=== PATIENT | female | born 1955 | race Caucasian/White ===

== ENCOUNTER → 2016-05-01 | Outpatient (CLI) | payer MEDICARE ==
[~2016-05-01] MED LIST: ASPI81TA85 PO; CALCTAB41 PO; CLIN1CAP5 PO; CLIN1GEL5 EX; DARV100T; MULT1TAB9 PO; VICO5TAB; VITA200010 PO
--- NOTE | 2016-05-04 10:13 | DEXA ---
AP SPINE L1 - L4 0.907 -2.3 -0.4 LT FEMUR TOTAL 0.714 -2.3 -0.9 RT FEMUR TOTAL 0.687 -2.5 -1.1 TOTAL BODY TOTAL L1 0.630 -4.2 -2.2 L1-L2 0.734 -3.6 -1.7 DUAL FEMUR FRAX* ASSESSMENT Risk factors: History of adult fracture, premature menopause 10 year probability of fracture Major osteoporotic fracture 15.8 % Hip fracture 3.4 % COMMENTS: There is low bone density of the spine and hips. Increased density of the spine does not represent a significant change. The decreased density of the left hip does represent a significant change. The decreased density of the right hip does represent a significant change. The density of the spine has decreased 7.8% since the initial exam on 2003. The spine density has increased 1.8% since the most recent exam on 02/12/2014. The density of the left hip has decreased 12.4% since the initial exam on 2003. The density of the left hip has decreased 6.4% since the most recent exam on . The density of the right hip has decreased 15.0% since the initial exam on 06/07. The density of the right hip has decreased 6.5% since the most recent exam on . FOLLOW-UP: Recommendation for the next bone density exam: 2 years. VINH
== END ==
LOC: M WHC 10:11
PROVIDERS: ATTEND Nurse Practitioner Family
DX: M85.80 Other specified disorders of bone density and structure, unspecified site (principal); Z78.0 Asymptomatic menopausal state; Z87.891 Personal history of nicotine dependence

== ENCOUNTER → 2016-05-01 | Outpatient (REF) | payer MEDICARE | LOC: M SFHCWAGY 10:31 | PROVIDERS: ATTEND Nurse Practitioner Family | DX: Z12.4 Encounter for screening for malignant neoplasm of cervix (principal); R87.610 Atypical squamous cells of undetermined significance on cytologic smear of cervix (ASC-US); M85.80 Other specified disorders of bone density and structure, unspecified site; Z78.0 Asymptomatic menopausal state; Z12.12 Encounter for screening for malignant neoplasm of rectum; Z87.891 Personal history of nicotine dependence | CPT/HCPCS: 77080; 82270; 87624; G0101; G0123 ==

== ENCOUNTER → 2016-06-26 | Outpatient (CLI) | payer MEDICARE ==
--- NOTE | 2016-06-26 12:39 | REPMRS ---
Patient History The patient states she had a clinical breast exam in Patient is postmenopausal and has history of cancer in the left breast at age 47. No known family history of cancer. Malignant excisional biopsy of the left breast, 2003. Digital Woman Screen Mammo: June 26, 2016 - Exam #: [id number] Bilateral CC and MLO view(s) were taken. Technologist: Janice Vera, Technologist Prior study comparison: July 17, 2015, bilateral digital mammo screening bilat, performed at [facility]. June 29, 2014, bilateral digital mammo screening bilat, performed at [facility]. June 26, 2013, bilateral digital mammo screening bilat, performed at [facility]. FINDINGS: There are scattered fibroglandular densities. There has been no change in the appearance of the mammogram from the prior studies. There is a needle biopsy marker clip in the left breast. There are stable post treatment changes in the left breast. There is a mild amount of scattered fibroglandular density which is fairly symmetric. There is no interval development of dominant mass, architectural distortion, or clustered microcalcification suggestive of malignancy. ASSESSMENT: BI-RADS/ACR category 2 mammogram. Benign finding(s). Recommendation Routine screening mammogram in 1 year (for women over age 40). This mammogram was interpreted with the aid of an FDA-approved computer-aided dectection system. Electronically Signed By: Emanuel Butler MD 06/26/16 [id number]
== END ==
LOC: M WHC 10:16
PROVIDERS: ATTEND Nurse Practitioner Family
DX: Z12.31 Encounter for screening mammogram for malignant neoplasm of breast (principal)

== ENCOUNTER → 2016-07-23 | Outpatient (CLI) | payer MEDICARE ==
--- NOTE | 2016-07-23 11:20 | REP ---
Clinical: Lung screening. History of cancer. Comparison: 07/19/2015, 09/13/2009 Technique: Axial low-dose noncontrast images from the thoracic inlet to the upper abdomen using lung screening technique. Findings: Moderate diffuse emphysematous changes and bronchiectasis noted along with areas of scarring and fibrosis primarily involving the bilateral apices (right greater than left) as well as the subpleural anterior left upper lobe posterolateral right upper lobe and right lower lobe. There is evidence for prior surgery and right-sided volume loss. While no definite area of acute consolidation, nodule or mass lesion is appreciated, subtle lesion may be obscured by the diffuse chronic findings. Impression: Lung-RADS category 0-C. There is a history of prior malignancy and surgery as well as extensive areas of fibrosis and scarring which severely limit confident evaluation for suspicious nodule/mass. Appropriate future screening should be correlated with user experience lead. Signed by Tyron Maots MD 07/23/2016 11:12 A
== END ==
LOC: M RAD 10:00
PROVIDERS: ATTEND Nurse Practitioner Family
DX: Z12.2 Encounter for screening for malignant neoplasm of respiratory organs (principal); Z87.891 Personal history of nicotine dependence; J44.9 Chronic obstructive pulmonary disease, unspecified

== ENCOUNTER → 2016-12-09 | Outpatient (REF) | payer MEDICARE ==
[~2016-12-09] MED LIST changes: +CLIN150C14 PO; -CLIN1CAP5 PO
[2016-12-09 11:36] LABS: MEAN CORPUSCULAR VOLUME 85.1 fl (80.0-96.0); RED CELL DISTRIBUTION WIDTH 12.8 % (11.5-14.5)
[2016-12-09 12:16] LABS: ALBUMIN 3.6 GM/DL (3.2-5.2); ALBUMIN/GLOBULIN RATIO 1.03 (1.00-1.93); ALKALINE PHOSPHATASE 103 U/L (45-117); ALT/SGPT 13 U/L (12-78); ANION GAP 8 MEQ/L (8-16); AST/SGOT 16 U/L (15-37); BILIRUBIN,TOTAL 0.5 MG/DL (0.2-1.0); BLOOD UREA NITROGEN 8 MG/DL (7-18); CALCIUM LEVEL 8.6 MG/DL (8.8-10.2); CARBON DIOXIDE LEVEL 28 MEQ/L (21-32); CHLORIDE LEVEL 104 MEQ/L (98-107); CREATININE FOR GFR 0.76 MG/DL (0.55-1.02); GLOMERULAR FILTRATION RATE > 60.0 (>45); GLUCOSE, FASTING 85 MG/DL (80-110); POTASSIUM SERUM 4.4 MEQ/L (3.5-5.1); SODIUM LEVEL 140 MEQ/L (136-145); TOTAL PROTEIN 7.1 GM/DL (6.4-8.2)
[2016-12-10 14:13] LABS: SJOGREN'S ANTI SS-A <0.2 AI (0.0-0.9); SJOGREN'S ANTI SS-B <0.2 AI (0.0-0.9)
== END ==
LOC: M SFHCPLAZ 10:16
PROVIDERS: ATTEND Nurse Practitioner Family
DX: M25.50 Pain in unspecified joint (principal); R63.6 Underweight; M85.80 Other specified disorders of bone density and structure, unspecified site; K21.9 Gastro-esophageal reflux disease without esophagitis; Z83.3 Family history of diabetes mellitus; Z79.82 Long term (current) use of aspirin; Z79.899 Other long term (current) drug therapy
CPT/HCPCS: 36415; 80053; 82306; 83036; 84439; 84443; 85027; 85652; 86038; 86431; G0463

== ENCOUNTER → 2016-12-23 | Outpatient (REF) | payer MEDICARE ==
[2016-12-23 16:02] LABS: MAGNESIUM LEVEL 2.2 MG/DL (1.8-2.4)
== END ==
LOC: M SFHCPLAZ 13:58
PROVIDERS: ATTEND Family Medicine
DX: G62.9 Polyneuropathy, unspecified (principal); R76.8 Other specified abnormal immunological findings in serum; R31.9 Hematuria, unspecified
CPT/HCPCS: 81001; 82570; 82607; 83735; 87088; 87186; G0463

== ENCOUNTER → 2016-12-24 | Outpatient (CLI) | payer MEDICARE ==
--- NOTE | 2016-12-24 12:22 | REP ---
LEFT KNEE SERIES: Five views. HISTORY: Polyneuropathy. FINDINGS: Five views of the left knee demonstrate mild diffuse osteopenia. There is some vascular calcification in the proximal calf. Bones, joints, and soft tissues are otherwise unremarkable. IMPRESSION: Diffuse osteopenia. No acute bony abnormality. Signed by Tres Butler MD 12/24/2016 02:38 P
== END ==
LOC: M RAD 10:55
PROVIDERS: ATTEND Family Medicine
DX: G62.9 Polyneuropathy, unspecified (principal); M85.80 Other specified disorders of bone density and structure, unspecified site

== ENCOUNTER → 2017-03-10 | Outpatient (REF) | payer MEDICARE | LOC: M SFHCPLAZ 08:49 | PROVIDERS: ATTEND Nurse Practitioner Family | DX: Z13.220 Encounter for screening for lipoid disorders (principal); Z79.899 Other long term (current) drug therapy ==

== ENCOUNTER → 2017-09-01 | Outpatient (CLI) | payer MEDICARE | LOC: M RAD 15:45 | DX: R91.8 Other nonspecific abnormal finding of lung field (principal); J06.9 Acute upper respiratory infection, unspecified; R07.89 Other chest pain | CPT/HCPCS: 71046 ==

== ENCOUNTER → 2017-09-24 | Outpatient (CLI) | payer MEDICARE | LOC: M RAD 12:11 | DX: J18.1 Lobar pneumonia, unspecified organism (principal); J84.10 Pulmonary fibrosis, unspecified | CPT/HCPCS: 71046 ==

== ENCOUNTER → 2017-09-28 | Outpatient (CLI) | payer MEDICARE | LOC: M WHC 10:50 | DX: Z12.31 Encounter for screening mammogram for malignant neoplasm of breast (principal); Z78.0 Asymptomatic menopausal state; Z85.3 Personal history of malignant neoplasm of breast; Z92.3 Personal history of irradiation; Z92.21 Personal history of antineoplastic chemotherapy | CPT/HCPCS: 77067 ==

== ENCOUNTER → 2017-11-19 | Outpatient (CLI) | payer MEDICARE | LOC: M RAD 11:11 | DX: J98.11 Atelectasis (principal); J84.10 Pulmonary fibrosis, unspecified; J18.1 Lobar pneumonia, unspecified organism | CPT/HCPCS: 71046 ==

== ENCOUNTER → 2017-11-26 | Outpatient (CLI) | payer MEDICARE ==
[2017-11-26 14:04] LABS: BASO % 0.4 % (0.0-1.0); EOS # 0.3 10^3/uL (0.0-0.50); EOS % 3.8 % (0.0-3.0); HEMATOCRIT 33.4 % (36.0-47.0); HEMOGLOBIN 10.6 g/dl (12.0-15.5); IMMATURE GRANULOCYTE % 0.4 % (0-3.0); LYMPH # 1.6 10^3/uL (1.5-4.5); LYMPH % 19.3 % (24.0-44.0); MEAN CORPUSCULAR HEMOGLOBIN 26.8 pg (27.0-33.0); MEAN CORPUSCULAR HGB CONC 31.7 g/dl (32.0-36.5); MEAN CORPUSCULAR VOLUME 84.3 fl (80.0-96.0); MONO # 0.6 10^3/uL (0.0-0.8); MONO % 7.3 % (0.0-5.0); NEUTROPHILS # 5.9 10^3/uL (1.8-7.7); NEUTROPHILS % 68.8 % (36.0-66.0); PLATELET COUNT, AUTOMATED 225 10^3/uL (150-450); RED BLOOD COUNT 3.96 10^6/uL (4.00-5.40); RED CELL DISTRIBUTION WIDTH 13.9 % (11.5-14.5); WHITE BLOOD COUNT 8.5 10^3/uL (4.0-10.0)
[2017-11-26 14:32] LABS: ALBUMIN 2.9 GM/DL (3.2-5.2); ALBUMIN/GLOBULIN RATIO 0.69 (1.00-1.93); ALKALINE PHOSPHATASE 92 U/L (45-117); ALT/SGPT 18 U/L (12-78); ANION GAP 8 MEQ/L (8-16); AST/SGOT 20 U/L (7-37); BILIRUBIN,TOTAL 0.3 MG/DL (0.2-1.0); BLOOD UREA NITROGEN 9 MG/DL (7-18); CALCIUM LEVEL 8.8 MG/DL (8.8-10.2); CARBON DIOXIDE LEVEL 29 MEQ/L (21-32); CHLORIDE LEVEL 105 MEQ/L (98-107); GLOMERULAR FILTRATION RATE > 60.0 (>45); GLUCOSE, FASTING 80 MG/DL (70-100); POTASSIUM SERUM 4.6 MEQ/L (3.5-5.1); SODIUM LEVEL 142 MEQ/L (136-145); TOTAL PROTEIN 7.1 GM/DL (6.4-8.2)
[2017-11-26 14:33] LABS: FREE T4 1.13 NG/DL (0.76-1.46)
[2017-11-26 14:40] LABS: TOTAL 25(OH) VITAMIN D 55.5 NG/ML (30.0-100.0)
== END ==
LOC: M RAD 13:05
DX: R63.6 Underweight (principal); K21.9 Gastro-esophageal reflux disease without esophagitis; Z87.891 Personal history of nicotine dependence; M85.80 Other specified disorders of bone density and structure, unspecified site; Z79.899 Other long term (current) drug therapy
CPT/HCPCS: G0297

== ENCOUNTER → 2017-12-07 | Outpatient (REF) | payer MEDICARE ==
[2017-12-07 17:49] LABS: PLATELET COUNT, AUTOMATED 177 10^3/uL (150-450)
[2017-12-07 18:12] LABS: INR 1.04; PROTHROMBIN TIME 13.7 SECONDS (12.1-14.4)
[2017-12-07 18:13] LABS: PARTIAL THROMBOPLASTIN TIME 33.9 SECONDS (25.4-37.6)
== END ==
LOC: M LAB REF 16:53
DX: Z01.812 Encounter for preprocedural laboratory examination (principal); R91.8 Other nonspecific abnormal finding of lung field; Z79.01 Long term (current) use of anticoagulants
CPT/HCPCS: 85049

== ENCOUNTER → 2017-12-16 | Outpatient (CLI) | payer MEDICARE ==
[~2017-12-16] MED LIST changes: -ASPI81TA85 PO; -CALCTAB41 PO; -CLIN150C14 PO; -CLIN1GEL5 EX; -DARV100T; +LIDOCAINE 1% MDV 20ML VIAL As Ordered; -MULT1TAB9 PO; -VICO5TAB; -VITA200010 PO
== END ==
LOC: M RADPRO 10:48
DX: R91.8 Other nonspecific abnormal finding of lung field (principal); Z79.82 Long term (current) use of aspirin; Z79.899 Other long term (current) drug therapy; Z88.0 Allergy status to penicillin
CPT/HCPCS: 32405

== ENCOUNTER → 2018-03-09 | Outpatient (CLI) | payer MEDICARE ==
[2018-03-09 15:12] LABS: BASO % 0.4 % (0.0-1.0); EOS # 0.3 10^3/uL (0.0-0.50); EOS % 3.8 % (0.0-3.0); HEMATOCRIT 36.9 % (36.0-47.0); HEMOGLOBIN 11.5 g/dl (12.0-15.5); IMMATURE GRANULOCYTE % 0.4 % (0-3.0); LYMPH # 1.7 10^3/uL (1.5-4.5); LYMPH % 22.1 % (24.0-44.0); MEAN CORPUSCULAR HEMOGLOBIN 26.7 pg (27.0-33.0); MEAN CORPUSCULAR HGB CONC 31.2 g/dl (32.0-36.5); MEAN CORPUSCULAR VOLUME 85.8 fl (80.0-96.0); MONO # 0.6 10^3/uL (0.0-0.8); MONO % 7.6 % (0.0-5.0); NEUTROPHILS # 5.2 10^3/uL (1.8-7.7); NEUTROPHILS % 65.7 % (36.0-66.0); PLATELET COUNT, AUTOMATED 200 10^3/uL (150-450); RED CELL DISTRIBUTION WIDTH 13.8 % (11.5-14.5); WHITE BLOOD COUNT 7.9 10^3/uL (4.0-10.0)
[2018-03-09 15:32] LABS: FERRITIN 32 NG/ML (8-252); IRON (FE) 41 UG/DL (50-170); PERCENT SATURATION 12.9 % (13.2-45.0); TOTAL IRON BINDING CAPACITY 319 UG/DL (250-450)
== END ==
LOC: M LAB 13:33
DX: D50.8 Other iron deficiency anemias (principal)
CPT/HCPCS: 83550

== ENCOUNTER → 2018-03-15 | Outpatient (CLI) | payer MEDICARE | LOC: M RAD 11:10 | DX: R91.8 Other nonspecific abnormal finding of lung field (principal); J44.9 Chronic obstructive pulmonary disease, unspecified | CPT/HCPCS: 71250 ==

== ENCOUNTER → 2018-04-13 | Outpatient (CLI) | payer MEDICARE ==
[~2018-04-13] MED LIST changes: +ASPI81TA85 PO; +CALCTAB41 PO; +CLIN150C14 PO; +CLIN1GEL5 EX; +DARV100T; -LIDOCAINE 1% MDV 20ML VIAL As Ordered; +MULT1TAB9 PO; +VICO5TAB; +VITA200010 PO
--- NOTE | 2018-04-13 18:19 | REP ---
PET/CT: History: Abnormal lung field finding. 4 cm right upper lobe cavitary mass. There is a history of prior left breast malignancy, status post radiation therapy and chemotherapy in 2002. The patient also is status post prior right lobectomy for micro abscesses. Comparisons: Comparison CT study of the chest is from March 15, 2018. Comparison PET-CT September 26, 2009. TECHNIQUE: 58 minutes following the intravenous injection of a 8.2 mCi dose of F-18 FDG, three-dimensional PET scintigraphy is acquired from the skull base to the proximal thighs. Triplanar noncontrast CT scanning is acquired through the same anatomic range for attenuation correction, and image registration with scan parameters optimized to minimize radiation exposure to the patient. PET scintigraphy and CT datasets were fused and displayed on a workstation with multiplanar and projection display capability. PET/CT Findings: The periphery of the large right upper lobe cavitary mass lesion is hypermetabolic. The bulk of the margin of this mass ranges from 4.8 to 6.2 in maximum standard uptake value. Along the inferior aspect of the mass there is a nodular area with a somewhat higher metabolism. Maximum standard uptake value along the inferior aspect of this is 8.3. This is the location where the recent CT guided needle biopsy needle was placed. In addition, there is a focus of hypermetabolic uptake in the right lung posteriorly adjacent to the right hilus. This area measures approximately 1.1 cm in diameter. Maximum standard uptake value is 7.6. There is a mediastinal lymph node anterior to the trachea which measures 8 x 17 mm. This has a maximum standard uptake value of 3.2. On today's accompanying CT, caudal to the cavitary lesion, there is a nodular infiltrative pattern in the right lung which appears more prominent than on March 15, 2018. There is patchy metabolic activity within this infiltrative opacity. Maximum standard uptake value ranges up to 2.8. There is nonhypermetabolic activity in the subpleural fibrosis along the anterolateral chest wall on the left in the left upper lobe. This is compatible with postradiation change. No other abnormal intrathoracic hypermetabolic uptake is seen. Head and neck soft tissues are unremarkable. No abnormal skeletal hypermetabolic uptake is observed. In the abdomen and pelvis, there is normal distribution of F-18 fluorodeoxyglucose. No abnormal abdominal or pelvic hypermetabolic activity is seen. IMPRESSION: Hypermetabolic uptake noted in the right hemithorax in and about the cavitary mass as well as in an infiltrative/nodular opacity below the cavitary lesion in the right upper lobe. There is a right perihilar focus of hypermetabolic uptake as well. There is a mediastinal lymph node anterior to the trachea with maximum standard uptake value of 3.2 as well. Electronically Signed by Tres Butler MD 04/13/2018 08:47 P
== END ==
LOC: M PLARAD 07:38
PROVIDERS: ATTEND Internal Medicine Pulmonary Disease
DX: R91.8 Other nonspecific abnormal finding of lung field (principal)
CPT/HCPCS: 78815; A9552

== ENCOUNTER → 2018-04-21 | Outpatient (CLI) | payer MEDICARE ==
[2018-04-21 08:07] LABS: ABG BASE EXCESS 0.5 (-2.0-2.0); ABG HCO3 24.2 MEQ/L (22.0-26.0); ABG O2 SATURATION 97.5 % (95.0-99.0); ABG PARTIAL PRESSURE CO2 35.5 mmHg (35.0-45.0); ABG PARTIAL PRESSURE O2 92.3 mmHg (75.0-100.0); ABG STANDARD HCO3 24.9 MEQ/L (22.0-26.0); ABG TOTAL CO2 25.3 MEQ/L (23.0-31.0); ABG pH (ARTERIAL) 7.451 UNITS (7.350-7.450)
--- NOTE | 2018-04-21 08:25 | PFTRPT ---
Height: 64.00 Inches Weight: 109.00 Lbs BSA: 1.51 Diagnosis: R05 DATE OF PROCEDURE: 04/21/2018 ORDERED BY: Dr. Vasquez Spirometry: Pre and post bronchodilator study of excellent technical quality. Forced vital capacity reduced. FEV1 in proportion. Obstructive index is, therefore, normal. Flow Volume Loop: Expiratory limb of the flow volume loop does suggest some degree of flow rate limitation. No significant bronchodilator response is identified. Lung Volumes: Total lung capacity normal. Residual volume does suggest maybe a degree of air trapping. Diffusing Capacity: Diffusing capacity, although reduced, is appropriate for alveolar volume. Hemoglobin: Hemoglobin acceptable at 12.8. Airway Mechanics: Airway resistance and conductance are normal. IMPRESSION: Nonspecific flow rate limitation. Cannot rule out air trapping. Decrease in the absolute diffusing capacity. Please correlate clinically. MTDD
== END ==
LOC: M CARPUL 07:21
PROVIDERS: ATTEND Internal Medicine Pulmonary Disease
DX: R05 Cough (principal); R91.8 Other nonspecific abnormal finding of lung field

== ENCOUNTER → 2018-04-28 | Outpatient (REF) | payer MEDICARE ==
[~2018-04-28] MED LIST changes: +ACET1TAB55 PO; +ALEN70TA57 PO; +ASPI1TAB PO; +CALC1TAB19 PO; +PROAAER10 INH; +VITA2000 PO; +VITMTA PO
[2018-04-28 15:01] LABS: INR 0.85; PROTHROMBIN TIME 11.7 SECONDS (12.1-14.4)
[2018-04-28 15:02] LABS: PARTIAL THROMBOPLASTIN TIME 36.6 SECONDS (25.4-37.6)
== END ==
LOC: M LAB REF 13:30
PROVIDERS: ATTEND Internal Medicine Pulmonary Disease
DX: Z01.812 Encounter for preprocedural laboratory examination (principal); R91.8 Other nonspecific abnormal finding of lung field

== ENCOUNTER → 2018-05-09 | Outpatient (CLI) | payer MEDICARE ==
[~2018-05-09] MED LIST changes: +LIDOCAINE 1% MDV 20ML VIAL As Ordered ONE
--- NOTE | 2018-05-09 11:11 | REP ---
CHEST X-RAY: Single PA view. HISTORY: Post biopsy assessment. The patient status post CT guided needle biopsy right upper lung zone. FINDINGS: There is no evidence of pneumothorax. Cavitary changes persist with pleural thickening and some nodularity in the right upper lobe region. IMPRESSION: No pneumothorax seen. Electronically Signed by Tres Butler MD 05/09/2018 08:10 P
--- NOTE | 2018-05-09 20:19 | REP ---
CT-GUIDED RIGHT UPPER LOBE LUNG BIOPSY The procedure was performed under the direct supervision of Dr. Butler. The patient has a history of hypermetabolic uptake in the right hemithorax in and about the cavitary mass seen on a previous PET scan dated 04/13/2018. The risks and benefits of the procedure were explained to the patient and informed consent was obtained. The right upper lobe lung mass was localized using CT guidance. The skin was prepped and draped in a sterile fashion. 1% lidocaine was used as a local anesthetic. Using CT guidance a 19/20 gauge coaxial needle biopsy system was inserted and advanced into the mass. Six core biopsy samples were obtained and sent to lab. The patient tolerated the procedure well and there were no immediate complications. After the appropriate amount of monitored convalescence the patient was discharged from the department. Reviewed by ANTHONY Patricia 05/09/2018 05:13 P Electronically Signed by Tres Butler MD 05/09/2018 08:09 P
== END ==
LOC: M RADPRO 08:15
PROVIDERS: ATTEND Internal Medicine Pulmonary Disease
DX: J98.4 Other disorders of lung (principal); Z85.3 Personal history of malignant neoplasm of breast; M81.0 Age-related osteoporosis without current pathological fracture; Z98.890 Other specified postprocedural states; Z87.891 Personal history of nicotine dependence; Z88.0 Allergy status to penicillin; Z79.899 Other long term (current) drug therapy

== ENCOUNTER → 2018-07-11 | Outpatient (CLI) | payer MEDICARE ==
[~2018-07-11] MED LIST changes: -LIDOCAINE 1% MDV 20ML VIAL As Ordered ONE
[2018-07-11 09:49] LABS: HEMATOCRIT 33.9 % (36.0-47.0); HEMOGLOBIN 10.4 g/dl (12.0-15.5); MEAN CORPUSCULAR HEMOGLOBIN 25.2 pg (27.0-33.0); MEAN CORPUSCULAR HGB CONC 30.7 g/dl (32.0-36.5); MEAN CORPUSCULAR VOLUME 82.3 fl (80.0-96.0); PLATELET COUNT, AUTOMATED 290 10^3/uL (150-450); RED BLOOD COUNT 4.12 10^6/uL (4.00-5.40); WHITE BLOOD COUNT 10.6 10^3/uL (4.0-10.0)
[2018-07-11 10:13] LABS: ALT/SGPT 13 U/L (12-78); BILIRUBIN,TOTAL 0.6 MG/DL (0.2-1.0); BLOOD UREA NITROGEN 14 MG/DL (7-18); CALCIUM LEVEL 9.4 MG/DL (8.8-10.2); CARBON DIOXIDE LEVEL 29 MEQ/L (21-32); CHLORIDE LEVEL 98 MEQ/L (98-107); CREATININE FOR GFR 0.82 MG/DL (0.55-1.30); FERRITIN 184 NG/ML (8-252); GLOMERULAR FILTRATION RATE > 60.0 (>45); GLUCOSE, FASTING 108 MG/DL (70-100); POTASSIUM SERUM 4.1 MEQ/L (3.5-5.1); SODIUM LEVEL 134 MEQ/L (136-145); TOTAL PROTEIN 7.3 GM/DL (6.4-8.2)
[2018-07-11 10:21] LABS: TOTAL 25(OH) VITAMIN D 77.3 NG/ML (30.0-100.0)
== END ==
LOC: M LAB 08:32
PROVIDERS: ATTEND Nurse Practitioner Family
DX: D50.8 Other iron deficiency anemias (principal); R63.6 Underweight; M85.80 Other specified disorders of bone density and structure, unspecified site

== ENCOUNTER → 2018-07-19 | Outpatient (CLI) | payer MEDICARE ==
--- NOTE | 2018-07-19 13:47 | REP ---
LUMBAR SPINE, FIVE VIEWS: HISTORY: Left sciatica. There is no acute fracture or subluxation. The L2-3 through L5-S1 intervertebral discs are decreased in height consistent with disc degeneration. There is narrowing of the L4-5 and L5-S1 facet joints. The patient is status post stenting of an abdominal aortic aneurysm. IMPRESSION: Degenerative change as described above. Electronically Signed by Mo Spencer MD 07/19/2018 01:56 P
== END ==
LOC: M RAD 09:44
PROVIDERS: ATTEND Nurse Practitioner Family
DX: M51.37 Other intervertebral disc degeneration, lumbosacral region (principal); Z95.828 Presence of other vascular implants and grafts

== ENCOUNTER → 2018-08-12 | Outpatient (REF) | payer MEDICARE ==
[~2018-08-12] MED LIST changes: -ALEN70TA57 PO; +ALEN70TA74 PO; -ASPI1TAB PO; +ASPI81TA26 PO
[2018-08-12 12:21] LABS: BASO % 0.4 % (0.0-1.0); EOS # 0.2 10^3/uL (0.0-0.50); EOS % 2.5 % (0.0-3.0); HEMATOCRIT 35.5 % (36.0-47.0); HEMOGLOBIN 10.8 g/dl (12.0-15.5); LYMPH # 1.1 10^3/uL (1.5-4.5); LYMPH % 15.7 % (24.0-44.0); MEAN CORPUSCULAR HEMOGLOBIN 25.6 pg (27.0-33.0); MEAN CORPUSCULAR HGB CONC 30.4 g/dl (32.0-36.5); MEAN CORPUSCULAR VOLUME 84.1 fl (80.0-96.0); MONO # 0.6 10^3/uL (0.0-0.8); MONO % 8.7 % (0.0-5.0); NEUTROPHILS # 5.2 10^3/uL (1.8-7.7); NEUTROPHILS % 72.1 % (36.0-66.0); PLATELET COUNT, AUTOMATED 324 10^3/uL (150-450); RED BLOOD COUNT 4.22 10^6/uL (4.00-5.40); WHITE BLOOD COUNT 7.2 10^3/uL (4.0-10.0)
[2018-08-12 12:24] LABS: APPEARANCE, URINE CLEAR (CLEAR); BACTERIA, URINE AUTO 1+ (NEGATIVE); BILIRUBIN, URINE AUTO NEGATIVE (NEGATIVE); BLOOD, URINE BLOOD NEGATIVE (NEGATIVE); COLOR, URINE YELLOW (YELLOW); GLUCOSE, URINE (UA) AUTO NEGATIVE (NEGATIVE); KETONE, URINE AUTO NEGATIVE (NEGATIVE); LEUKOCYTE ESTERASE, URINE AUTO NEGATIVE (NEGATIVE); MUCUS, URINE SMALL (NEGATIVE); NITRITE, URINE AUTO NEGATIVE (NEGATIVE); PROTEIN, URINE AUTO NEGATIVE (NEGATIVE); RBC, URINE AUTO 3 /HPF (0-3); SQUAMOUS EPITHELIAL CELL UR AU 10 /HPF (0-6); UROBILINOGEN, URINE AUTO 0.2 mg/dL (0.0-2.0); WBC, URINE AUTO 1 /HPF (0-3)
[2018-08-12 14:14] LABS: ALBUMIN 3.2 GM/DL (3.2-5.2); ALT/SGPT 19 U/L (12-78); BILIRUBIN,TOTAL 0.3 MG/DL (0.2-1.0); BLOOD UREA NITROGEN 11 MG/DL (7-18); CALCIUM LEVEL 9.3 MG/DL (8.8-10.2); CARBON DIOXIDE LEVEL 29 MEQ/L (21-32); CHLORIDE LEVEL 103 MEQ/L (98-107); CHOLESTEROL LEVEL 207 MG/DL (<200); CHOLESTEROL RISK RATIO 3.696 (<5); CREATININE FOR GFR 0.74 MG/DL (0.55-1.30); GLOMERULAR FILTRATION RATE > 60.0 (>45); GLUCOSE, FASTING 77 MG/DL (70-100); HDL CHOLESTEROL 56 MG/DL (>40); LDL CHOLESTEROL 132 MG/DL (<100); NON-HDL-C 151 MG/DL; POTASSIUM SERUM 4.4 MEQ/L (3.5-5.1); SODIUM LEVEL 139 MEQ/L (136-145); TOTAL PROTEIN 7.1 GM/DL (6.4-8.2); TRIGLYCERIDES LEVEL 94 MG/DL (<150)
[2018-08-12 16:53] LABS: HIV 1&2 SCREEN CENTAUR NEGATIVE (NEGATIVE)
== END ==
LOC: M SFHCPLAZ 08:27
PROVIDERS: ATTEND Family Medicine
DX: D50.8 Other iron deficiency anemias (principal); R63.4 Abnormal weight loss; Z13.220 Encounter for screening for lipoid disorders; J43.2 Centrilobular emphysema
CPT/HCPCS: 36415; 80053; 80061; 81001; 83036; 84443; 85025; 87389; G0463; G0472

== ENCOUNTER → 2018-08-23 | Outpatient (RCR) | payer MEDICARE | LOC: M PT 07-27 11:51 | PROVIDERS: ATTEND Nurse Practitioner Family | DX: M54.5 Low back pain (principal) ==

== ENCOUNTER 2018-09-08 09:40 | Emergency (ER) | payer MEDICARE, MEDICAID ==
[~2018-09-08] VITALS: Ht 162.6 cm; Wt 47.3 kg
[2018-09-08 09:41] VITALS: BP 128/76
== END 2018-09-08 10:48 | disposition home or self-care (01) ==
LOC: M ED 09:40
DX: Z04.89 Encounter for examination and observation for other specified reasons (principal); J44.9 Chronic obstructive pulmonary disease, unspecified; Z79.899 Other long term (current) drug therapy; Z79.82 Long term (current) use of aspirin; Z88.0 Allergy status to penicillin; Z87.891 Personal history of nicotine dependence
CPT/HCPCS: 99283; G0463

== ENCOUNTER 2018-09-21 09:45 | Outpatient (RCR) | payer MEDICARE | END 2018-09-23 | LOC: M PT 09:45 | PROVIDERS: ATTEND Nurse Practitioner Family | DX: M54.5 Low back pain (principal) ==

== ENCOUNTER → 2018-10-26 | Outpatient (CLI) | payer MEDICARE, MEDICAID ==
--- NOTE | 2018-11-03 09:01 | DEXA ---
AP SPINE L1 - L4 0.823 -3.0 -1.5 LT FEMUR TOTAL 0.676 -2.6 -1.5 LT NECK 0.678 -2.6 -1.2 RT FEMUR TOTAL 0.653 -2.8 -1.7 RT NECK 0.696 -2.5 -1.1 TOTAL BODY TOTAL OTHER COMMENTS: There is low bone density of the right hip. There is osteoporosis of the spine. There is osteoporosis of the left hip. The decreased density of the spine does represent a significant change. The decreased density of the left hip does represent a significant change. The decreased density of the right hip does represent a significant change. The density of the spine has decreased 16.4% since the initial exam on 06/07/2003. The spine density has decreased 9.3% since the most recent exam on 05/01/2016. The density of the left hip has decreased 17.1% since the initial exam on 06/07/2003. The density of the left hip has decreased 5.3% since the most recent exam on 05/01/2016. The density of the right hip has decreased 19.2% since the initial exam on 06/07/2003. The density of the right hip has decreased 4.9% since the most recent exam on 05/01/2016. FOLLOW-UP: Recommendation for the next bone density exam: 2 years. VINH
== END ==
LOC: M WHC 13:48
PROVIDERS: ATTEND Nurse Practitioner Family
DX: M81.0 Age-related osteoporosis without current pathological fracture (principal)

== ENCOUNTER → 2018-11-29 | Outpatient (CLI) | payer MEDICARE, MEDICAID ==
[2018-11-29 09:18] LABS: HEMATOCRIT 37.6 % (36.0-47.0); HEMOGLOBIN 11.8 g/dl (12.0-15.5); MEAN CORPUSCULAR HEMOGLOBIN 26.8 pg (27.0-33.0); MEAN CORPUSCULAR HGB CONC 31.4 g/dl (32.0-36.5); MEAN CORPUSCULAR VOLUME 85.3 fl (80.0-96.0); PLATELET COUNT, AUTOMATED 174 10^3/uL (150-450); RED BLOOD COUNT 4.41 10^6/uL (4.00-5.40); WHITE BLOOD COUNT 7.3 10^3/uL (4.0-10.0)
[2018-11-29 09:47] LABS: ALBUMIN 3.2 GM/DL (3.2-5.2); ALT/SGPT 19 U/L (12-78); BILIRUBIN,TOTAL 0.3 MG/DL (0.2-1.0); BLOOD UREA NITROGEN 12 MG/DL (7-18); CALCIUM LEVEL 9.2 MG/DL (8.8-10.2); CARBON DIOXIDE LEVEL 32 MEQ/L (21-32); CHLORIDE LEVEL 103 MEQ/L (98-107); CREATININE FOR GFR 0.86 MG/DL (0.55-1.30); FERRITIN 61 NG/ML (8-252); FREE T4 1.08 NG/DL (0.76-1.46); GLOMERULAR FILTRATION RATE > 60.0 (>45); GLUCOSE, FASTING 89 MG/DL (70-100); POTASSIUM SERUM 4.1 MEQ/L (3.5-5.1); SODIUM LEVEL 140 MEQ/L (136-145); TOTAL PROTEIN 7.1 GM/DL (6.4-8.2)
--- NOTE | 2018-11-30 04:37 | REP ---
Clinical: Lung screening. History smoking. Comparison: 03/15/2018, 11/26/2017 Technique: Axial low-dose noncontrast images from the thoracic inlet to the upper abdomen using lung screening technique. Findings: Bilateral areas of ill-defined consolidation primarily involving the apices and right upper lobe as well as apical right lower lobe segments including an ill irregular cavitary lesion in the right upper lobe appear relatively similar to prior examination. Chronic bronchiectasis with scattered fibrosis and scarring also noted bilaterally. New diffuse reticulonodular infiltrates are identified primarily involving the bilateral upper lobes as well as the lingula and right base. Differential diagnosis includes chronic changes with superimposed acute infiltrate versus malignancy/metastatic disease. Impression: Lung-RADS category 4X-C. Chronic changes related to malignancy and/or granulomas disease with superimposed acute reticulonodular infiltrates. Pulmonary consultation as well as correlation with history is recommended. If necessary, PET-CT as well as tissue sampling should be considered. Electronically Signed by Tyron Matos MD 11/30/2018 04:29 A
== END ==
LOC: M RAD 08:27
PROVIDERS: ATTEND Nurse Practitioner Family
DX: R91.8 Other nonspecific abnormal finding of lung field (principal); Z87.891 Personal history of nicotine dependence
CPT/HCPCS: 36415; 80053; 82728; 84439; 84443; 85027; G0297

== ENCOUNTER → 2019-01-05 | Outpatient (REF) | payer MEDICARE, MEDICAID ==
[2019-01-07 15:06] LABS: HPV HYBRID CAPTURE II Negative (Negative)
== END ==
LOC: M SFHCWAGY 14:19
PROVIDERS: ATTEND Nurse Practitioner Family
DX: Z12.4 Encounter for screening for malignant neoplasm of cervix (principal)
CPT/HCPCS: 87624; G0123

== ENCOUNTER → 2019-01-05 | Outpatient (CLI) | payer MEDICARE, MEDICAID ==
--- NOTE | 2019-01-05 14:45 | REPMRS ---
Patient History The patient states she had a clinical breast exam in 12/2018. No known family history of cancer. Malignant excisional biopsy of the left breast, 2004. Took tamoxifen for 5 years. 3D TOMOSYNTHESIS WAS PERFORMED. Digital Woman Screen Mammo: January 05, 2019 - Exam #: [id number] Bilateral CC and MLO view(s) were taken. Technologist: Dina Ortega, Technologist Prior study comparison: September 28, 2017, digital woman screen mammo performed at [facility]. June 26, 2016, digital woman screen mammo performed at [facility] [employer] [facility]. FINDINGS: The breast tissue is heterogeneously dense. This may lower the sensitivity of mammography. There has been no change in the appearance of the mammogram from the prior studies. There is a moderate amount of residual fibroglandular tissue which is fairly symmetric. There is no interval development of dominant mass, areas of architectural distortion, or clustered microcalcification typical of malignancy. Assessment: BI-RADS/ACR category 1 mammogram. Negative Mammogram. Recommendation Routine screening mammogram in 1 year (for women over age 40). This mammogram was interpreted with the aid of an FDA-approved computer-aided dectection system. Electronically Signed By: Shai Jacobson MD 01/05/19 [id number]
== END ==
LOC: M WHC 13:30
PROVIDERS: ATTEND Nurse Practitioner Family
DX: Z01.419 Encounter for gynecological examination (general) (routine) without abnormal findings (principal); Z12.31 Encounter for screening mammogram for malignant neoplasm of breast; Z85.3 Personal history of malignant neoplasm of breast; Z92.29 Personal history of other drug therapy
CPT/HCPCS: 77063; 77067; 87624; G0123; G0463

== ENCOUNTER → 2019-02-24 | Outpatient (CLI) | payer MEDICARE, MEDICAID ==
[~2019-02-24] MED LIST changes: +GASTROGRAFIN SOLUTION 30ML (Q9963) As Ordered ONE; +ISOVUE-370 76% 100ML VIAL (Q9967) As Ordered ONE
--- NOTE | 2019-02-24 14:36 | REP ---
Clinical: Abdominal left lower quadrant pain. Technique: Axial contrast enhanced images from the lung bases to the pubic symphysis using oral (per protocol) and 100 ml Isovue 370 intravenous contrast material with precontrast and delayed images of the abdomen as well as coronal and sagittal re-formations. Findings: Lung bases demonstrate emphysematous disease and scattered scarring. Liver, spleen, pancreas, gallbladder, bilateral adrenal glands and kidneys are normal. The enteric system suggests fecal stasis and possible constipation without obstruction or acute inflammatory process. Pelvis demonstrates normal bladder and age-appropriate uterus/adnexa. No ascites. No free air. No adenopathy. Atherosclerotic changes to the aorta noted with infrarenal aortic stent. No aneurysm or dissection. Musculoskeletal structures demonstrate age-related changes without focal abnormality. Impression: Fecal stasis and possible constipation. No acute abdominopelvic pathology appreciated. Electronically Signed by Tyron Matos MD 02/24/2019 02:27 P
== END ==
LOC: M RAD 12:29
PROVIDERS: ATTEND Nurse Practitioner Family
DX: K59.8 Other specified functional intestinal disorders (principal); R10.32 Left lower quadrant pain
CPT/HCPCS: 74178; G0463; Q9963; Q9967

== ENCOUNTER → 2019-02-28 | Outpatient (CLI) | payer MEDICARE, MEDICAID ==
[~2019-02-28] MED LIST changes: -GASTROGRAFIN SOLUTION 30ML (Q9963) As Ordered ONE; -ISOVUE-370 76% 100ML VIAL (Q9967) As Ordered ONE
--- NOTE | 2019-03-01 07:33 | REP ---
Clinical: Follow-up pulmonary nodule. Comparison: 11/29/2018. Technique: Axial noncontrast images from the thoracic inlet to the upper abdomen with coronal and sagittal re-formations. Findings: Significant chronic-appearing changes related to prior malignancy and granulomatous disease (right greater than left) are again noted. Recent prior examination demonstrated increased areas of reticular nodular and tree in bud infiltrates which appear to have subsequently resolved/improved. No obvious new process is appreciated. No effusion. No obvious adenopathy. Calcified lymph nodes and postsurgical changes are appreciated. Musculoskeletal structures are intact without focal osseous abnormality. Impression: Ill-defined areas of opacity including cavitary lesions with surrounding areas of consolidation/mass and scattered reticulonodular infiltrates are similar to multiple prior examinations. Recently identified increased tree in bud and reticulonodular infiltrates have improved / resolved and likely represented subsequent superimposed pneumonitis. Given the patient's findings and history, 6-month follow-up examination may be warranted. Electronically Signed by Tyron Matos MD 03/01/2019 07:24 A
== END ==
LOC: M RAD 08:52
PROVIDERS: ATTEND Internal Medicine Pulmonary Disease
DX: R91.8 Other nonspecific abnormal finding of lung field (principal)

== ENCOUNTER → 2019-03-18 | Outpatient (CLI) | payer MEDICARE, MEDICAID ==
--- NOTE | 2019-03-21 19:14 | SLEEPCENT ---
DATE OF PROCEDURE: 03/18/2019 REFERRING PHYSICIAN: BRAYDON Pineda INTERPRETATION Nocturnal polysomnography was performed for evaluation of sleep apnea syndrome symptoms consisting of excessive daytime sleepiness, insomnia, snoring, morning headaches, nonrestorative sleep. A total of 8 hours and 30 minutes of data was reviewed with 431 minutes of sleep identified. Sleep latency was 11 minutes. REM latency was 134.5 minutes. All stages of sleep were observed. Sleep efficiency was 86.5%. EKG showed normal sinus rhythm with an average heart rate of 56 beats per minute. No epileptiform discharge observed. There were nine respiratory events identified of 10 seconds in duration or longer for an AHI of 1.3. The events were predominantly obstructive hypopnea/apneas. Respiratory event related arousal (RERA) index was 0, giving a total respiratory disturbance index (RDI) of 1.3. Mean oxygen saturation for the study was 95% with a minimum recorded value of 90%. Arousal index was 6. Periodic limb movement index was 9.5. IMPRESSION: 1. Snoring, minimal, with no evidence of significant sleep disordered breathing. 2. Periodic limb movements, mild. RECOMMENDATIONS Recommend consideration given to other possible causes for her symptoms including but not limited to, narcolepsy, sleep insufficiency, medications, or other. VINH
== END ==
LOC: M SLEEP 20:00
PROVIDERS: ATTEND Internal Medicine Pulmonary Disease
DX: G47.61 Periodic limb movement disorder (principal); R06.83 Snoring

== ENCOUNTER → 2019-03-30 | Outpatient (REF) | payer MEDICARE, MEDICAID ==
[2019-03-30 12:23] LABS: HEMATOCRIT 37.3 % (36.0-47.0); HEMOGLOBIN 11.4 g/dl (12.0-15.5); MEAN CORPUSCULAR HEMOGLOBIN 26.9 pg (27.0-33.0); MEAN CORPUSCULAR HGB CONC 30.6 g/dl (32.0-36.5); PLATELET COUNT, AUTOMATED 159 10^3/uL (150-450); RED BLOOD COUNT 4.24 10^6/uL (4.00-5.40)
[2019-03-30 12:46] LABS: BLOOD UREA NITROGEN 18 MG/DL (7-18); CALCIUM LEVEL 9.2 MG/DL (8.8-10.2); CARBON DIOXIDE LEVEL 29 MEQ/L (21-32); CHLORIDE LEVEL 104 MEQ/L (98-107); CREATININE FOR GFR 0.84 MG/DL (0.55-1.30); FERRITIN 44 NG/ML (8-252); GLOMERULAR FILTRATION RATE > 60.0 (>45); GLUCOSE, FASTING 88 MG/DL (70-100); POTASSIUM SERUM 4.5 MEQ/L (3.5-5.1); SODIUM LEVEL 140 MEQ/L (136-145); TOTAL 25(OH) VITAMIN D 80.1 NG/ML (30.0-100.0)
== END ==
LOC: M SFHCPLAZ 09:31
PROVIDERS: ATTEND Nurse Practitioner Family
DX: G25.81 Restless legs syndrome (principal); M81.0 Age-related osteoporosis without current pathological fracture

== ENCOUNTER 2019-05-24 15:37 | Emergency (ER) | payer MEDICARE, MEDICAID ==
[~2019-05-24] VITALS: Ht 162.6 cm; Wt 44.9 kg
[2019-05-24] MEDS ORDERED: OMEP-221 (16:07)
[2019-05-24] MEDS ORDERED: ROPI0.5T (16:07)
[2019-05-24 16:08] LABS: BASO % 0.4 % (0.0-1.0); EOS # 0.3 10^3/uL (0.0-0.5); HEMATOCRIT 38.4 % (36.0-47.0); HEMOGLOBIN 11.8 g/dl (12.0-15.5); LYMPH # 1.8 10^3/uL (1.5-5.0); LYMPH % 21.6 % (24.0-44.0); MEAN CORPUSCULAR HEMOGLOBIN 26.6 pg (27.0-33.0); MEAN CORPUSCULAR HGB CONC 30.7 g/dl (32.0-36.5); MEAN CORPUSCULAR VOLUME 86.7 fl (80.0-96.0); MONO # 0.7 10^3/uL (0.0-0.8); MONO % 8.6 % (0.0-5.0); NEUTROPHILS # 5.4 10^3/uL (1.5-8.5); PLATELET COUNT, AUTOMATED 231 10^3/uL (150-450); RED BLOOD COUNT 4.43 10^6/uL (4.00-5.40); WHITE BLOOD COUNT 8.2 10^3/uL (4.0-10.0)
[2019-05-24] MEDS ORDERED: ACETAMINOPHEN TAB 650MG DOSE (2X325MG) PO ONE (16:30)
--- NOTE | 2019-05-24 16:37 | REP ---
CHEST, SINGLE VIEW: Single view of the chest is performed and compared to prior study of 05/09/2018. Chronic pleural and parenchymal opacities on the right are heavier in the upper hemithorax and appear similar to prior study. There is chronic blunting of the right costophrenic angle. Stable right apical pleural thickening is present. There are pleural and parenchymal changes in the left apex which are also stable. No new infiltrate is seen. Heart is not enlarged. Mediastinal silhouette is unchanged with mild calcification of the thoracic aorta. There is deviation of the trachea to the right. IMPRESSION: Chronic pleural and parenchymal densities, right greater than left. No acute infiltrate. Electronically Signed by Shai Jacobson MD 05/25/2019 07:58 P
[2019-05-24 16:41] LABS: BLOOD UREA NITROGEN 13 MG/DL (7-18); CARBON DIOXIDE LEVEL 32 MEQ/L (21-32); CHLORIDE LEVEL 100 MEQ/L (98-107); CK-MB VALUE MASS < 1.0 NG/ML (<3.6); CPK CREATINE PHOSPHOKINASE 54 U/L (26-192); CREATININE FOR GFR 0.79 MG/DL (0.55-1.30); GLOMERULAR FILTRATION RATE > 60.0 (>45); GLUCOSE, FASTING 91 MG/DL (70-100); MB/CK RELATIVE INDEX 1.85 (< OR =4); POTASSIUM SERUM 3.6 MEQ/L (3.5-5.1); SODIUM LEVEL 137 MEQ/L (136-145); TROPONIN I < 0.02 NG/ML (< 0.10)
[2019-05-24 17:34] LABS: INFLUENZA A AMPLIFICATION NEGATIVE (NEGATIVE); INFLUENZA B AMPLIFICATION NEGATIVE (NEGATIVE)
[2019-05-24 18:30] VITALS: BP 95/55
--- NOTE | 2019-05-26 13:02 | ECGEPIP ---
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
== END 2019-05-24 18:09 | disposition home or self-care (01) ==
LOC: M ED 15:37
DX: B34.9 Viral infection, unspecified (principal); M79.10 Myalgia, unspecified site; R05 Cough; M62.81 Muscle weakness (generalized); M54.5 Low back pain; J44.9 Chronic obstructive pulmonary disease, unspecified; G25.81 Restless legs syndrome; Z87.891 Personal history of nicotine dependence; Z82.49 Family history of ischemic heart disease and other diseases of the circulatory system; Z79.82 Long term (current) use of aspirin; Z79.899 Other long term (current) drug therapy; Z88.0 Allergy status to penicillin

== ENCOUNTER 2019-07-12 16:29 | Inpatient (IN) | payer MEDICARE, MEDICAID ==
[~2019-07-12] VITALS: Ht 160 cm; Wt 42.8 kg
[~2019-07-12 16:29] MED LIST changes: -ROPI1TAB3 PO; -VITAD1000T PO
[2019-07-12] MEDS ORDERED: methylPREDNISolone INJ 125 MG/2 ML VIAL (J2930) IV ONE (17:00)
[2019-07-12] MEDS ORDERED: COMBIVENT RESPIMAT 100-20MCG INHALER 4GM INH ONE (17:00)
--- NOTE | 2019-07-12 17:05 | REP ---
Portable chest x-ray: Single view. History: Dyspnea and cough. Comparison chest x-ray May 24, 2019 and a chest x-ray from earlier today. Findings: There is a infiltrate in the left perihilar region and another in the right base laterally consistent with left upper lobe and right middle lobe pneumonia. Chronically increased pleuroparenchymal markings are seen in the right apex. Infiltrate in the right base is more pronounced than on the film done at 10:39 a.m. on this date. Electronically Signed by Tres Butler MD 07/12/2019 04:56 P
[2019-07-12] MEDS ORDERED: cefTRIAXone SOD 2 GM in D5W MINI-BAG PLUS 50 ML IV ONE (17:15)
[2019-07-12 17:19] LABS: VENOUS BASE EXCESS 3.5 (-2.0-2.0); VENOUS HCO3 29.7 MEQ/L (23.0-27.0); VENOUS PARTIAL PRESSURE CO2 53.3 mmHg (38.0-50.0); VENOUS PARTIAL PRESSURE O2 31.7 mmHg (30.0-50.0); VENOUS PH 7.364 UNITS (7.330-7.430); VENOUS STANDARD HCO3 26.9 MEQ/L; VENOUS TOTAL CO2 31.3 MEQ/L (24.0-28.0)
[2019-07-12 17:24] LABS: BASO % 0.2 % (0.0-1.0); EOS # 0.3 10^3/uL (0.0-0.5); EOS % 2.4 % (0.0-3.0); HEMATOCRIT 30.6 % (36.0-47.0); HEMOGLOBIN 9.5 g/dl (12.0-15.5); LYMPH # 1.3 10^3/uL (1.5-5.0); LYMPH % 12.1 % (24.0-44.0); MEAN CORPUSCULAR HEMOGLOBIN 26.1 pg (27.0-33.0); MEAN CORPUSCULAR VOLUME 84.1 fl (80.0-96.0); NEUTROPHILS # 8.1 10^3/uL (1.5-8.5); NEUTROPHILS % 74.5 % (36.0-66.0); PLATELET COUNT, AUTOMATED 307 10^3/uL (150-450); RED BLOOD COUNT 3.64 10^6/uL (4.00-5.40); WHITE BLOOD COUNT 10.9 10^3/uL (4.0-10.0)
--- NOTE | 2019-07-12 17:43 | ECGEPIP ---
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
[2019-07-12 17:49] LABS: ALBUMIN 2.5 GM/DL (3.2-5.2); ALT/SGPT 18 U/L (12-78); BILIRUBIN,DIRECT 0.1 MG/DL (0.0-0.2); BILIRUBIN,TOTAL 0.2 MG/DL (0.2-1.0); BLOOD UREA NITROGEN 13 MG/DL (7-18); CALCIUM LEVEL 8.6 MG/DL (8.8-10.2); CARBON DIOXIDE LEVEL 30 MEQ/L (21-32); CHLORIDE LEVEL 102 MEQ/L (98-107); CK-MB VALUE MASS < 1.0 NG/ML (<3.6); CPK CREATINE PHOSPHOKINASE 32 U/L (26-192); CREATININE FOR GFR 0.69 MG/DL (0.55-1.30); GLOMERULAR FILTRATION RATE > 60.0 (>45); GLUCOSE, FASTING 84 MG/DL (70-100); MB/CK RELATIVE INDEX 3.12 (< OR =4); POTASSIUM SERUM 4.2 MEQ/L (3.5-5.1); SODIUM LEVEL 137 MEQ/L (136-145); TOTAL PROTEIN 6.5 GM/DL (6.4-8.2); TROPONIN I < 0.02 NG/ML (< 0.10)
[2019-07-12] MEDS ORDERED: VITAD1000T PO (18:24)
[2019-07-12] MEDS ORDERED: ROPI1TAB3 PO (18:24)
[2019-07-12] MEDS ORDERED: ALBUTEROL 90 MCG/ACT 8GM HFA INHALER INH PRN (18:45)
[2019-07-12] MEDS ORDERED: NS 1,000 ML IV ONE (18:45)
[2019-07-12] MEDS ORDERED: ISOVUE-370 76% 100ML VIAL (Q9967) As Ordered ONE (18:52)
[2019-07-12] MEDS ORDERED: AZITHROMYCIN INJ 500 MG, VIAL MATE ADAPTER 1 EACH in D5W 250 ML IV ONE (19:00)
--- NOTE | 2019-07-12 19:14 | HPEPDOC ---
[facility] Medical History & Physical Date of Admission Jul 12, 2019 Date of Service: Jul 12, 2019 Primary Care Physician: YAN TO NP Attending Physician: HARLEEN LIU MD History and Physical CHIEF COMPLAINT: Worsening shortness of breath, productive cough HISTORY OF PRESENT ILLNESS: Patient is a 64-year-old female, past medical history significant for emphysema with 2 L O2 NC, osteoporosis, distal aortic atherosclerosis with secondary claudication status post aortic stent, tubular adenoma, GERD, who presents to the emergency department to recommendation of her primary care provider. Patient was seen in her primary's office earlier today. She carries a 2 month history of sinusitis and otitis media, treated with 10 days of Levaquin following failure of doxycycline. Upon presentation to the office today, patient reported improvement in both her sinus and ear pain, though she did report worsening productive cough with green/yellow sputum, fatigue, body aches with increasing shortness of breath and chills. Patient did have a temperature as high as 101.2F. Patient does not have any exposures to sick contacts. No history of recent travel Upon presentation to the emergency department, patient was found to have temperature 97.8, pulse of 79, respiratory rate of 24, blood pressure of 141/81 (101). Patient was maintaining a saturation 100% with 2 L via NC. CBC was significant for a mild leukocytosis of 10.9. H/H of 9.5/30.6. Folliculitis were unremarkable. BUN/CR of 13/0.69. Lactic negative. Negative cardiac markers. At her PCPs office, patient did have a respiratory panel performed which was negative, with reflex COVID-19 testing. Chest x-ray significant for bilateral pneumonia in both the right middle and left upper lobe. Given that the patient has failed outpatient antibiotic therapy, in the setting of increased shortness of breath and bilateral pneumonia, patient be admitted to the hospital for IV antibiotic treatment. PAST MEDICAL HISTORY: Emphysema and scarring, FEV1 of 1.9 Osteoporosis Breast cancer, S/P left-sided lumpectomy with chemotherapy and radiation Allergic rhinitis Distal aortic atherosclerosis with accompanying claudication, S/P aortic stent graft placement in 2011 Tubular adenoma, 2007 Abscess of the lung GERD Restless leg Hearing loss, perforation and repair of left TM. Right upper lobe lung mass, biopsy negative for malignancy 2. Repeat CT screening in 2019 PAST SURGICAL HISTORY: Left breast lumpectomy, 2013 Appendectomy 2 Tubal ligation Lung biopsy Right lung mass, benign status post biopsy Colonoscopy with tubular adenoma polyp resection Tonsillectomy Distal aortic atherosclerosis with claudication, status post aortic stent graft placement 2012 Left TM repair, 2015 Right ossicular chain reconstruction, 2016 SOCIAL HISTORY: Marital status: Resides in: Alone home with and grandchild Children: One son and one daughter Employment: Unemployed Tobacco use: Former smoker, quit greater than 10 years ago. 1.5 pack per day 44 years ETOH: Denies any alcohol use Illicit drug use: Denies any illicit drug use including IV drug use or marijuana Other relevant social factors: Patient does utilize glasses, hearing aides and top and bottom dentures FAMILY HISTORY: Father: , 73 years old, cancer, lung disease, diabetes, CAD, OR, CABG and 50s Mother: , 65 years, OR, hypertension Siblings: Sr., , 45 years old, lung cancer Children: One son and one daughter who are healthy ALLERGIES: Penicillins, rash REVIEW OF SYSTEMS: CONSTITUTIONAL: Patient reports a history of fevers, chills and fatigue but decreased appetite. Denies any significant changes in weight HEENT: Reports a resolving sinus headache and eye pain. No changes to her vision, nasal congestion or rhinorrhea, no difficulty swallowing or sore throat CARDIOVASCULAR: Reports anterior chest pain, increased with coughing. Denies any palpitations or inappropriate tachycardia, no lower extremity swelling RESPIRATORY: Reports chronic cough with acute worsening and productive green/yellow sputum of 2 weeks' duration. Patient does carry diagnosis of emphysema and utilizes 2 L of oxygen via nasal cannula GASTROINTESTINAL: Denies any reflux abdominal pain and vomiting. She does have baseline constipation without diarrhea. No blood in her stool. GENITOURINARY: No difficulties urinating SKIN: No changes in skin, no recent rashes or unexplained skin lesions or bruising MUSCULOSKELETAL: Reports persistent chest pain, worse when coughing. Denies any joint or specific muscle complaints NEUROLOGICAL: Reports baseline numbness and tingling in her hands bilaterally, no noted focal weakness, HOME MEDICATIONS: Please see below. PHYSICAL EXAMINATION: VITAL SIGNS: Temperature 97.8, pulse 74, respiratory rate 24, blood pressure 94/62 (73), pulse oximetry 100% on 2 L nasal cannula GENERAL APPEARANCE: Patient is interviewed and examined in the emergency department. Currently under isolation droplet precautions. She was found to be r esting in bed comfortably using her phone. She does not appear to be in any acute distress. Cachectic and older than stated age in appearance. HEENT: Normocephalic, atraumatic, EOMI, PERRLA, extremities are moist. Patient is a edentulous with dentures in both top and bottom. Posterior pharynx is non erythematous. No tonsillar swelling or exudates. No JVD, mild anterior chain cervical lymphadenopathy. CARDIOVASCULAR: Regular rate and rhythm, normal S1 and S2 no murmurs appreciated. LUNGS: Patient is able to speak in full sentences. Utilizing 2 L of oxygen via nasal cannula with appropriate saturation. Diminished breath sounds, scattered wheezes throughout. No rhonchi or rales. No cough was appreciated during examination ABDOMEN: Soft, nontender, nondistended, bowel sounds present in all 4 quadrants. No organomegaly appreciated MUSCULOSKELETAL: Anterior chest tenderness to palpation at the costochondral junction, left greater than right. EXTREMITIES: Radial and posterior tibial pulses 2+ bilaterally. No lower extremity swelling or edema. No calf tenderness bilaterally. No clubbing. NEUROLOGICAL: Alert and oriented to person place and time. No focal neurologic deficits. No evidence of dysarthria or dysphasia. PSYCHIATRIC: Mood and affect are appropriate given current medical condition. LABORATORY DATA: See below. IMAGING: EKG (07/12/19): Sinus rhythm, nonspecific ST and T wave abnormalities. Chest x-ray (07/12/19): Infiltrate in the left perihilar region and another in the right base laterally consistent with left upper lobe and right middle lobe pneumonia. Chronically increased pleural parenchymal markings are seen in the right apex. Infiltrate on the right base is more pronounced than the film performed at 10:[address] angiogram (07/12/19): No evidence of acute pulmonary emboli. Large right upper lobe cavity lesion with adjacent bronchiectasis and bilateral multifocal ill-defined lung opacities which may represent atypical infectious process, vasculitis or multifocal neoplasm. MICROBIOLOGY: Respiratory panel (07/12/19): Negative, reflex COVID-19 testing Blood cultures (07/12/19): Pending Sputum cultures (07/12/19): To be obtained, AFB ordered ASSESSMENT: Patient is a 64-year-old female past medical history significant for emphysema, breast cancer, osteoporosis, aortic atherosclerosis status post stent and GERD, who presented to the emergency department the behest of her primary care provider. Patient originally presented to her primary's office in 05/31/2019 complaining of headaches and ear pain. Patient was treated started on a 10 day course of doxycycline. Patient presented for follow-up 4 months later on 06/28/2019. At that time, patient continued to experience cough and congestion and left ear pain. She was then started on additional course of Levaquin, 750 mg for 10 days. Today, patient presented reporting improvement in her ear and sinus complaints though she had experienced intermittent fevers and increased shortness of breath with productive cough over the last few days. Chest x-ray was performed and indicated bilateral infiltrates. In the emergency department, patient was found to have a mild leukocytosis. CT imaging does show bilateral consolidation with large right upper lobe cavitation. Patient will be admitted for further evaluation and management. She'll be started on broad- spectrum IV antibiotics, placed in isolation while COVID and AFB testing remains pending. PLAN: #SOB, productive cough with Bilateral consolidations/infiltrates * Patient is failed outpatient treatment with doxycycline and appropriately- dosed levofloxacin. * Suspect B/L bacterial PNA. Will start pt on IV vancomycin until MRSA screen negative. IV meropenem for anaerobic coverage given that patient does carry a penicillin sensitivity. * Chest x-ray and CT angiogram demonstrated bilateral consolidations * Procalcitonin for baseline to assist in de-escalating therapy * Noted cavitary lesions in upper lobes, Sputum culture with AFB * Respiratory PCR negative, COVID-19 testing pending * Isolation/airborne precautions. * Supplemental oxygen via NC to maintain saturations. #Chest pain * Suspect costochondritis or MSK etiology given tenderness to palpation on exam and increased discomfort with cough. * Per outpatient medical record, patient has been complaining of a similar pain/discomfort since her visit on 05/31/19. * No evidence of acute infarction on EKG. Troponins negative. We'll continue to trend. * Tylenol for pain #Emphysema * Albuterol nebulizers every 4 hours. #GERD * c/w home omeprazole * TUMs PRN #Restless leg * c/w home ropinirole #Vitamin D deficiency * c/w home supplementation DVT PROPHYLAXIS: TEDs and Sequentials DISPOSITION: Anticipate >2 midnights. Attending Addendum: I discussed the care/management of this patient with Dr. Muniz in detail and agree with the plan above. Vital Signs Vital Signs Date Time Temp Pulse Resp B/P (MAP) Pulse Ox O2 Delivery O2 Flow Rate FiO2 07/12/19 18:45 74 92/54 (67) 99 Nasal Cannula 2.0 07/12/19 16:33 97.8 24 Laboratory Data Labs 24H Laboratory Tests 2 07/12/19 17:12: Immature Granulocyte % (Auto) 1.8, Neutrophils (%) (Auto) 74.5H, Lymphocytes (%) (Auto) 12.1L, Monocytes (%) (Auto) 9.0H, Eosinophils (%) (Auto) 2.4, Basophils (%) (Auto) 0.2, Neutrophils # (Auto) 8.1, Lymphocytes # (Auto) 1.3L, Monocytes # (Auto) 1.0H, Eosinophils # (Auto) 0.3, Basophils # (Auto) 0.0, Nucleated Red Blood Cells % (auto) 0.0, Blood Gas Bicarbonate Standard 26.9, Venous Blood pH 7.364, Venous Blood Partial Pressure CO2 53.3H, Venous Blood Partial Pressure O2 31.7, Venous Blood Total Carbon Dioxide 31.3H, Venous Blood HCO3 29.7H, Venous Blood Oxygen Saturation 56.0L, Venous Blood Base Excess 3.5H, Anion Gap 5L, Glomerular Filtration Rate > 60.0, Lactic Acid Level 0.7, Calcium Level 8.6L, Total Bilirubin 0.2, Direct Bilirubin 0.1, Aspartate Amino Transf (AST/SGOT) 19, Alanine Aminotransferase (ALT/SGPT) 18, Alkaline Phosphatase 70, Total Creatine Kinase 32, Creatine Kinase MB < 1.0, Creatine Kinase MB Relative Index 3.12, Troponin I < 0.02, Total Protein 6.5, Albumin 2.5L, Albumin/Globulin Ratio 0.63L CBC/BMP Laboratory Tests 07/12/19 17:12 Microbiology Microbiology 07/12/19 Blood Culture, Received Pending 07/12/19 Blood Culture, Received Pending Home Medications Scheduled Alendronate Sodium (Alendronate Sodium) 70 Mg Tab, 70 MG PO QWEEK Wednesday Aspirin (Aspirin EC) 81 Mg Tab, 81 MG PO QHS Calcium Carbonate/Vitamin D3 (Calcium 600-Vit D3 800 Tablet) 1 Tab Tab, 1 TAB PO QHS Cholecalciferol (Vitamin D3) (Vitamin D3) 1,000 Unit Tablet, 1,000 UNITS PO QHS Ferrous Gluconate (Ferrous Gluconate) 324 Mg Tablet, 1 TAB PO DAILY for iron Moxifloxacin HCl (Moxifloxacin HCl) 400 Mg Tablet, 400 MG PO DAILY@1800 Multivitamins (Thera M Plus Tablet) 1 Tab Tab, 1 TAB PO QHS Omeprazole (Omeprazole) 40 Mg Capsule.dr, 40 MG PO QHS Ropinirole HCl (Ropinirole HCl) 1 Mg Tablet, 1 MG PO QHS Scheduled PRN Acetaminophen (Acetaminophen) 325 Mg Tab, 650 MG PO Q4H PRN for PAIN / FEVER Albuterol Sulfate (Proair Hfa) 108 Mcg/Act Aer, 2 PUFF INH Q4H PRN for SHORTNESS OF BREATH Allergies Coded Allergies: Penicillins (Verified Allergy, Mild, rash, 05/24/19) A-FIB/CHADSVASC A-FIB History Current/History of A-Fib/PAF?: DAYAMI George DO Jul 12, 2019 19:13 HARLEEN LIU MD Jul 19, 2019 21:47
[2019-07-12] MEDS: IPRATROPIUM 0.5MG/ALBUTEROL 2.5MG INH SOL UD 3ML (DUONEB)(J7620) NEB SCH (20:00)
--- NOTE | 2019-07-12 20:07 | REPVR ---
PROCEDURE INFORMATION: Exam: CT Angiography Chest With Contrast Exam date and time: 07/12/2019 7:14 PM Age: 64 years old Clinical indication: Shortness of breath; Additional info: SOB R/O pe. History of cavitary lung lesions TECHNIQUE: Imaging protocol: Computed tomographic angiography of the chest with intravenous contrast. 3D rendering: MIP and/or 3D reconstructed images were created by the technologist. Radiation optimization: All CT scans at this facility use at least one of these dose optimization techniques: automated exposure control; mA and/or kV adjustment per patient size (includes targeted exams where dose is matched to clinical indication); or iterative reconstruction. Contrast material: ISOVUE 370; Contrast volume: 100 ml; Contrast route: IV COMPARISON: CT ANGIO CHEST 07/19/2015 2:38 PM FINDINGS: No focal pulmonary artery filling defect to suggest acute pulmonary embolus. Thoracic aorta is tortuous without focal aneurysm or dissection. Small, nonspecific mediastinal nodes are present. No pleural effusion or pneumothorax. Pulmonary vascular/interstitial pattern does not suggest active pulmonary edema. Right hemithorax volume loss with mediastinal shift to the right. Progressive bilateral apical pleural thickening. Cavitary lesion in the right lung apex measuring 5 by 3.5 cm cross-sectional by 8 cm craniocaudal with adjacent bronchiectasis. Reticulonodular infiltrates in the lungs bilaterally and multiple ill-defined lung masses, new since the prior CT. No underlying pulmonary edema. No pneumothorax. Limited visualization of upper abdomen shows no concerning finding. Bony structures show no acute fracture or destructive process. IMPRESSION: No evidence of acute pulmonary embolus. Large right upper lobe cavitary lesion with adjacent bronchiectasis, and bilateral multifocal ill-defined lung opacities which may represent atypical infectious process, vasculitis or multifocal neoplasm. Electronically signed by: Rogelio Kyle On 07/12/2019 20:07:11 PM
[2019-07-12] MEDS ORDERED: FLUID PLACE HOLDER IV SCH (20:30)
[2019-07-12] MEDS ORDERED: VANCOMYCIN HCL IV SCH (20:30)
[2019-07-12 23:49] VITALS: BP 84/53
[2019-07-12] MEDS: ASPIRIN 81 MG ENTERIC TAB PO SCH (23:52)
[2019-07-12] MEDS: VITAMIN D 1,000 INTERNATIONAL UNITS TABLET PO SCH (23:52)
[2019-07-12] MEDS: rOPINIRole 1MG TAB PO SCH (23:52)
[2019-07-12] MEDS: MULTIVITAMINS/MINERALS THERAP 1 TAB PO SCH (23:52)
[2019-07-12] MEDS: OMEPRAZOLE 20 MG CAP PO SCH (23:53)
[2019-07-13] VITALS (10 sets, daily range): BP systolic 80–124; BP diastolic 48–62
[2019-07-13] MEDS ORDERED: VANCOMYCIN HCL 1,000 MG, VIAL MATE ADAPTER 1 EACH in D5W 250 ML IV ONE ×3
[2019-07-13] MEDS ORDERED: MEROPENEM INJ 1 GM in IV 1 EA IV ONE ×2
[2019-07-13 00:16] LABS: CK-MB VALUE MASS < 1.0 NG/ML (<3.6); CPK CREATINE PHOSPHOKINASE 41 U/L (26-192); MB/CK RELATIVE INDEX 2.44 (< OR =4); TROPONIN I < 0.02 NG/ML (< 0.10)
[2019-07-13] MEDS ORDERED: NS 500 ML IV ONE (01:15)
[2019-07-13] MEDS ORDERED: NS 1,000 ML IV ONE ×3 (03:30→10:00)
--- NOTE | 2019-07-13 04:50 | PHACANCOPD ---
PHARMACY VANCOMYCIN DOSING Pt Demographics Demographics Patient Age:64 , Weight:42.270 , Gender: female Adjusted Body Weight Date: 07/13/19, Adjusted Body Weight: [42.27] Kg(ACTUAL WT) Events Past 24 Hours Events Past 24 Hours: YES: Pending Diagnostics Vancomycin Vancomycin indication: RESP.INFECTION Vancomycin Target Ranges: 15-20 mcg/ml Vancomycin Load Y/N: Yes Load Dose Date Time Vancomycin Load Dose: 1GM Date: 07/12 Time:00:30 Vancomycin Dose Date: 07/13/19. Current Vancomycin Dose: [750MG Q12H] Intermittent Dosing?: No Labs Micro Microbiology 07/13/19 Gram Stain, Received Pending 07/13/19 Sputum Culture, Received Pending 07/13/19 Coronavirus COVID-19 PCR ([place]), Received Pending 07/13/19 Respiratory Virus Panel (PCR) ([place]) - Final, Complete 07/12/19 Blood Culture, Received Pending 07/12/19 Blood Culture, Received Pending Creatinine Clearance Date:07/13/19. Creatinine Clearance: . Assessment and Plan Maintaining Current Dose?: Yes Reason for dose change: No Dose Change Pharmacist Note Pharmacist Note Date: 07/13/19. Pharmacist note:64 YOF 42.27 KG 63",SCR=0.69,CRCL~40,MRSA PCR,COVID-19 PENDING.ALLERGY:PENICILLIN PATIENT FAILED TO IMPROVE ON PREVIOUS OUTPATIENT REGIMENS OF DOXYCYCLINE ,PREDNISONE AND ,MORE RECENTLY,10 DAYS OF LEVOFLOXACIN.THERAPY INCLUDES MEROPENEM 1GM [id number],AND PHARMACY DOSED VANCOMYCIN.LOADING DOSE OF 1 GRAM (PT WT=42.27KG) WAS ADMINISTERED 07/12 00:30,THEN 750MG g52MIPU REGIMEN IS TO BEGIN THIS MORNING@10:00. fIRST VANCO.TROUGH IS SCHEDULED ON 07/13@0900(PRIOR TO THE 4TH DOSE)-WILL CONTINUE TO FOLLOW [facility] Jul 13, 2019 04:50
[2019-07-13] MEDS: MEROPENEM INJ 1 GM in IV 1 EA IV SCH ×4 (06:38→15:58)
[2019-07-13] MEDS ORDERED: cefTRIAXone SOD 2 GM in D5W MINI-BAG PLUS 50 ML IV SCH (09:00)
[2019-07-13 09:22] LABS: BASO % 0.1 % (0.0-1.0); HEMATOCRIT 27.9 % (36.0-47.0); HEMOGLOBIN 8.5 g/dl (12.0-15.5); LYMPH % 6.3 % (24.0-44.0); MEAN CORPUSCULAR HEMOGLOBIN 26.1 pg (27.0-33.0); MEAN CORPUSCULAR HGB CONC 30.5 g/dl (32.0-36.5); MEAN CORPUSCULAR VOLUME 85.6 fl (80.0-96.0); MONO # 0.6 10^3/uL (0.0-0.8); NEUTROPHILS # 13.3 10^3/uL (1.5-8.5); NEUTROPHILS % 88.1 % (36.0-66.0); PLATELET COUNT, AUTOMATED 305 10^3/uL (150-450); RED BLOOD COUNT 3.26 10^6/uL (4.00-5.40); WHITE BLOOD COUNT 15.1 10^3/uL (4.0-10.0)
[2019-07-13 09:55] LABS: ALBUMIN 2.1 GM/DL (3.2-5.2); ALT/SGPT 14 U/L (12-78); BILIRUBIN,TOTAL 0.1 MG/DL (0.2-1.0); BLOOD UREA NITROGEN 12 MG/DL (7-18); C REACTIVE PROTEIN QUANTITATIV 3.47 MG/DL (0.00-0.30); CALCIUM LEVEL 8.3 MG/DL (8.8-10.2); CARBON DIOXIDE LEVEL 26 MEQ/L (21-32); CHLORIDE LEVEL 109 MEQ/L (98-107); CREATININE FOR GFR 0.59 MG/DL (0.55-1.30); GLOMERULAR FILTRATION RATE > 60.0 (>45); GLUCOSE, FASTING 114 MG/DL (70-100); POTASSIUM SERUM 4.5 MEQ/L (3.5-5.1); SODIUM LEVEL 140 MEQ/L (136-145); TOTAL PROTEIN 5.9 GM/DL (6.4-8.2)
[2019-07-13] MEDS ORDERED: VANCOMYCIN HCL 750 MG, VIAL MATE ADAPTER 1 EACH in D5W 250 ML IV SCH (10:00)
[2019-07-13 10:19] LABS: ERYTHROCYTE SEDIMENTATION RATE 109 mm/hr (0-30)
--- NOTE | 2019-07-13 11:45 | CR ---
DATE OF CONSULTATION: 07/13/2019 REASON FOR CONSULTATION: Abnormal x-ray. HISTORY OF PRESENT ILLNESS: Ms. Lock is a delightfully pleasant 64-year-old female who has a known history of breast cancer, status post chemotherapy and radiation. She also had a right lower lobectomy in 2009 for a right lower lobe mass that turned out to be inflammatory. She is known to have significant emphysema. She had a cavitary lesion noted over a year ago that was biopsied and found to be granulomatous. She was scheduled for Low dose CT scanning here in the last several months. She presents now with increasing cough and shortness of breath. She has had some low-grade fevers at home. Produced some intermittent sputum. She said her appetite has been up and down. No chest pain. No hemoptysis. ALLERGIES: PENICILLINS. MEDICATIONS AT HOME: - alendronate - aspirin - calcium - multivitamins - omeprazole - Requip - She takes albuterol as needed. PAST MEDICAL HISTORY: Significant for: Her breast cancer as outlined above. Underlying emphysema and bronchiectasis. Chronic hypoxemic resp failure oxygen-requiring. Status post right lower lobectomy for microabscesses. Known granulomatous disease with progressive cavitary lesions. Atherosclerotic cerebrovascular disease, status post aortic stent in 2011. Osteoporosis. SURGICALLY, she has had: Lumpectomy. Appendectomy. Right lower lobectomy. CT-guided needle biopsy. Colonoscopy. Tonsillectomy. Aortic stent placement. SOCIAL HISTORY: . Lives at home with family. Quit smoking about 10 years ago. No alcohol. FAMILY HISTORY: Mother of cancer and lung disease with known coronary artery disease. Father with hypertension. One sister with lung cancer. REVIEW OF SYSTEMS: As per history of present illness (HPI). Otherwise: Constitutional: Question for recent fevers. HEENT: Unremarkable for blurry or double vision. Pulmonary: As per HPI. Gastrointestinal (GI): Significant for variability in weight. Cardiac: Unremarkable for any recent angina. Genitourinary (): Unremarkable. Neurological: Unremarkable for seizures or strokes. Endocrine: Unremarkable for diabetes or thyroid disease. Hematological: Unremarkable for any bleeding or dyscrasias. Dermatologic: Unremarkable for any new rashes or psoriasis. Musculoskeletal: Unremarkable for any new arthralgias or myalgias. Allergic and immunological: Unremarkable. Psychiatric: Unremarkable. PHYSICAL EXAMINATION: Currently, is a pleasant elderly female, lying quite comfortably in bed. Blood pressure 87 systolic, heart rate 60, respiratory rate about 20 without accessory muscle use, and she is currently afebrile. Maximum temperature (Tmax) 97.4 since admission. HEENT: Otherwise, generally normocephalic, atraumatic. Pupils do react. Neck appears supple. Trachea is in the midline. Mucous membranes are mildly moist. Airway is class 2. Chest shows her right lower lobectomy scar. She has borderline kyphosis. Diffusely hyperresonant to percussion. Breath sound intensity is markedly diminished. There are some crackles in the left midline zone but no convincing wheeze. Occasional rhonchus clear completely with cough. Cardiac examination: Is borderline bradycardic but regular. Peripheral pulses palpable. No edema. Abdomen: Soft, nontender, with active bowel sounds. No convincing organomegaly or masses. Extremities: Without cyanosis or clubbing. Neurologically, she is awake, alert, and appropriate. Psychiatric: Generally with normal mood and affect. A CT scan compared to priors shows progression of her right upper lobe thick wall cavity. There is no air fluid level. There are two other areas in the right upper lobe that were more nodular in appearance and approximately 1.5-2 cm each, and these have both now gone on to cavitate. In the left upper lobe, there are innumerable small nodules, some of which coalesce which were clearly not evident on her scan from several months ago. MOST RECENT LABORATORIES: Show a white blood cell count of 15.1, hemoglobin 8.5, platelet count of 305,000, 80% segmented neutrophils, and no bands. Sodium 140, potassium of 4.5, chloride 109, CO2 26, BUN 12, creatinine 0.59, glucose of 114. QuantiFERON Gold is pending. MRSA PCR not detected. Other serologies are pending. IMPRESSION: 1. Progressive bilateral nodular abnormalities, some with cavitation. 2. Progressive cavitary lesions, especially right upper lobe. 3. Bronchiectasis. 4. Emphysema. 5. Chronic hypoxic resp failure, oxygen-requiring. 6. Previous tobacco history. 7. History of breast cancer. RECOMMENDATIONS: At this point, we will obtain sputum for acid-fast bacillus (AFB) and fungus. Her QuantiFERON Gold has been sent. Certainly, Mycobacterium avium-intracellulare complex (BRENNEN) is in the differential, as are other granulomatous processes. This presentation would be a little unusual for tuberculosis. Certainly, I do not believe she has the COVID-19 virus. At this point, I do believe isolation is prudent until she has negative AFBs. She is producing sputum, so we should be able to obtain material that way as opposed to bronchoscopy and washes. We await the outcome of the above. Ulcer and deep venous thrombosis (DVT) prophylaxes are in place. Further recommendations will be made in the progress record as new information becomes available. VINH
--- NOTE | 2019-07-13 13:58 | IPN ---
DATE OF SERVICE: 07/13/2019 This morning the patient says that she is not short of breath. She does have a cough productive of white thick yellow sputum at times, but this is chronic. She presented to the ER because of persistent nasal congestion and was found to have bilateral infiltrates on x-ray that was done by Rosio Carvajal, and sent to the ER for further evaluation. She was found to have a cavitating mass. She said that she had previously been seen by Dr. Vasquez and this has been followed as an outpatient. The patient was admitted and placed on broad spectrum antibiotics due to questionable lung cavitary mass. She is being kept in a negative pressure room until three AFBs are negative. QuantiFERON test has been sent. The patient has a history of microabscesses about 10 years ago that was treated and managed by Dr. Filiberto Conner. She has been under the care of family program specialist Dr. Vasquez since. No fever or chills overnight. The patient's blood pressure remains low at 80 systolic, but with mean arterial pressure (MAP) about 70-75. The patient has no other complaints this morning. She is talking comfortably, sitting about 90 degrees at the bedside eating her breakfast. No complaints of dizziness or lightheadedness. No palpitations. CT chest has no pulmonary embolism. Denies any chest pain or pressure. Echocardiogram is pending. No diarrhea, bright red blood per rectum, melena, black tarry stools or hematemesis. Temperature 97.7, pulse 66, respiratory rate 16, blood pressure 91/55, 100% on 2 liters nasal cannula. Generally, patient is awake, alert and oriented to person, place and time. She is answering questions appropriately. She is cachectic appearing with bitemporal wasting. No use of respiratory accessory muscles. Able to speak in full sentences without any conversational dyspnea. There is no jugular venous distention (JVD). No thyromegaly. No cervical lymphadenopathy. She has very dry mucous membranes, poor dentition. Lungs are diminished with a right lower lobectomy scar. She is slightly kyphotic. Crackles are noted bilaterally and some occasional rhonchi. No overt wheezing. Heart exam S1, S2, sinus rhythm with episodes of sinus bradycardia. Abdomen is soft, nontender, nondistended. Positive bowel sounds. Extremities have no cyanosis, clubbing or any pitting edema. LABORATORY DATA: White count 15, hemoglobin 8.5, hematocrit 27, platelet count of 305. Sodium 140, potassium 4.5, chloride 109, bicarb 26, BUN 12, creatinine 0.59, glucose of 114. Lactic acid at 8:05 this morning was 2.3, calcium 8.3, total bilirubin 0.1. Microbiology: Sputum culture is pending. Coronavirus is pending. Respiratory panel is negative. Two sets of blood cultures are negative. CT chest shows no focal pulmonary arterial filling defect to suggest acute pulmonary embolism. Large right upper lobe cavitary lesion with adjacent bronchiectasis and bilateral marked multifocal ill defined lung opacities, which may represent atypical infectious process, vasculitis or a multifocal neoplasm. ASSESSMENT/PLAN: This is a 64-year-old female with history of microabscesses, cavity lesions followed by Dr. Vasquez as an outpatient, had a right lower lobe biopsy negative for malignancy x2 with repeat CT screening this year, history of breast cancer with lumpectomy on the left, chemotherapy and radiation, emphysema with an FEV1 of 1.9 and osteoporosis. ACTIVE ISSUES: 1. Right upper lung cavitary lesion. Patient is currently in a negative pressure room. QuantiFERON test has been sent. Procalcitonin, sed rate and CRP as well as AFB, sputum culture and blood cultures. Patient is broadly covered with vancomycin and meropenem at this time. Methicillin-resistant Staphylococcus aureus (MRSA) is negative. Defer to Dr. Brandt of infectious disease specialist to decide on discontinuation of vancomycin if there is no concern of gram negative infection. Patient is being kept in a negative pressure room. Await results of the cultures. 2. Hypotension. The patient says that she normally runs low with her blood pressure. She currently has received two normal saline IV boluses. Mean arterial pressure (MAP) is maintained at 65-70 at this time. PICC line was attempted today, but unable to be done because of her smaller veins. Surgery has been consulted for central line placement in case the patient needs Levophed drip for septic shock. White count is elevated but thought to be secondary to steroid use that was given yesterday. She does have new infiltrates in the left upper and right middle lobe consistent with new pneumonia. She is being covered with vancomycin and meropenem. Will need to add atypical coverage with doxycycline or azithromycin. Due to risk of C. difficile will add Bacid. Await culture results and further recommendations from our infectious disease specialist. 3. Hypotension due to mean pressure. That is still adequate. No need to transfer to the ICU, however will obtain a 2-dimensional echocardiogram. There is no hypovolemia to cause her hypotension. We are holding any blood pressure medications. She is only on aspirin at this time. 4. Restless leg syndrome. Continue on ropinirole. 5. Reflux. No signs of GI bleeding or weight loss. Continued on Prilosec.
--- NOTE | 2019-07-13 14:17 | REP ---
PORTABLE CHEST X-RAY: SINGLE VIEW. HISTORY: Status post right internal jugular central line. COMPARISON STUDY: July 12, 2019. FINDINGS: A right internal jugular central line is seen inserted with its tip in the expected location of the superior vena cava. There is no evidence of pneumothorax. Apical pleural thickening is noted as on previous study. Calcific densities are seen and there is volume loss and fibrosis in the lung apex as before. Infiltrates are again noted bilaterally. Some clearing on the right. Blunting of the right lateral pleural angle is again noted. IMPRESSION: Right IJ line in place. No complications seen. Electronically Signed by Tres Butler MD 07/13/2019 02:56 P
--- NOTE | 2019-07-13 14:40 | ROOPDOC ---
[facility] Report Of Operation Report of Operation DATE OF PROCEDURE: 07/13/19 PREPROCEDURE DIAGNOSES: Critical illness. POSTPROCEDURE DIAGNOSES: Same. PROCEDURE: Ultrasound-guided insertion of right internal jugular triple-lumen catheter. SURGEON: North Anne MD SALES REPRESENTATIVE DOOR TO DOOR: ANESTHESIA: local anesthesia with 1% lidocaine. ESTIMATED BLOOD LOSS: Approximately 5 mL. COMPLICATIONS: none. REMARKS: right IJ cannulated with 1 stick, visualized under US guidance.. DESCRIPTION OF PROCEDURE: Patient remained in the room and she was positioned in bed in the slight reverse Trendelenburg position with her head tilted towards the left side slightly. We used the central line bundle for the procedure. She was prepped with chlorhexidine on her neck and chest and draped with the sterile drapes including the bundle. We paused for a surgical timeout using both pre-incision safety checklist to verify correct patient, procedure site and additional clinical information prior to beginning the procedure. Under ultrasound guidance, the path of the right internal jugular vein was located and the skin overlying this was infiltrated with 1% lidocaine. The IJ was cannulated under ultrasound guidance on the first try. A guidewire was then inserted through the needle and using modified Seldinger technique, exchanged for a triple-lumen catheter placed at 20 cm at the skin line. All 3 ports were flushed and aspirated and noted to be working well. This was secured to the skin and a chlorhexidine containing non-occlusive dressing was placed after securing the catheter to the skin. Patient tolerated the procedure well. A postoperative chest x-ray will be taken. NORTH ANNE MD Jul 13, 2019 14:40
[2019-07-13] MEDS ORDERED: DOXYCYCLINE HYCLATE 100 MG in D5W MINI-BAG PLUS 100 ML IV SCH (15:00)
[2019-07-13] MEDS: LACTOBACILLUS ACIDOPHILUS CAP (BACID) PO SCH ×2 (15:57→17:36)
[2019-07-13] MEDS: NS 1,000 ML IV SCH (17:36)
--- NOTE | 2019-07-13 17:43 | REP ---
PICC line insertion under ultrasound guidance. The procedure was performed by ANTHONY Jane, under the direct supervision of Dr. Jacobson. The risks and benefits of the procedure were explained to the patient and informed consent was obtained both verbally and written. Directly prior to the start of the procedure, a formal timeout was completed in the procedure room. The right basilic vein was localized using ultrasound guidance. The skin was prepped and draped in the sterile fashion. 1 ml 1% lidocaine 10 mg/ml was used as a local anesthetic. Using ultrasound guidance the right basilic vein was cannulated and a 0.018 guidewire was inserted and the vein infiltrated. A total of four attempts to gain access and insert the guide wire were attempted before the procedure was aborted. The patient tolerated the procedure well and there were no immediate complications. 0.0 minutes of fluoroscopy time was utilized for this procedure. Some fluoroscopic images are performed with last image hold technology. These images require no additional radiation. Reviewed by ANTHONY St 07/13/2019 10:25 A Electronically Signed by Shai Jacobson MD 07/13/2019 05:34 P
[2019-07-13] MEDS ORDERED: AZITHROMYCIN INJ 500 MG, VIAL MATE ADAPTER 1 EACH in D5W 250 ML IV SCH (18:00)
[2019-07-13] MEDS: OMEPRAZOLE 20 MG CAP PO SCH (19:57)
[2019-07-13] MEDS: ASPIRIN 81 MG ENTERIC TAB PO SCH (19:57)
[2019-07-13] MEDS: VITAMIN D 1,000 INTERNATIONAL UNITS TABLET PO SCH (19:57)
[2019-07-13] MEDS: rOPINIRole 1MG TAB PO SCH (19:57)
[2019-07-13] MEDS: MULTIVITAMINS/MINERALS THERAP 1 TAB PO SCH (19:58)
[2019-07-14] VITALS: BP 110/61
[2019-07-14 04:00] VITALS: BP 125/67
[2019-07-14 04:29] LABS: BASO % 0.3 % (0.0-1.0); EOS # 0.1 10^3/uL (0.0-0.5); HEMATOCRIT 26.4 % (36.0-47.0); HEMOGLOBIN 7.9 g/dl (12.0-15.5); LYMPH # 1.4 10^3/uL (1.5-5.0); LYMPH % 11.5 % (24.0-44.0); MEAN CORPUSCULAR HEMOGLOBIN 25.7 pg (27.0-33.0); MEAN CORPUSCULAR HGB CONC 29.9 g/dl (32.0-36.5); MONO # 0.8 10^3/uL (0.0-0.8); MONO % 6.6 % (0.0-5.0); NEUTROPHILS # 9.7 10^3/uL (1.5-8.5); PLATELET COUNT, AUTOMATED 237 10^3/uL (150-450); RED BLOOD COUNT 3.07 10^6/uL (4.00-5.40); WHITE BLOOD COUNT 12.5 10^3/uL (4.0-10.0)
[2019-07-14] MEDS: NS 1,000 ML IV SCH ×2 (04:45→17:29)
[2019-07-14 04:53] LABS: BLOOD UREA NITROGEN 10 MG/DL (7-18); CALCIUM LEVEL 7.6 MG/DL (8.8-10.2); CARBON DIOXIDE LEVEL 29 MEQ/L (21-32); CHLORIDE LEVEL 113 MEQ/L (98-107); CREATININE FOR GFR 0.49 MG/DL (0.55-1.30); GLOMERULAR FILTRATION RATE > 60.0 (>45); GLUCOSE, FASTING 89 MG/DL (70-100); POTASSIUM SERUM 4.4 MEQ/L (3.5-5.1); SODIUM LEVEL 144 MEQ/L (136-145)
[2019-07-14] MEDS: MEROPENEM INJ 1 GM in IV 1 EA IV SCH ×3 (06:30→23:55)
[2019-07-14 07:54] VITALS: BP 112/60
--- NOTE | 2019-07-14 08:38 | CR ---
DATE OF CONSULTATION: 07/13/2019 I was asked to consult by hospitalist for evaluation of necrotizing pneumonia. HISTORY OF PRESENT ILLNESS Shruthi is a 64-year-old female with a history of emphysema, oxygen dependent at 2 liters nasal cannula, history of lung mass in 2005 status post thoracotomy by Dr. Conner, which only showed fibrosis with chronic and acute inflammation and no malignancy. The patient has had recurrent pulmonary infections, ear infection and sinus infection and was recently in the past 2 months has had increasing cough. She was treated with a course of doxycycline and prednisone for bronchitis and otitis and then was given Levaquin for 10 days. She was seen in followup by Rosio Carvajal, who is her primary care provider who did a chest x-ray, found cavitary pneumonia and therefore recommended she gets admitted to the hospital. She denies any nausea, vomiting or diarrhea. Has lost about 10-15 pounds in the past few years. She denies any sick contact exposure. She lives with her . No recent travel. No exposure to COVID. In the emergency room, she had a temperature of 97.8 but at home was 101.2. She had mild leukocytosis. She was started on broad-spectrum antibiotics with IV vancomycin and Zosyn. She was placed on isolation due to cavitary pneumonia right middle and left upper lobe. PAST MEDICAL HISTORY: : Significant for emphysema, FEV-1 of 1.9, osteoporosis, breast cancer, status post left-sided lumpectomy, chemotherapy and radiation, chronic lung disease with thoracotomy done 05/07/[address] Conner, which showed chronic and acute inflammation with fibrosis, breast cancer status post chemotherapy and radiation and lumpectomy, gastroesophageal reflux disease, restless leg syndrome, hearing loss, perforation of the tympanic membrane. PAST SURGICAL HISTORY: 1. Left breast lumpectomy. 2. Appendectomy. 3. section. 4. Tubal ligation. 5. Right lung mass status post thoracotomy, benign. 6. Colonoscopy with a tubular adenoma. 7. Tonsillectomy. 8. Distal aortic atherosclerosis with claudication status post aortic stent placement in 2011. 9. Left tympanic membrane repair. 10. Auriculare chain reconstruction left ear. SOCIAL HISTORY: She is . She lives with her . She has one son and a daughter. No sick contacts. No alcohol use. She quit smoking over 10 years ago. She used to smoke 1-1/2 packs per day. FAMILY HISTORY: Revealing for father dying of cancer, lung disease and mother of myocardial infarction and hypertension at the age of 65. Sister of lung cancer at 45. ALLERGIES: PENICILLIN causes a rash. MEDICATIONS: - doxycycline 100 mg IV q.12 hours - vancomycin 750 mg IV q.12 hours - probiotics 1 tablet p.o. with meals - meropenem 1 gram IV q.8 hours - vitamin D 1000 units p.o. q.h.s. - multivitamin 1 tablet p.o. q.h.s. - ropinirole 1 mg p.o. q.h.s. - omeprazole 40 mg p.o. q.h.s. - Tylenol 650 q. four p.r.n. REVIEW OF SYSTEMS: She had some fever and chills but had night sweats with fatigue, decreased appetite and weight loss. She denies any headache, neck stiffness. No nausea, vomiting or diarrhea. No skin changes. No rashes. She has chronic cough, which got worse and worsening shortness of breath, cough is productive of yellow-greenish phlegm at times. She has hearing loss in the left ear. PHYSICAL EXAMINATION: She is a frail, thin female in no acute distress, coughing. Temperature is 96.8, pulse 66, respirations 20, blood pressure 118/62, O2 sat 99% on 2 liters nasal cannula. She has been afebrile for the past 24 hours throughout the admission. Neck is supple with no jugular venous distention (JVD) and no bruits. She has a right central IJ line. Oropharynx is clear. She has upper and lower dentures. Heart: Normal S1, S2. No murmurs appreciated. Lungs: Diminished breath sounds bilaterally with few expiratory wheezes. Abdomen: Soft, nontender. No hepatosplenomegaly. Extremities: No clubbing, cyanosis or edema. Skin: Has multiple tattoos on both shoulder blades and legs. LABORATORIES: White count is 15.1, hemoglobin 8.5, hematocrit 27.9, platelets 305, 88% neutrophils, 6% lymphocytes, 4% monocytes, glucose 109, sodium 140, potassium 4.5, chloride 109, bicarbonate 26, BUN 12, creatinine 0.59, glucose 114, lactic acid 2.3 down to 1.7, calcium 8.3, AST 13, ALT 14, alkaline phosphatase 65, CRP 3.47, total protein 5.9, albumin 2.1. Immunology IgG 848, IgA 108, IgM 257. HIV was sent. Blastolysis antibody, histoplasma antibody, Aspergillus antibodies were sent. Aspergillus galactomannan, methicillin resistant Staphylococcus aureus (MRSA) PCR was not detected. Strep pneumo antigen pending. Blood cultures two sets were negative. Coronavirus, Covid 19 pending. Gram stain had many white cells, few epithelial cells. No organisms seen. IMAGING STUDIES: CT angiogram done on 07/11 showed no pulmonary embolism, progressive bilateral apical pleural thickening, cavitary lesion in the right lung apex 5 x 3.5 cm, adjacent bronchiectasis and bilateral multifocal ill-defined lung opacities, which may represent atypical infectious process, vasculitis or multiple neoplasm. Chest x-ray shows a right IJ line in place, apical pleural thickening, calcific densities, volume loss and fibrosis in the lung apex, as well as infiltrates bilateral. IMPRESSION This is a 64-year-old female with a history of chronic lung disease with a history of the lung mass in 2005 who underwent a thoracotomy and had a wedge section with Dr. Conner, which showed only acute and chronic inflammation. Now presents with outpatient failure of antibiotic with worsening cough and ear pain. She has been treated with two treatments two cycles of antibiotics including doxycycline for 10 days and levofloxacin for 10 days with no improvement in her symptoms. She has a history of MSSA colonization of the nares. MRSA PCR is negative. This is unlikely to be MRSA pneumonia. Her gram stain is not suggestive of MRSA. She is not septic, no lactic acidosis , no white count or fever. This is not Covid 19. This is a necrotizing pneumonia bacterial, could also be atypical mycobacteria or fungal. PLAN: There have been three ordered sets of AFB smear and culture already, although has not been obtained yesterday or today. Please make sure we have three specimens. One fungal smear and culture as well. Serology for fungus and QuantiFERON Gold have been sent. All results are pending. PLAN Discontinue IV doxycycline. The patient just finished a 10-day course of doxycycline and levofloxacin and that would cover for atypical pathogens. This is not a typical pneumonia. Discontinue IV vancomycin. She is not ill looking and this is unlikely MRSA pneumonia either. Continue IV meropenem. Please make sure sputum AFBs are sent for atypical mycobacteria, as well as fungus. [facility]
[2019-07-14] MEDS: LACTOBACILLUS ACIDOPHILUS CAP (BACID) PO SCH ×3 (09:51→18:05)
--- NOTE | 2019-07-14 11:17 | IPN ---
DATE: 07/14/2019 The patient is now in respiratory isolation, this is hospital day #2. She is resting comfortably, not tachypneic, voices no complaints. Her temperature is 96, pulse rate 66, respirations 18, blood pressure 112/60. Input and output the past 24 hours 5420 in and out is 3450. Since midnight, 770 in and 400 out. She is not in any acute distress. Mucosa is pink and moist. Neck is supple. Heart sounds regular. Breath sounds diminished, essentially clear. No focal sounds. Abdomen is soft with bowel sounds. Extremities with no edema. DIAGNOSTIC STUDIES: Sodium is 144, potassium 4.4, chloride 113, CO2 29, BUN 10, creatinine 0.49, glucose 89, white cell count is down to 12.5, hemoglobin is down to 7.9, hematocrit 26.4, platelet count 237,000. CT scan shows diffuse nodular changes with cavitation. Blood cultures are negative times two. Sputum gram stain shows no bacteria. Acid-fast bacillus smear has been ordered on sputum by infectious disease and is pending. This is day #2 meropenem. IMPRESSION: 1. Progressive bilateral cavitary nodular pulmonary infiltrates with a mildly infectious presentation. The patient does appear to be responding to antibiotics. It seems rather unlikely that this is tuberculosis; however, AFB is pending. I would recommend continuing meropenem, following imaging and following blood counts. Likely her imaging will take some time to improve or resolve and outpatient followup will be necessary once she has responded clinically.
--- NOTE | 2019-07-14 12:09 | IPN ---
DATE: 07/12/2019 She continues to have a productive cough of white-yellow sputum. No hemoptysis. No fever or chills. Patient said that she was sweating last night, which is not unusual. She said she has had that for several months. No weight loss. No fatigue. No weakness. Denies any dyspnea on exertion. Says her breathing treatments are helping her but she is having trouble with expectorating the sputum. Temperature 98.5, pulse 72, respiratory rate 18, blood pressure 125/67, 100% on 2 liters nasal cannula. Generally, patient appears cachectic, slight pallor. No icterus. No jaundice. No jugular venous distention (JVD) or thyromegaly. Patient has a central venous catheter that was placed on 07/13/2019 in the right internal jugular. No tenderness. No erythema. Lungs are diminished with coarse rhonchi in the right upper lobe with fine crepitations, crackles at the base. Abdomen is soft, nontender, nondistended. Positive bowel sounds. No rebound. No guarding. No hepatosplenomegaly. No abdominal bruits. Extremities: No cyanosis, clubbing or pitting edema. LABORATORY DATA: White count 12, hemoglobin 7.9, hematocrit 26, platelet count of 237. Sodium 134, potassium 4.4, chloride 113, bicarbonate 29, BUN 10, creatinine 0.49, glucose 89. AFB pending. Sputum culture: No organisms. COVID-19 pending. Respiratory panel negative. Two sets of blood cultures negative. ASSESSMENT/PLAN: This is a 64-year-old female with protein calorie malnutrition, BMI of 17.6, 10-year history of a granulomatous disease with progressive cavitary lesions, history of breast cancer, status post chemotherapy and radiation, right lower lobe lobectomy for right lower lobe mass, which turned out to be inflammatory and not a malignancy. With chronic hypoxemic respiratory failure, aortic stent due to atherosclerotic disease and osteoporosis, presented to the emergency room with cough, shortness of breath and low grade fever as well as cough productive of white-yellow sputum. Chest x-ray was abnormal and patient was sent to the emergency room for treatment for bilateral pneumonia. CT chest showed right upper lobe cavitary lesion measuring 5 x 3.5 cm cross-sectional about 8 cm craniocaudal with adjacent bronchiectasis and reticular nodular infiltrates bilaterally which are new since the prior CT. No pulmonary edema and no pneumothorax. Patient arrived hypotensive with systolic pressure in the 80s and was resuscitated with 5 liters of intravenous fluid and subsequent hemodilutional anemia from admission hemoglobin of 9.5 to current hemoglobin of 7.9. Patient was given IV Solu-Medrol with subsequent increase from admission white count of 10.9 to 15.1 yesterday. She remained afebrile with decreased white count of 12.5 today. ACTIVE ISSUES: 1. Right upper lobe cavitary lesion in the lung with history of known granulomatous disease. Patient is followed by Dr. Vasquez in pulmonary associates. Patient remains in a negative pressure room until three negative AFB as well as a negative QuantiFERON gold test. She had been started on vancomycin from admission which was discontinued yesterday due to negative methicillin resistant Staphylococcus aureus (MRSA) screen. She is continued on broad spectrum negative coverage of meropenem. Infectious disease specialist have been consulted for further management per pulmonary, Dr. Naik, no further testing. No need for emergent bronchoscopy. 2. Hypotension secondary to sepsis from bilateral pneumonia. Patient had a right internal jugular vein central catheter placement by general surgery on 07/13/2019 due to persistent hypotension, which responded to 5 liters of IV fluid bolus. Patient is currently maintaining a mean arterial pressure greater than 75 with systolic pressure of 110-125. Patient is medically stable to transfer to medical/surgical floor. Telemetry has been unremarkable. She will need to continue in a negative pressure room. Cardiac markers were unremarkable. Echocardiogram is still pending official report but patient appears to be medically stable at this time. Lactic acid has normalized to 1.7. 3. Protein calorie malnutrition with body mass index (BMI) 17.6. [employer] Teacher consult. Check prealbumin and supplemental nutrition with Ensure. 4. Restless legs on ropinirole. 5. Reflux - no signs of gastrointestinal (GI) bleed. 6. Hemodilutional anemia after 5 liters of IV fluids were given. No active bleeding anywhere. 7. Deep venous thrombosis prophylaxis with compression stockings. DISPOSITION: Patient may be transferred to medical/surgical floor but needs a negative pressure room until negative QuantiFERON gold test for tuberculosis as well as contact and respiratory isolation until COVID-19 is negative. Defer to infectious disease regarding the escalation of antibiotics once cultures have returned. [facility]
[2019-07-14 13:04] VITALS: BP 114/60
[2019-07-14] MEDS ORDERED: SODIUM CHLORIDE 0.9% INJ 10 ML SYR IV PRN (13:15)
[2019-07-14] MEDS ORDERED: ALBUTEROL 90 MCG/ACT 8GM HFA INHALER INH PRN (14:42)
[2019-07-14 14:54] VITALS: BP 114/65
[2019-07-14] MEDS: SODIUM CHLORIDE 0.9% INJ 10 ML SYR IV SCH ×2 (15:28→22:00)
--- NOTE | 2019-07-14 20:56 | IPN ---
DATE: 07/14/2019 Shruthi feels better today. She is being transferred from ICU to PCU. She states her cough is less productive and she is less short of breath. The pressure that she had in her chest has improved. She has no nausea, vomiting or diarrhea. LABORATORY DATA: Blood cultures two sets are negative. Respiratory panel was negative. Sputum gram stain has many white cells, few epithelial cells, no organisms seen. AFB smear is negative. Fungal smear and culture are pending. Chest x-ray done on 07/13/2019, right IJ line in place. No complications. No pneumothorax. Apical pleural thickening is noted. Densities and loss of volume and fibrosis in the lung apex as before infiltrate bilaterally. MEDICATIONS: - probiotics one tablet by mouth with meals - meropenem 1 gram IV every 8 hours LABORATORY DATA: White count 12.5, hemoglobin 7.9, hematocrit 26.4, platelets 237, 78% neutrophils, 11% lymphocytes, 6% monocytes. Sodium 144, potassium 4.4, chloride 113, bicarbonate 29, BUN 10, creatinine 0.49, glucose 89, calcium 7.6, lactic acid 1.7. Serology Blastomyces, Histoplasma, urine Legionella, Aspergillus antibodies, pneumococcal antigen urine and Legionnaire antigen urine are all pending. MRSA screen was negative. PHYSICAL EXAMINATION: She is a frail female in no acute distress. Temperature is 99.1, pulse 78, respiratory rate 18, blood pressure 114/65, oxygen saturation 96% on room air. Heart: Normal S1, S2, distant. Lungs: Diminished breath sounds bilaterally with crackles at the bases and expiratory wheezes. Abdomen: Soft, nontender. Extremities: No clubbing, cyanosis or edema. IMPRESSION: 1. Progressive bilateral cavitary nodular pneumonia who had failed outpatient treatment with doxycycline for 10 days and levofloxacin for 10 days. Currently on IV meropenem with some improvement. Vancomycin was discontinued as her MRSA screen was negative. She is not very ill from this pneumonia even though she has been chronically ill for the past couple of months. It may be an atypical mycobacteria infection or possibly a fungal infection. These tests are pending. 2. Pulmonary cachexia. 3. Recurrent sinopulmonary infections. Should rule out common variable immune deficiency and also will check for HIV. PLAN: Add HIV testing tomorrow. Immunoglobulins have been ordered. Will order IgG subclasses. Can continue meropenem. Discontinue COVID isolation, I am not sure why this was even sent. Continue with only airborne N95 masks until we have three sputum AFBs that are negative.
[2019-07-14] MEDS: rOPINIRole 1MG TAB PO SCH (21:09)
[2019-07-14] MEDS: ASPIRIN 81 MG ENTERIC TAB PO SCH (21:09)
[2019-07-14] MEDS: VITAMIN D 1,000 INTERNATIONAL UNITS TABLET PO SCH (21:09)
[2019-07-14] MEDS: MULTIVITAMINS/MINERALS THERAP 1 TAB PO SCH (21:10)
[2019-07-14] MEDS: OMEPRAZOLE 20 MG CAP PO SCH (21:10)
[2019-07-14] MEDS: ACETAMINOPHEN TAB 650MG DOSE (2X325MG) PO PRN (21:18)
[2019-07-14 21:19] VITALS: BP 115/65
[2019-07-15] MEDS: MEROPENEM INJ 1 GM in IV 1 EA IV SCH ×3 (06:10→22:23)
[2019-07-15] MEDS: NS 1,000 ML IV SCH ×4 (06:10→18:33)
[2019-07-15] MEDS: SODIUM CHLORIDE 0.9% INJ 10 ML SYR IV SCH ×3 (06:11→22:24)
[2019-07-15 06:24] LABS: BASO % 0.2 % (0.0-1.0); EOS # 0.3 10^3/uL (0.0-0.5); EOS % 2.6 % (0.0-3.0); HEMOGLOBIN 8.9 g/dl (12.0-15.5); LYMPH # 1.2 10^3/uL (1.5-5.0); LYMPH % 12.5 % (24.0-44.0); MEAN CORPUSCULAR HEMOGLOBIN 25.9 pg (27.0-33.0); MEAN CORPUSCULAR HGB CONC 30.7 g/dl (32.0-36.5); MEAN CORPUSCULAR VOLUME 84.5 fl (80.0-96.0); MONO # 1.1 10^3/uL (0.0-0.8); MONO % 11.1 % (0.0-5.0); NEUTROPHILS # 7.1 10^3/uL (1.5-8.5); NEUTROPHILS % 71.7 % (36.0-66.0); PLATELET COUNT, AUTOMATED 221 10^3/uL (150-450); RED BLOOD COUNT 3.43 10^6/uL (4.00-5.40); WHITE BLOOD COUNT 9.9 10^3/uL (4.0-10.0)
[2019-07-15 06:38] LABS: BLOOD UREA NITROGEN 9 MG/DL (7-18); CALCIUM LEVEL 8.1 MG/DL (8.8-10.2); CARBON DIOXIDE LEVEL 33 MEQ/L (21-32); CHLORIDE LEVEL 105 MEQ/L (98-107); CREATININE FOR GFR 0.56 MG/DL (0.55-1.30); GLOMERULAR FILTRATION RATE > 60.0 (>45); GLUCOSE, FASTING 80 MG/DL (70-100); SODIUM LEVEL 139 MEQ/L (136-145)
[2019-07-15 06:50] VITALS: BP 98/54
[2019-07-15] MEDS: LACTOBACILLUS ACIDOPHILUS CAP (BACID) PO SCH ×3 (07:53→17:46)
--- NOTE | 2019-07-15 08:23 | REP ---
Clinical: Fever. Comparison: 07/13/2019. Findings: Diffuse bilateral pleuroparenchymal changes with superimposed air space disease and scattered nodules (right greater than left) appears similar to prior examination. No obvious new acute process is appreciated. The mediastinum and cardiac silhouette are stable. Right IJ line with tip in the SVC again noted. Skeletal structures stable. Impression: Diffuse chronic pleuroparenchymal changes with superimposed air space disease and scattered nodules similar to prior examination. No obvious new acute process identified. Electronically Signed by Tyron Matos MD 07/15/2019 08:14 A
--- NOTE | 2019-07-15 09:35 | ECHO ---
DATE OF SERVICE: 07/13/2019 DATE OF : 1955 AGE: 64 ROOM NUMBER: [id number] REFERRING PROVIDER: Dr. Ariella Olsen MD REASON FOR STUDY: Hypotension. 2D MEASUREMENTS: IVS: 1.0 cm LV: 3.6 cm LVPW: 1.0 cm LA: 2.8 cm Aorta: 3.4 cm IVC: 2.3 cm DOPPLER MEASUREMENTS: Peak velocity across the aortic valve: 1.4 m/s Peak velocity across the LVOT: 0.95 m/s Mitral E: 1.1 Mitral A: 0.73 with a ratio of 1.5 2D COMMENTS: 1. Normal left ventricular size, wall thickness, and normal global left ventricular systolic function. The estimated left ventricular systolic ejection fraction is 60-65%. 2. Normal left atrium. Normal right atrium and right ventricle. 3. The atrial septum appeared to be normal without evidence of defect or shunt. 4. Normal aortic root. 5. No pericardial effusion seen. 6. Mildly calcified aortic valve with normal leaflet excursion. Normal mitral valve, tricuspid valve, and pulmonic valve. The proximal pulmonary artery branches also appeared to be normal in size in limited views. 7. The inferior vena cava is mildly enlarged, central venous pressure might be elevated. DOPPLER: It detects trace aortic regurgitation. Assessment of the left ventricular diastolic function appeared to be normal. IMPRESSION: 1. Normal global left ventricular systolic and diastolic function. 2. Aortic valve sclerosis with trace aortic regurgitation, but no aortic stenosis. 3. The inferior vena cava was mildly enlarged, central venous pressure might be elevated. MTDD
[2019-07-15 10:23] VITALS: BP 123/81
--- NOTE | 2019-07-15 14:32 | IPN ---
DATE OF SERVICE: 07/15/2019 Patient had a fever last night of 100.8 at 2119 on 07/14/2019. She complained of night sweats that she has had for several months. No changes in weight, still coughs, but decreased with white-yellow productive sputum. No shortness of breath. The patient has no diarrhea. No dysuria, urgency, or frequency. Maximum temperature (Tmax) 100.8. Current temperature 98.7. Pulse 66, respiratory rate 18, blood pressure 98/54, 100% on room air. Generally, patient is cachectic with body mass index (BMI) of 17 with bitemporal wasting. She has no respiratory distress. No jugular venous distention (JVD). No thyromegaly. Dry mucous membranes. Lungs: Diminished with coarse rhonchi and fine crackles, right upper lobe. Heart: S1, S2, sinus rhythm. Abdomen is soft, nontender, nondistended. Extremities: No cyanosis, clubbing, or any pitting edema. LABORATORY DATA: White count 9.9, hemoglobin 8.9, hematocrit 29, platelet count of 221, 71% neutrophils, no eosinophils. Sodium 139, potassium 4, chloride 105, bicarbonate 33, BUN 9, creatinine 0.56, glucose of 80. MICROBIOLOGY: Acid fast stain 319. Negative smear. Culture pending. Respiratory panel negative. Two sets of blood cultures negative. Urine legionella pending. IgM high 257. Aspergillus, blastomyces, hepatitis C, Histoplasma antibody, A. Galactomannan pending. Streptococcus pneumo pending. QuantiFERON test TB pending. ASSESSMENT/PLAN: This is a 64-year-old female with protein calorie malnutrition, BMI of 17.5, with bilateral lung cavitation that she has had since 2008, followed by Dr. Vasquez as outpatient, now with bilateral infiltrates and recent complaints of nasal congestion treated as outpatient, as well as cough productive of yellow-white sputum. Patient was found to have bilateral infiltrates on chest x-ray done by primary care physician. Currently admitted to rule out tuberculosis IMPRESSION: 1. Progressive bilateral necrotizing pneumonia superimposed on chronic granulomatous disease with lung cavitary lesions. Patient is continued on negative pressure room. Await results of AFB. May discontinue negative pressure room once there are three negative AFB. Infectious disease (ID) consulted. Currently on meropenem but with persistent fever, 100.8. Repeat urinalysis (UA) and blood cultures have been sent. White count is decreasing however and, clinically, patient is unchanged. 2. Hypotension. Patient says that she denies any dizziness, lightheadedness, does not appear to be orthostatic. Will try intravenous (IV) fluids. Patient does have a central line in case she needs vasopressor therapy. 3. Restless legs. On ropinirole. 4. Reflux. On Prilosec. 5. Severe protein calorie malnutrition. Supplemental Ensure. Nutritional consultation. Late Entry Addendum: 04/28 AFB smear (+) -Per ID, await identification of the bacteria. no change in management. Fever -rule out line sepsis in light of new right IJ central venous catheter. -check ua, cxr, and blood culture from right IJ port. -continue meropenem, and await cultures. -await further recommendations from ID -if becomes hypotensive, may give ns iv boluses -if develops septic shock with MAP<60 DESPITE 4-5liter NS, transfer to ICU for levophed iv gtt via right IJ central venous catheter to keep MAP>70. MTDD
[2019-07-15 15:00] VITALS: BP 108/55
[2019-07-15 15:06] LABS: BODY FLUID CULTURE Not indicated. (.); LEGIONELLA ANTIGEN URINE Negative (Negative); ORGANISM ID Not indicated. (.); SPECIMEN SOURCE Urine (.); URINE STREP PNEUMONIAE ANTIGEN Negative (Negative)
[2019-07-15] MEDS: ACETAMINOPHEN TAB 650MG DOSE (2X325MG) PO PRN (16:08)
[2019-07-15] MEDS: OMEPRAZOLE 20 MG CAP PO SCH (22:23)
[2019-07-15] MEDS: ASPIRIN 81 MG ENTERIC TAB PO SCH (22:23)
[2019-07-15] MEDS: MULTIVITAMINS/MINERALS THERAP 1 TAB PO SCH (22:23)
[2019-07-15] MEDS: rOPINIRole 1MG TAB PO SCH (22:23)
[2019-07-15] MEDS: VITAMIN D 1,000 INTERNATIONAL UNITS TABLET PO SCH (22:23)
[2019-07-15 22:25] VITALS: BP 110/58
[2019-07-16] MEDS: MEROPENEM INJ 1 GM in IV 1 EA IV SCH ×3 (06:01→22:49)
[2019-07-16] MEDS: NS 1,000 ML IV SCH ×2 (06:02→21:49)
[2019-07-16] MEDS ORDERED: NS 1,000 ML IV ONE (06:30)
[2019-07-16] MEDS: SODIUM CHLORIDE 0.9% INJ 10 ML SYR IV SCH ×3 (06:37→21:51)
[2019-07-16 06:44] LABS: BASO % 0.3 % (0.0-1.0); EOS # 0.4 10^3/uL (0.0-0.5); EOS % 3.6 % (0.0-3.0); HEMATOCRIT 27.8 % (36.0-47.0); HEMOGLOBIN 8.7 g/dl (12.0-15.5); LYMPH # 1.3 10^3/uL (1.5-5.0); LYMPH % 10.4 % (24.0-44.0); MEAN CORPUSCULAR HEMOGLOBIN 26.1 pg (27.0-33.0); MEAN CORPUSCULAR HGB CONC 31.3 g/dl (32.0-36.5); MEAN CORPUSCULAR VOLUME 83.5 fl (80.0-96.0); MONO % 8.5 % (0.0-5.0); NEUTROPHILS # 9.2 10^3/uL (1.5-8.5); NEUTROPHILS % 76.1 % (36.0-66.0); PLATELET COUNT, AUTOMATED 226 10^3/uL (150-450); RED BLOOD COUNT 3.33 10^6/uL (4.00-5.40); WHITE BLOOD COUNT 12.1 10^3/uL (4.0-10.0)
[2019-07-16 06:57] LABS: BLOOD UREA NITROGEN 8 MG/DL (7-18); CALCIUM LEVEL 8.2 MG/DL (8.8-10.2); CARBON DIOXIDE LEVEL 29 MEQ/L (21-32); CHLORIDE LEVEL 104 MEQ/L (98-107); CREATININE FOR GFR 0.55 MG/DL (0.55-1.30); GLOMERULAR FILTRATION RATE > 60.0 (>45); GLUCOSE, FASTING 96 MG/DL (70-100); SODIUM LEVEL 137 MEQ/L (136-145)
[2019-07-16] MEDS: LACTOBACILLUS ACIDOPHILUS CAP (BACID) PO SCH ×3 (07:50→17:34)
[2019-07-16 07:51] VITALS: BP 109/63
--- NOTE | 2019-07-16 10:27 | IPN ---
DATE: 07/16/2019 Patient remains febrile with a maximum temperature (T max) of 101.8 at 1500 hours on 07/15/2019. Urine is negative. Repeat set of blood cultures on 07/15/2019 was also negative for the past 24 hours. One of three AFB stains showed a moderate amount of AFB, not identified as yet. Repeat chest x-ray on 07/15/2019 unchanged with diffuse chronic pleuroparenchymal changes. No new process identified with air space disease and scattered nodules, similar to prior examination. Patient currently is still on meropenem. Vancomycin and doxycycline were discontinued as well as azithromycin. Overnight patient was given an IV bolus due to systolic pressure of 98/54. The patient denies any diarrhea but had two formed bowel movements yesterday. Vital Signs: Maximum temperature (T max) 101.8, pulse 64, respiratory rate 19, blood pressure 108/55, 93% on room air. Generally, patient is cachectic with bitemporal wasting, very hard of hearing with hearing aids. No jugular venous distention (JVD)/thyromegaly. No conversational dyspnea. Lungs: Diminished with right upper lobe rhonchi, fine crackles. Heart: S1, S2, sinus rhythm. Nondisplaced point of maximal impulse. Abdomen: Soft, nontender, nondistended. Positive bowel sounds times four quadrants. No rebound or guarding. Extremities: No cyanosis or pitting edema. ASSESSMENT AND PLAN: A 64-year-old female with a history of progressive and chronic granulomatous lung disease with body mass index (BMI) of 17.5 and protein-calorie malnutrition, followed as an outpatient by Dr. Vasquez in [facility], presented to her primary care physician with persistent nasal congestion, cough productive of yellow-white sputum. Chest x-ray showed bilateral infiltrates. Patient was sent to the hospital to rule out acute bacterial pneumonia. IMPRESSION: 1. Bilateral pneumonia superimposed on chronic granulomatous disease. Patient failed doxycycline for 10 days and Levaquin for 10 days as an outpatient. Initially given vancomycin, meropenem, doxycycline; discontinued due to negative methicillin-resistant Staphylococcus aureus (MRSA) screen. AFB stains were sent. One of three shows moderate but unlikely to be tuberculosis, most likely MAC. She is currently continuing IV meropenem. Appreciate infectious disease (ID) and pulmonary management of her acute condition. Patient's white count is increasing along with maximum temperature (T max) of 101.8. UA and blood cultures remain negative. Urine Legionella is negative. Strep pneumo is negative. Aspergillus is still pending. MRSA is negative. Blastomyces and Histoplasma are still pending. 2. Pulmonary cachexia with severe protein-calorie malnutrition, BMI of 17.5, currently on Ensure three times a day with meals. 3. Restless legs. On ropinirole. 4. Persistent hypotension. Asymptomatic. Has been given IV fluids. Continues to maintain mean arterial pressure greater than 70. Has a triple lumen catheter on her right internal jugular (IJ). If persistent fever, may need to rule out line sepsis, obtain blood cultures through the central line. 5. Vitamin D deficiency. On chronic supplement. 6. Reflux. On Prilosec. MTDD
[2019-07-16 15:06] LABS: ASPERGILLUS FLAVUS ABY Negative (Neg:<1:1); ASPERGILLUS FUMIGATUS ABY Negative (Neg:<1:1); ASPERGILLUS NIGER ABY Negative (Neg:<1:1); BLASTOMYCES ABY Negative (Neg:<1:1); HISTOPLASMA ABY Negative (Neg:<1:1)
[2019-07-16 15:27] VITALS: BP 102/60
[2019-07-16] MEDS: ACETAMINOPHEN TAB 650MG DOSE (2X325MG) PO PRN (17:37)
[2019-07-16] MEDS: MULTIVITAMINS/MINERALS THERAP 1 TAB PO SCH (21:50)
[2019-07-16] MEDS: ASPIRIN 81 MG ENTERIC TAB PO SCH (21:50)
[2019-07-16] MEDS: rOPINIRole 1MG TAB PO SCH (21:50)
[2019-07-16] MEDS: VITAMIN D 1,000 INTERNATIONAL UNITS TABLET PO SCH (21:50)
[2019-07-16] MEDS: OMEPRAZOLE 20 MG CAP PO SCH (21:50)
[2019-07-16 21:57] VITALS: BP 103/60
[2019-07-17] MEDS: SODIUM CHLORIDE 0.9% INJ 10 ML SYR IV SCH ×3 (05:39→20:56)
[2019-07-17 05:51] VITALS: BP 101/60
[2019-07-17 06:11] LABS: BASO % 0.3 % (0.0-1.0); EOS # 0.5 10^3/uL (0.0-0.5); EOS % 4.3 % (0.0-3.0); HEMATOCRIT 27.8 % (36.0-47.0); HEMOGLOBIN 8.7 g/dl (12.0-15.5); LYMPH % 8.7 % (24.0-44.0); MEAN CORPUSCULAR HGB CONC 31.3 g/dl (32.0-36.5); MEAN CORPUSCULAR VOLUME 83.2 fl (80.0-96.0); MONO % 8.1 % (0.0-5.0); NEUTROPHILS # 9.1 10^3/uL (1.5-8.5); NEUTROPHILS % 77.2 % (36.0-66.0); PLATELET COUNT, AUTOMATED 230 10^3/uL (150-450); RED BLOOD COUNT 3.34 10^6/uL (4.00-5.40); WHITE BLOOD COUNT 11.8 10^3/uL (4.0-10.0)
[2019-07-17 06:27] LABS: BLOOD UREA NITROGEN 10 MG/DL (7-18); CALCIUM LEVEL 8.2 MG/DL (8.8-10.2); CARBON DIOXIDE LEVEL 30 MEQ/L (21-32); CHLORIDE LEVEL 105 MEQ/L (98-107); CREATININE FOR GFR 0.51 MG/DL (0.55-1.30); GLOMERULAR FILTRATION RATE > 60.0 (>45); GLUCOSE, FASTING 87 MG/DL (70-100); POTASSIUM SERUM 4.5 MEQ/L (3.5-5.1); SODIUM LEVEL 138 MEQ/L (136-145)
[2019-07-17] MEDS: MEROPENEM INJ 1 GM in IV 1 EA IV SCH ×2 (06:27→15:22)
[2019-07-17] MEDS: LACTOBACILLUS ACIDOPHILUS CAP (BACID) PO SCH ×3 (09:16→18:05)
[2019-07-17] MEDS: NS 1,000 ML IV SCH (09:22)
--- NOTE | 2019-07-17 09:30 | IPN ---
DATE: 07/17/2019 Patient had a maximum temperature (T-max) of 101.8 on 07/15/2019. Blood cultures from 07/15/2019 have remained negative for 48 hours. Repeat blood cultures on 07/16/2019 also remain negative taken from the right internal jugular central venous catheter. AFB had been positive smear on 1 out of 3 with moderate amount most likely MAC for infectious disease specialist, Dr. Brandt. Patient remains afebrile over the past 24 hours. White count has decreased from 12,000 to 11.8 from yesterday to this morning. Patient reports no change in sputum production, still yellow and thick. No chills. Patient denies any night sweats currently from last night. No nausea, vomiting. No diarrhea. No abdominal pain. Denies dysuria or urgency, frequency, flank pain. Patient is asking when she can go home. COVID-19 is still pending and no other issues per nursing. Patient had received 1 liter bolus yesterday morning at 6:00 a.m. on 07/16/2019 due to blood pressure of 98/54. Currently 101/60 at bedside on no blood pressure medications. PHYSICAL EXAMINATION: Temperature 99.2, pulse 68, respiratory rate 18, blood pressure 101/60, 98% on room air. Generally, patient is cachectic appearing with bitemporal wasting. Dry mucous membranes. Lungs are diminished. Air entry is decreased on the right with rhonchi, crackles in the right upper lobe. Heart: S1, S2, sinus rhythm. No murmurs, rubs or gallops. Abdomen is soft, nontender, nondistended, positive bowel sounds times four quadrants. No rebound or guarding. No hepatosplenomegaly. Extremities: No cyanosis, clubbing or pitting edema. Skin: Warm, dry, well perfused. Right internal jugular central venous catheter without erythema or swelling or tenderness. Echocardiogram: Normal ejection fraction (EF) of 60-65%. Trace aortic regurgitation. No aortic stenosis. LABORATORY DATA: White count 11.8, hemoglobin 8.7, hematocrit 27.8, platelet count 230. Sodium 138, potassium 4.5, chloride 105, bicarbonate 30, BUN 10, creatinine 0.51, glucose 87. Microbiology: 321, blood culture negative after 48 hours. Acid fast smear, moderate amount. AFB smear -2 positive (moderate, few), 1 negative. awaiting identification Sputum culture 07/13/2019 decreased normal jesús. No organism seen. Coronavirus pending, respiratory panel negative. Repeat blood culture via central venous catheter on 07/16/2019, negative, still pending. Chest x-ray 07/15/2019, diffuse chronic pleuroparenchymal changes with superimposed airspace disease and scattered nodules similar to prior exam. No acute process. Urinalysis negative nitrite, negative leukocyte esterase 0, WBC 4, RBC negative, bacteria serology: Negative Streptococcus, pneumoniae, negative Legionella, negative QuantiFERON TB test, negative blastomyces, negative Histoplasma, HIV pending, negative Aspergillus, pending galactomannan. ASSESSMENT/PLAN: This is a 64-year-old female with history of progressive and chronic granulomatous lung disease with body mass index of 17.5 and pulmonary cachexia, severe protein calorie malnutrition, followed as outpatient by8 food service attendant, Dr Vasquez, presented to her primary care physician with cough productive of yellow sputum, nasal congestion. Chest x-ray showed bilateral infiltrates. Patient was subsequently sent to [facility] emergency room to rule out acute bacterial pneumonia. CT chest shows cavitary lesion in the right upper lobe admitted for bilateral pneumonia on chronic granulomatous disease. IMPRESSION: 1. Bilateral pneumonia superimposed on chronic granulomatous disease. The patient failed 10 days of Levaquin, doxycycline. Admitted and initially given vancomycin, meropenem, doxycycline. Discontinued due to negative methicillin resistant Staphylococcus aureus (MRSA) screen and only continued on meropenem. The patient was febrile at 101.8 on 07/15/2019. Blood cultures were negative due to concerns for central line infection. 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 Aspergillus, blastomycosis, Histoplasma, Legionella, Streptococcus pneumoniae, methicillin resistant Staphylococcus aureus (MRSA) are all negative. COVID-19 still pending. The patient is kept in negative pressure room with contact, droplet isolation. The patient continues to have productive cough of yellow sputum, along with previous night sweats, which has resolved over the past 24 hours. The patient is anxious to go home but still with elevated white count of 12.1 on 07/16/2019 and 11.8 this morning. She has had recurrent hypotensive episodes requiring IV fluids boluses. 2. Pulmonary cachexia with severe protein calorie malnutrition, body mass index (BMI) of 17.5, currently on Ensure. Nutrition consulted for supplementary calories. 3. Restless legs: On ropinirole. 4. Persistent hypotension: Echo was normal. Most likely due to sepsis. Currently on intravenous meropenem. Had a maximum temperature (t-max) of 101.8 on 07/15/2019, which has resolved; however, her white count had increased to 12.1, but down to 11.8 this morning. Line infection has been evaluated with a blood culture through the port on 12/16/2019, awaiting results. Previous blood cultures have remained negative. The patient had negative MRSA infection and vitamin D deficiency, on supplemental nutrition. 5. Reflux: On Prilosec. DISPOSITION: Await COVID-19 result, which is not available per infection control as of today. Will need any new recommendations regarding a maximum temperature (t-max) of 101.8 on 07/15/2019 and increasing white count from infectious disease to see if we need to change intravenous antibiotics. MTDD
[2019-07-17 11:08] LABS: HEPATITIS C VIRUS ABY INDEX 0.1 INDEX (<0.8); HIV 1&2 SCREEN CENTAUR NEGATIVE (NEGATIVE)
[2019-07-17 14:00] VITALS: BP 100/59
[2019-07-17] MEDS: MOXIFLOXACIN 400 MG TAB PO SCH (18:05)
--- NOTE | 2019-07-17 20:53 | IPN ---
DATE: 07/17/2019 Shruthi seems to be doing better. She states she is feeling ready to go home soon. She had a temperature of 101.8 on 07/15/2019, but has been afebrile since then. She has been on meropenem, day #5. LABORATORY DATA: White count 11.8, hemoglobin 8.7, hematocrit 27.8, platelets 230, 77% neutrophils, 8% lymphocytes, 8% monocytes, 4% eosinophils. Sodium 138, potassium 4.5, chloride 105, bicarbonate 30, BUN 10, creatinine 0.51, glucose 87, calcium 8.2. Procalcitonin was 0.44 on 07/12/2019 and then on 07/13/2019 was 0.07. Acid-fast bacilli (AFB) smear was two out of three were positive and will be sent out to. To [facility] for identification whether this is a tuberculosis (TB) versus nontuberculous mycobacteria. Aspergillus galactomannan was negative. Aspergillus antibodies were negative. Methicillin-resistant Staphylococcus aureus (MRSA) polymerase chain reaction (PCR) was negative. Hepatitis C negative. HIV negative. Blastomyces antibody, Histoplasma antibody were negative. Urine pneumococcal antigen negative. CT chest shows bilateral apical pleural thickening, cavitary lesion in the right lung apex measuring 3 x 3.5 cm x 8 cm with adjacent bronchiectasis. Reticular nodular infiltrates in the lungs bilaterally and multiple ill-defined lung mass is new since prior CT. IMPRESSION: 1. Cavitary pneumonia with a reticular nodular infiltrates. Very suggestive of the nontuberculous mycobacteria. This has been a progressive disease in this patient. She has had problems since 2006, with chronic cough and abnormal chest CTs. I suspect this will be Mycobacterium avium complex or another nontuberculous mycobacteria. The fact that her QuantiFERON TB Gold is negative makes tuberculosis very unlikely. I have called microbiology to try and get expedited results on TB PCR on that AFB, so the patient could be discharged home and N95 could be discontinued. 2. Fever with slightly elevated procalcitonin on admission. Although I suspect she did not have a bacterial infection, she has received five days of meropenem and will switch her to Augmentin for total of 10-day antibiotic so she could be discharged with five days of total Augmentin, although my suspicion of the bacterial pneumonia is very low. 3. Pulmonary cachexia. Encouraged to eat a high-protein foods. PLAN: The patient needs to follow up in my office in 2-3 weeks after discharge., once I have the results of AFB cultures to decide on her treatment plan. She understands that she will need treatment for at least 12 months.
[2019-07-17] MEDS: MULTIVITAMINS/MINERALS THERAP 1 TAB PO SCH (20:54)
[2019-07-17] MEDS: ASPIRIN 81 MG ENTERIC TAB PO SCH (20:54)
[2019-07-17] MEDS: OMEPRAZOLE 20 MG CAP PO SCH (20:55)
[2019-07-17] MEDS: rOPINIRole 1MG TAB PO SCH (20:55)
[2019-07-17] MEDS: VITAMIN D 1,000 INTERNATIONAL UNITS TABLET PO SCH (20:55)
[2019-07-17 21:00] VITALS: BP 100/58
[2019-07-18] MEDS: NS 1,000 ML IV SCH ×3 (00:55→21:05)
[2019-07-18] MEDS: SODIUM CHLORIDE 0.9% INJ 10 ML SYR IV SCH ×3 (05:24→21:02)
[2019-07-18 05:35] VITALS: BP 102/54
[2019-07-18 06:04] LABS: BASO % 0.3 % (0.0-1.0); EOS # 0.6 10^3/uL (0.0-0.5); EOS % 5.6 % (0.0-3.0); HEMATOCRIT 27.1 % (36.0-47.0); HEMOGLOBIN 8.4 g/dl (12.0-15.5); LYMPH # 1.2 10^3/uL (1.5-5.0); LYMPH % 12.2 % (24.0-44.0); MEAN CORPUSCULAR HEMOGLOBIN 26.1 pg (27.0-33.0); MEAN CORPUSCULAR VOLUME 84.2 fl (80.0-96.0); MONO % 9.9 % (0.0-5.0); NEUTROPHILS # 6.9 10^3/uL (1.5-8.5); NEUTROPHILS % 69.9 % (36.0-66.0); PLATELET COUNT, AUTOMATED 226 10^3/uL (150-450); RED BLOOD COUNT 3.22 10^6/uL (4.00-5.40); WHITE BLOOD COUNT 9.9 10^3/uL (4.0-10.0)
[2019-07-18 06:20] LABS: BLOOD UREA NITROGEN 10 MG/DL (7-18); CALCIUM LEVEL 8.4 MG/DL (8.8-10.2); CARBON DIOXIDE LEVEL 30 MEQ/L (21-32); CHLORIDE LEVEL 105 MEQ/L (98-107); CREATININE FOR GFR 0.61 MG/DL (0.55-1.30); GLOMERULAR FILTRATION RATE > 60.0 (>45); GLUCOSE, FASTING 85 MG/DL (70-100); POTASSIUM SERUM 4.4 MEQ/L (3.5-5.1); SODIUM LEVEL 140 MEQ/L (136-145)
[2019-07-18] MEDS: LACTOBACILLUS ACIDOPHILUS CAP (BACID) PO SCH ×3 (08:11→17:52)
[2019-07-18 15:00] VITALS: BP 104/50
[2019-07-18] MEDS: MOXIFLOXACIN 400 MG TAB PO SCH (17:52)
[2019-07-18 17:55] LABS: FERRITIN 189 NG/ML (8-252); IRON (FE) 22 UG/DL (50-170); PERCENT SATURATION 10.2 % (13.2-45.0); TOTAL IRON BINDING CAPACITY 215 UG/DL (250-450)
[2019-07-18 18:01] LABS: VITAMIN B12 LEVEL 919 PG/ML (247-911)
[2019-07-18 18:10] LABS: FOLATE 17.9 NG/ML (>5.4)
--- NOTE | 2019-07-18 18:46 | IPN ---
DATE: 07/18/2019 Shruthi seems to be doing very well. She denies any nausea, vomiting or diarrhea. She had no fever or chills. Her cough has decreased. She would like to go home. MEDICATIONS: - moxifloxacin 400 mg by mouth daily - probiotics 1 tablet by mouth with meals LABORATORY DATA: White count 9.9, hemoglobin 8.4, hematocrit 27.1, platelets 226, 70% neutrophils, 12% lymphocytes 10% monocytes. Sodium 140, potassium 4.4, chloride 105, bicarbonate 30, BUN 10, creatinine 0.61, glucose 85, calcium 8.4. Sputum culture was final negative on 07/13/2019 and acid-fast bacillus (AFB) two out of three are positive for AFB smear and polymerase chain reaction (PCR) is pending. Blood cultures have all been negative. HIV negative, hepatitis B negative, QuantiFERON TB Gold negative. Pneumococcal antigen and Streptococcus pneumoniae and Legionella are negative. Blastomyces antibody, Histoplasma antibody and Aspergillus antibodies all negative. CT chest was reviewed with Dr. Butler today, which showed large cavitary lesion in the right lung apex measuring 5 x 2.5 cm with adjacent bronchiectasis and reticular nodular infiltrates in both lungs and multiple ill-defined lung masses. These are new compared to prior CT from 2016. IMPRESSION 1. Cavitary pneumonia with reticular nodular infiltrate and positive AFB smear. 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 The patient will not be treated at this point until I have further identification on her AFB, then decision on treatment will be done as an outpatient. The patient will need at least 12-18 months of treatment. 2. Anemia most likely related to chronic disease with a hemoglobin of 7.9 lowest. 3. Cachexia with an albumin of 2.5. The patient should be encouraged to drink Ensure. PLAN: Will add vitamin B12, folate an iron studies for workup of anemia. Switch to moxifloxacin 400 mg daily for a total of five days. The patient could be discharged home. Case discussed with Dr. Keshia Ca, who will discharge the patient home in the morning and she will need to remain at home isolation for the AFB until this has been isolated and identified that is not tuberculosis, although my suspicion is very low with a negative QuantiFERON TB Gold. Follow up at the infectious disease clinic in two weeks.
[2019-07-18] MEDS: rOPINIRole 1MG TAB PO SCH (21:00)
[2019-07-18] MEDS: VITAMIN D 1,000 INTERNATIONAL UNITS TABLET PO SCH (21:00)
[2019-07-18] MEDS: MULTIVITAMINS/MINERALS THERAP 1 TAB PO SCH (21:01)
[2019-07-18] MEDS: ASPIRIN 81 MG ENTERIC TAB PO SCH (21:01)
[2019-07-18] MEDS: OMEPRAZOLE 20 MG CAP PO SCH (21:01)
[2019-07-18 22:00] VITALS: BP 101/61
--- NOTE | 2019-07-18 22:24 | IPNPDOC ---
Date Seen The patient was seen on 07/18/19. Progress Note SUBJECTIVE: No acute complaints overnight. AFB cultures pending still. Patient denies fevers, chills, n/v/d, productive cough. OBJECTIVE: VITAL SIGNS: Please see below PHYSICAL EXAMINATION: CONSTITUTIONAL: thin appearing female, no acute distress, resting comfortably, AAO x 3 EYES: PERRLA, EOM intact HENT, MOUTH: Normocephalic, atraumatic, moist mucous membranes NECK: SUPPLE, no JVD, no lymphadenopathy, no carotid bruit CV: Regular rate and rhythm, S1S2 normal, no murmurs/rubs/gallops RESPIRATORY: Clear to auscultation bilaterally, no rales/rhonchi/wheezes GI: BS positive in 4 quadrants, soft, nontender, nondistended, no rebound or guarding, no organomegaly : Deferred MUSCULOSKELETAL: cachexic extremities, Normal ROM. No cyanosis, clubbing, swelling, joint deformity, extremity edema INTEGUMENTARY: Intact, no rashes, no lesions, no erythema NEUROLOGIC: Cranial Nerves II-XII are intact, no focal deficits PSYCHIATRIC: Mood and affect are normal CURRENT MEDICATIONS: Please see below LABORATORY DATA: Please see below and the following: Sputum culture was final negative on 07/13/2019 and acid-fast bacillus (AFB) two out of three are positive for AFB smear and polymerase chain reaction (PCR) is pending. Blood cultures have all been negative. HIV negative, hepatitis B negative, QuantiFERON TB Gold negative. Pneumococcal antigen and Streptococcus pneumoniae and Legionella are negative. Blastomyces antibody, Histoplasma antibody and Aspergillus antibodies all negative. IMAGING: CT chest was reviewed with Dr. Butler today, which showed large cavitary lesion in the right lung apex measuring 5 x 2.5 cm with adjacent bronchiectasis and reticular nodular infiltrates in both lungs and multiple ill-defined lung masses. These are new compared to prior CT from 2016. ASSESSMENT: 64 y/o F currently inpatient status treating for cavitary pneumonia with nodular infiltrate, + AFB smear. PLAN: 1. Cavitary pneumonia with reticular nodular infiltrate. Positive AFB smear with AFB cultures still pending from 07/15/19. Negative QuantiFERON Gold, suggestive of nontuberculous mycobacteria, most commonly it is mycobacterium avium complex per ID. The patient will not be treated at this point until I have further identification on her AFB, then decision on treatment will be done as an outpatient. The patient will need at least 12-18 months of treatment. At discharge she will need to remain at home isolation until AFB cultures can be isolated and identified that is not tuberculosis. F/u with ID in 2 weeks after discharge. 2. Anemia of chronic disease. H/H below. Vitamin B12, folate and iron studies added. No signs of acute bleeding. 3. Cachexia with an albumin of 2.5. Nutrition following, Ensure and recommend nutrition referral by PCP after discharge. DISPOSITION: Currently inpatient status. Plan is hopeful for discharge in the AM. VS, I&O, 24H, Fishbone Vital Signs/I&O Vital Signs Date Time Temp Pulse Resp B/P (MAP) Pulse Ox O2 Delivery O2 Flow Rate FiO2 07/18/19 15:00 98.9 80 18 104/50 (68) 99 Room Air 07/14/19 13:10 2.0 I&O- Last 24 Hours up to 6 AM 07/18/19 06:00 Intake Total 2610 ml Output Total 1250 ml Balance 1360 ml Laboratory Data 24H LABS Laboratory Tests 2 07/18/19 05:31: Immature Granulocyte % (Auto) 2.1, Neutrophils (%) (Auto) 69.9H, Lymphocytes (%) (Auto) 12.2L, Monocytes (%) (Auto) 9.9H, Eosinophils (%) (Auto) 5.6H, Basophils (%) (Auto) 0.3, Neutrophils # (Auto) 6.9, Lymphocytes # (Auto) 1.2L, Monocytes # (Auto) 1.0H, Eosinophils # (Auto) 0.6H, Basophils # (Auto) 0.0, Nucleated Red Blood Cells % (auto) 0.0, Anion Gap 5L, Glomerular Filtration Rate > 60.0, Calcium Level 8.4L, Iron Level 22L, Total Iron Binding Capacity 215L, Transferrin % Saturation 10.2L, Ferritin 189, Vitamin B12 Level 919H, Folate 17.9 CBC/BMP Laboratory Tests 07/18/19 05:31 Microbiology Microbiology 07/16/19 Blood Culture - Preliminary, Resulted No Growth after 48 hours. All Specime... 07/16/19 Blood Culture - Preliminary, Resulted No Growth after 48 hours. All Specime... 07/15/19 Acid Fast Stain - Final, Resulted 07/15/19 Mycobacterial Culture, Resulted Pending 07/15/19 Blood Culture - Preliminary, Resulted No Growth after 72 hours. All specime... 07/15/19 Blood Culture - Preliminary, Resulted No Growth after 72 hours. All specime... 07/15/19 Acid Fast Stain - Final, Resulted 07/15/19 Mycobacterial Culture, Resulted Pending 07/13/19 Fungal Smear, Received Pending 07/13/19 Fungal Culture, Received Pending 07/13/19 Acid Fast Stain - Final, Resulted 07/13/19 Mycobacterial Culture, Resulted Pending 07/13/19 Gram Stain - Final, Complete 07/13/19 Sputum Culture - Final, Complete 07/13/19 Coronavirus COVID-19 PCR ([place]) - Final, Complete 07/13/19 Respiratory Virus Panel (PCR) ([place]) - Final, Complete 07/12/19 Blood Culture - Final, Complete NO GROWTH AFTER 5 DAYS 07/12/19 Blood Culture - Final, Complete NO GROWTH AFTER 5 DAYS Keshia Ca MD Jul 18, 2019 22:24
[2019-07-19] MEDS: SODIUM CHLORIDE 0.9% INJ 10 ML SYR IV SCH (05:35)
[2019-07-19 05:56] LABS: HEMATOCRIT 27.2 % (36.0-47.0); HEMOGLOBIN 8.3 g/dl (12.0-15.5); MEAN CORPUSCULAR HEMOGLOBIN 25.5 pg (27.0-33.0); MEAN CORPUSCULAR HGB CONC 30.5 g/dl (32.0-36.5); MEAN CORPUSCULAR VOLUME 83.4 fl (80.0-96.0); PLATELET COUNT, AUTOMATED 230 10^3/uL (150-450); RED BLOOD COUNT 3.26 10^6/uL (4.00-5.40); WHITE BLOOD COUNT 9.8 10^3/uL (4.0-10.0)
[2019-07-19 06:00] VITALS: BP 102/62
[2019-07-19 06:19] LABS: BLOOD UREA NITROGEN 9 MG/DL (7-18); CALCIUM LEVEL 8.2 MG/DL (8.8-10.2); CARBON DIOXIDE LEVEL 29 MEQ/L (21-32); CHLORIDE LEVEL 105 MEQ/L (98-107); CREATININE FOR GFR 0.56 MG/DL (0.55-1.30); GLOMERULAR FILTRATION RATE > 60.0 (>45); GLUCOSE, FASTING 87 MG/DL (70-100); POTASSIUM SERUM 4.4 MEQ/L (3.5-5.1); SODIUM LEVEL 139 MEQ/L (136-145)
[2019-07-19 06:53] LABS: ATYPICAL LYMPH 1 % (0-5); EOSINOPHILS 4 % (0-3); HYPOCHROMASIA 1+; LYMPHOCYTES 16 % (16-44); MONOCYTES 10 % (0-5); MYELOCYTES 2 % (0-0); NEUTROPHILS 67 % (28-66); PLATELET ESTIMATE NORMAL (NORMAL)
[2019-07-19 06:55] LABS: POLYCHROMASIA 1+
[2019-07-19] MEDS ORDERED: MOXI400T11 PO (08:02)
[2019-07-19] MEDS ORDERED: FERR325T16 PO (08:15)
[2019-07-19] MEDS: LACTOBACILLUS ACIDOPHILUS CAP (BACID) PO SCH (08:45)
--- NOTE | 2019-07-19 11:34 | DS.PDOC ---
Discharge Summary General Date of Admission Jul 12, 2019 at 18:31 Date of Discharge 07/19/19 Primary Care Physician: YAN TO NP Attending Physician: Keshia Ca MD Specialist/Consultants Involve: Maryanne Brandt MD Discharge Summary HISTORY OF PRESENT ILLNESS: Patient is a 64-year-old female, past medical history significant for emphysema with 2 L O2 NC, osteoporosis, distal aortic atherosclerosis with secondary claudication status post aortic stent, tubular adenoma, GERD, who presents to the emergency department to recommendation of her primary care provider. Patient was seen in her primary's office earlier today. She carries a 2 month history of sinusitis and otitis media, treated with 10 days of Levaquin following failure of doxycycline. Upon presentation to the office today, patient reported improvement in both her sinus and ear pain, though she did report worsening productive cough with green/yellow sputum, fatigue, body aches with increasing shortness of breath and chills. Patient did have a temperature as high as 101.2F. Patient does not have any exposures to sick contacts. No history of recent travel Upon presentation to the emergency department, patient was found to have temperature 97.8, pulse of 79, respiratory rate of 24, blood pressure of 141/81 (101). Patient was maintaining a saturation 100% with 2 L via NC. CBC was significant for a mild leukocytosis of 10.9. H/H of 9.5/30.6. Folliculitis were unremarkable. BUN/CR of 13/0.69. Lactic negative. Negative cardiac markers. At her PCPs office, patient did have a respiratory panel performed which was negative, with reflex COVID-19 testing. Chest x-ray significant for bilateral pneumonia in both the right middle and left upper lobe. Given that the patient has failed outpatient antibiotic therapy, in the setting of increased shortness of breath and bilateral pneumonia, patient was admitted to the hospital for IV antibiotic treatment. HOSPITAL COURSE: CT chest was later done, showing large cavitary lesion in the right lung apex measuring 5 x 2.5 cm with adjacent bronchiectasis and reticular nodular infiltrates in both lungs and multiple ill-defined lung masses. These are new compared to prior CT from 2016. Cavitary pneumonia with reticular nodular infiltrate and concern for TB was taken. Infectious disease was consulted, quantiferon gold neg. Patient tested positive for 2 AFB smears, sent to lab for further testing. Patient was treated initially with meropenem but was later switched to avelox. Positive AFB smear with AFB cultures still pending from 07/15/19. Negative QuantiFERON Gold, suggestive of nontuberculous mycobacteria, most commonly it is mycobacterium avium complex per ID. Patient was also seen by pulmonology this admission. On 07/18/19 patient was feeling much improved. Due to neg quantiferon testing, ID was not as suspicious for TB vs. other mycobacterium infection. On 07/18/19 decision was made by ID and patient to continue avelox for 5 days PO. Due to not having final culture results back for for AFB, patient will complete this antibiotics. She will be discharged home with home isolation until results come back. Further treatment will be decided as outpatient by ID. F/u with ID in 2 weeks after discharge. At the time of discharge, patient denied chest pain, shortness of breath but did still have intermittent cough which had improved. REVIEW OF SYSTEMS: CONSTITUTIONAL: Denies unexplained weight gain, loss of appetite, fever, night sweats EYES: Denies eye drainage, eye pain, visual changes, dry/irritated eye EARS, NOSE, MOUTH, THROAT: Denies difficulty hearing, ringing in ears, mouth sores, loose teeth, sore throat, facial numbness or pain NECK: Denies swollen glands CARDIOVASCULAR: Denies irregular heartbeat, racing heart, chest pains, swelling of feet or legs, pain in legs with walking RESPIRATORY: Denies night sweats, sputum production, coughing up blood GASTROINTESTINAL: Denies abdominal pain, constipation, bloody stool, diarrhea, heartburn, nausea, vomiting GENITOURINARY: Denies painful urination, bloody urine, frequent urination, urgency, leaking urine, impotence MUSCULOSKELETAL: Denies joint pain, muscle pain, leg swelling INTEGUMENTARY: Denies rash, itching, new skin lesion, change in existing skin lesion, hair loss or increase, breast changes. NEUROLOGICAL: Denies headaches, dizziness, difficulty walking, numbness or tingling PSYCHIATRIC: Denies depression, anxiety, recurrent bad thoughts, mood swings, hallucinations PAST MEDICAL HISTORY: Emphysema and scarring, FEV1 of 1.9 Osteoporosis Breast cancer, S/P left-sided lumpectomy with chemotherapy and radiation Allergic rhinitis Distal aortic atherosclerosis with accompanying claudication, S/P aortic stent graft placement in 2011 Tubular adenoma, 2008 Abscess of the lung GERD Restless leg Hearing loss, perforation and repair of left TM. Right upper lobe lung mass, biopsy negative for malignancy 2. Repeat CT screening in 2019 PAST SURGICAL HISTORY: Left breast lumpectomy, 2013 Appendectomy 2 Tubal ligation Lung biopsy Right lung mass, benign status post biopsy Colonoscopy with tubular adenoma polyp resection Tonsillectomy Distal aortic atherosclerosis with claudication, status post aortic stent graft placement 2011 Left TM repair, 2014 Right ossicular chain reconstruction, 2016 SOCIAL HISTORY: Marital status: Resides in: Alone home with and grandchild Children: One son and one daughter Employment: Unemployed Tobacco use: Former smoker, quit greater than 10 years ago. 1.5 pack per day 44 years ETOH: Denies any alcohol use Illicit drug use: Denies any illicit drug use including IV drug use or marijuana Other relevant social factors: Patient does utilize glasses, hearing aides and top and bottom dentures FAMILY HISTORY: Father: , 73 years old, cancer, lung disease, diabetes, CAD, [place], CABG and 50s Mother: , 65 years, [place], hypertension Siblings: Sr., , 45 years old, lung cancer Children: One son and one daughter who are healthy ALLERGIES: Please see below. DISCHARGE MEDICATIONS: Please see below. PHYSICAL EXAMINATION: CONSTITUTIONAL: thin appearing female, no acute distress, resting comfortably, AAO x 3 EYES: PERRLA, EOM intact HENT, MOUTH: Normocephalic, atraumatic, moist mucous membranes NECK: SUPPLE, no JVD, no lymphadenopathy, no carotid bruit CV: Regular rate and rhythm, S1S2 normal, no murmurs/rubs/gallops RESPIRATORY: Clear to auscultation bilaterally, no rales/rhonchi/wheezes GI: BS positive in 4 quadrants, soft, nontender, nondistended, no rebound or guarding, no organomegaly : Deferred MUSCULOSKELETAL: cachectic extremities, Normal ROM. No cyanosis, clubbing, swelling, joint deformity, extremity edema INTEGUMENTARY: Intact, no rashes, no lesions, no erythema NEUROLOGIC: Cranial Nerves II-XII are intact, no focal deficits PSYCHIATRIC: Mood and affect are normal DISCHARGE MEDICATIONS: Please see below LABORATORY DATA: Please see below and the following: Sputum culture was final negative on 07/13/2019 and acid-fast bacillus (AFB) two out of three are positive for AFB smear and polymerase chain reaction (PCR) is pending. Blood cultures have all been negative. HIV negative, hepatitis B negative, QuantiFERON TB Gold negative. Pneumococcal antigen and Streptococcus pneumoniae and Legionella are negative. Blastomyces antibody, Histoplasma antibody and Aspergillus antibodies all negative. IMAGING: CT chest: large cavitary lesion in the right lung apex measuring 5 x 2.5 cm with adjacent bronchiectasis and reticular nodular infiltrates in both lungs and multiple ill-defined lung masses. These are new compared to prior CT from 2016. ASSESSMENT: 64 y/o F currently being treated for cavitary pneumonia with nodular infiltrate, + AFB smear, official cultures pending. PLAN: 1. Cavitary pneumonia with reticular nodular infiltrate. Positive AFB smear with AFB cultures still pending from 07/15/19. Negative QuantiFERON Gold, suggestive of nontuberculous mycobacteria, most commonly it is mycobacterium avium complex per ID. The patient will not be treated at this point until Dr. Brandt (infectious disease) has further identification on her AFB, then decision on treatment will be done as an outpatient. At discharge patient has agreed to to remain at home isolation until AFB cultures can be isolated and identified that is not tuberculosis. F/u with ID in 2 weeks after discharge. 2. Anemia of chronic disease. H/H below, low iron, vitamin B12 elevated. Started on daily ferrous sulfate on discharge. To f/u with PCP. No signs of acute bleeding. 3. Cachexia with an albumin of 2.5. Recommend nutrition referral by PCP after discharge. DISPOSITION: Discharging home in improved condition, restricted to home until cultures come back, patient agreed. Ambulating at baseline, no special needs. TIME SPENT ON DISCHARGE: Greater than 25 minutes. Vital Signs/I&Os Vital Signs Date Time Temp Pulse Resp B/P (MAP) Pulse Ox O2 Delivery O2 Flow Rate FiO2 07/19/19 06:00 97.8 86 17 102/62 (75) 98 Room Air 07/14/19 13:10 2.0 I&O- Last 24 Hours up to 6 AM 07/19/19 06:00 Intake Total 3440 ml Output Total 4350 ml Balance -910 ml Laboratory Data Labs 24H Laboratory Tests 2 07/19/19 05:42: Neutrophils (%) (Auto) , Nucleated Red Blood Cells % (auto) 0.0, Neutrophils 67H, Lymphocytes (Manual) 16, Monocytes (Manual) 10H, Eosinophils (Manual) 4H, Myelocytes 2H, Atypical Lymphocytes 1, Polychromasia 1+, Hypochromasia 1+, Platelet Estimate NORMAL, Anion Gap 5L, Glomerular Filtration Rate > 60.0, Calcium Level 8.2L CBC/BMP Laboratory Tests 07/19/19 05:42 Microbiology Microbiology 07/16/19 Blood Culture - Preliminary, Resulted No Growth after 72 hours. All specime... 07/16/19 Blood Culture - Preliminary, Resulted No Growth after 72 hours. All specime... 07/15/19 Acid Fast Stain - Final, Resulted 07/15/19 Mycobacterial Culture, Resulted Pending 07/15/19 Blood Culture - Preliminary, Resulted No Growth after 72 hours. All specime... 07/15/19 Blood Culture - Preliminary, Resulted No Growth after 72 hours. All specime... 07/15/19 Acid Fast Stain - Final, Resulted 07/15/19 Mycobacterial Culture, Resulted Pending 07/13/19 Fungal Smear, Received Pending 07/13/19 Fungal Culture, Received Pending 07/13/19 Acid Fast Stain - Final, Resulted 07/13/19 Mycobacterial Culture, Resulted Pending 07/13/19 Gram Stain - Final, Complete 07/13/19 Sputum Culture - Final, Complete 07/13/19 Coronavirus COVID-19 PCR ([place]) - Final, Complete 07/13/19 Respiratory Virus Panel (PCR) ([place]) - Final, Complete 07/12/19 Blood Culture - Final, Complete NO GROWTH AFTER 5 DAYS 07/12/19 Blood Culture - Final, Complete NO GROWTH AFTER 5 DAYS Discharge Medications Scheduled Alendronate Sodium (Alendronate Sodium) 70 Mg Tab, 70 MG PO QWEEK, (Reported) Wednesday Aspirin (Aspirin EC) 81 Mg Tab, 81 MG PO QHS, (Reported) Calcium Carbonate/Vitamin D3 (Calcium 600-Vit D3 800 Tablet) 1 Tab Tab, 1 TAB PO QHS, (Reported) Cholecalciferol (Vitamin D3) (Vitamin D3) 1,000 Unit Tablet, 1,000 UNITS PO QHS, (Reported) Ferrous Gluconate (Ferrous Gluconate) 324 Mg Tablet, 1 TAB PO DAILY for iron Moxifloxacin HCl (Moxifloxacin HCl) 400 Mg Tablet, 400 MG PO DAILY@1800 Multivitamins (Thera M Plus Tablet) 1 Tab Tab, 1 TAB PO QHS, (Reported) Omeprazole (Omeprazole) 40 Mg Capsule.dr, 40 MG PO QHS, (Reported) Ropinirole HCl (Ropinirole HCl) 1 Mg Tablet, 1 MG PO QHS, (Reported) Scheduled PRN Acetaminophen (Acetaminophen) 325 Mg Tab, 650 MG PO Q4H PRN for PAIN / FEVER, (Reported) Albuterol Sulfate (Proair Hfa) 108 Mcg/Act Aer, 2 PUFF INH Q4H PRN for SHORTNESS OF BREATH, (Reported) Allergies Coded Allergies: Penicillins (Verified Allergy, Mild, rash, 05/24/19) Keshia Ca MD Jul 19, 2019 11:34
== END 2019-07-19 10:43 | disposition home or self-care (01) | DRG 193 ==
LOC: M ED 16:29 → M ED INP 18:31 → ENRESERVDT 21:53 → ENRESERVTM 21:53 → M PCU 23:33 → M MSPAV 07-14 14:41
PROVIDERS: ADMIT General Practice; ATTEND Internal Medicine
PROC: 02HV33Z Insertion of Infusion Device into Superior Vena Cava, Percutaneous Approach (ICD-10-PCS; principal; 2019-07-13 08:31)
DX: J15.9 Unspecified bacterial pneumonia (principal); E43 Unspecified severe protein-calorie malnutrition; J96.11 Chronic respiratory failure with hypoxia; Z68.1 Body mass index [BMI] 19.9 or less, adult; R64 Cachexia; A31.9 Mycobacterial infection, unspecified; J43.9 Emphysema, unspecified; R91.8 Other nonspecific abnormal finding of lung field; R05 Cough; M81.0 Age-related osteoporosis without current pathological fracture; K21.9 Gastro-esophageal reflux disease without esophagitis; I70.0 Atherosclerosis of aorta; D72.829 Elevated white blood cell count, unspecified; G25.81 Restless legs syndrome; E55.9 Vitamin D deficiency, unspecified; Z99.81 Dependence on supplemental oxygen; Z85.3 Personal history of malignant neoplasm of breast; Z95.1 Presence of aortocoronary bypass graft; R07.9 Chest pain, unspecified; Z79.82 Long term (current) use of aspirin; Z79.899 Other long term (current) drug therapy; Z88.0 Allergy status to penicillin; Z92.21 Personal history of antineoplastic chemotherapy; Z92.3 Personal history of irradiation; Z90.2 Acquired absence of lung [part of]; D71 Functional disorders of polymorphonuclear neutrophils; Z87.891 Personal history of nicotine dependence; J47.9 Bronchiectasis, uncomplicated; I95.9 Hypotension, unspecified; D63.8 Anemia in other chronic diseases classified elsewhere

== ENCOUNTER → 2019-07-12 | Outpatient (CLI) | payer MEDICARE, MEDICAID ==
[~2019-07-12] MED LIST changes: +LIDOCAINE 1% MDV 20ML VIAL As Ordered ONE; +OMEP-221 PO; +ROPI0.5T3; +ROPI1TAB3 PO; +VITAD1000T PO
--- NOTE | 2019-07-12 11:11 | REPPI ---
Chest x-ray: Two views. History: Cough. Comparison chest x-ray: May 24, 2019 and November 19, 2017. Findings: There is extensive chronic volume loss and post thoracotomy change in the right upper lobe with right apical pleural thickening and fibrosis. There is blunting of the right lateral pleural angle. These findings are unchanged. However, there is a new infiltrate in the left upper lobe distribution suggestive of pneumonia. There is also a new infiltrate in the right middle lobe distribution at the right base. This overlies the heart on the lateral radiograph. There are surgical clips in the left axillary soft tissues as before. Diffuse osteopenia is noted. Heart is not enlarged. Overall, the lungs are hyperinflated on lateral radiograph. Impression: New infiltrates left upper lobe and right middle lobe distribution consistent with pneumonia. Chronic pleuroparenchymal changes and volume loss right upper lobe and apex. Chronic blunting right lateral pleural angle. . Electronically Signed by Tres Butler MD 07/12/2019 11:03 A
== END ==
LOC: M PLAIMG 10:15
PROVIDERS: ATTEND Nurse Practitioner Family
DX: R91.8 Other nonspecific abnormal finding of lung field (principal); R05 Cough

== ENCOUNTER → 2019-07-12 | Outpatient (REF) | payer MEDICARE, MEDICAID ==
[~2019-07-12] MED LIST changes: -LIDOCAINE 1% MDV 20ML VIAL As Ordered ONE
[2019-07-12 11:15] LABS: BASO # 0.1 10^3/uL (0.0-0.2); BASO % 0.5 % (0.0-1.0); EOS # 0.2 10^3/uL (0.0-0.5); EOS % 2.2 % (0.0-3.0); HEMATOCRIT 33.2 % (36.0-47.0); HEMOGLOBIN 10.3 g/dl (12.0-15.5); LYMPH # 1.3 10^3/uL (1.5-5.0); LYMPH % 11.9 % (24.0-44.0); MEAN CORPUSCULAR HEMOGLOBIN 26.3 pg (27.0-33.0); MEAN CORPUSCULAR VOLUME 84.9 fl (80.0-96.0); MONO % 8.9 % (0.0-5.0); NEUTROPHILS # 8.3 10^3/uL (1.5-8.5); NEUTROPHILS % 74.8 % (36.0-66.0); PLATELET COUNT, AUTOMATED 347 10^3/uL (150-450); RED BLOOD COUNT 3.91 10^6/uL (4.00-5.40); WHITE BLOOD COUNT 11.2 10^3/uL (4.0-10.0)
[2019-07-12 11:45] LABS: BLOOD UREA NITROGEN 13 MG/DL (7-18); CALCIUM LEVEL 9.1 MG/DL (8.8-10.2); CARBON DIOXIDE LEVEL 30 MEQ/L (21-32); CHLORIDE LEVEL 103 MEQ/L (98-107); CREATININE FOR GFR 0.61 MG/DL (0.55-1.30); GLOMERULAR FILTRATION RATE > 60.0 (>45); GLUCOSE, FASTING 84 MG/DL (70-100); POTASSIUM SERUM 4.7 MEQ/L (3.5-5.1); SODIUM LEVEL 139 MEQ/L (136-145)
== END ==
LOC: M SFHCPLAZ 10:08
PROVIDERS: ATTEND Nurse Practitioner Family
DX: J44.1 Chronic obstructive pulmonary disease with (acute) exacerbation (principal); R68.89 Other general symptoms and signs

== ENCOUNTER → 2019-08-02 | Outpatient (CLI) | payer MEDICARE, MEDICAID ==
[~2019-08-02] MED LIST changes: +FERR325T16 PO; +MOXI400T11 PO; +ROPI1TAB3 PO; +VITAD1000T PO
[2019-08-02 11:02] LABS: HEMATOCRIT 36.8 % (36.0-47.0); HEMOGLOBIN 11.5 g/dl (12.0-15.5); MEAN CORPUSCULAR HGB CONC 31.3 g/dl (32.0-36.5); MEAN CORPUSCULAR VOLUME 86.4 fl (80.0-96.0); PLATELET COUNT, AUTOMATED 242 10^3/uL (150-450); RED BLOOD COUNT 4.26 10^6/uL (4.00-5.40)
[2019-08-02 11:29] LABS: ALBUMIN 3.1 GM/DL (3.2-5.2); ALT/SGPT 20 U/L (12-78); BILIRUBIN,TOTAL 0.5 MG/DL (0.2-1.0); BLOOD UREA NITROGEN 12 MG/DL (7-18); CALCIUM LEVEL 9.4 MG/DL (8.8-10.2); CARBON DIOXIDE LEVEL 31 MEQ/L (21-32); CHLORIDE LEVEL 101 MEQ/L (98-107); CREATININE FOR GFR 0.81 MG/DL (0.55-1.30); GLOMERULAR FILTRATION RATE > 60.0 (>45); GLUCOSE, FASTING 102 MG/DL (70-100); SODIUM LEVEL 137 MEQ/L (136-145); TOTAL PROTEIN 7.1 GM/DL (6.4-8.2)
== END ==
LOC: M LAB 10:26
PROVIDERS: ATTEND Nurse Practitioner Family
DX: D64.9 Anemia, unspecified (principal); E88.09 Other disorders of plasma-protein metabolism, not elsewhere classified; A31.9 Mycobacterial infection, unspecified

== ENCOUNTER → 2019-08-02 | Outpatient (CLI) | payer MEDICARE, MEDICAID ==
[2019-08-02 11:02] LABS: BASO % 0.3 % (0.0-1.0); EOS # 0.4 10^3/uL (0.0-0.5); EOS % 3.7 % (0.0-3.0); HEMATOCRIT 36.2 % (36.0-47.0); HEMOGLOBIN 11.2 g/dl (12.0-15.5); LYMPH # 1.9 10^3/uL (1.5-5.0); LYMPH % 16.4 % (24.0-44.0); MEAN CORPUSCULAR HEMOGLOBIN 26.7 pg (27.0-33.0); MEAN CORPUSCULAR HGB CONC 30.9 g/dl (32.0-36.5); MEAN CORPUSCULAR VOLUME 86.2 fl (80.0-96.0); MONO % 8.8 % (0.0-5.0); PLATELET COUNT, AUTOMATED 235 10^3/uL (150-450); WHITE BLOOD COUNT 11.5 10^3/uL (4.0-10.0)
[2019-08-02 11:12] LABS: INR 1.05; PROTHROMBIN TIME 13.4 SECONDS (11.8-14.0)
[2019-08-02 11:13] LABS: PARTIAL THROMBOPLASTIN TIME 31.8 SECONDS (25.0-38.4)
== END ==
LOC: M LAB 10:29
PROVIDERS: ATTEND Internal Medicine Infectious Disease
DX: A31.9 Mycobacterial infection, unspecified (principal)

== ENCOUNTER → 2019-08-03 | Outpatient (CLI) | payer MEDICARE, MEDICAID ==
[~2019-08-03] MED LIST changes: +LIDOCAINE 1% MDV 20ML VIAL As Ordered ONE; +MIDAZOLAM INJ 2 MG/2 ML VIAL (J2250) As Ordered ONE; +VANCOMYCIN HCL 500 MG/10 ML VIAL (J3370) As Ordered ONE; +diphenhydrAMINE 50MG/ML VIAL (J1200) As Ordered ONE; +fentaNYL 100 MCG/2 ML INJECTION (J3010) As Ordered ONE
--- NOTE | 2019-08-03 11:01 | IRHP ---
[facility] IR Pre-Procedure H & P General Date of Service: Aug 03, 2019 Procedure: Same Day Surgery Interval History and Physical I have seen the patient and reviewed last H & P performed within 30 days. There is no significant interval change. History of Present Illness Chief Complaint The patient is a 64-year-old female admitted with a reason for visit of Mac- Needs Iv Meds. PRE-PROCEDURE DIAGNOSIS:MAc HEART: normal rate. LUNGS: normal breathing at rest. ASA Classification ASA Classification: III-Severe systemic dis. Mallampati Score: II NPO: Yes Problems with prior sedation: No Obstructive Sleep Apnea: No Plan moderate sedation Allergies Coded Allergies: Penicillins (Verified Allergy, Mild, rash, 05/24/19) Home Medications Scheduled Alendronate Sodium (Alendronate Sodium), 70 MG PO QWEEK, (Reported) Aspirin (Aspirin EC), 81 MG PO QHS, (Reported) Calcium Carbonate/Vitamin D3 (Calcium 600-Vit D3 800 Tablet), 1 TAB PO QHS, (Reported) Cholecalciferol (Vitamin D3) (Vitamin D3), 1,000 UNITS PO QHS, (Reported) Ferrous Gluconate (Ferrous Gluconate), 1 TAB PO DAILY Moxifloxacin HCl (Moxifloxacin HCl), 400 MG PO DAILY@1800 Multivitamins (Thera M Plus Tablet), 1 TAB PO QHS, (Reported) Omeprazole (Omeprazole), 40 MG PO QHS, (Reported) Ropinirole HCl (Ropinirole HCl), 1 MG PO QHS, (Reported) Scheduled PRN Acetaminophen (Acetaminophen), 650 MG PO Q4H PRN for PAIN / FEVER, (Reported) Albuterol Sulfate (Proair Hfa), 2 PUFF INH Q4H PRN for SHORTNESS OF BREATH, (Reported) VS, I&O, 24H, Fishbone Vital Signs/I&O Vital Signs Date Time Temp Pulse Resp B/P (MAP) Pulse Ox O2 Delivery O2 Flow Rate FiO2 08/03/19 10:50 68 16 100 Nasal Cannula 2 08/03/19 09:40 97.8 HARSH GARCIA MD Aug 03, 2019 11:01
--- NOTE | 2019-08-03 11:05 | REP ---
IR Ultrasound and fluoroscopy-guided port placement. IR Ultrasound of the neck. IR Moderate sedation. Clinical information: MAC. Physician: Dr. Joy. Procedure: The patient was advised of the benefits, risks, and alternatives of the procedure and informed consent was obtained. A time-out was performed with verification of the patient's name, MRN, site of procedure and type of procedure to be performed. The patient was positioned in the supine position on the angiographic table. The site was prepped and draped in the usual sterile fashion. Moderate sedation was performed by the physician including the presence of an independent trained observer who assisted and monitored the patient's level of consciousness and physiologic status. Following the administration of fentanyl and versed, the physician spent 45 minutes of continuous face to face time with the patient. Ultrasound of the neck reveals a patent and compressible right internal jugular vein. A dry cleaner helper radiograph reveals lung scarring and opacities. The neck and anterior chest wall were anesthetized with lidocaine. The right internal jugular vein was accessed using a microintroducer needle under ultrasound guidance, via a lateral approach. An 018 wire was advanced into the superior vena cava, the needle was removed and a microsheath was placed. An Amplatz wire was then passed into the inferior vena cava. An incision at the internal jugular vein access site and anterior chest wall were made using a scalpel. An incision was made at the anterior chest wall. A small pocket was created using a combination of blunt and sharp dissection. A tunneling device was then used to pass the catheter from the pocket to the neck puncture site. An 8-[place] [employer] smart power port was then positioned in the pocket. The catheter was then measured and cut. The introducer sheath was exchanged for a peel-away sheath. The catheter was passed through the peel-away sheath into the internal jugular vein and the peel-away sheath was removed. The port tip was positioned at the cavoatrial junction. The port was then accessed with a Krishnamurthy needle. The port flushes and aspirates well. The puncture site in the neck was closed. The chest wall incision was then closed with 2-0 Vicryl and 4-0 Monocryl. Glue and Steri-Strips were applied. A sterile dressing was then applied. The patient tolerated the procedure well and was returned to the PRU in stable condition. Estimated blood loss: <5 ml. Complications: None. Conclusion: 1. Successful placement of an 8-[place] [employer] smart power port via the right internal jugular vein. The port is ready for immediate use. 2. Patient to follow up in IR clinic in 2 weeks. Thank you for this referral. Electronically Signed by Claudette Joy MD 08/03/2019 11:04 A
[2019-08-03 12:30] VITALS: BP 113/58
== END ==
LOC: M IRPRO 09:26
PROVIDERS: ATTEND Radiology Diagnostic Radiology
DX: A31.9 Mycobacterial infection, unspecified (principal)
CPT/HCPCS: 36561; 99152; 99153; C1769; C1788; C1894; J1200; J1642; J1644; J2250; J3010; J3370

== ENCOUNTER → 2019-08-22 | Outpatient (POV) | payer MEDICARE, MEDICAID ==
[~2019-08-22] MED LIST changes: -LIDOCAINE 1% MDV 20ML VIAL As Ordered ONE; -MIDAZOLAM INJ 2 MG/2 ML VIAL (J2250) As Ordered ONE; -VANCOMYCIN HCL 500 MG/10 ML VIAL (J3370) As Ordered ONE; -diphenhydrAMINE 50MG/ML VIAL (J1200) As Ordered ONE; -fentaNYL 100 MCG/2 ML INJECTION (J3010) As Ordered ONE
--- NOTE | 2019-08-23 14:57 | IRPN ---
[facility] IR Progress Note IR Progress Note DATE: Aug 22, 2019 Teleconsult FOLLOW-UP: status post port placement. Patient states port is doing well. No pain, fevers, chills or discharge at site. ON EXAMINATION: Video conference not available. Patient sent pictures of the port site. No redness, swelling or discharge. Site appears to be healing well. Few steristrips remaining will fall off by themselves. IMPRESSION: Doing well status post port placement. No further follow up scheduled unless initiated by patient and/or referring provider. Thank you for this referral Allergies Coded Allergies: Penicillins (Verified Allergy, Mild, rash, 05/24/19) HARSH GARCIA MD Aug 23, 2019 14:57
== END ==
LOC: M TMIRPOV 14:07
PROVIDERS: ATTEND Radiology Diagnostic Radiology
DX: Z45.2 Encounter for adjustment and management of vascular access device (principal)

== ENCOUNTER → 2019-09-19 | Outpatient (CLI) | payer MEDICARE, MEDICAID ==
--- NOTE | 2019-09-20 07:40 | REP ---
Clinical: Follow up infection. Technique: Axial noncontrast images from the thoracic inlet to the upper abdomen with coronal and sagittal re-formations. Comparison: 07/12/2019. Findings: Diffuse bilateral scattered areas of alveolar air space disease and consolidations including cavitary lesion(s) in the right upper lobe and apical right lower lobe along with scattered scarring and bronchiectasis again noted and similar to prior examination although mild improvement with a decrease in the larger areas of opacity is suggested. No pleural effusion. No pneumothorax. Mediastinal and mild hilar adenopathy is again noted and likely reactive. Further evaluation of the mediastinum demonstrates stable atherosclerotic changes to the thoracic aorta and coronary arteries without aortic aneurysm, cardiomegaly or pericardial effusion. [id number] identified with tip in the SVC/right atrium. Surrounding musculoskeletal structures are intact. Impression: Diffuse bilateral scattered infiltrates and small consolidations along with right upper lobe cavitary lesion extending to the apical right lower lobe, scarring and bronchiectasis are again noted and consistent with active disease. However, findings appear mildly improved and clinical correlation is recommended. Electronically Signed by Tyron Matos MD 09/20/2019 07:31 A
== END ==
LOC: M RAD 15:41
PROVIDERS: ATTEND Internal Medicine Pulmonary Disease
DX: J47.9 Bronchiectasis, uncomplicated (principal); B94.8 Sequelae of other specified infectious and parasitic diseases; R91.8 Other nonspecific abnormal finding of lung field

== ENCOUNTER → 2019-09-29 | Outpatient (REF) | payer MEDICARE, MEDICAID ==
[~2019-09-29] MED LIST changes: +ALBUTEROL PO; +AZIT-12 PO; +OFLOSO AS; +oxygen
== END ==
LOC: M SFHCPLAZ 17:42
PROVIDERS: ATTEND Internal Medicine Infectious Disease
DX: A31.9 Mycobacterial infection, unspecified (principal)

== ENCOUNTER 2019-10-06 15:58 | Emergency (ER) | payer MEDICARE, MEDICAID ==
[~2019-10-06] VITALS: Ht 162.6 cm; Wt 44.6 kg
[2019-10-06 15:58] VITALS: BP 115/58
[~2019-10-06 15:58] MED LIST changes: -ALBUTEROL PO; -AZIT-12 PO; -OFLOSO AS; -oxygen
[2019-10-06] MEDS ORDERED: ALBUTEROL PO (16:25)
[2019-10-06] MEDS ORDERED: oxygen (16:25)
[2019-10-06] MEDS ORDERED: OFLOSO AS (17:00)
[2019-10-06] MEDS ORDERED: AZIT-12 PO (17:00)
== END 2019-10-06 17:07 | disposition home or self-care (01) ==
LOC: M ED 15:58
DX: H66.92 Otitis media, unspecified, left ear (principal); Z88.0 Allergy status to penicillin

== ENCOUNTER 2019-11-12 09:56 | Emergency (ER) | payer MEDICARE, MEDICAID ==
[~2019-11-12] VITALS: Ht 162.6 cm; Wt 45.1 kg
[~2019-11-12 09:56] MED LIST changes: +ALBUTEROL PO; +AZIT-12 PO; +OFLOSO AS; +oxygen
[2019-11-12] MEDS ORDERED: GI COCKTAIL 50ML BTL(HYOSCYAMINE/MAALOX/LIDOCAINE VISCOUS)(1:3:1) PO ONE (10:45)
[2019-11-12 11:09] LABS: BASO % 0.4 % (0.0-1.0); EOS # 0.3 10^3/uL (0.0-0.5); EOS % 3.1 % (0.0-3.0); HEMATOCRIT 38.2 % (36.0-47.0); HEMOGLOBIN 11.7 g/dl (12.0-15.5); LYMPH # 1.2 10^3/uL (1.5-5.0); LYMPH % 13.1 % (24.0-44.0); MEAN CORPUSCULAR HEMOGLOBIN 25.2 pg (27.0-33.0); MEAN CORPUSCULAR HGB CONC 30.6 g/dl (32.0-36.5); MEAN CORPUSCULAR VOLUME 82.2 fl (80.0-96.0); MONO # 0.6 10^3/uL (0.0-0.8); MONO % 7.2 % (0.0-5.0); NEUTROPHILS # 6.8 10^3/uL (1.5-8.5); NEUTROPHILS % 75.9 % (36.0-66.0); PLATELET COUNT, AUTOMATED 214 10^3/uL (150-450); RED BLOOD COUNT 4.65 10^6/uL (4.00-5.40); WHITE BLOOD COUNT 8.9 10^3/uL (4.0-10.0)
[2019-11-12 11:27] LABS: INR 1.09; PROTHROMBIN TIME 13.8 SECONDS (11.8-14.0)
[2019-11-12 11:28] LABS: PARTIAL THROMBOPLASTIN TIME 34.5 SECONDS (25.0-38.4)
[2019-11-12] MEDS ORDERED: ISOVUE-370 76% 100ML VIAL As Ordered ONE (11:33)
[2019-11-12 11:38] LABS: ALBUMIN 3.1 GM/DL (3.2-5.2); BILIRUBIN,DIRECT 0.1 MG/DL (0.0-0.2); BILIRUBIN,TOTAL 0.4 MG/DL (0.2-1.0); C REACTIVE PROTEIN QUANTITATIV 3.17 MG/DL (0.00-0.30); THYROID STIMULATING HORMONE 1.89 uIU/ML (0.358-3.740); TOTAL PROTEIN 7.1 GM/DL (6.4-8.2)
--- NOTE | 2019-11-12 11:46 | REP ---
REASON: Chest pain. COMPARISON: Multiple, the latest 07/15/2019, also portable. The technique utilized in obtaining the radiograph has magnified the cardiac silhouette and accentuated the interstitial markings. Chronic lung field changes are noted, status quo. There is chronic right basilar fibrotic change with CP angle blunting. Chronic fibrotic changes are again suspected in the right upper lobe. No new abnormal opacities have developed. There is a Mediport device in place. The tip is in the superior vena cava. The heart is not enlarged. There is no evidence of significant change seen involving the osseous structures. IMPRESSION: Stable appearing chronic changes. Electronically Signed by Franky Laguna DO 11/12/2019 12:08 P
--- NOTE | 2019-11-12 12:29 | REP ---
REASON: Chest pain and dyspnea. COMPARISON EXAMS: 07/12/2019 and 09/19/2019. CONTRAST: 75 mL Isovue-370. There is excellent visualization of the pulmonary arterial vasculature. No focal filling defects have developed that would be considered consistent with acute pulmonary emboli. There is no significant change in the appearance of the mediastinum or pulmonary cynthia. There is no significant change in the imaged osseous structures. Evaluation of the lung ledesma shows marked chronic changes with cavitary lesions in the right upper lobe and superior segment of the right lower lobe, status quo, with marked scattered asymmetric and pleural-based nodular and somewhat spiculated densities. This all appears stable. IMPRESSION: 1. There is no evidence of an acute pulmonary embolus. 2. There is adenopathy, which is essentially unchanged. 3. Relatively marked appearing chronic but stable lung field changes, as described above. Acute disease superimposed upon chronic change cannot be ruled out. Electronically Signed by Franky Laguna DO 11/12/2019 01:11 P
--- NOTE | 2019-11-12 12:31 | REP ---
REASON FOR EXAM: Epigastric pain. The latest prior for comparison 02/24/2019. CONTRAST: 100 mL Isovue-370. The liver, gallbladder, spleen, pancreas, adrenal glands, and kidneys are unchanged. Small simple right renal cyst, status quo. The abdominal aorta and para-aortic regions are unchanged. Limited evaluation of the bowel loops and their mesenteries shows no gross abnormality or significant change from the prior exam. Once again, there is a moderate to large amount of content seen throughout the colon and particularly the sigmoid colon essentially unchanged. No free fluid or free air is present. The osseous structures are stable and intact. IMPRESSION: No significant change from the prior exam. No evidence of acute intra-abdominal or intrapelvic disease. Colonic content, as described above. Electronically Signed by Franky Laguna DO 11/12/2019 01:11 P
[2019-11-12 13:30] VITALS: BP 102/60
[2019-11-12] MEDS ORDERED: MAGNESIUM CITRATE 300 ML BTL PO SCH (13:45)
[2019-11-12] MEDS ORDERED: MIRA3350 PO (13:50)
[2019-11-12] MEDS ORDERED: SENO8.6T10 PO (13:50)
[2019-11-12] MEDS ORDERED: SUCR1SS PO (13:52)
--- NOTE | 2019-11-12 19:12 | ECGEPIP ---
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
== END 2019-11-12 14:03 | disposition home or self-care (01) ==
LOC: M ED 09:56
DX: K21.0 Gastro-esophageal reflux disease with esophagitis (principal); K59.00 Constipation, unspecified; J44.9 Chronic obstructive pulmonary disease, unspecified; Z95.5 Presence of coronary angioplasty implant and graft; Z85.3 Personal history of malignant neoplasm of breast; Z79.82 Long term (current) use of aspirin; Z79.899 Other long term (current) drug therapy; Z88.0 Allergy status to penicillin
CPT/HCPCS: 71045; 71275; 74177; 80047; 80076; 83880; 84443; 84484; 85025; 85610; 85652; 85730; 86140; 87040; 93005; 93041; 99285; Q9967

== ENCOUNTER → 2019-11-20 | Outpatient (REF) | payer MEDICARE, MEDICAID ==
[~2019-11-20] MED LIST changes: -ASPI81TA85 PO; +ASPI81TA86 PO; +D31000TA2 PO; +MIRA3350 PO; +SENO8.6T10 PO; +SUCR1SS PO; -VITAD1000T PO
[2019-12-15 19:40] LABS: BASO % 0.4 % (0.0-1.0); EOS # 1.3 10^3/uL (0.0-0.5); EOS % 13.9 % (0.0-3.0); HEMATOCRIT 35.2 % (36.0-47.0); HEMOGLOBIN 10.8 g/dl (12.0-15.5); LYMPH # 1.1 10^3/uL (1.5-5.0); LYMPH % 12.5 % (24.0-44.0); MEAN CORPUSCULAR HEMOGLOBIN 25.6 pg (27.0-33.0); MEAN CORPUSCULAR HGB CONC 30.7 g/dl (32.0-36.5); MEAN CORPUSCULAR VOLUME 83.4 fl (80.0-96.0); MONO # 0.6 10^3/uL (0.0-0.8); MONO % 6.5 % (0.0-5.0); NEUTROPHILS % 66.1 % (36.0-66.0); PLATELET COUNT, AUTOMATED 174 10^3/uL (150-450); RED BLOOD COUNT 4.22 10^6/uL (4.00-5.40)
[2019-12-22 09:37] LABS: ERYTHROCYTE SEDIMENTATION RATE 46 mm/hr (0-30)
[2020-01-26 15:06] LABS: GLUCOSE, FASTING SEE SEPARATE REPORT MG/DL
== END ==
LOC: M SHH 12:52
PROVIDERS: ATTEND Internal Medicine Infectious Disease
DX: A31.9 Mycobacterial infection, unspecified (principal); J85.0 Gangrene and necrosis of lung; G47.33 Obstructive sleep apnea (adult) (pediatric); J47.0 Bronchiectasis with acute lower respiratory infection

== ENCOUNTER → 2019-11-20 | Outpatient (REF) | payer MEDICARE, MEDICAID | LOC: M SHH 07:49 | PROVIDERS: ATTEND Internal Medicine Infectious Disease | DX: Z53.9 Procedure and treatment not carried out, unspecified reason (principal); J85.0 Gangrene and necrosis of lung; A31.9 Mycobacterial infection, unspecified ==

== ENCOUNTER → 2019-11-27 | Outpatient (REF) | payer MEDICARE, MEDICAID ==
[2019-12-24 20:25] LABS: BASO # 0.1 10^3/uL (0.0-0.2); BASO % 0.7 % (0.0-1.0); EOS # 2.4 10^3/uL (0.0-0.5); HEMATOCRIT 35.1 % (36.0-47.0); HEMOGLOBIN 10.7 g/dl (12.0-15.5); LYMPH # 1.4 10^3/uL (1.5-5.0); LYMPH % 15.7 % (24.0-44.0); MEAN CORPUSCULAR HEMOGLOBIN 25.4 pg (27.0-33.0); MEAN CORPUSCULAR HGB CONC 30.5 g/dl (32.0-36.5); MEAN CORPUSCULAR VOLUME 83.2 fl (80.0-96.0); MONO # 0.6 10^3/uL (0.0-0.8); MONO % 6.3 % (0.0-5.0); NEUTROPHILS # 4.4 10^3/uL (1.5-8.5); NEUTROPHILS % 49.7 % (36.0-66.0); PLATELET COUNT, AUTOMATED 200 10^3/uL (150-450); RED BLOOD COUNT 4.22 10^6/uL (4.00-5.40); WHITE BLOOD COUNT 8.8 10^3/uL (4.0-10.0)
[2019-12-24 20:27] LABS: EOS % 27.3 % (0.0-3.0)
[2020-01-08 12:00] LABS: ALBUMIN 3.1 GM/DL (3.2-5.2); ALT/SGPT 21 U/L (12-78); BILIRUBIN,TOTAL 0.3 MG/DL (0.2-1.0); BLOOD UREA NITROGEN 11 MG/DL (7-18); C REACTIVE PROTEIN QUANTITATIV 0.42 MG/DL (0.00-0.30); CALCIUM LEVEL 8.8 MG/DL (8.8-10.2); CARBON DIOXIDE LEVEL 30 MEQ/L (21-32); CHLORIDE LEVEL 104 MEQ/L (98-107); CREATININE FOR GFR 0.67 MG/DL (0.55-1.30); GLOMERULAR FILTRATION RATE > 60.0 (>45); GLUCOSE, FASTING 70 MG/DL (70-100); POTASSIUM SERUM 4.4 MEQ/L (3.5-5.1); SODIUM LEVEL 138 MEQ/L (136-145); TOTAL PROTEIN 6.7 GM/DL (6.4-8.2)
== END ==
LOC: M LAB REF 12:44
PROVIDERS: ATTEND Internal Medicine Infectious Disease
DX: G47.33 Obstructive sleep apnea (adult) (pediatric) (principal); J47.0 Bronchiectasis with acute lower respiratory infection

== ENCOUNTER → 2019-12-04 | Outpatient (REF) | payer MEDICARE, MEDICAID ==
[2020-01-03 20:29] LABS: BASO # 0.1 10^3/uL (0.0-0.2); BASO % 0.5 % (0.0-1.0); EOS # 3.6 10^3/uL (0.0-0.5); HEMATOCRIT 35.2 % (36.0-47.0); HEMOGLOBIN 10.8 g/dl (12.0-15.5); LYMPH # 1.5 10^3/uL (1.5-5.0); LYMPH % 15.4 % (24.0-44.0); MEAN CORPUSCULAR HEMOGLOBIN 25.5 pg (27.0-33.0); MEAN CORPUSCULAR HGB CONC 30.7 g/dl (32.0-36.5); MONO # 0.6 10^3/uL (0.0-0.8); MONO % 5.9 % (0.0-5.0); NEUTROPHILS # 3.8 10^3/uL (1.5-8.5); NEUTROPHILS % 40.1 % (36.0-66.0); PLATELET COUNT, AUTOMATED 156 10^3/uL (150-450); RED BLOOD COUNT 4.24 10^6/uL (4.00-5.40); WHITE BLOOD COUNT 9.6 10^3/uL (4.0-10.0)
[2020-01-03 20:32] LABS: EOS % 37.9 % (0.0-3.0); ERYTHROCYTE SEDIMENTATION RATE 40 mm/hr (0-30)
[2020-01-17 11:56] LABS: ALBUMIN 3.1 GM/DL (3.2-5.2); ALT/SGPT 23 U/L (12-78); BILIRUBIN,TOTAL 0.2 MG/DL (0.2-1.0); BLOOD UREA NITROGEN 9 MG/DL (7-18); C REACTIVE PROTEIN QUANTITATIV 0.33 MG/DL (0.00-0.30); CALCIUM LEVEL 8.9 MG/DL (8.8-10.2); CARBON DIOXIDE LEVEL 32 MEQ/L (21-32); CHLORIDE LEVEL 106 MEQ/L (98-107); CREATININE FOR GFR 0.68 MG/DL (0.55-1.30); GLOMERULAR FILTRATION RATE > 60.0 (>45); GLUCOSE, FASTING 81 MG/DL (70-100); POTASSIUM SERUM 4.3 MEQ/L (3.5-5.1); SODIUM LEVEL 140 MEQ/L (136-145); TOTAL PROTEIN 6.7 GM/DL (6.4-8.2)
== END ==
LOC: M LAB REF 12:43
PROVIDERS: ATTEND Internal Medicine Infectious Disease
DX: G47.33 Obstructive sleep apnea (adult) (pediatric) (principal); J47.0 Bronchiectasis with acute lower respiratory infection

== ENCOUNTER → 2019-12-11 | Outpatient (REF) | payer MEDICARE, MEDICAID ==
[2020-01-27 23:07] LABS: BASO # 0.1 10^3/uL (0.0-0.2); BASO % 0.4 % (0.0-1.0); EOS # 5.6 10^3/uL (0.0-0.5); HEMOGLOBIN 10.9 g/dl (12.0-15.5); LYMPH # 1.6 10^3/uL (1.5-5.0); LYMPH % 13.9 % (24.0-44.0); MEAN CORPUSCULAR HEMOGLOBIN 26.1 pg (27.0-33.0); MEAN CORPUSCULAR HGB CONC 31.1 g/dl (32.0-36.5); MEAN CORPUSCULAR VOLUME 83.7 fl (80.0-96.0); MONO # 0.6 10^3/uL (0.0-0.8); MONO % 5.3 % (0.0-5.0); NEUTROPHILS # 3.4 10^3/uL (1.5-8.5); NEUTROPHILS % 30.6 % (36.0-66.0); PLATELET COUNT, AUTOMATED 155 10^3/uL (150-450); RED BLOOD COUNT 4.18 10^6/uL (4.00-5.40); WHITE BLOOD COUNT 11.2 10^3/uL (4.0-10.0)
[2020-01-27 23:12] LABS: EOS % 49.6 % (0.0-3.0)
[2020-01-27 23:18] LABS: ERYTHROCYTE SEDIMENTATION RATE 53 mm/hr (0-30)
[2020-02-06 00:17] LABS: ALBUMIN 3.2 GM/DL (3.2-5.2); ALT/SGPT 27 U/L (12-78); BILIRUBIN,TOTAL 0.3 MG/DL (0.2-1.0); BLOOD UREA NITROGEN 12 MG/DL (7-18); C REACTIVE PROTEIN QUANTITATIV 0.62 MG/DL (0.00-0.30); CARBON DIOXIDE LEVEL 31 MEQ/L (21-32); CHLORIDE LEVEL 103 MEQ/L (98-107); GLOMERULAR FILTRATION RATE > 60.0 (>45); GLUCOSE, FASTING 112 MG/DL (70-100); SODIUM LEVEL 139 MEQ/L (136-145)
== END ==
LOC: M SHH 12:10
PROVIDERS: ATTEND Internal Medicine Infectious Disease
DX: A31.9 Mycobacterial infection, unspecified (principal); J85.0 Gangrene and necrosis of lung; G47.33 Obstructive sleep apnea (adult) (pediatric); J47.0 Bronchiectasis with acute lower respiratory infection

== ENCOUNTER → 2019-12-18 | Outpatient (REF) | payer MEDICARE, MEDICAID ==
[2019-12-18 13:36] LABS: BASO % 0.4 % (0.0-1.0); EOS # 4.3 10^3/uL (0.0-0.5); HEMATOCRIT 34.6 % (36.0-47.0); HEMOGLOBIN 10.7 g/dl (12.0-15.5); LYMPH # 1.3 10^3/uL (1.5-5.0); LYMPH % 14.1 % (24.0-44.0); MEAN CORPUSCULAR HEMOGLOBIN 25.8 pg (27.0-33.0); MEAN CORPUSCULAR HGB CONC 30.9 g/dl (32.0-36.5); MEAN CORPUSCULAR VOLUME 83.6 fl (80.0-96.0); MONO # 0.6 10^3/uL (0.0-0.8); MONO % 6.4 % (0.0-5.0); NEUTROPHILS # 2.7 10^3/uL (1.5-8.5); NEUTROPHILS % 30.5 % (36.0-66.0); PLATELET COUNT, AUTOMATED 174 10^3/uL (150-450); RED BLOOD COUNT 4.14 10^6/uL (4.00-5.40); WHITE BLOOD COUNT 8.9 10^3/uL (4.0-10.0)
[2019-12-18 14:10] LABS: ALBUMIN 3.2 GM/DL (3.2-5.2); ALT/SGPT 23 U/L (12-78); BILIRUBIN,TOTAL 0.4 MG/DL (0.2-1.0); BLOOD UREA NITROGEN 10 MG/DL (7-18); C REACTIVE PROTEIN QUANTITATIV 0.52 MG/DL (0.00-0.30); CALCIUM LEVEL 8.9 MG/DL (8.8-10.2); CARBON DIOXIDE LEVEL 30 MEQ/L (21-32); CHLORIDE LEVEL 104 MEQ/L (98-107); GLOMERULAR FILTRATION RATE > 60.0 (>45); GLUCOSE, FASTING 124 MG/DL (70-100); POTASSIUM SERUM 4.1 MEQ/L (3.5-5.1); SODIUM LEVEL 140 MEQ/L (136-145)
[2019-12-18 14:26] LABS: EOS % 48.5 % (0.0-3.0)
[2019-12-18 14:43] LABS: ERYTHROCYTE SEDIMENTATION RATE 52 mm/hr (0-30)
== END ==
LOC: M SHH 12:28
PROVIDERS: ATTEND Internal Medicine Infectious Disease
DX: A31.9 Mycobacterial infection, unspecified (principal); J85.0 Gangrene and necrosis of lung; G47.33 Obstructive sleep apnea (adult) (pediatric); J47.0 Bronchiectasis with acute lower respiratory infection

== ENCOUNTER → 2019-12-25 | Outpatient (REF) | payer MEDICARE, MEDICAID ==
[2019-12-25 13:57] LABS: BASO % 0.5 % (0.0-1.0); EOS # 1.4 10^3/uL (0.0-0.5); HEMATOCRIT 35.1 % (36.0-47.0); HEMOGLOBIN 10.9 g/dl (12.0-15.5); LYMPH # 1.1 10^3/uL (1.5-5.0); LYMPH % 18.7 % (24.0-44.0); MEAN CORPUSCULAR HGB CONC 31.1 g/dl (32.0-36.5); MEAN CORPUSCULAR VOLUME 83.6 fl (80.0-96.0); MONO # 0.6 10^3/uL (0.0-0.8); MONO % 9.3 % (0.0-5.0); NEUTROPHILS # 2.9 10^3/uL (1.5-8.5); NEUTROPHILS % 48.1 % (36.0-66.0); PLATELET COUNT, AUTOMATED 164 10^3/uL (150-450)
[2019-12-25 14:05] LABS: ALBUMIN 3.2 GM/DL (3.2-5.2); ALT/SGPT 26 U/L (12-78); BILIRUBIN,TOTAL 0.3 MG/DL (0.2-1.0); BLOOD UREA NITROGEN 17 MG/DL (7-18); CALCIUM LEVEL 9.4 MG/DL (8.8-10.2); CARBON DIOXIDE LEVEL 30 MEQ/L (21-32); CHLORIDE LEVEL 102 MEQ/L (98-107); CREATININE FOR GFR 0.76 MG/DL (0.55-1.30); GLOMERULAR FILTRATION RATE > 60.0 (>45); GLUCOSE, FASTING 131 MG/DL (70-100); POTASSIUM SERUM 3.9 MEQ/L (3.5-5.1); SODIUM LEVEL 139 MEQ/L (136-145); TOTAL PROTEIN 6.9 GM/DL (6.4-8.2)
[2019-12-25 14:52] LABS: EOS % 23.2 % (0.0-3.0)
[2019-12-25 18:42] LABS: ERYTHROCYTE SEDIMENTATION RATE 46 mm/hr (0-30)
== END ==
LOC: M LAB REF 09:25
PROVIDERS: ATTEND Internal Medicine Infectious Disease
DX: G47.33 Obstructive sleep apnea (adult) (pediatric) (principal); J47.0 Bronchiectasis with acute lower respiratory infection; A31.9 Mycobacterial infection, unspecified; J85.0 Gangrene and necrosis of lung

== ENCOUNTER → 2019-12-29 | Outpatient (REF) | payer OTHER, MEDICAID | LOC: M SFHCPLAZ 11:56 | PROVIDERS: ATTEND Internal Medicine Infectious Disease | DX: A31.9 Mycobacterial infection, unspecified (principal) ==

== ENCOUNTER → 2020-01-08 | Outpatient (REF) | payer OTHER, MEDICAID ==
[2020-01-08 13:11] LABS: BASO # 0.1 10^3/uL (0.0-0.2); BASO % 0.6 % (0.0-1.0); EOS # 3.2 10^3/uL (0.0-0.5); HEMATOCRIT 34.2 % (36.0-47.0); HEMOGLOBIN 10.7 g/dl (12.0-15.5); LYMPH # 1.3 10^3/uL (1.5-5.0); LYMPH % 14.1 % (24.0-44.0); MEAN CORPUSCULAR HEMOGLOBIN 26.4 pg (27.0-33.0); MEAN CORPUSCULAR HGB CONC 31.3 g/dl (32.0-36.5); MEAN CORPUSCULAR VOLUME 84.4 fl (80.0-96.0); MONO # 0.6 10^3/uL (0.0-0.8); MONO % 7.1 % (0.0-5.0); NEUTROPHILS # 3.7 10^3/uL (1.5-8.5); NEUTROPHILS % 41.7 % (36.0-66.0); PLATELET COUNT, AUTOMATED 155 10^3/uL (150-450); RED BLOOD COUNT 4.05 10^6/uL (4.00-5.40); WHITE BLOOD COUNT 8.9 10^3/uL (4.0-10.0)
[2020-01-08 13:20] LABS: ALBUMIN 3.1 GM/DL (3.2-5.2); ALT/SGPT 23 U/L (12-78); BILIRUBIN,TOTAL 0.3 MG/DL (0.2-1.0); BLOOD UREA NITROGEN 13 MG/DL (7-18); CALCIUM LEVEL 8.9 MG/DL (8.8-10.2); CARBON DIOXIDE LEVEL 27 MEQ/L (21-32); CHLORIDE LEVEL 102 MEQ/L (98-107); CREATININE FOR GFR 0.69 MG/DL (0.55-1.30); GLOMERULAR FILTRATION RATE > 60.0 (>45); GLUCOSE, FASTING 111 MG/DL (70-100); SODIUM LEVEL 137 MEQ/L (136-145); TOTAL PROTEIN 6.8 GM/DL (6.4-8.2)
[2020-01-08 13:47] LABS: ERYTHROCYTE SEDIMENTATION RATE 45 mm/hr (0-30)
[2020-01-08 13:56] LABS: EOS % 36.2 % (0.0-3.0)
== END ==
LOC: M SHH 12:25
PROVIDERS: ATTEND Internal Medicine Infectious Disease
DX: A31.9 Mycobacterial infection, unspecified (principal); J85.0 Gangrene and necrosis of lung; G47.33 Obstructive sleep apnea (adult) (pediatric); J47.0 Bronchiectasis with acute lower respiratory infection

== ENCOUNTER → 2020-01-17 | Outpatient (REF) | payer MEDICARE, MEDICAID | LOC: M LAB REF 14:01 | PROVIDERS: ATTEND Internal Medicine Infectious Disease | DX: R91.8 Other nonspecific abnormal finding of lung field (principal) ==

== ENCOUNTER → 2020-01-22 | Outpatient (REF) | payer MEDICARE, MEDICAID ==
[2020-01-22 12:12] LABS: BASO # 0.1 10^3/uL (0.0-0.2); BASO % 0.5 % (0.0-1.0); EOS # 3.3 10^3/uL (0.0-0.5); HEMOGLOBIN 11.5 g/dl (12.0-15.5); LYMPH # 1.3 10^3/uL (1.5-5.0); LYMPH % 13.1 % (24.0-44.0); MEAN CORPUSCULAR HEMOGLOBIN 26.6 pg (27.0-33.0); MEAN CORPUSCULAR HGB CONC 31.1 g/dl (32.0-36.5); MEAN CORPUSCULAR VOLUME 85.6 fl (80.0-96.0); MONO # 0.6 10^3/uL (0.0-0.8); MONO % 6.1 % (0.0-5.0); NEUTROPHILS # 4.5 10^3/uL (1.5-8.5); PLATELET COUNT, AUTOMATED 153 10^3/uL (150-450); RED BLOOD COUNT 4.32 10^6/uL (4.00-5.40); WHITE BLOOD COUNT 9.7 10^3/uL (4.0-10.0)
[2020-01-22 12:32] LABS: ALBUMIN 3.3 GM/DL (3.2-5.2); ALT/SGPT 25 U/L (12-78); BILIRUBIN,TOTAL 0.4 MG/DL (0.2-1.0); BLOOD UREA NITROGEN 14 MG/DL (7-18); CALCIUM LEVEL 9.2 MG/DL (8.8-10.2); CARBON DIOXIDE LEVEL 27 MEQ/L (21-32); CHLORIDE LEVEL 106 MEQ/L (98-107); CREATININE FOR GFR 0.74 MG/DL (0.55-1.30); GLOMERULAR FILTRATION RATE > 60.0 (>45); GLUCOSE, FASTING 116 MG/DL (70-100); POTASSIUM SERUM 3.9 MEQ/L (3.5-5.1); SODIUM LEVEL 139 MEQ/L (136-145)
[2020-01-22 12:59] LABS: ERYTHROCYTE SEDIMENTATION RATE 44 mm/hr (0-30)
[2020-01-22 13:19] LABS: EOS % 34.1 % (0.0-3.0)
== END ==
LOC: M SHH 11:49
PROVIDERS: ATTEND Internal Medicine Infectious Disease
DX: A31.9 Mycobacterial infection, unspecified (principal); J85.0 Gangrene and necrosis of lung; G47.33 Obstructive sleep apnea (adult) (pediatric); J47.0 Bronchiectasis with acute lower respiratory infection

== ENCOUNTER → 2020-01-31 | Outpatient (CLI) | payer MEDICARE, OTHER ==
--- NOTE | 2020-01-31 10:50 | REPMRS ---
Patient History The patient states she had a clinical breast exam in 01/2020. Patient is postmenopausal, has history of cancer in the left breast at age 47, had previous chest radiation therapy at age 47, and had previous chemotherapy at age 47. No known family history of cancer. Malignant excisional biopsy of the left breast, 2004. Took tamoxifen for 5 years. 3D TOMOSYNTHESIS WAS PERFORMED. MIRTA Yu Digital Woman Screen Mammo: January 31, 2020 - Exam #: [id number] Bilateral CC and MLO view(s) were taken. Technologist: Dina Ortega, Technologist Prior study comparison: January 05, 2019, bilateral digital woman screen mammo performed at [facility]. September 28, 2017, digital woman screen mammo performed at [facility]. FINDINGS: The breast tissue is heterogeneously dense. This may lower the sensitivity of mammography. There has been no change in the appearance of the mammogram from the prior studies. There is a moderate amount of residual fibroglandular tissue which is fairly symmetric. There is no interval development of dominant mass, areas of architectural distortion, or clustered microcalcification typical of malignancy. Assessment: BI-RADS/ACR category 1 mammogram. Negative Mammogram. Recommendation Routine screening mammogram in 1 year (for women over age 40). This mammogram was interpreted with the aid of an FDA-approved computer-aided dectection system. Electronically Signed By: Shai Jacobson MD 01/31/20 2333
== END ==
LOC: M WHC 08:44
PROVIDERS: ATTEND Nurse Practitioner Family
DX: Z01.419 Encounter for gynecological examination (general) (routine) without abnormal findings (principal); Z12.31 Encounter for screening mammogram for malignant neoplasm of breast; M81.0 Age-related osteoporosis without current pathological fracture; Z78.0 Asymptomatic menopausal state; Z85.3 Personal history of malignant neoplasm of breast; Z92.21 Personal history of antineoplastic chemotherapy; Z92.3 Personal history of irradiation; Z92.29 Personal history of other drug therapy
CPT/HCPCS: 77063; 77067; G0101

== ENCOUNTER → 2020-02-02 | Outpatient (CLI) | payer OTHER ==
--- NOTE | 2020-02-07 15:33 | REP ---
PELVIC SONOGRAPHY HISTORY: Mass palpable left lower quadrant, approximately 2 cm, mobile. Left lower quadrant abdominal mass. COMPARISON STUDY: A CT exam from November 12, 2019. SONOGRAPHIC FINDINGS: Transabdominal and transvaginal scanning were performed. There are areas of shadowing from bowel gas in the left lower quadrant on transabdominal scanning. Urinary bladder back are smooth. Filled bladder volume is calculated at 237 mL. A normal sized small postmenopausal uterus is seen with dimensions 4.6 x 1.4 x 3.9 cm. The lower uterine segment appears somewhat thicker than the fundus, but no significant mass is seen. Uterine myometrial texture is somewhat heterogeneous. Endometrial echo is 0.2 cm in thickness, and a tiny amount of endometrial fluid is seen. No free fluid is seen in the cul-de-sac. Shadowing bowel gas is observed in the pelvis on transabdominal and transvaginal scanning. Right ovary is normal measuring 1.5 x 0.8 x 1.1 cm. Doppler flow is present in the right ovary with resistive index of 0.68. The left ovary is unremarkable measuring 1.2 x 1.0 x 1.0 cm. Its Doppler resistive index is 0.75. IMPRESSION: Shadowing bowel gas. No other evidence of mass lesion seen. Minimal endometrial fluid. Otherwise unremarkable. MTDD
== END ==
LOC: M WHC 08:23
PROVIDERS: ATTEND Nurse Practitioner Family
DX: R19.04 Left lower quadrant abdominal swelling, mass and lump (principal)

== ENCOUNTER → 2020-02-05 | Outpatient (REF) | payer OTHER ==
[2020-02-05 13:45] LABS: BASO % 0.5 % (0.0-1.0); EOS # 3.2 10^3/uL (0.0-0.5); HEMATOCRIT 36.2 % (36.0-47.0); LYMPH # 1.3 10^3/uL (1.5-5.0); LYMPH % 15.5 % (24.0-44.0); MEAN CORPUSCULAR HGB CONC 30.4 g/dl (32.0-36.5); MEAN CORPUSCULAR VOLUME 85.6 fl (80.0-96.0); MONO # 0.4 10^3/uL (0.0-0.8); MONO % 5.1 % (0.0-5.0); NEUTROPHILS # 3.3 10^3/uL (1.5-8.5); NEUTROPHILS % 39.7 % (36.0-66.0); PLATELET COUNT, AUTOMATED 147 10^3/uL (150-450); RED BLOOD COUNT 4.23 10^6/uL (4.00-5.40); WHITE BLOOD COUNT 8.3 10^3/uL (4.0-10.0)
[2020-02-05 14:09] LABS: ALBUMIN 3.3 GM/DL (3.2-5.2); ALT/SGPT 28 U/L (12-78); BILIRUBIN,TOTAL 0.4 MG/DL (0.2-1.0); BLOOD UREA NITROGEN 15 MG/DL (7-18); C REACTIVE PROTEIN QUANTITATIV 0.32 MG/DL (0.00-0.30); CALCIUM LEVEL 9.2 MG/DL (8.8-10.2); CARBON DIOXIDE LEVEL 29 MEQ/L (21-32); CHLORIDE LEVEL 104 MEQ/L (98-107); CREATININE FOR GFR 0.67 MG/DL (0.55-1.30); GLOMERULAR FILTRATION RATE > 60.0 (>45); GLUCOSE, FASTING 133 MG/DL (70-100); POTASSIUM SERUM 3.8 MEQ/L (3.5-5.1); SODIUM LEVEL 140 MEQ/L (136-145)
[2020-02-05 14:54] LABS: ERYTHROCYTE SEDIMENTATION RATE 37 mm/hr (0-30)
== END ==
LOC: M SHH 12:46
PROVIDERS: ATTEND Internal Medicine Infectious Disease
DX: A31.9 Mycobacterial infection, unspecified (principal); J85.0 Gangrene and necrosis of lung; G47.33 Obstructive sleep apnea (adult) (pediatric); J47.0 Bronchiectasis with acute lower respiratory infection

== ENCOUNTER → 2020-02-19 | Outpatient (REF) | payer OTHER ==
[2020-02-19 12:48] LABS: BASO % 0.5 % (0.0-1.0); EOS # 3.3 10^3/uL (0.0-0.5); HEMATOCRIT 37.4 % (36.0-47.0); HEMOGLOBIN 11.5 g/dl (12.0-15.5); LYMPH # 1.4 10^3/uL (1.5-5.0); LYMPH % 16.7 % (24.0-44.0); MEAN CORPUSCULAR HEMOGLOBIN 26.4 pg (27.0-33.0); MEAN CORPUSCULAR HGB CONC 30.7 g/dl (32.0-36.5); MEAN CORPUSCULAR VOLUME 85.8 fl (80.0-96.0); MONO # 0.6 10^3/uL (0.0-0.8); MONO % 7.3 % (0.0-5.0); NEUTROPHILS # 3.2 10^3/uL (1.5-8.5); NEUTROPHILS % 37.1 % (36.0-66.0); PLATELET COUNT, AUTOMATED 156 10^3/uL (150-450); RED BLOOD COUNT 4.36 10^6/uL (4.00-5.40); WHITE BLOOD COUNT 8.6 10^3/uL (4.0-10.0)
[2020-02-19 13:08] LABS: ALBUMIN 3.4 GM/DL (3.2-5.2); ALT/SGPT 21 U/L (12-78); BILIRUBIN,TOTAL 0.4 MG/DL (0.2-1.0); BLOOD UREA NITROGEN 16 MG/DL (7-18); CALCIUM LEVEL 9.7 MG/DL (8.8-10.2); CARBON DIOXIDE LEVEL 31 MEQ/L (21-32); CHLORIDE LEVEL 103 MEQ/L (98-107); CREATININE FOR GFR 0.74 MG/DL (0.55-1.30); GLOMERULAR FILTRATION RATE > 60.0 (>45); GLUCOSE, FASTING 86 MG/DL (70-100); POTASSIUM SERUM 4.3 MEQ/L (3.5-5.1); SODIUM LEVEL 139 MEQ/L (136-145)
[2020-02-19 13:13] LABS: EOS % 38.1 % (0.0-3.0)
[2020-02-19 13:39] LABS: ERYTHROCYTE SEDIMENTATION RATE 35 mm/hr (0-30)
== END ==
LOC: M LAB REF 11:47
PROVIDERS: ATTEND Internal Medicine Infectious Disease
DX: A31.9 Mycobacterial infection, unspecified (principal); J85.0 Gangrene and necrosis of lung; G47.33 Obstructive sleep apnea (adult) (pediatric); J47.0 Bronchiectasis with acute lower respiratory infection

== ENCOUNTER → 2020-03-04 | Outpatient (REF) | payer MEDICARE, OTHER ==
[2020-03-04 13:37] LABS: BASO # 0.1 10^3/uL (0.0-0.2); BASO % 0.5 % (0.0-1.0); EOS # 2.8 10^3/uL (0.0-0.5); HEMATOCRIT 37.9 % (36.0-47.0); HEMOGLOBIN 11.7 g/dl (12.0-15.5); LYMPH # 1.3 10^3/uL (1.5-5.0); LYMPH % 12.9 % (24.0-44.0); MEAN CORPUSCULAR HEMOGLOBIN 26.7 pg (27.0-33.0); MEAN CORPUSCULAR HGB CONC 30.9 g/dl (32.0-36.5); MEAN CORPUSCULAR VOLUME 86.5 fl (80.0-96.0); MONO # 0.6 10^3/uL (0.0-0.8); MONO % 5.8 % (0.0-5.0); NEUTROPHILS # 5.5 10^3/uL (1.5-8.5); NEUTROPHILS % 53.4 % (36.0-66.0); PLATELET COUNT, AUTOMATED 158 10^3/uL (150-450); RED BLOOD COUNT 4.38 10^6/uL (4.00-5.40); WHITE BLOOD COUNT 10.4 10^3/uL (4.0-10.0)
[2020-03-04 14:00] LABS: BLOOD UREA NITROGEN 14 MG/DL (7-18); CARBON DIOXIDE LEVEL 27 MEQ/L (21-32); CHLORIDE LEVEL 105 MEQ/L (98-107); CREATININE FOR GFR 0.65 MG/DL (0.55-1.30); GLOMERULAR FILTRATION RATE > 60.0 (>45); GLUCOSE, FASTING 96 MG/DL (70-100); POTASSIUM SERUM 4.3 MEQ/L (3.5-5.1); SODIUM LEVEL 139 MEQ/L (136-145)
[2020-03-04 14:01] LABS: ALBUMIN 3.6 GM/DL (3.2-5.2); ALT/SGPT 20 U/L (12-78); BILIRUBIN,TOTAL 0.4 MG/DL (0.2-1.0); CALCIUM LEVEL 8.8 MG/DL (8.8-10.2); TOTAL PROTEIN 7.3 GM/DL (6.4-8.2)
[2020-03-04 15:46] LABS: ERYTHROCYTE SEDIMENTATION RATE 35 mm/hr (0-30)
== END ==
LOC: M SHH 11:59
PROVIDERS: ATTEND Internal Medicine Infectious Disease
DX: A31.9 Mycobacterial infection, unspecified (principal); J85.0 Gangrene and necrosis of lung; G47.33 Obstructive sleep apnea (adult) (pediatric); J47.0 Bronchiectasis with acute lower respiratory infection

== ENCOUNTER → 2020-03-06 | Outpatient (REF) | payer MEDICARE, OTHER | LOC: M SFHCPLAZ 13:20 | PROVIDERS: ATTEND Internal Medicine Infectious Disease | DX: A31.9 Mycobacterial infection, unspecified (principal) ==

== ENCOUNTER → 2020-03-13 | Outpatient (CLI) | payer MEDICARE, OTHER, MEDICAID ==
--- NOTE | 2020-03-13 15:27 | REP ---
INDICATION: OTHER NONSPECIFIC ABN FINDINGS OF LUNG FIELD. COMPARISON: Multiple, the latest 11/12/2019 a contrast-enhanced exam. TECHNIQUE: Noncontrast enhanced helical technique. FINDINGS: Limited evaluation of the mediastinum and pulmonary cynthia shows no evidence of gross change compared to the latest prior exam. No pleural or pericardial effusions have developed. There is no change in the imaged upper abdomen or imaged osseous structures. Evaluation of the lung ledesma shows a large unchanged right upper lobe cavitary lesion and marked chronic and stable appearing biapical pleuroparenchymal scarring. Scattered lung field opacities and nodules are again noted, and again, too numerous to count or individually assess. There is unchanged asymmetric pleural thickening seen particularly in the left mid lung zone region anteriorly. There is cylindrical bronchiectasis status ". Only 1 area, conglomerate nodular densities in the left upper lobe, appears to have improved. IMPRESSION: Marked chronic changes with findings and limitations as described above. <Electronically signed by Franky Laguna > 03/13/20 [id number]
== END ==
LOC: M RAD 07:07
PROVIDERS: ATTEND Internal Medicine Pulmonary Disease
DX: R91.8 Other nonspecific abnormal finding of lung field (principal)

== ENCOUNTER → 2020-03-18 | Outpatient (REF) | payer MEDICARE, OTHER, MEDICAID ==
[2020-03-18 12:07] LABS: BASO % 0.4 % (0.0-1.0); EOS # 3.3 10^3/uL (0.0-0.5); LYMPH # 1.6 10^3/uL (1.5-5.0); LYMPH % 15.6 % (24.0-44.0); MEAN CORPUSCULAR HEMOGLOBIN 27.1 pg (27.0-33.0); MEAN CORPUSCULAR HGB CONC 31.6 g/dl (32.0-36.5); MONO # 0.6 10^3/uL (0.0-0.8); MONO % 6.1 % (0.0-5.0); NEUTROPHILS # 4.6 10^3/uL (1.5-8.5); NEUTROPHILS % 45.6 % (36.0-66.0); PLATELET COUNT, AUTOMATED 162 10^3/uL (150-450); RED BLOOD COUNT 4.42 10^6/uL (4.00-5.40); WHITE BLOOD COUNT 10.2 10^3/uL (4.0-10.0)
[2020-03-18 12:38] LABS: ERYTHROCYTE SEDIMENTATION RATE 40 mm/hr (0-30)
[2020-03-18 12:52] LABS: EOS % 32.1 % (0.0-3.0)
[2020-03-18 15:46] LABS: ALBUMIN 3.6 GM/DL (3.2-5.2); ALT/SGPT 22 U/L (12-78); BILIRUBIN,TOTAL 0.4 MG/DL (0.2-1.0); BLOOD UREA NITROGEN 11 MG/DL (7-18); C REACTIVE PROTEIN QUANTITATIV 0.41 MG/DL (0.00-0.30); CALCIUM LEVEL 9.6 MG/DL (8.8-10.2); CARBON DIOXIDE LEVEL 29 MEQ/L (21-32); CHLORIDE LEVEL 102 MEQ/L (98-107); CREATININE FOR GFR 0.76 MG/DL (0.55-1.30); GLOMERULAR FILTRATION RATE > 60.0 (>45); GLUCOSE, FASTING 91 MG/DL (70-100); POTASSIUM SERUM 4.2 MEQ/L (3.5-5.1); SODIUM LEVEL 138 MEQ/L (136-145); TOTAL PROTEIN 7.3 GM/DL (6.4-8.2)
== END ==
LOC: M LAB REF 10:55 → M SHH 10:55
PROVIDERS: ATTEND Internal Medicine Infectious Disease
DX: A31.9 Mycobacterial infection, unspecified (principal); J85.0 Gangrene and necrosis of lung; G47.33 Obstructive sleep apnea (adult) (pediatric); J47.0 Bronchiectasis with acute lower respiratory infection

== ENCOUNTER → 2020-04-01 | Outpatient (REF) | payer MEDICARE, OTHER, MEDICAID ==
[2020-04-01 11:41] LABS: BASO # 0.1 10^3/uL (0.0-0.2); BASO % 0.5 % (0.0-1.0); EOS # 3.2 10^3/uL (0.0-0.5); HEMATOCRIT 37.1 % (36.0-47.0); HEMOGLOBIN 11.8 g/dl (12.0-15.5); LYMPH # 1.6 10^3/uL (1.5-5.0); LYMPH % 17.6 % (24.0-44.0); MEAN CORPUSCULAR HEMOGLOBIN 27.5 pg (27.0-33.0); MEAN CORPUSCULAR HGB CONC 31.8 g/dl (32.0-36.5); MEAN CORPUSCULAR VOLUME 86.5 fl (80.0-96.0); MONO # 0.6 10^3/uL (0.0-0.8); MONO % 6.8 % (0.0-5.0); NEUTROPHILS # 3.6 10^3/uL (1.5-8.5); NEUTROPHILS % 39.6 % (36.0-66.0); PLATELET COUNT, AUTOMATED 165 10^3/uL (150-450); RED BLOOD COUNT 4.29 10^6/uL (4.00-5.40); WHITE BLOOD COUNT 9.1 10^3/uL (4.0-10.0)
[2020-04-01 11:54] LABS: EOS % 35.3 % (0.0-3.0)
[2020-04-01 12:01] LABS: ERYTHROCYTE SEDIMENTATION RATE 31 mm/hr (0-30)
[2020-04-01 12:09] LABS: ALBUMIN 3.5 GM/DL (3.2-5.2); ALT/SGPT 26 U/L (12-78); BILIRUBIN,TOTAL 0.4 MG/DL (0.2-1.0); BLOOD UREA NITROGEN 16 MG/DL (7-18); CARBON DIOXIDE LEVEL 28 MEQ/L (21-32); CHLORIDE LEVEL 105 MEQ/L (98-107); CREATININE FOR GFR 0.72 MG/DL (0.55-1.30); GLOMERULAR FILTRATION RATE > 60.0 (>45); GLUCOSE, FASTING 100 MG/DL (70-100); POTASSIUM SERUM 4.3 MEQ/L (3.5-5.1); SODIUM LEVEL 138 MEQ/L (136-145)
== END ==
LOC: M LAB REF 10:42
PROVIDERS: ATTEND Internal Medicine Infectious Disease
DX: A31.9 Mycobacterial infection, unspecified (principal); J85.0 Gangrene and necrosis of lung; G47.33 Obstructive sleep apnea (adult) (pediatric); J47.0 Bronchiectasis with acute lower respiratory infection

== ENCOUNTER → 2020-04-15 | Outpatient (REF) | payer OTHER, MEDICAID ==
[2020-04-15 12:19] LABS: BASO # 0.1 10^3/uL (0.0-0.2); BASO % 0.7 % (0.0-1.0); EOS # 3.4 10^3/uL (0.0-0.5); HEMATOCRIT 36.2 % (36.0-47.0); HEMOGLOBIN 11.4 g/dl (12.0-15.5); LYMPH # 1.3 10^3/uL (1.5-5.0); LYMPH % 12.6 % (24.0-44.0); MEAN CORPUSCULAR HEMOGLOBIN 27.6 pg (27.0-33.0); MEAN CORPUSCULAR HGB CONC 31.5 g/dl (32.0-36.5); MEAN CORPUSCULAR VOLUME 87.7 fl (80.0-96.0); MONO # 0.5 10^3/uL (0.0-0.8); NEUTROPHILS # 4.9 10^3/uL (1.5-8.5); NEUTROPHILS % 47.9 % (36.0-66.0); PLATELET COUNT, AUTOMATED 160 10^3/uL (150-450); RED BLOOD COUNT 4.13 10^6/uL (4.00-5.40); WHITE BLOOD COUNT 10.2 10^3/uL (4.0-10.0)
[2020-04-15 12:50] LABS: ALBUMIN 3.4 GM/DL (3.2-5.2); ALT/SGPT 24 U/L (12-78); BILIRUBIN,TOTAL 0.3 MG/DL (0.2-1.0); BLOOD UREA NITROGEN 17 MG/DL (7-18); CALCIUM LEVEL 9.3 MG/DL (8.8-10.2); CARBON DIOXIDE LEVEL 29 MEQ/L (21-32); CHLORIDE LEVEL 104 MEQ/L (98-107); CREATININE FOR GFR 0.76 MG/DL (0.55-1.30); GLOMERULAR FILTRATION RATE > 60.0 (>45); GLUCOSE, FASTING 107 MG/DL (70-100); SODIUM LEVEL 139 MEQ/L (136-145); TOTAL PROTEIN 6.9 GM/DL (6.4-8.2)
[2020-04-15 12:53] LABS: EOS % 33.5 % (0.0-3.0)
[2020-04-15 12:55] LABS: ERYTHROCYTE SEDIMENTATION RATE 34 mm/hr (0-30)
== END ==
LOC: M LAB REF 11:42
PROVIDERS: ATTEND Internal Medicine Infectious Disease
DX: A31.9 Mycobacterial infection, unspecified (principal); J85.0 Gangrene and necrosis of lung; G47.33 Obstructive sleep apnea (adult) (pediatric); J47.0 Bronchiectasis with acute lower respiratory infection

== ENCOUNTER → 2020-04-16 | Outpatient (CLI) | payer OTHER, MEDICAID ==
[~2020-04-16] MED LIST changes: +E-Z-GAS II EFFERVESCENT PACKET (SODIUM BICARB./CITRIC ACID/SIMETHICONE) As Ordered ONE; +E-Z-HD 98% w/w 340GM SUSP BTL As Ordered ONE; +E-Z-PAQUE 96% w/w SUSP 176GM BTL As Ordered ONE
--- NOTE | 2020-04-16 16:52 | REP ---
INDICATION: DYSPHAGIA, GERD. TECHNIQUE: This procedure was performed by Angela Montes [facility], under the direct supervision of . Images were reviewed with prior to dictation. Liquid barium and gas producing crystals were given in the erect position, as well as liquid barium in the prone oblique position in order to perform a double contrast esophagram examination. 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 Again noted is a large unchanged right upper lobe cavitary lesion. There is a MediPort device in place. No change since the previous chest CT dated 03/13/2020. The oral and pharyngeal stages of deglutition were unremarkable. Esophageal transport is prompt and efficient and there is no evidence of esophagitis, stricture, or mucosal ring. There is no evidence of a hiatal hernia. There was no gastroesophageal reflux noted . IMPRESSION: Unremarkable esophagram. 0.3 minutes of fluoroscopy time was utilized for this procedure. Some fluoroscopic images are performed with last image hold technology. These images require no additional radiation. <Electronically signed by Angela Montes > 04/16/20 0643 <Electronically signed by Shai Jacobson > 04/16/20 1737
== END ==
LOC: M RAD 07:33
PROVIDERS: ATTEND Physician Assistant Medical
DX: R13.10 Dysphagia, unspecified (principal); K21.9 Gastro-esophageal reflux disease without esophagitis

== ENCOUNTER → 2020-04-29 | Outpatient (REF) | payer OTHER, MEDICAID ==
[~2020-04-29] MED LIST changes: -E-Z-GAS II EFFERVESCENT PACKET (SODIUM BICARB./CITRIC ACID/SIMETHICONE) As Ordered ONE; -E-Z-HD 98% w/w 340GM SUSP BTL As Ordered ONE; -E-Z-PAQUE 96% w/w SUSP 176GM BTL As Ordered ONE
[2020-04-29 13:31] LABS: BASO % 0.5 % (0.0-1.0); EOS # 2.7 10^3/uL (0.0-0.5); HEMATOCRIT 36.7 % (36.0-47.0); HEMOGLOBIN 11.5 g/dl (12.0-15.5); LYMPH # 1.3 10^3/uL (1.5-5.0); MEAN CORPUSCULAR HEMOGLOBIN 27.2 pg (27.0-33.0); MEAN CORPUSCULAR HGB CONC 31.3 g/dl (32.0-36.5); MEAN CORPUSCULAR VOLUME 86.8 fl (80.0-96.0); MONO # 0.4 10^3/uL (0.0-0.8); NEUTROPHILS # 3.7 10^3/uL (1.5-8.5); NEUTROPHILS % 45.3 % (36.0-66.0); PLATELET COUNT, AUTOMATED 154 10^3/uL (150-450); RED BLOOD COUNT 4.23 10^6/uL (4.00-5.40); WHITE BLOOD COUNT 8.2 10^3/uL (4.0-10.0)
[2020-04-29 13:54] LABS: ALBUMIN 3.6 GM/DL (3.2-5.2); ALT/SGPT 27 U/L (12-78); BILIRUBIN,TOTAL 0.5 MG/DL (0.2-1.0); BLOOD UREA NITROGEN 12 MG/DL (7-18); CALCIUM LEVEL 9.3 MG/DL (8.8-10.2); CARBON DIOXIDE LEVEL 28 MEQ/L (21-32); CHLORIDE LEVEL 104 MEQ/L (98-107); CREATININE FOR GFR 0.83 MG/DL (0.55-1.30); GLOMERULAR FILTRATION RATE > 60.0 (>45); GLUCOSE, FASTING 120 MG/DL (70-100); POTASSIUM SERUM 3.9 MEQ/L (3.5-5.1); SODIUM LEVEL 139 MEQ/L (136-145); TOTAL PROTEIN 6.9 GM/DL (6.4-8.2)
[2020-04-29 14:11] LABS: ERYTHROCYTE SEDIMENTATION RATE 34 mm/hr (0-30)
== END ==
LOC: M LAB REF 12:54
PROVIDERS: ATTEND Internal Medicine Infectious Disease
DX: A31.9 Mycobacterial infection, unspecified (principal); J85.0 Gangrene and necrosis of lung; G47.33 Obstructive sleep apnea (adult) (pediatric); J47.0 Bronchiectasis with acute lower respiratory infection

== ENCOUNTER → 2020-05-05 | Outpatient (CLI) | payer OTHER, MEDICAID | LOC: M LABSMTC 08:55 | PROVIDERS: ATTEND Anesthesiology | DX: Z01.812 Encounter for preprocedural laboratory examination (principal); Z20.822 Contact with and (suspected) exposure to COVID-19 ==

== ENCOUNTER → 2020-05-06 | Outpatient (REF) | payer MEDICARE, MEDICAID, OTHER ==
[~2020-05-06] MED LIST changes: -ALEN70TA74 PO; +ALEN70TA82 PO; -CLIN150C14 PO; +CLIN150C15 PO
== END ==
LOC: M SFHCPLAZ 13:19
PROVIDERS: ATTEND Internal Medicine Infectious Disease
DX: A31.9 Mycobacterial infection, unspecified (principal)

== ENCOUNTER 2020-05-10 11:20 | Day surgery (SDC) | payer MEDICARE, MEDICAID ==
[~2020-05-10] VITALS: Ht 162.6 cm; Wt 48.3 kg
[~2020-05-10 11:20] MED LIST changes: +GLYCOPYRROLATE INJ 0.2 MG/ML 2 ML VIAL As Ordered ONE; +LIDOCAINE 2% 100MG/5ML SDV (FOR ANES.) As Ordered ONE; +NS 1,000 ML IV ONE; +fentaNYL 100 MCG/2 ML INJECTION (J3010) As Ordered ONE; +propofoL 200 MG/20 ML VIAL As Ordered ONE
--- OUTSIDE RECORDS SUMMARY | 2020-05-10 11:23 | CCD ---
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 Name Role Phone Maryanne Brandt Unavailable PROBLEMS Type Condition ICD9-CM Code [id number] Code Onset Dates Condition S tatus SNOMED Code Notes Problem History of colon polyps Z86.010 Active 92202434 2 Problem Osteopenia M85.80 Active 779147559 Problem Personal history of malignant neoplasm of breast Z 85.3 Active 376669246 Problem Gastroesophageal reflux disease without esophagitis K21.9 Active 516181483 Problem Sensorineural hearing loss of both ears H90.3 Active 259251985 Problem Senile osteoporosis M81.0 Active 40354671 Problem Personal history of breast cancer Z85.3 Active 032786591 Problem Former smoker Z87.891 Active 8405148 Problem Allergic rhinitis, seasonal J30.2 Active 3674 10123 Problem Gastroesophageal reflux disease, esophagitis pre sence not specified K21.9 Active 893901624 Problem Restless legs syndrome G25.81 Active 26228950 Problem Atherosclerosis of [place] teries of extremities with intermittent claudication, bilateral legs I70.213 Active 0750120 4096646545 Problem Central perforation of tympanic membrane of right ear H72.01 Active 84348015 Problem Other chronic pain G89.29 Active 44557925 Problem Peripheral polyneuropathy G62.9 Active 848595 00 Problem Iron deficiency anemia secondary to inadequate d ietary iron intake D50.8 Active 056127954 Problem Positive CINTIA (antinuclear antibody) R76.8 Acti ve 391954729 Problem Lumbago with sciatica, left side M54.42 Active 986703591 Problem Cardiac dysrhythmia, unspecified I49.9 Active 72386384 Problem Other specified hearing loss of both ears H91.8X3 Active 726614933 Problem Moderate tobacco use disorder, in sustained remission F17.201 Active 275889984 Problem Oxygen desaturation R09.02 Active 358008327 Problem Underweight R63.6 Active 291849644 Problem Lumbago with sciatica, right side M54.41 Active 013262563930323 Problem Other diseases of stomach and duodenum K31.89 A ctive 666084168 Problem COPD with exacerbation J44.1 Active 665723696 Problem Bronchiectasis with acute lower respiratory infection J47.0 Active 87234233 Problem Obstructive sleep apnea G47.33 Active 93665470 Problem Cachexia R64 Active 371331565 Problem Other nonspecific abnormal finding of lung field R 91.8 Active 818457812 Problem Other disorders of plasma-protein metabo lism, 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 Active 94980489154813 Problem Centrilobular emphysema J43.2 Active 95763441 Problem Central perforation of tympanic membrane of left ear H72.02 Active 97141048 Problem Necrotic pneumonia J85.0 Active 0499968 Problem 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 627233220 Problem Anemia, unspecified type D64.9 Active 5323960 00 Problem Hypoalbuminemia E88.09 Active 523337917 ALLERGIES Allergen (clinical drug ingredient) Drug/Non Drug Allergy do cumented on EMR Reaction Allergy Type Onset Date Status penicillin V Penicillin V Potassium([facility] Code:[address]-31) Rash Drug Allergy Active ENCOUNTERS from 1955 to 2020-05-06 Encounter Location Date Provider Diagnosis [address] [address] Apr, Maryanne Brandt 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 ; Necrotic pneumonia J85.0 ; Obstructive sleep apnea G47.33 ; Bronchiectasis with acute lower respiratory infection J47.0 ; Centrilobular emphysema J43.2 ; Moderate tobacco use disorder, in sustained remission F17.201 and Sensorineural hearing loss of both ears H90.3 IMMUNIZATIONS Vaccine Route Administration Date Status Influenza (18 yrs & older) Flublok IM Intramuscular Mar 30, 2019 Administered Influenza (18 yrs & older) Flublok IM Intramuscular Sept 14, 201 8 Administered Pneumococcal Adult 0.5mL (Pneumovax 23) IM Intramuscular September Administered TDAP 0.5mL (Boostrix) IM Intramuscular Feb 22, 2020 Administe red Pneumococcal 0.5mL (Prevnar 13) IM Intramuscular November 13, 2014 Administered Influenza (6mo & up) Fluzone IM Intramuscular Feb 25, 2016 Ad ministered Influenza (6mo & up) Fluzone IM Intramuscular Feb 07, 2015 Ad ministered Influenza (6mo & up) Fluzone IM Intramuscular Jan 12, 2014 Ad ministered SOCIAL HISTORY Tobacco Use: Social History Observation Description Date Details (start date - stop date) Former Smoker Sex Assigned At : Social History Observation Description Sex Assigned At Unknown Education: Question Answer Notes Level of Education: Not finished High School Audit Question Answer Notes Total Score: 0 Interpretation: Alcohol Education Language: Question Answer Notes Languages spoken: Yoruba Episcopalian: Question Answer Notes Ep[employer]opalian 33 None No mormonism beliefs that would impact health care. Domestic Violence: Question Answer Notes Status: Sexual Hx: Question Answer Notes Had sex in the last 12 months (vaginal, oral, or anal)? Yes Have you ever had an STD? No with Men only Use protection? No Drug and Alcohol Question Answer Notes Total Score: 0 Interpretation: No problems reported BMI Care Goal Follow-Up Question Answer Notes Below Normal BMI Follow-Up Dietary education for weight gain Tobacco Use: Question Answer Notes Are you a: former smoker 1.5ppd x 44 years How long has it been since you last smoked? > 10 years REASON FOR REFERRAL No Information VITAL SIGNS Weight 110 lbs Apr, Height 63.75 in Apr, BMI 19.03 kg/m2 Apr, Heart Rate 78 /min Apr, Respiratory Rate 18 /min Apr, Temperature 98.6 degrees Fahrenheit Apr, Oximetry 98 Apr, Blood pressure systolic 105 mm Hg Apr, Blood pressure diastolic 64 mm Hg Apr, MEDICATIONS Medication SIG (Take, Route, Frequency, Duration) Notes Start Da te End Date Status Aspir-81 81 MG 1 tablet Orally Once a day Active Amikacin Sulfate 500 MG/2ML as directed Injection Active Amikacin Sulfate 500 MG/2ML 750 mg Injection MWF 14 Oct, 2 020 Active Oxygen 2 Liters per N/C at night Active Alendronate Sodium 70 MG 1 tablet Orally once a week as directed Active Pantoprazole Sodium 40 MG 1 tablet Orally Once a day b efore 1st meal for 30 day(s) Feb, Active Calcium 600 + D 600-400 MG-UNIT 1 tablet Orally Once a day Active Advair HFA 115-21 MCG/ACT 2 puffs Inhalation Twice a day Active Vitamin D 25 MCG (1000 UT) 1 tablet with meal Orally Once a day Jun, Active Arikayce 590 mg/8.4 mL as directed Inhalation Daily for 28 day(s) Active Boost - 240 ml Orally auth#[id number] 270 twice daily DX: R64, E88.09, J18.9, D64.9 for 30 Days Active Ropinirole HCl 1 MG 1 tablet 1 to 3 hours before bedtime Orally Once a day for 30 day(s) Jun, Active Albuterol Sulfate HFA 108 (90 Base) MCG/ACT 1 puff as needed Inhalation every 4 hrs Active Imipenem-Cilastatin 500 MG 1 gm Intravenous q12 Oct, Active Famotidine 40 MG 1 tablet at bedtime Orally Once a day as neede for 30 day(s) Feb, Active Nuzyra 150 MG 2 tablets Orally Once a day for 30 Days 2019 Active Multivitamins 1 tab with iron Orally daily Active Nuzyra 150 MG 2 tablets Orally Once a day for 30 Days Active Ibuprofen 200 MG 2 tablets with food or milk as needed Or ally three times daily August, Active Ferrous Gluconate 324 (38 Fe) MG 1 tablet with water o r juice between meals Orally Once a day Jun, Active PROCEDURES from 1955 to 2020-05-06 Procedure Date Ordered Result Body Site ECG RECORDING 2020-05-02 Normal RESULTS No Results REASON FOR VISIT 2 month MEDICAL (GENERAL) HISTORY Type Description Date Medical History breast cancer left 2002 S/P lumpectomy chemo and radition Dr Dalia Montoya & tamoxifen x 5 years Medical History osteoporosis DEXA 11/11, : FRAX: 15.8% major, 3.4% hip fx risk - restarted alendronate 05/12 Medical History mild emphysema and scarring, pulmonary eval 08/10, FEV1 = 1.9 11/10 Medical History allergic rhinitis, seasonal Medical History distal aortic atherosclerosi s claudication, s/p aortic stent graft placement 01/05 Dr Tiny Perry Medical History R lung mass 5-10, benign/microabscesses on wedge biopsy 10/2009 Medical History tubular adenoma 2007 - Re[facility] EGD 04/2020 Medical History Abscess of lung M. abscessus [place] clofazimine =0.5 [place]=8 Tigecycline [place]=0.12 [place] IV imipenem/ [place] and PO Omadacycline( Nuzyra) 10/2019 . 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 AFB Culture M.abscessus 07/12- 07/15/2019 Susceptibilty could not be done at [place], sent to [facility] 11/15/2019 IV amikacin/ imipenem/ Omadacycline Medical History bronchoscopy done 09/2009 AFB smear culture negative fungal smear culture positive for Michelle tropicalis sputum culture Streptococcus pneumoniae Surgical History left breast lumpectomy 2002 Surgical History appendectomy Surgical History C section x 2, tubal ligation Surgical History lung biopsy, Armaan Conner 06 Surgical History rt lung mass 5-10, benign/microabscesse s on wedge biopsy 11/02 Surgical History colonoscopy with polyp resec tion (adenomatous), Nl in 2014 Re[facility]l 10-, 04/09 Surgical History tonsillectomy Surgical History distal aortic atherosclerosi s causing claudication, s/p aortic stent graft placement 01/05 Dr Tiny Perry 08-13-11 Surgical History hole in eardrum Dr Marques 02-13-15 Surgical History right ossicular chain reconstruction - D r Jerald 01/15/16 Surgical History Right infusaport IJ 07/2019 Hospitalization History bilateral pneumonia 06/2019 Goals Section No Information Health Concerns No Information MEDICAL EQUIPMENT No Information MENTAL STATUS No Information FUNCTIONAL STATUS No Information ASSESSMENTS Encounter Date Diagnosis Assessment Notes Treatment Notes Treatm ent Clinical Notes Apr, 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 Conner over 10 years ago which showed acute on chronic inflammation/ path was negative for AFB. 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 [place] susceptible, cefoxitin intermediate, rifampin resistant,tigecycline [place] = 0.1 Sputum 12/29/19 01/17/2020 and 03/06/20 AFB smear and CX negative . She will be on treatment with at least 12-18 months of 3 drug regimen for necrotizing nontuberculous mycobacteria pneumonia. 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 patient signed arikayce form and given clofazimine contract to review and read , will return in 2 weeks Will first switch to arikayce nebulized 590 mg daily , prior auth today from IV amikacin ECG done was normal QTC 414 msec to monitor QTc prolongation that can occur with clofazimine Apr, Necrotic pneumonia (ICD-10 - J85.0) Related to nontuberculous Mycobacterium abscesses Apr, Obstructive sleep apnea (ICD-10 - G47.33) Has Oxygen at night and with exertion Apr, Bronchiectasis with acute lo wer respiratory infection (ICD-10 - J47.0) Long-standing history she follows up with Dr. Jackson Apr, Centrilobular emphysema (ICD-10 - J43.2) Patient encouraged to remain abstinent from cigarettes, uses O2 1liter NC at night and with exertion, Dr Jackson new pulmonary from [facility]. Apr, Moderate tobacco use disorde r, in sustained remission (ICD-10 - F17.201) Doing well, quit smoking over 10 years ago Apr, Sensorineural hearing loss of both ears (ICD-10 - H90.3) PLAN OF TREATMENT Medication Medication Name Sig Start Date Stop Date Arikayce 590 mg/8.4 mL as directed Inhalation Daily for 28 day(s ) Nuzyra 150 MG 2 tablets Orally Once a day for 30 Days Albuterol Sulfate HFA 108 (90 Base) MCG/ACT 1 puff as needed Inhalation every 4 hrs Advair HFA 115-21 MCG/ACT 2 puffs Inhalation Twice a day Imipenem-Cilastatin 500 MG 1 gm Intravenous q12 Oct, Oxygen 2 Liters per N/C at night Amikacin Sulfate 500 MG/2ML 750 mg Injection MWF 14 Oct, 2019 Treatment Notes Assessment Notes Clinical Notes Mycobacterium abscessus infection She gao d abnormal chest CTs for many years and had a wedge resection done by Dr. Conner over 10 years ago which showed acute on chronic inflammation/ path was negative for AFB. 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 [place] susceptible, cefoxitin intermediate, rifampin resistant,tigecycline [place] = 0.1 Sputum 12/29/19 01/17/2020 and 03/06/20 AFB smear and CX negative . She will be on treatment with at least 12-18 months of 3 drug regimen for necrotizing nontuberculous mycobacteria pneumonia. 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 Jackson Centrilobular emphysema Patient encour ed to remain abstinent from cigarettes, uses O2 1liter NC at night and with exertion, Dr Manuel hoskins pulmonary from [facility]. Moderate tobacco use disorder, in sustained remission Doing well, quit smoking over 10 years ago Treatment Notes Test Name Order Date AFB SMEAR & CULTURE 2020-05-06 Next Appt Details 4 Weeks Reason: Provider Name:Maryanne Brandt, 2020-05-27 1 08:00:00 AM, [address] [place] [address], [phone], Provider Name:Rosio Carvajal, 2020-06-18 09:1 5:00 AM, [address] [place] [address], [phone], Provider Name:Shalini Johnson, 2020-06-24 0 08:30:00 AM, [address] [place] [address], [phone], Insurance Providers Payer Name Payer Address Payer Phone Insured Name Patient Relati onship to Insured Coverage Start Date Coverage End Date [facility] [address] [facility] [phone] NIYA AMBROCIO MEDICARE Part A and B [address] [facility] [phone] NIYA AMBROCIO self
--- OUTSIDE RECORDS SUMMARY | 2020-05-10 11:24 | CCD ---
Author Author [facility] Organization [facility] Address Unknown Phone Unavailable Care Team Providers Care Patent Prosecution Attorney Name Role Phone Rosio Carvajal Unavailable PROBLEMS Type Condition ICD9-CM Code CLB25-SL Code Onset Dates Condition S tatus SNOMED Code Notes Problem History of colon polyps Z86.010 Active 19758997 2 Problem Osteopenia M85.80 Active 816550816 Problem Personal history of malignant neoplasm of breast Z 85.3 Active 030684518 Problem Gastroesophageal reflux disease without esophagitis K21.9 Active 206081141 Problem Sensorineural hearing loss of both ears H90.3 Active 085489468 Problem Senile osteoporosis M81.0 Active 46521865 Problem Personal history of breast cancer Z85.3 Active 925700043 Problem Former smoker Z87.891 Active 6738986 Problem Allergic rhinitis, seasonal J30.2 Active 3674 64275 Problem Gastroesophageal reflux disease, esophagitis pre sence not specified K21.9 Active 937607393 Problem Restless legs syndrome G25.81 Active 84588875 Problem Atherosclerosis of [place] of extremities with intermittent claudication, bilateral legs I70.213 Active 1003982 5109167198 Problem Central perforation of tympanic membrane of right ear H72.01 Active 21235589 Problem Other chronic pain G89.29 Active 77924184 Problem Peripheral polyneuropathy G62.9 Active 425370 00 Problem Iron deficiency anemia secondary to inadequate d ietary iron intake D50.8 Active 391348908 Problem Positive CINTIA (antinuclear antibody) R76.8 Acti ve 326214836 Problem Lumbago with sciatica, left side M54.42 Active 503176115 Problem Cardiac dysrhythmia, unspecified I49.9 Active 20770039 Problem Other specified hearing loss of both ears H91.8X3 Active 854263413 Problem Moderate tobacco use disorder, in sustained remission F17.201 Active 753681248 Problem Oxygen desaturation R09.02 Active 232752120 Problem Underweight R63.6 Active 513467473 Problem Lumbago with sciatica, right side M54.41 Active 468864002896555 Problem Other diseases of stomach and duodenum K31.89 A ctive 401189871 Problem COPD with exacerbation J44.1 Active 515653123 Problem Bronchiectasis with acute lower respiratory infection J47.0 Active 88839472 Problem Obstructive sleep apnea G47.33 Active 36284236 Problem Cachexia R64 Active 401782212 Problem Other nonspecific abnormal finding of lung field R 91.8 Active 503802132 Problem Other disorders of plasma-protein metabo lism, 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 Active 64231149664152 Problem Centrilobular emphysema J43.2 Active 93960443 Problem Central perforation of tympanic membrane of left ear H72.02 Active 75862447 Problem Necrotic pneumonia J85.0 Active 2771830 Problem 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 048357518 Problem Anemia, unspecified type D64.9 Active 1281273 00 Problem Hypoalbuminemia E88.09 Active 785815134 ALLERGIES Allergen (clinical drug ingredient) Drug/Non Drug Allergy do cumented on EMR Reaction Allergy Type Onset Date Status penicillin V Penicillin V Potassium([facility] Code:[address]-85) Rash Drug Allergy Active ENCOUNTERS from 1955 to 2020-03-27 Encounter Location Date Provider Diagnosis [id number] [place] [address] Feb, 020 [facility] Gastroesophageal reflux disease without esophagitis K21.9 ; Centrilobular emphysema J43.2 ; Necrotic pneumonia J85.0 and Moderate tobacco use disorder, in sustained remission F17.201 IMMUNIZATIONS Vaccine Route Administration Date Status Influenza (18 yrs & older) Flublok IM Intramuscular Mar 30, 2019 Administered Influenza (18 yrs & older) Flublok IM Intramuscular Jan 07 8 Administered Pneumococcal Adult 0.5mL (Pneumovax 23) [...] Education Language: Question Answer Notes Languages spoken: Djib[place] Tenriism: Question Answer Notes Tenriism 33 None No taoism beliefs that would impact health care. Domestic [...] FOR REFERRAL No Information VITAL SIGNS Weight 105 lbs Feb, Height 63.75 in Feb, BMI 18.16 kg/m2 Feb, Heart Rate 80 /min Feb, Respiratory Rate 18 /min Feb, Temperature 97 degrees Fahrenheit Feb, Oximetry 98% 2L Feb, Blood pressure systolic 110 mm Hg Feb, Blood pressure diastolic 60 mm Hg Feb, MEDICATIONS Medication SIG (Take, Route, Frequency, Duration) Notes Start Da te End Date Status Vitamin D 25 MCG (1000 UT) 1 tablet with meal Orally Once a day Jun, Active Pantoprazole Sodium 40 MG 1 tablet Orally Once a day b efore 1st meal for 30 day(s) Feb, Active Nuzyra 150 MG 2 tablets Orally Once a day for 30 Days Active Ropinirole HCl 1 MG 1 tablet 1 to 3 hours before bedtime Orally Once a day for 30 day(s) Jun, Active Arikayce 590 mg/8.4 mL as directed Inhalation Daily for 28 day(s ) Jan, Active Amikacin Sulfate 500 MG/2ML as directed Injection Active Boost - 240 ml Orally auth#[id number] 270 twice daily DX: R64, E88.09, J18.9, D64.9 for 30 Days Active Ferrous Gluconate 324 (38 Fe) MG 1 tablet with water o r juice between meals Orally Once a day Jun, Active Alendronate Sodium 70 MG 1 tablet Orally once a week as directed Active Calcium 600 + D 600-400 MG-UNIT 1 tablet Orally Once a day Active Advair HFA 115-21 MCG/ACT 2 puffs Inhalation Twice a day Active Imipenem-Cilastatin 500 MG 1 gm Intravenous q12 for 30 Days Oct, Active Multivitamins 1 tab with iron Orally daily Active Amikacin Sulfate 500 MG/2ML 750 mg Injection MWF for 30 days Oct, Active Albuterol Sulfate HFA 108 (90 Base) MCG/ACT 1 puff as needed Inhalation every 4 hrs Active Oxygen 2 Liters per N/C at night Active Ibuprofen 200 MG 2 tablets with food or milk as needed Or ally three times daily August, Active Aspir-81 81 MG 1 tablet Orally Once a day Active Nuzyra 150 MG 2 tablets Orally Once a day for 30 Days 2019 Not-Taking Famotidine 40 MG 1 tablet at bedtime Orally Once a day as neede for 30 day(s) Feb, Active PROCEDURES No Information RESULTS No Results REASON FOR VISIT f/u 02/2020 per vero MEDICAL (GENERAL) HISTORY Type Description Date Medical [...] 10/2009 Medical History tubular adenoma 2007 - Medical History Abscess of lung Medical History GERD Medical History hearing loss, perforation and repair Lef t TM Medical History Right upper lobe lung mass - biopsy negative for malignancy x2; repeat LDLCT in 02/2020 Medical History Mycobacterium abscesses necr otizing pneumonia DNA PCR detected, 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 AFB Culture M.abscessus 07/12- 07/15/2019 Susceptibilty could not be done at [facility], sent to [facility] 11/15/2019 IV amikacin/ imipenem/ Omadacycline Medical History bronchoscopy done 09/2009 AFB smear culture negative fungal smear culture positive for Michelle tropicalis sputum culture Streptococcus pneumoniae Surgical History left breast lumpectomy 2002 Surgical History appendectomy Surgical History C section x 2, tubal ligation Surgical History lung biopsy, Armaan Conner Surgical History rt lung mass 09-02, benign/microabscesse s on wedge biopsy 11/02 Surgical History colonoscopy with polyp resec tion (adenomatous), Nl in 2014 [place] 01-31, 04/09 Surgical History tonsillectomy Surgical History distal [...] Notes Treatment Notes Treatm ent Clinical Notes Feb, Gastroesophageal reflux dise ase without esophagitis (ICD-10 - K21.9) patient to call Dr Omalley's office for f/up - states they were scheduling EGD for ongoing reflux symptoms, also due for colonoscopy 03/2020Feb, Centrilobular emphysema (ICD-10 - J43.2) continue current tx and f/up per pulm Feb, Necrotic pneumonia (ICD-10 - J85.0) continue IV antibiotics per Dr Brandt Feb, Moderate tobacco use disorde r, in sustained remission (ICD-10 - F17.201) Doing well, quit smoking over 10 years ago PLAN OF TREATMENT Medication Medication Name Sig Start Date Stop Date Pantoprazole Sodium 40 MG 1 tablet Orally Once a day b efore 1st meal for 30 day(s) Feb, Famotidine 40 MG 1 tablet at bedtime Orally Once a day as neede for 30 day(s) Feb, Treatment Notes Assessment Notes Clinical Notes Gastroesophageal reflux disease without esophagitis allyson schulte to call Dr Omalley's office for f/up - states they were scheduling EGD for ongoing reflux symptoms, also due for colonoscopy 03/2020 Centrilobular emphysema continue current tx and f/up per pul m Necrotic pneumonia continue IV antibiotics per Dr Brandt Moderate tobacco use disorder, in sustained remission Doing well, quit smoking over 10 years ago Next Appt Details 3 Months(30min) Reason:f/up Provider Name:Maryanne Brandt, 7 08:00:00 AM, [address] [place] [address], [phone], Provider Name:Rosio Carvajal, 2020-06-18 09:1 5:00 AM, [address] [place] [address], [phone], Provider Name:Shalini Johnson, 2020-06-24 0 08:30:00 AM, [address] [place] [address], [phone], Follow Up:3 Months(30min)f/up Insurance Providers Payer Name Payer Address Payer Phone Insured Name Patient Relati onship to Insured Coverage Start Date Coverage End Date MEDICARE Part A and B [address] [facility] [place] [address] [phone] NIYA AMBROCIO [facility] [address] [address] [facility] [address] NIYA AMBROCIO self
--- OUTSIDE RECORDS SUMMARY | 2020-05-10 11:24 | CCD | Continuity of Care Document ---
Author Author Shruthi MARQUES MD Organization Unknown Address [address] [place] [phone] Phone [phone] Care Team Providers Care Pastry Assistant Name Role Phone Rosio Carvajal Mavis AUTM [phone] AUTM Unavailable AUTM Unavailable Problems Active Problems Provider Date Mixed conductive and sensorineural hearing loss, bilateral T stone Ryder MD Onset: 10/31/2014 Perforation of tympanic membrane Misha Ryder MD Onset: 10/31/2014 Postmastoidectomy complication Misha Ryder MD Onset: Emphysematous bronchitis Dariana Vasquez M.D. Onset : 10/31/2014 Localized swelling, mass and lump, trunk Dariana heredia M.D. Onset: 10/31/2014 Infective otitis externa Tavo Marques MD Onset: 11/01/19 Dysfunction of eustachian tube Tavo Marques MD Onset: Tympanic Membrane Disorders Other Tavo Marques MD Onset: 10/31/2014 Chronic otitis externa Tavo Marques MD Onset: 11/12/2014 Cellulitis and abscess of face Tavo Marques MD Onset: Central perforation of tympanic membrane Tavo Marques MD Onset: 11/29/2014 Central perforation of tympanic membrane Tavo Marques MD Onset: 02/27/2015 Central perforation of tympanic membrane Tavo Marques MD Onset: 02/27/2015 History of polyp of colon Swati A Joselitoboliliana, RPA-C Onset: 03/05/2015 Right conductive hearing loss Tavo Marques MD Onset: Sensorineural hearing loss, bilateral Tavo Marques MD On set: 01/22/2016 Screening for malignant neoplasm of colon Mynor Omalley MD Onset: 01/22/2016 Other specified disorders of temporomandibular joint Tavo Marques MD Onset: 04/22/2016 Other nonspecific abnormal finding of lung field Dariana Figueroa M.D. Onset: 10/14/2016 Ex-smoker Dariana Vasquez M.D. Onset: Cough Dariana Vasquez M.D. Onset: Bronchiolectasis Dariana Vasquez M.D. Onset: Centriacinar emphysema Dariana Vasquez M.D. Onset: 10/11/2018 Impacted cerumen Tavo Marques MD Onset: 10/11/2018 Sequela of infection caused by Mycobacterium Laurent Jackson, D.O . Onset: 08/15/2019 Abnormal findings on diagnostic imaging of lung Jami Gregg.ODaysi Onset: 08/15/2019 Sequela of infection caused by Mycobacterium Laurent Jackson, D.O . Onset: 11/28/2019 Social History Type Date Description Comments Sex Unknown ETOH Use Denies alcohol use Recreational Drug Use Denies Drug Use Tobacco Use Start: Unknown End: Unknown Patient is a former smoker hx: 1ppd since age 12, quit 2010 Smoking Status Reviewed: 03/20/20 Patient is a former smoker hx : 1ppd since age 12, quit 2010 Allergies, Adverse Reactions, Alerts Active Allergies Reaction Severity Comments Date Penicillin Hives 09/10/2014 Medications Active Medications SIG Qnty Indications Ordering Provide r Date Colace 100mg Capsules take one capsule by mouth daily. 30caps K59.00 Mynor Omalley MD 03/07/2020 Famotidine 40mg Tablets take 1 tablet by mouth every evening. 30tabs K21.9 Mynor Omalley MD 03/07/2020 Albuterol Sulfate (2 .5mg/3ML) 0.083% Nebulizer use 1 vial in nebulizer 4 times daily - and as needed 120units J47.9 Laurent Jackson, D.O. 08/15/2019 Ibuprofen 600mg Tablets 2 tabs by mouth daily. 120tabs Unknown 09/01/2017 Amikacin 750mg/75 ml three times weekly Unkno wn Miralax 17GM/Scoop Powder 17 grams by mouth once daily Unknown Iron (Ferrous Sulfate) 325(65Fe) mg Tablets Every other day Unknown Omeprazole 40mg Capsules DR 1 by mouth every day Unknown Ropinirole HCL 1mg Tablets Da estela Unknown Heparin Lock Flush For Flushing Vascular Access Devices 100Unit/ML Solution 5 ml daily Unk nown Imipenem-Cilastatin 500mg Solution Rec bid Unknown Nuzyra 150mg Tablets 2 tablet s daily Unknown Oxygen 2L continuously perscribed by Rosio Walsh Unknown Ventolin HFA 108(90Base) mcg/Act A erosol 2 puffs every 4 hours as needed 3units Unknown Calcium Carbonate-Vitamin D 447-851wb-Wtdq Tablets 2 by mouth every day Unknown Acetaminophen Extra Strength 500mg Tablets 2 tablets as needed Unknown 00 Alendronate Sodium 70mg Tablets 1 by mouth every week Unknown Vitamin D3 Super Strength 2000Unit Tablets 1 by mouth daily Unknown Multi Vitamin Daily Tablets 1 by mouth daily Unknown Immunizations Description No Information Available Vital Signs Date Vital Result Comment 05/01/2020 8:34am Height 63.5 inches 5'3.50" Weight 100.00 lb BMI (Body Mass Index) 17.4 kg/m2 [place] Body Weight 115 lb Weight 45.360 kg BSA (Body Surface Area) 1.45 m2 03/20/2020 8:59am BP Systolic 110 mmHg BP Diastolic 78 mmHg Heart Rate 81 /min O2 % BldC Oximetry 95 % Body Temperature 96.7 F Height 63.5 inches 5'3.50" Weight 100.00 lb BMI (Body Mass Index) 17.4 kg/m2 [place] Body Weight 115 lb Weight 45.360 kg BSA (Body Surface Area) 1.45 m2 Results Description No Information Available Procedures Date Code Description Status 03/20/2020 00681 Diffusing Capacity Completed 03/20/2020 58828 Plethysmography Determination Adelina ng Volumes & Per Airway Resist Completed 03/20/2020 28484 Maximum Breathing Capacity, Maxi mal Voluntary Ventilation Completed 03/20/2020 65258 Spirometry Completed 11/20/2019 92007 Diffusing Capacity Completed 11/20/2019 68746 Plethysmography Determination Adelina ng Volumes & Per Airway Resist Completed 11/20/2019 15859 Maximum Breathing Capacity, Maxi mal Voluntary Ventilation Completed 11/20/2019 24066 Bronchospasm Evaluation Complete d 11/06/2019 34245 Remove Impacted Cerumen Complete d Medical Devices Description No Information Available Encounters Type Date Location Provider Dx Diagnosis Office Visit 03/20/2020 10:00a [facility] Pulmonary/Thoracic Laurent Se ars, D.O. J47.9 Bronchiectasis, uncomplicated R13.10 Dysphagia, unspecified R91.8 Other nonspecific abnormal f inding of lung field Z87.891 Personal history of nicotine dependence Office Visit 03/07/2020 1:30p [facility] ENT/GI Practice Laly ssa A Auraleboliliana, RPA-C K21.9 Gastro-esophageal reflux dis ease without esophagitis R13.10 Dysphagia, unspecified R10.13 Epigastric pain K59.00 Constipation, unspecified Office Visit 11/28/2019 8:30a [facility] Pulmonary/Thoracic Laurent Se verónica, D.O. J47.9 Bronchiectasis, uncomplicated R91.8 Other nonspecific abnormal f inding of lung field B94.8 Sequelae of oth infectious a nd parasitic diseases Z87.891 Personal history of nicotine dependence Assessments Date Code Description Provider 03/20/2020 J47.9 Bronchiectasis Laurent Jackson D.O. 03/20/2020 R13.10 Dysphagia, unspecified Lalita PickettO. 03/20/2020 J47.9 Bronchiectasis Pulmonary Lab 03/20/2020 R91.8 Abnormal findings on diagnostic imaging of lung Lalita GreggODaysi 03/20/2020 Z87.891 Personal history of nicotine dep endence Lalita GreggO. 03/07/2020 K21.9 Gastro-esophageal reflux disease without esophagitis Swati A Charlebois, RPA-C 03/07/2020 R13.10 Dysphagia, unspecified Swati A Charlebois, RPA-C 03/07/2020 R10.13 Epigastric pain Swati A Joselito bois, RPA-C 03/07/2020 K59.00 Constipation, unspecified Meliss a A Hernesto, RPA-C 11/28/2019 J47.9 Bronchiectasis Lalita GreggODaysi 11/28/2019 R91.8 Abnormal findings on diagnostic imaging of lung Jami Gregg.ODaysi 11/28/2019 B94.8 Sequela of infection caused by M ycobacterium Jami Gregg.O. 11/28/2019 Z87.891 Personal history of nicotine dep endence Jami Gregg.O. 11/20/2019 J47.9 Bronchiectasis Pulmonary Lab 11/06/2019 H61.21 Impacted cerumen, right ear Franc as Lisa VIDAL PA-C Plan of Treatment Future Appointment(s):* 05/10/2020 8:12 am - Mynor Omalley MD at [facility] ENT/GI Practice * 10/02/2020 11:30 am - Laurent Jackson D.O. at [facility] Pulmonary/Thoracic * 10/02/2020 10:00 am - Pulmonary Lab at [facility] Pulmonary/Thoracic Functional Status Functional Condition Comment Date Status Independent with all ADL's Activ e Independent with all IADL's Acti ve Mental Status Mental Condition Comment Date Status Cognitive ability not impaired A ctive Referrals Refer to Reason for Referral Status Appt Date Radiology/Procedure [facility] approved 10240 Closed Mynor Omalley MD Scheduled 03/07/2020 [facility], Gastroenterology [address] [place] [address], [address] [place] [address] [phone]
--- OUTSIDE RECORDS SUMMARY | 2020-05-10 11:24 | CCD ---
Author Author [facility] Organization [facility] Address Unknown Phone Unavailable Care Team Providers Care Quality Rn Name Role Phone Maryanne Brandt Unavailable PROBLEMS Type Condition ICD9-CM Code [id number] Code Onset Dates Condition S tatus SNOMED Code Notes Problem History of colon polyps Z86.010 Active 09012762 2 Problem Osteopenia M85.80 Active 301101815 Problem Personal history of malignant neoplasm of breast Z 85.3 Active 244476838 Problem Gastroesophageal reflux disease without esophagitis K21.9 Active 133713781 Problem Sensorineural hearing loss of both ears H90.3 Active 007069044 Problem Senile osteoporosis M81.0 Active 29484949 Problem Personal history of breast cancer Z85.3 Active 066516290 Problem Former smoker Z87.891 Active 0418272 Problem Allergic rhinitis, seasonal J30.2 Active 3674 25603 Problem Gastroesophageal reflux disease, esophagitis pre sence not specified K21.9 Active 822528466 Problem Restless legs syndrome G25.81 Active 18167137 Problem Atherosclerosis of tribal ar teries of extremities with intermittent claudication, bilateral legs I70.213 Active 4768209 4138475446 Problem Central perforation of tympanic membrane of right ear H72.01 Active 47604007 Problem Other chronic pain G89.29 Active 23447283 Problem Peripheral polyneuropathy G62.9 Active 163948 00 Problem Iron deficiency anemia secondary to inadequate d ietary iron intake D50.8 Active 306069499 Problem Positive CINTIA (antinuclear antibody) R76.8 Acti ve 478648501 Problem Lumbago with sciatica, left side M54.42 Active 860009406 Problem Cardiac dysrhythmia, unspecified I49.9 Active 88596648 Problem Other specified hearing loss of both ears H91.8X3 Active 976621608 Problem Moderate tobacco use disorder, in sustained remission F17.201 Active 161380946 Problem Oxygen desaturation R09.02 Active 854537628 Problem Underweight R63.6 Active 785163096 Problem Lumbago with sciatica, right side M54.41 Active 811539002891703 Problem Other diseases of stomach and duodenum K31.89 A ctive 717797872 Problem COPD with exacerbation J44.1 Active 232346350 Problem Bronchiectasis with acute lower respiratory infection J47.0 Active 55987771 Problem Obstructive sleep apnea G47.33 Active 83308626 Problem Cachexia R64 Active 092184167 Problem Other nonspecific abnormal finding of lung field R 91.8 Active 453581857 Problem Other disorders of plasma-protein metabo lism, 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 Active 78617811470895 Problem Centrilobular emphysema J43.2 Active 05108864 Problem Central perforation of tympanic membrane of left ear H72.02 Active 89562932 Problem Necrotic pneumonia J85.0 Active 7863886 Problem 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 472831383 Problem Anemia, unspecified type D64.9 Active 7823070 00 Problem Hypoalbuminemia E88.09 Active 859473260 ALLERGIES Allergen (clinical drug ingredient) Drug/Non Drug Allergy do cumented on EMR Reaction Allergy Type Onset Date Status penicillin V Penicillin V Potassium([facility] Code:[address]-19) Rash Drug Allergy Active ENCOUNTERS from 1955 to 2020-03-05 Encounter Location Date Provider Diagnosis [address] [address] [facility]UN[facility] Vaccine Route Administration Date Status Influenza [...] Education Language: Question Answer Notes Languages spoken: Tajik Zoroastrianism: Question Answer Notes Zoroastrianism 33 None No baptism beliefs that would impact health care. Domestic [...] REASON FOR REFERRAL No Information VITAL SIGNS No information MEDICATIONS Medication SIG (Take, Route, Frequency, Duration) Start Date En d Date Status Boost - 240 ml Orally auth#[id number] 270 twice daily DX: R64, E88.09, J18.9, D64.9 for 30 Days Active Amikacin Sulfate 500 MG/2ML 750 mg Injection MWF for 30 days Oct Active Nuzyra 150 MG 2 tablets Orally Once a day for 30 Days Active Aspir-81 81 MG 1 tablet Orally Once a day Active Oxygen 2 Liters per N/C at night Ac tive Calcium 600 + D 600-400 MG-UNIT 1 tablet Orally Once a day Active Omeprazole 40 MG 1 capsule 30 minutes before morning meal Orally Daily Feb, Active Vitamin D 25 MCG (1000 UT) 1 tablet with meal Orally Once a day Jun, Active Nuzyra 150 MG 2 tablets Orally Once a day for 30 Days Sep, Active Arikayce 590 mg/8.4 mL as directed Inhalation Daily for 28 day(s ) Jan, Active Albuterol Sulfate HFA 108 (90 Base) MCG/ACT 1 puff as needed Inhalation every 4 hrs Active Ropinirole HCl 1 MG 1 tablet 1 to 3 hours before bedtime Orally Once a day for 30 day(s) Jun, Active Amikacin Sulfate 500 MG/2ML as directed Injection Active Imipenem-Cilastatin 500 MG 1 gm Intravenous q12 for 30 Days Oct, Active Alendronate Sodium 70 MG 1 tablet Orally once a week as directed Active Ferrous Gluconate 324 (38 Fe) MG 1 tablet with water o r juice between meals Orally Once a day Jun, Active Ibuprofen 200 MG 2 tablets with food or milk as needed Or ally three times daily August, Active Multivitamins 1 tab with iron Orally daily Active Advair HFA 115-21 MCG/ACT 2 puffs Inhalation Twice a day Active PROCEDURES No Information RESULTS No Results REASON FOR VISIT ALO Shaver 150mg tab MEDICAL (GENERAL) HISTORY Type Description Date Medical [...] s/p aortic stent graft placement 01/05 Dr Franks Syr Medical History R lung mass 5-10, benign/microabscesses on wedge biopsy 10/2009 Medical History tubular adenoma 2007 - Rein Medical History Abscess of lung Medical History [...] 07/15/2019 Susceptibilty could not be done at [place], sent to [facility] 11/15/2019 IV amikacin/ [...] resec tion (adenomatous), Nl in 2014 Re[facility]l 10-08, 04/09 Surgical History tonsillectomy Surgical History distal [...] No Information FUNCTIONAL STATUS No Information ASSESSMENTS No Information PLAN OF TREATMENT Medication Medication Name Sig Start Date Stop Date Amikacin Sulfate 500 MG/2ML as directed Injection Arikayce 590 mg/8.4 mL as directed Inhalation Daily for 28 day(s ) Jan, Advair HFA 115-21 MCG/ACT 2 puffs Inhalation Twice a day Albuterol Sulfate HFA 108 (90 Base) MCG/ACT 1 puff as needed Inhalation every 4 hrs Nuzyra 150 MG 2 tablets Orally Once a day for 30 Days Oxygen 2 Liters per N/C at night Next Appt Details Provider Name:Rosio Carvajal, 2020-03-19 09:1 5:00 AM, [address] [place] [address], [phone], Provider Name:Shalini Johnson, 2 08:30:00 AM, [address] [place] [address], [phone], Provider Name:Maryanne Brandt, 7 08:00:00 AM, [address] [place] [address], [phone], Insurance Providers Payer Name Payer Address Payer Phone Insured Name Patient Relati onship to Insured Coverage Start Date Coverage End Date [employer] GOLD [address] [address] [facility] [address] NIAY AMBROCIO MEDICARE Part A and B [address] [facility] [address] [phone] NIYA AMBROCIO
--- OUTSIDE RECORDS SUMMARY | 2020-05-10 11:24 | CCD ---
Author Author [facility] Organization [facility] Address Unknown Phone Unavailable Care Team Providers Care Web Press Operator Assistant Name Role Phone Maryanne Brandt Unavailable PROBLEMS Type Condition ICD9-CM Code [id number] Code Onset Dates Condition S tatus SNOMED Code Notes Problem History of colon polyps Z86.010 Active 48503993 2 Problem Osteopenia M85.80 Active 090511146 Problem Personal history of malignant neoplasm of breast Z 85.3 Active 933362947 Problem Gastroesophageal reflux disease without esophagitis K21.9 Active 601071788 Problem Sensorineural hearing loss of both ears H90.3 Active 714643322 Problem Senile osteoporosis M81.0 Active 41260880 Problem Personal history of breast cancer Z85.3 Active 440231804 Problem Former smoker Z87.891 Active 6394264 Problem Allergic rhinitis, seasonal J30.2 Active 3674 61596 Problem Gastroesophageal reflux disease, esophagitis pre sence not specified K21.9 Active 029943036 Problem Restless legs syndrome G25.81 Active 56572934 Problem Atherosclerosis of [place] ar teries of extremities with intermittent claudication, bilateral legs I70.213 Active 2916713 9616427811 Problem Central perforation of tympanic membrane of right ear H72.01 Active 99541635 Problem Other chronic pain G89.29 Active 43904157 Problem Peripheral polyneuropathy G62.9 Active 009706 00 Problem Iron deficiency anemia secondary to inadequate d ietary iron intake D50.8 Active 237048128 Problem Positive CINTIA (antinuclear antibody) R76.8 Acti ve 704786122 Problem Lumbago with sciatica, left side M54.42 Active 392842139 Problem Cardiac dysrhythmia, unspecified I49.9 Active 18291213 Problem Other specified hearing loss of both ears H91.8X3 Active 410415365 Problem Moderate tobacco use disorder, in sustained remission F1. Active 590784841 Problem Oxygen desaturation R09.02 Active 978811616 Problem Underweight R63.6 Active 676604079 Problem Lumbago with sciatica, right side M54.41 Active 720451936014985 Problem Other diseases of stomach and duodenum K31.89 A ctive 285470368 Problem COPD with exacerbation J44.1 Active 964919695 Problem Bronchiectasis with acute lower respiratory infection J47.0 Active 13608801 Problem Obstructive sleep apnea G47.33 Active 10178389 Problem Cachexia R64 Active 585360083 Problem Other nonspecific abnormal finding of lung field R 91.8 Active 103253308 Problem Other disorders of plasma-protein metabo lism, 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 Active 18313349508936 Problem Centrilobular emphysema J43.2 Active 39752101 Problem Central perforation of tympanic membrane of left ear H72.02 Active 89022065 Problem Necrotic pneumonia J85.0 Active 0415706 Problem 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 887709180 Problem Anemia, unspecified type D64.9 Active 6216932 00 Problem Hypoalbuminemia E88.09 Active 784757636 ALLERGIES Allergen (clinical drug ingredient) Drug/Non Drug Allergy do cumented on EMR Reaction Allergy Type Onset Date Status penicillin V Penicillin V Potassium([facility] Code:[address]-37) Rash Drug Allergy Active ENCOUNTERS from 1955 to 2020-03-04 Encounter Location Date Provider Diagnosis [address] [address] Jan, Maryanne Brandt 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 Domestic [...] No Information VITAL SIGNS Weight 105 lbs Jan, Height 63.75 in Jan, BMI 18.16 kg/m2 Jan, Heart Rate 74 /min Jan, Respiratory Rate 18 /min Jan, Temperature 97.2 degrees Fahrenheit Jan, Oximetry 98% Jan, Blood pressure systolic 104 mm Hg Jan, Blood pressure diastolic 68 mm Hg Jan, MEDICATIONS Medication SIG (Take, Route, Frequency, Duration) Start Date En d Date Status Boost - 240 ml Orally auth#[id number] 270 twice daily DX: R64, E88.09, J18.9, [...] puffs Inhalation Twice a day Active PROCEDURES Procedure Date Ordered Result Body Site Immunization: Boostrix 0.5mL IM (TDAP) 2020-02-22 N/A RESULTS No Results REASON FOR VISIT Chart Review MEDICAL (GENERAL) HISTORY Type Description Date Medical [...] 07/15/2019 Susceptibilty could not be done at [place], sent to [facility] 11/15/2019 IV amikacin/ imipenem/ Omadacycline Medical History bronchoscopy done 09/2009 AFB smear culture negative fungal smear culture positive for Michelle tropicalis sputum culture Streptococcus pneumoniae Surgical History left breast lumpectomy 2002 Surgical History appendectomy Surgical History C section x 2, tubal ligation Surgical History lung biopsy, Armaan Conner Surgical History rt lung mass -10, benign/microabscesse s on wedge biopsy 11/02 Surgical History colonoscopy with polyp resec tion (adenomatous), Nl in 2014 Reindl 10, 04/09 Surgical History tonsillectomy Surgical History distal [...] STATUS No Information ASSESSMENTS Encounter Date Diagnosis Notes Jan, Mycobacterium abscessus infection (ICD-1 0 - A31.9) Jan, Moderate tobacco use disorde r, in sustained remission (ICD-10 - F17.201) Jan, Centrilobular emphysema (ICD-10 - J43.2) Jan, Need for Tdap vaccination (ICD-10 - Z23) Jan, Bronchiectasis with acute lo wer respiratory infection (ICD-10 - J47.0) Jan, Obstructive sleep apnea (ICD-10 - G47.33 ) Jan, Necrotic pneumonia (ICD-10 - J85.0) PLAN OF TREATMENT Medication Medication Name Sig [...] Oxygen 2 Liters per N/C at night Treatment Notes Assessment Notes Clinical Notes Mycobacterium abscessus infection She gao d abnormal chest CTs for many years and had a wedge resection done by Dr. Conner over 10 years ago which showed acute on chronic inflammation/ path was negative for AFB. Patient had 3 AFB smea rs done for workup of necrotizing pneumonia during hospitalization on 07/12- sputum AFBs positive for Mycobacterium abscessus. Amikacin susceptible, cefoxitin intermediate, rifampin resistant, tigecycline [place] = 0.1.She had 2 repeat sputum AFB positive 09/29/19. She will be on treatment with at least 12-18 months of 3 drug regimen for necrotizing nontuberculous mycobacteria pneumonia. 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 she will send anothe sputum AFB smear and culture Necrotic pneumonia Related to nontuberc ulous Mycobacterium abscesses Obstructive sleep apnea Has [facility] and with exertion Bronchiectasis with acute lower respiratory infection Long-standing history she follows up with Dr. Jackson Centrilobular emphysema Patient encour ed to remain abstinent from cigarettes, uses O2 1liter NC at night and with exertion, Dr Jackson new pulmonary from [facility]. Moderate tobacco use disorder, in sustained remission Doing well, quit smoking over 10 years ago Treatment Notes Test Name Order Date AFB SMEAR & CULTURE 2020-03-04 Next Appt Details 2 Months Reason: Provider Name:Rosio Carvajal, 2020-03-19 09:1 5:00 AM, [address] [place] [address], [phone], Provider Name:Shalini Johnson, 2 08:30:00 AM, [address] [place] [address], [phone], Provider Name:Maryanne Brandt, 01-0 7 08:00:00 AM, [address] [place], [phone], Insurance Providers Payer Name Payer Address Payer Phone Insured Name Patient Relati onship to Insured Coverage Start Date Coverage End Date MEDICARE Part A and B [address] [facility] [id number] [phone] NIYA AMBROCIO [facility] [address] [address] [facility] [address] NIYA AMBROCIO self
--- OUTSIDE RECORDS SUMMARY | 2020-05-10 11:24 | CCD | Continuity of Care Document ---
Author Author [facility]monary [facility], [facility]uth[facility] Thompson Organization Unknown Address [address] [place] [address] Phone [phone] Care Team Providers Care Senior Front End Engineer Name Role Phone Wei Rosio Gamble AUTM [phone] AUTM Unavailable Problems Active Problems Provider Date [...] 02/27/2015 History of polyp of colon Swati Eric, RPA-C Onset: 03/05/2015 Right conductive hearing loss [...] Sequela of infection caused by Mycobacterium Laurent Jackson D.O . Onset: 08/15/2019 Abnormal findings on diagnostic imaging of lung Laurent Jackson D.O. Onset: 08/15/2019 Sequela of infection caused by Mycobacterium Laurent Jackson D.O . Onset: 11/28/2019 Social History Type [...] - and as needed 120units J47.9 Laurent Jackson D.O. 08/15/2019 Ibuprofen 600mg Tablets 2 tabs [...] Unknown Oxygen 2L continuously perscribed by Rosio Zuleta Archbold Unknown Ventolin HFA 108(90Base) mcg/Act A erosol 2 puffs every 4 hours as needed 3units Unknown Calcium Carbonate-Vitamin D 899-517bs-Noun Tablets 2 by mouth every day Unknown 000 Acetaminophen Extra Strength 500mg Tablets 2 tablets as needed Unknown 00 Alendronate Sodium 70mg Tablets 1 by mouth every week Unknown Vitamin D3 Super Strength 2000Unit Tablets 1 by mouth daily Unknown Multi Vitamin Daily Tablets 1 by mouth daily Unknown Immunizations Description No Information Available Vital Signs Date Vital Result Comment 03/20/2020 8:59am BP Systolic 110 mmHg BP Diastolic 78 mmHg Heart Rate 81 /min O2 % BldC Oximetry 95 % Body Temperature 96.7 F Height 63.5 inches 5'3.50" Weight 100.00 lb BMI (Body Mass Index) 17.4 kg/m2 [place] Body Weight 115 lb Weight 45.360 kg BSA (Body Surface Area) 1.45 m2 03/07/2020 1:47pm BP Systolic 102 mmHg BP Diastolic 72 mmHg Height 63.5 inches 5'3.50" Weight 103.00 lb BMI (Body Mass Index) 18.0 kg/m2 [place] Body Weight 115 lb Weight 46.721 kg BSA (Body Surface Area) 1.47 m2 Results Description No Information Available Procedures Date Code Description Status 11/20/2019 64072 Diffusing Capacity Completed 11/20/2019 43222 Plethysmography Determination Adelina ng Volumes & Per Airway Resist Completed 11/20/2019 08737 Maximum Breathing Capacity, Maxi mal Voluntary Ventilation Completed 11/20/2019 31196 Bronchospasm Evaluation Complete d 11/06/2019 60055 Remove Impacted Cerumen Complete d Medical Devices Description No Information Available Encounters Type Date Location Provider Dx Diagnosis Office Visit 11/28/2019 8:30a [facility] Pulmonary/Thoracic Laurent sanches D.ODaysi J47.9 Bronchiectasis, uncomplicated R91.8 Other nonspecific abnormal f inding of lung field B94.8 Sequelae of oth infectious a nd parasitic diseases Z87.891 Personal history of nicotine dependence Assessments Date Code Description Provider 03/20/2020 J47.9 Bronchiectasis Pulmonary Lab 03/07/2020 K21.9 Gastro-esophageal reflux disease without esophagitis Swati Eric RPA-C 03/07/2020 R13.10 Dysphagia, unspecified Swati Eric RPA-C 03/07/2020 R10.13 Epigastric pain Swati joseph RPA-C 03/07/2020 K59.00 Constipation, unspecified Meliss a Asim Eric RPA-C 11/28/2019 J47.9 Bronchiectasis Laurent Jackson D.ODaysi 11/28/2019 R91.8 Abnormal findings on diagnostic imaging of lung Jami Gregg.ODaysi 11/28/2019 B94.8 Sequela of infection caused by M ycobacterium Laurent Jackson D.O. 11/28/2019 Z87.891 Personal history of nicotine dep endence Laurent Jackson D.O. 11/20/2019 J47.9 Bronchiectasis Pulmonary Lab 11/06/2019 H61.21 Impacted cerumen, right ear Franc as Lisa VIDAL PA-C Plan of Treatment Future Appointment(s):* 05/01/2020 8:40 am - Tavo Marques MD at [facility] ENT/GI Practice 03/07/2020 - KVNG Simons* K21.9 Gastro-esophageal reflux disease without esophagitis * R13.10 Dysphagia, unspecified * R10.13 Epigastric pain * K59.00 Constipation, unspecified * * New Medication:* Famotidine 40 mg * New Orders:* Endoscopy with possible dilation, Ordered: 03/07/20 * Comments:* Will arrange for upper endoscopy with possible dilation. Reviewed risks and benefits of the procedure, as well as other options, with the patient. Prep for this procedure was discussed with patient. Patient verbalized understanding of all of the above and is in agreement to proceed. Patient will seek medical attention for any acute changes. Will monitor. * Follow up:* As scheduled, sooner if needed. Functional Status Functional Condition Comment Date Status Independent with all ADL's Activ e Independent with all IADL's Acti ve Mental Status Mental Condition Comment Date Status Cognitive ability not impaired A ctive Referrals Refer to Reason for Referral Status Appt Date Radiology/Procedure [facility] approved [id number] Closed Mynor Omalley MD Scheduled 03/07/2020 [facility], Gastroenterology [address] [place] [address], [address] [place] [address] [phone]
--- OUTSIDE RECORDS SUMMARY | 2020-05-10 11:24 | CCD ---
Author Author [facility] Organization [facility] Address Unknown Phone Unavailable Care Team Providers Care [place]angel[place] Management Specialist Name Role Phone Rosio Carvajal Unavailable PROBLEMS Type Condition ICD9-CM Code [id number] Code Onset Dates Condition S tatus SNOMED Code Notes Problem History of colon polyps Z86.010 Active 09973549 2 Problem Osteopenia M85.80 Active 781902470 Problem Personal history of malignant neoplasm of breast Z 85.3 Active 613543479 Problem Gastroesophageal reflux disease without esophagitis K21.9 Active 611017192 Problem Sensorineural hearing loss of both ears H90.3 Active 392749986 Problem Senile osteoporosis M81.0 Active 22468264 Problem Personal history of breast cancer Z85.3 Active 806314913 Problem Former smoker Z87.891 Active 0271526 Problem Allergic rhinitis, seasonal J30.2 Active 3674 56519 Problem Gastroesophageal reflux disease, esophagitis pre sence not specified K21.9 Active 545653376 Problem Restless legs syndrome G25.81 Active 08507975 Problem Atherosclerosis of [place] ter[place] of extremities with intermittent claudication, bilateral legs I70.213 Active 0620949 0917703772 Problem Central perforation of tympanic membrane of right ear H72.01 Active 92972524 Problem Other chronic pain G89.29 Active 21339582 Problem Peripheral polyneuropathy G62.9 Active 735054 00 Problem Iron deficiency anemia secondary to inadequate d ietary iron intake D50.8 Active 084353612 Problem Positive CINTIA (antinuclear antibody) R76.8 Acti ve 324090669 Problem Lumbago with sciatica, left side M54.42 Active 700920899 Problem Cardiac dysrhythmia, unspecified I49.9 Active 38766886 Problem Other specified hearing loss of both ears H91.8X3 Active 985317232 Problem Moderate tobacco use disorder, in sustained remission F17.201 Active 717263792 Problem Oxygen desaturation R09.02 Active 926777135 Problem Underweight R63.6 Active 170461929 Problem Lumbago with sciatica, right side M54.41 Active 992693548055217 Problem Other diseases of stomach and duodenum K31.89 A ctive 391892193 Problem COPD with exacerbation J44.1 Active 665413876 Problem Bronchiectasis with acute lower respiratory infection J47.0 Active 94041213 Problem Obstructive sleep apnea G47.33 Active 10841335 Problem Cachexia R64 Active 916303424 Problem Other nonspecific abnormal finding of lung field R 91.8 Active 662698497 Problem Other disorders of plasma-protein metabo lism, 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 Active 90289822375406 Problem Centrilobular emphysema J43.2 Active 44299117 Problem Central perforation of tympanic membrane of left ear H72.02 Active 19743503 Problem Necrotic pneumonia J85.0 Active 4160413 Problem 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 546396751 Problem Anemia, unspecified type D64.9 Active 9406788 00 Problem Hypoalbuminemia E88.09 Active 757295086 ALLERGIES Allergen (clinical drug ingredient) Drug/Non Drug Allergy do cumented on EMR Reaction Allergy Type Onset Date Status penicillin V Penicillin V Potassium([facility] Code:[address]-10) Rash Drug Allergy Active ENCOUNTERS from 1955 to 2020-03-15 Encounter Location Date Provider Diagnosis [address] [address] Feb, 020 [facility] IMMUNIZATIONS Vaccine Route Administration Date Status Influenza [...] Education Language: Question Answer Notes Languages spoken: Uruguayan Bahai: Question Answer Notes Bahai 33 None No nondenominational beliefs that would impact health care. Domestic [...] Notes Start Da te End Date Status Boost - 240 ml Orally auth#[id number] 270 twice daily DX: R64, E88.09, J18.9, D64.9 for 30 Days Active Amikacin Sulfate 500 MG/2ML 750 mg Injection MWF for 30 days Oct, Active Nuzyra 150 MG 2 tablets Orally Once a day for 30 Days Active Aspir-81 81 MG 1 tablet Orally Once a day Active Oxygen 2 Liters per N/C at night Active Calcium 600 + D 600-400 MG-UNIT 1 tablet Orally Once a day Active Omeprazole 40 MG 1 capsule 30 minutes before morning meal Orally Daily Feb, Active Vitamin D 25 MCG (1000 UT) 1 tablet with meal Orally Once a day Jun, Active Nuzyra 150 MG 2 tablets Orally Once a day for 30 Days 2019 Active Arikayce 590 mg/8.4 mL as directed [...] Information RESULTS No Results REASON FOR VISIT VISIT MEDICAL (GENERAL) HISTORY Type Description Date Medical [...] 07/15/2019 Susceptibilty could not be done at [place], sent to [facility] 11/15/2019 IV amikacin/ [...] mass 5-10, benign/microabscesse s on wedge biopsy 11/02- Surgical History colonoscopy with polyp resec tion [...] Provider Name:Rosio Carvajal, 2020-03-19 09:1 5:00 AM, [address] [place] [address], [phone], Provider Name:Shalini Johnson, 2 08:30:00 AM, [address] [place] [address], [phone], Provider Name:Maryanne Brandt, 7 08:00:00 AM, [address] [place] [address], [phone], Insurance Providers Payer Name Payer Address Payer Phone Insured Name Patient Relati onship to Insured Coverage Start Date Coverage End Date LISA COATS [address] [address] [facility] [phone] NIYA AMBROCIO MEDICARE Part A and B [address] [facility] [address] [phone] NIYA AMBROCIO
--- OUTSIDE RECORDS SUMMARY | 2020-05-10 11:24 | CCD | Continuity of Care Document ---
Author Author Shruthi RODRIGES D.O. [place] [address] Phone [phone] Care Team Providers Care Raw Finish Mill Operator Name Role Phone Carvajal Rosio Gamble AUTM [phone] AUTM Unavailable Problems Active Problems Provider Date [...] emphysema Dariana Vasquez M.D. Onset: 10/11/2018 Impacted jocelyn Marques MD Onset: 10/11/2018 Sequela of infection caused by Mycobacterium Laurent Rodriges D.O . Onset: 08/15/2019 Abnormal findings on diagnostic imaging of lung Jami Gregg.Charisma Onset: 08/15/2019 Sequela of infection caused by Mycobacterium Laurent Rodriges D.O . Onset: 11/28/2019 Social History Type [...] - and as needed 120units J47.9 Laurent Rodriges, D.O. 08/15/2019 Ibuprofen 600mg Tablets 2 tabs [...] as needed 3units Unknown Calcium Carbonate-Vitamin D 315-855md-Uclg Tablets 2 by mouth every day Unknown [...] lb BMI (Body Mass Index) 17.4 kg/m2 [place] Body Weight 115 lb Weight 45.360 kg BSA (Body Surface Area) 1.45 m2 03/07/2020 1:47pm BP Systolic 102 mmHg BP Diastolic 72 mmHg Height 63.5 inches 5'3.50" Weight 103.00 lb BMI (Body Mass Index) 18.0 kg/m2 [place] Body Weight 115 lb Weight 46.721 kg BSA (Body Surface Area) 1.47 m2 Results Description No Information Available Procedures Date Code Description Status 03/20/2020 15992 Diffusing Capacity Completed 03/20/2020 82776 Plethysmography Determination Adelina ng Volumes & Per Airway Resist Completed 03/20/2020 09994 Maximum Breathing Capacity, Maxi mal Voluntary Ventilation Completed 03/20/2020 31450 Spirometry Completed 11/20/2019 14249 Diffusing Capacity Completed 11/20/2019 20929 Plethysmography Determination Adelina ng Volumes & Per Airway Resist Completed 11/20/2019 33140 Maximum Breathing Capacity, Maxi mal Voluntary Ventilation Completed 11/20/2019 40131 Bronchospasm Evaluation Complete d 11/06/2019 03527 Remove Impacted Cerumen Complete d Medical Devices Description No Information Available Encounters Type Date Location Provider Dx Diagnosis Office Visit 03/20/2020 10:00a [facility] Pulmonary/Thoracic Laurent Se sanches D.ODaysi J47.9 Bronchiectasis, uncomplicated R13.10 Dysphagia, unspecified R91.8 Other nonspecific abnormal f inding of lung field Z87.891 Personal history of nicotine dependence Office Visit 11/28/2019 8:30a [facility] Lalita Morley SeODaysi J47.9 Bronchiectasis, uncomplicated R91.8 Other nonspecific abnormal f inding of lung field B94.8 Sequelae of oth infectious a nd parasitic diseases Z87.891 Personal history of nicotine dependence Assessments Date Code Description Provider 03/20/2020 J47.9 Bronchiectasis Lalita GreggODaysi 03/20/2020 R13.10 Dysphagia, unspecified Lalita PickettO. 03/20/2020 J47.9 Bronchiectasis Pulmonary Lab 03/20/2020 R91.8 Abnormal findings on diagnostic imaging of lung Lalita GreggO. 03/20/2020 Z87.891 Personal history of nicotine dep endence Lalita GreggO. 03/07/2020 K21.9 Gastro-esophageal reflux disease without esophagitis Swati A Charlebois, RPA-C 03/07/2020 R13.10 Dysphagia, unspecified Swati A Charlebois, RPA-C 03/07/2020 R10.13 Epigastric pain Swati A Joselito bois, RPA-C 03/07/2020 K59.00 Constipation, unspecified Meliss a A Charlebois, RPA-C 11/28/2019 J47.9 Bronchiectasis Lalita GreggO. 11/28/2019 R91.8 Abnormal findings on diagnostic imaging of lung Laurent Rodriges D.O. 11/28/2019 B94.8 Sequela of infection caused by M ycobacterium Laurent Rodriges D.O. 11/28/2019 Z87.891 Personal history of nicotine dep endence Laurent Rodriges D.O. 11/20/2019 J47.9 Bronchiectasis Pulmonary Lab 11/06/2019 H61.21 Impacted cerumen, right ear Franc as Lisa VIDAL, KELL Plan of Treatment Future Appointment(s):* 10/02/2020 11:30 am - Laurent Rodriges D.O. at [facility] Pulmonary/Thoracic * 10/02/2020 10:00 am - Pulmonary Lab at [facility] Pulmonary/Thoracic * 05/01/2020 8:40 am - Tavo Marques MD at [facility] ENT/GI Practice 03/20/2020 - Laurent Rodriges D.O.* J47.9 Bronchiectasis * R13.10 Dysphagia, unspecified * R91.8 Abnormal findings on diagnostic imaging of lung * Z87.891 Personal history of nicotine dependence * * New Labs:* PFT W/HGB On Meds, Scheduled: 10/02/20 * Follow up:* Follow up in six months with chest CT and PFTs. Functional Status Functional Condition Comment Date Status Independent with all ADL's Activ e Independent with all IADL's Acti ve Mental Status Mental Condition Comment Date Status Cognitive ability not impaired A ctive Referrals Refer to Reason for Referral Status Appt Date Radiology/Procedure [facility] approved [id number] Closed Mynor Omalley MD Scheduled 03/07/2020 [facility], Gastroenterology [address] [place] [address], [address] [place] [address] [phone]
--- OUTSIDE RECORDS SUMMARY | 2020-05-10 11:24 | CCD ---
Author Author [facility] Organization [facility] Address Unknown Phone Unavailable Care Team Providers Care Chemical Plant Operator Name Role Phone Shalini Johnosn Unavailable PROBLEMS Type Condition ICD9-CM Code [id number] Code Onset Dates Condition S tatus SNOMED Code Notes Problem History of colon polyps Z86.010 Active 78219085 2 Problem Osteopenia M85.80 Active 950656979 Problem Personal history of malignant neoplasm of breast Z 85.3 Active 851972771 Problem Gastroesophageal reflux disease without esophagitis K21.9 Active 714761380 Problem Sensorineural hearing loss of both ears H90.3 Active 077775234 Problem Senile osteoporosis M81.0 Active 34962924 Problem Personal history of breast cancer Z85.3 Active 740144709 Problem Former smoker Z87.891 Active 2686247 Problem Allergic rhinitis, seasonal J30.2 Active 3674 47439 Problem Gastroesophageal reflux disease, esophagitis pre sence not specified K21.9 Active 066898718 Problem Restless legs syndrome G25.81 Active 61639773 Problem Atherosclerosis of [place] ar teries of extremities with intermittent claudication, bilateral legs I70.213 Active 6090451 6598563686 Problem Central perforation of tympanic membrane of right ear H72.01 Active 32967135 Problem Other chronic pain G89.29 Active 68782818 Problem Peripheral polyneuropathy G62.9 Active 641264 00 Problem Iron deficiency anemia secondary to inadequate d ietary iron intake D50.8 Active 366638232 Problem Positive CINTIA (antinuclear antibody) R76.8 Acti ve 625147868 Problem Lumbago with sciatica, left side M54.42 Active 829951168 Problem Cardiac dysrhythmia, unspecified I49.9 Active 94849621 Problem Other specified hearing loss of both ears H91.8X3 Active 962457881 Problem Moderate tobacco use disorder, in sustained remission F17.201 Active 416575485 Problem Oxygen desaturation R09.02 Active 250635414 Problem Underweight R63.6 Active 624769435 Problem Lumbago with sciatica, right side M54.41 Active 930027810935743 Problem Other diseases of stomach and duodenum K31.89 A ctive 402537622 Problem COPD with exacerbation J44.1 Active 905298029 Problem Bronchiectasis with acute lower respiratory infection J47.0 Active 53188879 Problem Obstructive sleep apnea G47.33 Active 04905950 Problem Cachexia R64 Active 615977143 Problem Other nonspecific abnormal finding of lung field R 91.8 Active 892604811 Problem Other disorders of plasma-protein metabo lism, 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 Active 02541230355747 Problem Centrilobular emphysema J43.2 Active 04567557 Problem Central perforation of tympanic membrane of left ear H72.02 Active 64004707 Problem Necrotic pneumonia J85.0 Active 3270518 Problem 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 892116058 Problem Anemia, unspecified type D64.9 Active 5789551 00 Problem Hypoalbuminemia E88.09 Active 490284641 ALLERGIES Allergen (clinical drug ingredient) Drug/Non Drug Allergy do cumented on EMR Reaction Allergy Type Onset Date Status penicillin V Penicillin V Potassium([facility] Code:[address]-75) Rash Drug Allergy Active ENCOUNTERS from 1955 to 2020-04-01 Encounter Location Date Provider Diagnosis [address] [address] Mar, Shalini Intorcia Hypoalbuminemia E88.09 ; Cachexia R64 an d Anemia, unspecified type D64.9 IMMUNIZATIONS Vaccine Route Administration Date Status Influenza [...] Education Language: Question Answer Notes Languages spoken: Azeri Anabaptist: Question Answer Notes Anabaptist 33 None No religion beliefs that would impact health care. Domestic [...] FOR REFERRAL No Information VITAL SIGNS Weight 105.4 lbs Mar, Height 63.75 in Mar, BMI 18.23 kg/m2 Mar, MEDICATIONS Medication SIG (Take, Route, Frequency, Duration) Notes Start Da te End Date Status Imipenem-Cilastatin 500 MG 1 gm Intravenous q12 for 30 Days Oct, Unknown Pantoprazole Sodium 40 MG 1 tablet Orally Once a day b efore 1st meal for 30 day(s) Feb, Unknown Ropinirole HCl 1 MG 1 tablet 1 to 3 hours before bedtime Orally Once a day for 30 day(s) Jun, Unknown Ibuprofen 200 MG 2 tablets with food or milk as needed Or ally three times daily August, Unknown Oxygen 2 Liters per N/C at night Unknown Advair HFA 115-21 MCG/ACT 2 puffs Inhalation Twice a day Unknown Nuzyra 150 MG 2 tablets Orally Once a day for 30 Days 2019 Unknown Aspir-81 81 MG 1 tablet Orally Once a day Unknown Nuzyra 150 MG 2 tablets Orally Once a day for 30 Days Unknown Amikacin Sulfate 500 MG/2ML as directed Injection Unknown Boost - 240 ml Orally auth#[id number] 270 twice daily DX: R64, E88.09, J18.9, D64.9 for 30 Days Unknown Famotidine 40 MG 1 tablet at bedtime Orally Once a day as neede for 30 day(s) Feb, Unknown Alendronate Sodium 70 MG 1 tablet Orally once a week as directed Unknown Arikayce 590 mg/8.4 mL as directed Inhalation Daily for 28 day(s ) Jan, Unknown Calcium 600 + D 600-400 MG-UNIT 1 tablet Orally Once a day Unknown Multivitamins 1 tab with iron Orally daily Unknown Amikacin Sulfate 500 MG/2ML 750 mg Injection MWF for 30 days Oct, Unknown Ferrous Gluconate 324 (38 Fe) MG 1 tablet with water o r juice between meals Orally Once a day Jun, Unknown Albuterol Sulfate HFA 108 (90 Base) MCG/ACT 1 puff as needed Inhalation every 4 hrs Unknown Vitamin D 25 MCG (1000 UT) 1 tablet with meal Orally Once a day Jun, Unknown PROCEDURES No Information RESULTS No Results REASON FOR VISIT Initial Medical Nutritional Therapy r/t R 64 cachexia, D64.9 anemia, unspecified E88.09 Hypoalbuminuria MEDICAL (GENERAL) HISTORY Type Description Date Medical [...] 07/15/2019 Susceptibilty could not be done at [place], sent to [facility] 11/15/2019 IV amikacin/ imipenem/ Omadacycline Medical History bronchoscopy done 09/2009 AFB smear culture negative fungal smear culture positive for Michelle tropicalis sputum culture Streptococcus pneumoniae Surgical History left breast lumpectomy 2002 Surgical History appendectomy Surgical History C section x 2, tubal ligation Surgical History lung biopsy, Armaan Conner Surgical History rt lung mass -10, benign/microabscesse s on wedge biopsy 11/0210 Surgical History colonoscopy with polyp resec tion [...] Notes Treatment Notes Treatm ent Clinical Notes Mar, Hypoalbuminemia (ICD-10 - E88.09) Mar, Cachexia (ICD-10 - R64) Mar, Anemia, unspecified type (ICD-10 - D64.9) Mar, Other Food Allergies: NKFA's Food Dislikes: liver, onions, broccli, caulifower, de [place] beans REE= 1031x1.3x1.2=3217 minimum 1500 claories for weight gain 24 hour food recall: Breakfast: 9am smores cereal, 2% milk Lunch: homemade corn bread topped with chicken, taco sausce, pakistani cheese, sour cream, equate drink Dinner: 2- 6 inch pancakes w/ butter and syrup, 8 oz amina milk Snack: 3pm- Little Debbies oatmeal with cream sandwich treat, coffee, sugar Snack 9pm- ensure drink, 2 hand fulls of cheetos Drinks: per above 03/18/2020: H/H- now wnl albumin-3.6-now wnl 03/30/2019: Vit D-80.1-wnl 08/12/2018 A1c-6%, EAG-126 TG-94 Chol-207^ HDL-56 LDL-132^ 11/29/2018 TSH and T4 wnl Pertinent Medications: new-dpxosxzepxe63 HS, Famotidine am(NOT AT PHARMACY PER PATIENT), calcium w/ D- 2 caps atkins, ferrous gluconate 324 mg-taking every other day, MVI, Vit D3 1000IU daily, Activity: usual activity of daily living FLU shot: 03/30/19 Pneumonia shot: 11/13/14 Dentition: edentulous upper with full denture; partial denture lower Nutrition Diagnosis: Inadequate oral food/beverage intake r/t nutrition knowledge deficit regarding proper amount of oral food beverage as evidenced by low BMI, history of cachexia, anemia, and hypoalbuinemia with need for provider to prescribe 2 supplemental drinks daily. Nutrition Prescription: 1) Diet Education: 3 meals and 2-3 snacks per day including 2 supplemental drinks daily 2) Goal Setting-Patient will continue to gain 1# per month through next visit 07/03/2020. 3) Evidence of Learning: Verbalizes Understanding 4) Expected Adherence: Good 5) Barriers to Adherence: None noted COMMENTS: Patient referred to RD for MNT r/t cachexia, anemmia, and hypoalbuminemia June 2019. 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 Patient had gained weight and eaten 3 meals, 2 snacks, and 2-3 bottles Equate daily. Patient noted her buys a new case of 24 bottles for 20$ at [facility] and no issues affordin this. Today patient weighed 105.4 with BMI of 18.23. Goal is to reach BMI of 21 to avoid reoccurance of any nutrition issues. Currently albuin and H/H back wnl, as desired. Reviewed 24 hour food recall. Noted diet was deficient in fruit, vegetables and whole grains. Reviewed food groups and portion plate method. Patient does like to cook and noted she could add food to improve fiber, vitamin, and mineral intake. Labs and meds reviewed. Provider may consider checking B12 level to check need for supplmentation. Noted patient has had sour taste and feelings of acid reflux. Meds started. Will have endoscopy with Dr. Omalley in the near future. Await results. Did briefly discuss food irritants to avoid and will review again at next visit. Also provided printed information with high calorie information and recipes patient could try. Patient will return in 3 months with goal of 108 pounds or more. GOALS: I will continue to gain 1# per month until next visit 07/03/2020 1)I will continue to drink2- 3 Ensure drinks every day. 2)I will continue 3 meals and 2-3 snacks per day. 3)I will eat 1 piece of fruit or 1 cup of fruit 3 times a day to improve bowel regularity. Monitor: _x_ Diet _x_WT _x__Meds __BS log __ Food Log __Activity NOTED A1C OF 6% INDICATIVE OF PREDIABETES 08/12/18. PLEASE RECHECK. PLEASE CHECK B12 WITH NEXT LAB DRAW PLAN OF TREATMENT Next Appt Details 07/03/20 8:30-9:30 Reason: Provider Name:Maryanne Brandt, 7 08:00:00 AM, [address] [place] [address], [phone], Provider Name:Rosio Carvajal, 2020-06-18 09:1 5:00 AM, [address] [place] [address], [phone], Provider Name:Shalini Johnson, 2020-06-24 0 08:30:00 AM, [address] [place] [address], [phone], Insurance Providers Payer Name Payer Address Payer Phone Insured Name Patient Relati onship to Insured Coverage Start Date Coverage End Date ИРИНАAsim PAULY [address] [address] [facility] [phone] NIYA AMBROCIO self MEDICARE Part A and B [address] [facility] [id number] [phone] NIYA AMBROCIO self
--- OUTSIDE RECORDS SUMMARY | 2020-05-10 11:24 | CCD ---
Author Author [facility] Organization [facility] Address Unknown Phone Unavailable Care Team Providers Care Assurance Services Manager Health Care Name Role Phone Shalini Johnson Unavailable PROBLEMS Type Condition ICD9-CM Code DIS44-OV Code Onset Dates Condition S tatus SNOMED Code Notes Problem History of colon polyps Z86.010 Active 30807203 2 Problem Osteopenia M85.80 Active 617852211 Problem Personal history of malignant neoplasm of breast Z 85.3 Active 441115954 Problem Gastroesophageal reflux disease without esophagitis K21.9 Active 123568448 Problem Sensorineural hearing loss of both ears H90.3 Active 148143925 Problem Senile osteoporosis M81.0 Active 92164323 Problem Personal history of breast cancer Z85.3 Active 336070817 Problem Former smoker Z87.891 Active 7326456 Problem Allergic rhinitis, seasonal J30.2 Active 3674 87421 Problem Gastroesophageal reflux disease, esophagitis pre sence not specified K21.9 Active 931788763 Problem Restless legs syndrome G25.81 Active 19272046 Problem Atherosclerosis of [place] ter[place] of extremities with intermittent claudication, bilateral legs I70.213 Active 9988068 3015577321 Problem Central perforation of tympanic membrane of right ear H72.01 Active 33299893 Problem Other chronic pain G89.29 Active 85773333 Problem Peripheral polyneuropathy G62.9 Active 880551 00 Problem Iron deficiency anemia secondary to inadequate d ietary iron intake D50.8 Active 338877925 Problem Positive CINTIA (antinuclear antibody) R76.8 Acti ve 948662829 Problem Lumbago with sciatica, left side M54.42 Active 135966119 Problem Cardiac dysrhythmia, unspecified I49.9 Active 40457538 Problem Other specified hearing loss of both ears H91.8X3 Active 906713918 Problem Moderate tobacco use disorder, in sustained remission F17.201 Active 351741604 Problem Oxygen desaturation R09.02 Active 952302482 Problem Underweight R63.6 Active 357427700 Problem Lumbago with sciatica, right side M54.41 Active 155811971618074 Problem Other diseases of stomach and duodenum K31.89 A ctive 816672605 Problem COPD with exacerbation J44.1 Active 646846288 Problem Bronchiectasis with acute lower respiratory infection J47.0 Active 90336513 Problem Obstructive sleep apnea G47.33 Active 60046751 Problem Cachexia R64 Active 769065010 Problem Other nonspecific abnormal finding of lung field R 91.8 Active 129875104 Problem Other disorders of plasma-protein metabo lism, 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 Active 17475949378927 Problem Centrilobular emphysema J43.2 Active 29518833 Problem Central perforation of tympanic membrane of left ear H72.02 Active 23659330 Problem Necrotic pneumonia J85.0 Active 7803431 Problem 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 935936407 Problem Anemia, unspecified type D64.9 Active 1272651 00 Problem Hypoalbuminemia E88.09 Active 202742642 ALLERGIES Allergen (clinical drug ingredient) Drug/Non Drug Allergy do cumented on EMR Reaction Allergy Type Onset Date Status penicillin V Penicillin V Potassium([facility] Code:[address]-65) Rash Drug Allergy Active ENCOUNTERS from 1955 to 2020-04-02 Encounter Location Date Provider Diagnosis [address] [address] Mar, Shalini Intorcia IMMUNIZATIONS Vaccine Route Administration Date Status Influenza [...] Education Language: Question Answer Notes Languages spoken: Macedonian Scientologist: Question Answer Notes Scientologist 33 None No druze beliefs that would impact health care. Domestic [...] Injection Unknown Boost - 240 ml Orally auth#[id number] 270 twice daily DX: R64, E88.09, J18.9, [...] Information RESULTS No Results REASON FOR VISIT Famotidine MEDICAL (GENERAL) HISTORY Type Description Date Medical [...] 07/15/2019 Susceptibilty could not be done at [place], sent to [facility] 11/15/2019 IV amikacin/ imipenem/ Omadacycline Medical History bronchoscopy done 09/2009 AFB smear culture negative fungal smear culture positive for Michelle tropicalis sputum culture Streptococcus pneumoniae Surgical History left breast lumpectomy 2002 Surgical History appendectomy Surgical History C section x 2, tubal ligation Surgical History lung biopsy, Armaan Conner 06 Surgical History rt lung mass -, benign/microabscesse s on wedge biopsy 11/02- Surgical [...] Information ASSESSMENTS No Information PLAN OF TREATMENT Next Appt Details Provider Name:Maryanne Brandt, 7 08:00:00 AM, [address] [place] [address], [phone], Provider Name:Rosio Carvajal, 2020-06-18 09:1 5:00 AM, [address] [place] [address], [phone], Provider Name:Shalini Johnson, 2020-06-24 0 08:30:00 AM, [address] [place] [address], [phone], Insurance Providers Payer Name Payer Address Payer Phone Insured Name Patient Relati onship to Insured Coverage Start Date Coverage End Date LISA COATS [address] [address] [facility] [address] NIYA AMBROCIO MEDICARE Part A and B [address] [facility] [place] [address] NIYA AMBROCIO
--- OUTSIDE RECORDS SUMMARY | 2020-05-10 11:24 | CCD ---
Author Author [facility] Organization [facility] Address Unknown Phone Unavailable Care Team Providers Care Press Helper Name Role Phone Emily Lainez Unavailable PROBLEMS Type Condition ICD9-CM Code QNP80-FW Code Onset Dates Condition S tatus SNOMED Code Notes Problem History of colon polyps Z86.010 Active 63139997 2 Problem Osteopenia M85.80 Active 363697584 Problem Personal history of malignant neoplasm of breast Z 85.3 Active 464407350 Problem Gastroesophageal reflux disease without esophagitis K21.9 Active 961350547 Problem Sensorineural hearing loss of both ears H90.3 Active 863764231 Problem Senile osteoporosis M81.0 Active 48735927 Problem Personal history of breast cancer Z85.3 Active 304359683 Problem Former smoker Z87.891 Active 3570953 Problem Allergic rhinitis, seasonal J30.2 Active 3674 26585 Problem Gastroesophageal reflux disease, esophagitis pre sence not specified K21.9 Active 207815125 Problem Restless legs syndrome G25.81 Active 76191794 Problem Atherosclerosis of [place] ter[place] of extremities with intermittent claudication, bilateral legs I70.213 Active 1858021 0867340131 Problem Central perforation of tympanic membrane of right ear H72.01 Active 89968716 Problem Other chronic pain G89.29 Active 61330963 Problem Peripheral polyneuropathy G62.9 Active 146914 00 Problem Iron deficiency anemia secondary to inadequate d ietary iron intake D50.8 Active 455971349 Problem Positive CINTIA (antinuclear antibody) R76.8 Acti ve 113959377 Problem Lumbago with sciatica, left side M54.42 Active 293964453 Problem Cardiac dysrhythmia, unspecified I49.9 Active 50904097 Problem Other specified hearing loss of both ears H91.8X3 Active 884271799 Problem Moderate tobacco use disorder, in sustained remission F17.201 Active 872921631 Problem Oxygen desaturation R09.02 Active 454481624 Problem Underweight R63.6 Active 568180453 Problem Lumbago with sciatica, right side M54.41 Active 799545788298943 Problem Other diseases of stomach and duodenum K31.89 A ctive 569786477 Problem COPD with exacerbation J44.1 Active 849552205 Problem Bronchiectasis with acute lower respiratory infection J47.0 Active 18586786 Problem Obstructive sleep apnea G47.33 Active 76432891 Problem Cachexia R64 Active 412601648 Problem Other nonspecific abnormal finding of lung field R 91.8 Active 777514664 Problem Other disorders of plasma-protein metabo lism, 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 Active 67820893054743 Problem Centrilobular emphysema J43.2 Active 19977818 Problem Central perforation of tympanic membrane of left ear H72.02 Active 78948996 Problem Necrotic pneumonia J85.0 Active 0015856 Problem 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 652819834 Problem Anemia, unspecified type D64.9 Active 7440706 00 Problem Hypoalbuminemia E88.09 Active 990649370 ALLERGIES Allergen (clinical drug ingredient) Drug/Non Drug Allergy do cumented on EMR Reaction Allergy Type Onset Date Status penicillin V Penicillin V Potassium([facility] Code:[address]-32) Rash Drug Allergy Active ENCOUNTERS from 1955 to 2020-02-26 Encounter Location Date Provider Diagnosis [facility] [address] [place] [id number] Jan, Emily Lainez Encounter for gyneco logical examination without abnormal finding Z01.419 ; Other screening breast examination Z12.39 ; Personal history of malignant neoplasm of breast Z85.3 ; Senile osteoporosis M81 .0 and LLQ abdominal mass R19.04 IMMUNIZATIONS Vaccine Route Administration Date Status Influenza [...] Education Language: Question Answer Notes Languages spoken: Turkish Jainism: Question Answer Notes Jainism 33 None No taoist beliefs that would impact health care. Domestic [...] FOR REFERRAL No Information VITAL SIGNS Weight 102.2 lbs Jan, Height 63.75 in Jan, BMI 17.68 kg/m2 Jan, Blood pressure systolic 94 mm Hg Jan, Blood pressure diastolic 58 mm Hg Jan, MEDICATIONS Medication SIG (Take, Route, Frequency, Duration) Start Date En d Date Status Nuzyra 150 MG 2 tablets Orally Once a day for 30 Days Sep, Active Ibuprofen 200 MG 2 tablets with food or milk as needed Or ally three times daily August, Active Calcium 600 + D 600-400 MG-UNIT 1 tablet Orally Once a day Active Omeprazole 40 MG 1 capsule 30 minutes before morning meal Orally Daily Feb, Active Vitamin D 25 MCG (1000 UT) 1 tablet with meal Orally Once a day Jun, Active Imipenem-Cilastatin 500 MG 1 gm Intravenous q12 for 30 Days Oct, Active Boost - 240 ml Orally auth#[id number] 270 twice daily DX: R64, E88.09, J18.9, D64.9 for 30 Days Active Amikacin Sulfate 500 MG/2ML as directed Injection Active Aspir-81 81 MG 1 tablet Orally Once a day Active Advair HFA 115-21 MCG/ACT 2 puffs Inhalation Twice a day Active Nuzyra 150 MG 2 tablets Orally Once a day for 30 Days Active Alendronate Sodium 70 MG 1 tablet Orally once a week as directed Active Ferrous Gluconate 324 (38 Fe) MG 1 tablet with water o r juice between meals Orally Once a day Jun, Active Ropinirole HCl 1 MG 1 tablet 1 to 3 hours before bedtime Orally Once a day for 30 day(s) Jun, Active Arikayce 590 mg/8.4 mL as directed Inhalation Daily for 28 day(s ) Jan, Active Multivitamins 1 tab with iron Orally daily Active Albuterol Sulfate HFA 108 (90 Base) MCG/ACT 1 puff as needed Inhalation every 4 hrs Active Amikacin Sulfate 500 MG/2ML 750 mg Injection MWF for 30 days Oct Active Oxygen 2 Liters per N/C at night Ac tive PROCEDURES No Information RESULTS Component Value Reference Range [facility] Vishal Screening Bilateral (Ultrasoun d if Indicated) (3D Mammo) Reviewed date:02/05/2020 10:36:39 Interpretation: Performing Lab:[facility] [place], [place] [address] [facility] Pelvis non-OB COMPLETE US Reviewed date:02/08/2020 11:28:59 Interpretation:Normal Performing Lab:[facility],[address]], ,[place] [address] REASON FOR VISIT annual / mammo MEDICAL (GENERAL) HISTORY Type Description Date Medical History breast cancer left 2002 scot ated lumpectomy chemo and radition Dr Dalia Montoya [...] 07/15/2019 Susceptibilty could not be done at [place], sent to [facility] Medical History bronchoscopy done 09/2009 AFB smear culture negative fungal smear culture positive for Michelle tropicalis sputum culture Streptococcus pneumoniae Surgical History left breast lumpectomy 2002 Surgical History appendectomy Surgical History C section x 2, tubal ligation Surgical History lung biopsy, Armaan Conner Surgical History rt lung mass 5-10, benign/microabscesse s on wedge biopsy 11/02- Surgical History colonoscopy with polyp resec tion (adenomatous), Nl in 2014 [place]l 01-31, 04/09 Surgical History tonsillectomy Surgical History [...] Information ASSESSMENTS Encounter Date Diagnosis Notes Jan, Encounter for gynecological examination without abnormal finding (ICD-10 - Z01.419) Jan, LLQ abdominal mass (ICD-10 - R19.04) Jan, Senile osteoporosis (ICD-10 - M81.0) Jan, Personal history of malignant neoplasm o f breast (ICD-10 - Z85.3) Jan, Other screening breast examination (ICD- 10 - Z12.39) PLAN OF TREATMENT Medication Medication Name Sig Start Date Stop Date Advair HFA 115-21 MCG/ACT 2 puffs Inhalation Twice a day Albuterol Sulfate HFA 108 (90 Base) MCG/ACT 1 puff as needed Inhalation every 4 hrs Arikayce 590 mg/8.4 mL as directed Inhalation Daily for 28 day(s ) Jan, Amikacin Sulfate 500 MG/2ML as directed Injection Oxygen 2 Liters per N/C at night Nuzyra 150 MG 2 tablets Orally Once a day for 30 Days Next Appt Details 1 Year Reason: Provider Name:Rosio Carvajal, 2020-03-19 09:1 5:00 AM, [address] [place] [address], [phone], Provider Name:Shalini Johnson, 2 08:30:00 AM, [address] [place] [address], [phone], Provider Name:Maryanne Brandt, 7 08:00:00 AM, [address] [place] [address], [phone], Insurance Providers Payer Name Payer Address Payer Phone Insured Name Patient Relati onship to Insured Coverage Start Date Coverage End Date MEDICARE Part A and B [address] [facility] [address] [phone] NIYA AMBROCIO self LISA COATS [address] [address] [facility] [address] NIYA AMBROCIO self
--- OUTSIDE RECORDS SUMMARY | 2020-05-10 11:25 | CCD ---
Author Author [facility] Organization [facility] Address Unknown Phone Unavailable Care Team Providers Care Clinical Nutrition Manager Name Role Phone Maryanne Brandt Unavailable PROBLEMS Type Condition ICD9-CM Code EFN65-QE Code Onset Dates Condition S tatus SNOMED Code Notes Problem History of colon polyps Z86.010 Active 14387367 2 Problem Osteopenia M85.80 Active 748812866 Problem Personal history of malignant neoplasm of breast Z 85.3 Active 120614823 Problem Gastroesophageal reflux disease without esophagitis K21.9 Active 576815190 Problem Sensorineural hearing loss of both ears H90.3 Active 835074839 Problem Senile osteoporosis M81.0 Active 56817600 Problem Personal history of breast cancer Z85.3 Active 962142196 Problem Former smoker Z87.891 Active 6557348 Problem Allergic rhinitis, seasonal J30.2 Active 3674 31042 Problem Gastroesophageal reflux disease, esophagitis pre sence not specified K21.9 Active 150212059 Problem Restless legs syndrome G25.81 Active 12960341 Problem Atherosclerosis of [place] ar teries of extremities with intermittent claudication, bilateral legs I70.213 Active 5056754 5058785582 Problem Central perforation of tympanic membrane of right ear H72.01 Active 73836973 Problem Other chronic pain G89.29 Active 32811001 Problem Peripheral polyneuropathy G62.9 Active 700156 00 Problem Iron deficiency anemia secondary to inadequate d ietary iron intake D50.8 Active 095646476 Problem Positive CINTIA (antinuclear antibody) R76.8 Acti ve 828228799 Problem Lumbago with sciatica, left side M54.42 Active 667980205 Problem Cardiac dysrhythmia, unspecified I49.9 Active 89673646 Problem Other specified hearing loss of both ears H91.8X3 Active 408590328 Problem Moderate tobacco use disorder, in sustained remission F17.201 Active 875927441 Problem Oxygen desaturation R09.02 Active 234983821 Problem Underweight R63.6 Active 067975129 Problem Lumbago with sciatica, right side M54.41 Active 919528931842681 Problem Other diseases of stomach and duodenum K31.89 A ctive 558629179 Problem COPD with exacerbation J44.1 Active 412344071 Problem Bronchiectasis with acute lower respiratory infection J47.0 Active 24038479 Problem Obstructive sleep apnea G47.33 Active 89777044 Problem Cachexia R64 Active 640908900 Problem Other nonspecific abnormal finding of lung field R 91.8 Active 213885403 Problem Other disorders of plasma-protein metabo lism, 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 Active 31614638388408 Problem Centrilobular emphysema J43.2 Active 97746615 Problem Central perforation of tympanic membrane of left ear H72.02 Active 10269114 Problem Necrotic pneumonia J85.0 Active 8062198 Problem 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 975993585 Problem Anemia, unspecified type D64.9 Active 0319759 00 Problem Hypoalbuminemia E88.09 Active 136925830 ALLERGIES Allergen (clinical drug ingredient) Drug/Non Drug Allergy do cumented on EMR Reaction Allergy Type Onset Date Status penicillin V Penicillin V Potassium([facility] Code:[address]-71) Rash Drug Allergy Active ENCOUNTERS from 1955 to 2020-02-20 Encounter Location Date Provider Diagnosis [address] [address] [facility] Vaccine Route Administration Date Status Influenza (18 yrs & older) Flublok IM Intramuscular Mar 30, 2019 Administered Influenza (18 yrs & older) Flublok IM Intramuscular Jan 07 8 Administered Pneumococcal Adult 0.5mL (Pneumovax 23) IM Intramuscular September Administered Pneumococcal 0.5mL (Prevnar 13) IM Intramuscular November [...] Education Language: Question Answer Notes Languages spoken: Kinyarwanda Sabianism: Question Answer Notes Sabianism 33 None No yazdanism beliefs that would impact health care. Domestic [...] Once a day for 30 Days Sep, Not-Taking Aspir-81 81 MG 1 tablet Orally Once a day Active Ferrous Gluconate 324 (38 Fe) MG 1 tablet with water o r juice between meals Orally Once a day Jun, Active Nuzyra 150 MG 2 tablets Orally Once a day for 30 Days Sep, Active Amikacin Sulfate 500 MG/2ML as directed Injection Sep, Active Alendronate Sodium 70 MG 1 tablet Orally once a week as directed Active Albuterol Sulfate HFA 108 (90 Base) MCG/ACT 1 puff as needed Inhalation every 4 hrs Active Calcium 600 + D 600-400 MG-UNIT 1 tablet Orally Once a day Active Boost - 240 ml Orally auth#[id number] 270 twice daily DX: R64, E88.09, J18.9, D64.9 for 30 Days Active Oxygen 2 Liters per N/C at night Ac tive Omeprazole 40 MG 1 capsule 30 minutes before morning meal Orally Daily Feb, Active Vitamin D 25 MCG (1000 UT) 1 tablet with meal Orally Once a day Jun, Active Ibuprofen 200 MG 2 tablets with food or milk as needed Or ally three times daily August, Active Amikacin Sulfate 500 MG/2ML 750 mg Injection MWF for 30 days Oct Active Azithromycin 250 MG 2 tablet on the first day, then 1 tablet daily for 4 days Orally Once a day for 5 day(s) Sep, Not-Andrew g Imipenem-Cilastatin 500 MG 1 gm Intravenous q12 for 30 Days Oct, Active Advair HFA 115-21 MCG/ACT 2 puffs Inhalation Twice a day Active Ropinirole HCl 1 MG 1 tablet 1 to 3 hours before bedtime Orally Once a day for 30 day(s) Jun, Active Multivitamins 1 tab with iron Orally daily Active PROCEDURES No Information RESULTS No Results REASON FOR VISIT salvador MEDICAL (GENERAL) HISTORY Type Description Date Medical [...] 07/15/2019 Susceptibilty could not be done at [place], sent to [facility] Medical History bronchoscopy done [...] Medication Name Sig Start Date Stop Date Alendronate Sodium 70 MG 1 tablet Orally once a week as directed Calcium 600 + D 600-400 MG-UNIT 1 tablet Orally Once a day Nuzyra 150 MG 2 tablets Orally Once a day for 30 Days Sep, Next Appt Details Provider Name:Maryanne Brandt, 2020-01- 9 08:00:00 AM, [address] [place] [address], [phone], Provider Name:Rosio Carvajal, 2020-03-19 09:1 5:00 AM, [address] [place] [address], [phone], Provider Name:Shalini Johnson, 2 08:30:00 AM, [address] [place] [address], [phone], Insurance Providers Payer Name Payer Address Payer Phone Insured Name Patient Relati onship to Insured Coverage Start Date Coverage End Date LISA COATS [address] [address] [facility] [address] NIYA AMBROCIO MEDICARE Part A and B [address] [facility] [address] [phone] NIYA AMBROCIO
--- OUTSIDE RECORDS SUMMARY | 2020-05-10 11:25 | CCD ---
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 Name Role Phone Armaan, Brenna Lowe DO Unavailable Unavailable Rechlin, Brenna Lowe DO Unavailable Unavailable Rechlin, Brenna Lowe DO Unavailable Unavailable Rechlin, Brenna Lowe DO Unavailable Unavailable Rechlin, Brenna Lowe DO Unavailable Unavailable Rechlin, Brenna Lowe DO Unavailable Unavailable Rechlin, Brenna Lowe DO Unavailable Unavailable Rechlin, Brenna Lowe DO Unavailable Unavailable Rechlin, Brenna Lowe DO Unavailable Unavailable Rechlin, Brenna Lowe DO Unavailable Unavailable Rechlin, Brenna Lowe DO Unavailable Unavailable Rechlin, Brenna Lowe DO Unavailable Unavailable Rechlin, Brenna Lowe DO Unavailable Unavailable Rechlin, Brenna Lowe DO Unavailable Unavailable Rechlin, Brenna Lowe DO Unavailable Unavailable Rechlin, Brenna Lowe DO Unavailable Unavailable Rechlin, Brenna Lowe DO Unavailable Unavailable Rechlin, Brenna Lowe DO Unavailable Unavailable Rechlin, Brenna Lowe DO Unavailable Unavailable Rechlin, Brenna Lowe DO Unavailable Unavailable Rechlin, Brenna Lowe DO Unavailable Unavailable Rechlin, Brenna Lowe DO Unavailable Unavailable Rechlin, Brenna Lowe DO Unavailable Unavailable Rechlin, Brenna Lowe DO Unavailable Unavailable Rechlin, P Mynor DO Unavailable Unavailable Rechlin, P Mynor DO Unavailable Unavailable Rechlin, P Mynor DO Unavailable Unavailable Rechlin, P Mynor DO Unavailable Unavailable Rechlin, P Mynor DO Unavailable Unavailable Rechlin, P Mynor DO Unavailable Unavailable Rechlin, P Mynor DO Unavailable Unavailable Rechlin, P Mynor DO Unavailable Unavailable Rechlin, P Mynor DO Unavailable Unavailable Rechlin, P Mynor DO Unavailable Unavailable Rechlin, P Mynor DO Unavailable Unavailable Rechlin, P Mynor DO Unavailable Unavailable Rechlin, P Mynor DO Unavailable Unavailable Rechlin, P Mynor DO Unavailable Unavailable Rechlin, P Mynor DO Unavailable Unavailable Rechlin, P Mynor DO Unavailable Unavailable Rechlin, P Mynor DO Unavailable Unavailable Rechlin, P Mynor DO Unavailable Unavailable Rechlin, P Mynor DO Unavailable Unavailable Rechlin, P Mynor DO Unavailable Unavailable Rechlin, P Mynor DO Unavailable Unavailable Rechlin, P Mynor DO Unavailable Unavailable Rechlin, P Mynor DO Unavailable Unavailable [facility] Unavailable Unavailabl e Gonzalo KAISER MD Unavailable Unavailable Gonzalo KAISER MD Unavailable Unavailable Gonzalo KAISER MD Unavailable Unavailable Gonzalo KAISER MD Unavailable Unavailable Gonzalo KAISER MD Unavailable Unavailable Gonzalo KAISER MD Unavailable Unavailable Gonzalo KAISER MD Unavailable Unavailable Gonzalo KAISER MD Unavailable Unavailable Gonzalo KAISER MD Unavailable Unavailable Gonzalo KAISER MD Unavailable Unavailable Gonzalo KAISER MD Unavailable Unavailable Gonzalo KAISER MD Unavailable Unavailable Gonzalo KAISER MD Unavailable Unavailable Gonzalo KAISER MD Unavailable Unavailable Gonzalo KAISER MD Unavailable Unavailable Gonzalo KAISER MD Unavailable Unavailable Gonzalo KAISER MD Unavailable Unavailable Gonzalo KAISER MD Unavailable Unavailable Gonzalo KAISER MD Unavailable Unavailable Gonzalo KAISER MD Unavailable Unavailable Gonzalo KAISER MD Unavailable Unavailable Gonzalo KAISER MD Unavailable Unavailable Gonzalo KAISER MD Unavailable Unavailable Gonzalo KAISER MD Unavailable Unavailable Gonzalo KAISER MD Unavailable Unavailable Gonzalo KAISER MD Unavailable Unavailable Gonzalo KAISER MD Unavailable Unavailable Gonzalo KAISER MD Unavailable Unavailable Gonzalo KAISER MD Unavailable Unavailable Gonzalo KAISER MD Unavailable Unavailable Gonzalo KAISER MD Unavailable Unavailable Gonzalo KAISER MD Unavailable Unavailable Gonzalo KAISER MD Unavailable Unavailable Gonzalo KAISER MD Unavailable Unavailable Gonzalo KAISER MD Unavailable Unavailable Gonzalo KAISER MD Unavailable Unavailable Gonzalo KAISER MD Unavailable Unavailable Gonzalo KAISER MD Unavailable Unavailable Gonzalo KAISER MD Unavailable Unavailable Gonzalo KAISER MD Unavailable Unavailable Gonzalo KAISER MD Unavailable Unavailable Gonzalo KAISER MD Unavailable Unavailable Gonzalo KAISER MD Unavailable Unavailable Gonzalo KAISER MD Unavailable Unavailable Gonzalo KAISER MD Unavailable Unavailable Gonzalo KAISER MD Unavailable Unavailable Gonzalo KAISER MD Unavailable Unavailable Gnozalo KAISER MD Unavailable Unavailable Gonzalo KAISER MD Unavailable Unavailable Gonzalo KAISER MD Unavailable Unavailable Gonzalo KAISER MD Unavailable Unavailable Gonzalo KAISER MD Unavailable Unavailable Gonzalo KAISER MD Unavailable Unavailable Gonzalo KAISER MD Unavailable Unavailable Gonzalo KAISER MD Unavailable Unavailable Gonzalo KAISER MD Unavailable Unavailable Gonzalo KAISER MD Unavailable Unavailable Gonzalo KAISER MD Unavailable Unavailable Gonzalo KAISER MD Unavailable Unavailable Gonzalo KAISER MD Unavailable Unavailable Gonzalo KAISER MD Unavailable Unavailable Gonzalo KAISER MD Unavailable Unavailable Gonzalo KAISER MD Unavailable Unavailable Gonzalo KAISER MD Unavailable Unavailable Charlebois, A Swati RPA C Unavailable Unavailable Charlebois, A Swati RPA C Unavailable Unavailable Charlebois, A Swati RPA C Unavailable Unavailable Charlebois, A Swati RPA C Unavailable Unavailable Charlebois, A Swati RPA C Unavailable Unavailable Charlebois, A Swati RPA C Unavailable Unavailable Charlebois, A Swati RPA C Unavailable Unavailable Charlebois, A Swati RPA C Unavailable Unavailable Charlebois, A Swati RPA C Unavailable Unavailable Charlebois, A Swati RPA C Unavailable Unavailable Charlebois, A Swati RPA C Unavailable Unavailable Charlebois, A Swati RPA C Unavailable Unavailable Charlebois, A Swati RPA C Unavailable Unavailable Charlebois, A Swati RPA C Unavailable Unavailable Charlebois, A Swati RPA C Unavailable Unavailable Charlebois, A Swati RPA C Unavailable Unavailable Charlebois, A Swati RPA C Unavailable Unavailable Charlebois, A Swati RPA C Unavailable Unavailable Charlebois, A Swati RPA C Unavailable Unavailable Charlebois, A Swati RPA C Unavailable Unavailable Charlebois, A Swati RPA C Unavailable Unavailable Charlebois, A Swati RPA C Unavailable Unavailable Charlebois, A Swati RPA C Unavailable Unavailable Charlebois, A Swati RPA C Unavailable Unavailable Charlebois, A Swati RPA C Unavailable Unavailable Charlebois, A Swati RPA C Unavailable Unavailable Charlebois, A Swati RPA C Unavailable Unavailable Charlebois, A Swati RPA C Unavailable Unavailable Charlebois, A Swati RPA C Unavailable Unavailable Charlebois, A Swati RPA C Unavailable Unavailable Charlebois, A Swati RPA C Unavailable Unavailable Francois Naik MD Unavailable Unavailable Naik, Francois Ware MD Unavailable Unavailable Naik, Francois Ware MD Unavailable Unavailable Naik, Francois Ware MD Unavailable Unavailable Naik, Francois Ware MD Unavailable Unavailable Naik, Francois Ware MD Unavailable Unavailable NaikFrancois MD Unavailable Unavailable Francois Naik MD Unavailable Unavailable Francois Naik MD Unavailable Unavailable Francois Naik MD Unavailable Unavailable Francois Naik MD Unavailable Unavailable Naik, Francois Ware MD Unavailable Unavailable Naik, Francois Ware MD Unavailable Unavailable Naik, Francois Ware MD Unavailable Unavailable Naik, Francois Ware MD Unavailable Unavailable NaikFrancois MD Unavailable Unavailable NaikFrancois MD Unavailable Unavailable NaikFrancois MD Unavailable Unavailable NaikFrancois MD Unavailable Unavailable Naik, Francois Ware MD Unavailable Unavailable Naik, Francois Ware MD Unavailable Unavailable Naik, Francois Ware MD Unavailable Unavailable NaikFrancois MD Unavailable Unavailable NaikFrancois MD Unavailable Unavailable Francois Naik MD Unavailable Unavailable Francois Naik MD Unavailable Unavailable Francois Naik MD Unavailable Unavailable Francois Naik MD Unavailable Unavailable Francois Naik MD Unavailable Unavailable NaikFrancois MD Unavailable Unavailable NaikFrancois MD Unavailable Unavailable NaikFrancois MD Unavailable Unavailable NaikFrancois MD Unavailable Unavailable NaikFrancois MD Unavailable Unavailable Francois Naik MD Unavailable Unavailable Francois Naik MD Unavailable Unavailable Francois Naik MD Unavailable Unavailable Francois Niak MD Unavailable Unavailable Francois Naik MD Unavailable Unavailable NaikFrancois MD Unavailable Unavailable NaikFrancois MD Unavailable Unavailable NaikFrancois MD Unavailable Unavailable NaikFrancois MD Unavailable Unavailable Francois Naik MD Unavailable Unavailable Francois Naik MD Unavailable Unavailable Francois Naik MD Unavailable Unavailable Francois Naik MD Unavailable Unavailable Francois Naik MD Unavailable Unavailable Francois Naik MD Unavailable Unavailable NaikFrancois MD Unavailable Unavailable RAMON AMBROSE MD Unavailable Unavailable ARNOL, MELYNNE MANPREET CAI Unavailable Unavailable ARNOL, MELYNNE MANPREET MD Unavailable Unavailable ARNOL, MELYNNE MANPREET CAI Unavailable Unavailable ARNOL, MELYNNE MANPREET MD Unavailable Unavailable ARNOL, MELYNNE MANPREET MD Unavailable Unavailable ARNOL, MELYNNE MANPREET MD Unavailable Unavailable ARNOL, MELYNNE MANPREET MD Unavailable Unavailable ARNOL, MELYNNE MANPREET MD Unavailable Unavailable ARNOL, MELYNNE MANPREET MD Unavailable Unavailable ARNOL, MELYNNE MANPREET MD Unavailable Unavailable ARNOL, MELYNNE MANPREET MD Unavailable Unavailable ARNOL, MELYNNE MANPREET MD Unavailable Unavailable ARNOL, MELYNNE MANPREET MD Unavailable Unavailable ARNOL, MELYNNE MANPREET MD Unavailable Unavailable ARNOL, MELYNNE MANPREET MD Unavailable Unavailable ARNOL, MELYNNE MANPREET MD Unavailable Unavailable ARNOL, MELYNNE MANPREET MD Unavailable Unavailable ARNOL, MELYNNE MANPREET MD Unavailable Unavailable ARNOL, MELYNNE MANPREET MD Unavailable Unavailable ARNOL, MELYNNE MANPREET MD Unavailable Unavailable ARNOL, MELYNNE MANPREET MD Unavailable Unavailable ARNOL, MELYNNE MANPREET MD Unavailable Unavailable ARNOL, MELYNNE MANPREET MD Unavailable Unavailable ARNOL, MELYNNE MANPREET MD Unavailable Unavailable ARNOL, MELYNNE MANPREET MD Unavailable Unavailable ARNOL, MELYNNE MANPREET MD Unavailable Unavailable ARNOL, MELYNNE MANPREET MD Unavailable Unavailable ARNOL, MELYNNE MANPREET MD Unavailable Unavailable ARNOL, MELYNNE MANPREET MD Unavailable Unavailable ARNOL, MELYNNE MANPREET MD Unavailable Unavailable ARNOL, MELYNNE MANPREET MD Unavailable Unavailable ARNOL, MELYNNE MANPREET MD Unavailable Unavailable ARNOL, MELYNNE MANPREET MD Unavailable Unavailable ARNOL, MELYNNE MANPREET MD Unavailable Unavailable ARNOL, MELYNNE MANPREET MD Unavailable Unavailable ARNOL, MELYNNE MANPREET MD Unavailable Unavailable ARNOL, MELYNNE MANPREET MD Unavailable Unavailable ARNOL, MELYNNE MANPREET MD Unavailable Unavailable ARNOL, MELYNNE MANPREET MD Unavailable Unavailable SEARS, A ANDERSON DO Unavailable Unavailable SEARS, A ANDERSON DO Unavailable Unavailable SEARS, A ANDERSON DO Unavailable Unavailable SEARS, A ANDERSON DO Unavailable Unavailable SEARS, A ANDERSON DO Unavailable Unavailable SEARS, A ANDERSON DO Unavailable Unavailable SEARS, A ANDERSON DO Unavailable Unavailable SEARS, A ANDERSON DO Unavailable Unavailable SEARS, A ANDERSON DO Unavailable Unavailable SEARS, A ANDERSON DO Unavailable Unavailable SEARS, A ANDERSON DO Unavailable Unavailable SEARS, A ANDERSON DO Unavailable Unavailable SEARS, A ANDERSON DO Unavailable Unavailable SEARS, A ANDERSON DO Unavailable Unavailable SEARS, A ANDERSON DO Unavailable Unavailable SEARS, A ANDERSON DO Unavailable Unavailable SEARS, A ANDERSON DO Unavailable Unavailable SEARS, A ANDERSON DO Unavailable Unavailable SEARS, A ANDERSON DO Unavailable Unavailable SEARS, A ANDERSON DO Unavailable Unavailable SEARS, A ANDERSON DO Unavailable Unavailable SEARS, A ANDERSON DO Unavailable Unavailable SEARS, A ANDERSON DO Unavailable Unavailable SEARS, A ANDERSON DO Unavailable Unavailable SEARS, A ANDERSON DO Unavailable Unavailable SEARS, A ANDERSON DO Unavailable Unavailable SEARS, A ANDERSON DO Unavailable Unavailable SEARS, A ANDERSON DO Unavailable Unavailable SEARS, A ANDERSON DO Unavailable Unavailable SEARS, A ANDERSON DO Unavailable Unavailable SEARS, A ANDERSON DO Unavailable Unavailable SEARS, A ANDERSON DO Unavailable Unavailable SEARS, A ANDERSON DO Unavailable Unavailable SEARS, A ANDERSON DO Unavailable Unavailable SEARS, A ANDERSON DO Unavailable Unavailable SEARS, A ANDERSON DO Unavailable Unavailable SEARS, A ANDERSON DO Unavailable Unavailable SEARS, A ANDERSON DO Unavailable Unavailable SEARS, A ANDERSON DO Unavailable Unavailable SEARS, A ANDERSON DO Unavailable Unavailable SEARS, A ANDERSON DO Unavailable Unavailable SEARS, A ANDERSON DO Unavailable Unavailable SEARS, A ANDERSON DO Unavailable Unavailable SEARS, A ANDERSON DO Unavailable Unavailable SEARS, A ANDERSON DO Unavailable Unavailable Re-disclosure Warning The records that you are about to access may contain information from federally-assisted alcohol or drug abuse programs. If such information is present, then the following federally mandated warning applies: This information has been disclosed to you from records protected by federal confidentiality rules (42 CFR part 2). The federal rules prohibit you from making any further disclosure of this information unless further disclosure is expressly permitted by the written consent of the person to whom it pertains or as otherwise permitted by 42 CFR part 2. A general authorization for the release of medical or other information is NOT sufficient for this purpose. The Federal rules restrict any use of the information to criminally investigate or prosecute any alcohol or drug abuse patient.The records that you are about to access may contain highly sensitive health information, the redisclosure of which is protected by Article 27-F of the [facility] Public Health law. If you continue you may have access to information: Regarding HIV / AIDS; Provided by facilities licensed or operated by the [facility] Office of Mental Health; or Provided by the [facility] Office for People With Developmental Disabilities. If such information is present, then the following [facility] mandated warning applies: This information has been disclosed to you from confidential records which are protected by state law. State law prohibits you from making any further disclosure of this information without the specific written consent of the person to whom it pertains, or as otherwise permitted by law. Any unauthorized further disclosure in violation of state law may result in a fine or detention sentence or both. A general authorization for the release of medical or other information is NOT sufficient authorization for further disc losure. Allergies and Adverse Reactions Type Description Substance Reaction Status Data Source(s ) Drug allergy Penicillin V Potassium Penicillin V Rash Active eCW1 ([facility]) Family History Family Member Name Family Member Gender Family Member Status Date o f Status Description Data Source(s) Unknown Unknown Problem MEDENT ([facility]) parents Encounters Encounter Providers Location Date Indications Data Source(s ) Outpatient Attender: ISRA KAISER MD 07/09/2020 12:00: 00 AM [facility] Outpatient 07/09/2020 12:00:00 AM [facility] Outpatient Attender: ISRA KAISER MD 05/14/2020 12:00: [address] [facility] Outpatient 05/14/2020 12:00:[address] [facility] Out[place] [address] [facility] [address] 05/02/2020 12:00:00 AM EST eCW1 ([facility]) Unknown [address] [facility] [address] 04/01/2020 12:00:00 AM EST eCW1 ([facility]) Outpatient [address] [facility] [address] 03/27/2020 12:00:00 AM EST [facility] Outpatient Attender: ANDERSON RODRIGES DO [place]/Lizandro/Reindl 03/20/2020 09:00:00 AM EST MEDENT ([facility]) Out[place] [address] [facility] [address] 03/19/2020 12:00:00 AM EST [facility]CW1 [facility] Outpatient Attender: Swati [facility]/A ngel/Reindl 03/07/2020 12:30:00 PM EST MEDENT ([facility]) [place] [address] [facility] [address] 03/06/2020 12:00:00 AM EST [facility]CW1 [facility] Outpatient [address] [facility] [place] [address] 02/22/2020 12:00:00 AM EDT eCW1 ([facility]) Unknown [address] [facility] [address] 02/21/2020 12:00:00 AM EDT eCW1 ([facility]) Unknown [address] [facility] [address] 02/19/2020 12:00:00 AM EDT eCW1 ([facility]) Unknown [address] [facility] [place] [address] 02/07/2020 12:00:00 AM EDT eCW1 ([facility]) ( [facility] Ex[facility] [address] [place] [address] 01/31/2020 12:00:00 AM EDT eCW1 ([facility]) [facility] [address] [place] [address] 01/08/2020 12:00:00 AM EDT eCW1 ([facility]) [facility] [address] [facility] [place] [address] 12/26/2019 12:00:00 AM EDT eCW1 [facility]) [facility] [address] [facility] [address] 11/29/2019 12:00:00 AM EDT eCW1 ([facility]) Outpatient Attender: ANDERSON Celaya/Jerald/Lizandro/Jonasdl 11/28/2019 08:30:00 AM EDT MEDENT ([facility] ) Outpatient Attender: [facility] 11/20/2019 09:30 :00 AM EDT [facility] Unknown [address] [facility] [address] 11/13/2019 12:00:00 AM EDT eCW1 ([facility]) Unknown [address] [facility] [address] 11/10/2019 12:00:00 AM EDT eCW1 ([facility]) Unknown [address] [facility] [address] 10/19/2019 12:00:00 AM EDT eCW1 ([facility] [address] [facility] [address] 10/19/2019 12:00:00 AM EDT eCW1 ([facility]) Office Visit, Est Pt., Level [address] [place] [address] 10/10/2019 12:00:00 AM EDT eCW1 ([facility]) Unknown [address] [facility] [address] 10/09/2019 12:00:00 AM EDT eCW1 [facility]) Outpatient 10/05/2019 05:24:00 AM EDT [facility] Outpatient [address] [facility] [address] 09/21/2019 12:00:00 AM EDT eCW1 ([facility]) [facility] [address] [facility] [address] 09/21/2019 12:00:00 AM EDT eCW1 ([facility]) [facility] [address] [place] [address], [place] [address] 08/22/2019 12:00:00 AM EDT eCW1 [facility]) Outpatient Attender: ANDERSON Celaya/Jerald/Lizandro/Reindl 08/15/2019 10:30:00 AM EDT MEDENT ([facility]) [facility] [address] [place] [address], [place] [address] 08/14/2019 12:00:00 AM EDT [facility]CW1 [facility] [place] Outpatient 08/09/2019 05:47:00 AM EDT [facility] [address] [address] 08/01/2019 12:00:00 AM EDT eCW1 ([facility]) [address] [address] 07/26/2019 12:00:00 AM EDT eCW1 ([facility]) [facility] [address] [place] [address], [place] [address] 07/25/2019 12:00:00 AM EDT eCW1 ([facility]) [address] [address] 07/25/2019 12:00:00 AM EDT eCW1 [facility] Outpatient 07/24/2019 04:38:00 AM EDT [facility] [address] [address] 07/20/2019 12:00:00 AM EDT eCW1 [facility] Outpatient Attender: Mynor Crook DO Main Office 07/14/2019 01:23:00 AM EDT MEDENT ([facility] Outpatient Attender: Bogdan Ryder/Jerald/Lizandro/R humblel 07/13/2019 01:23:00 AM EDT MEDENT ([facility] [address] [address] 07/12/2019 12:00:00 AM EDT eCW1 [facility] [place] [address] 06/28/2019 12:00:00 AM EST eCW1 ([facility]) Outpatient 06/12/2019 05:04:00 AM EST [facility] [place] [address] 05/31/2019 12:00:00 AM EST eCW1 ([facility]) Outpatient Attender: ISRA KAISER MD [id number] 12:00:00 AM EST - 05/02/2019 10:10:57 AM EST Peripheral vascular disease, unspecified [facility] Peripheral vascular disease, unspecified Outpatient Referrer: ISRA KAISER MD 05/02/2019 12:00:00 AM EST Peripheral vascular disease, unspecified [facility] Peripheral vascular disease, unspecified Outpatient Attender: MANPREET Ryder/Jerald/Lizandro/R eindl 04/03/2019 12:30:00 PM EST [facility] [place] [address] 03/30/2019 12:00:00 AM EST eCW1 ([facility]) Outpatient Attender: ISRA KAISER MD 03/21/2019 12:00: [address] [facility] Outpatient Referrer: ISRA KAISER MD 03/21/2019 12:00: [address] [facility] Outpatient Attender: MANPREET Ryder/Jerald/Lizandro/R eindl 03/14/2019 08:30:00 AM EST MEDENT ([facility]) Outpatient 03/13/2019 09:04:00 PM EST [facility] Immunizations Vaccine Date Status Description Data Source(s) Tdap 02/22/2020 02:34:00 PM EDT completed e CW1 ([facility]) Tdap 02/22/2020 02:34:00 PM EDT completed e CW1 ([facility]) Tdap 02/22/2020 02:34:00 PM EDT completed e CW1 ([facility]) Tdap 02/22/2020 02:34:00 PM EDT completed e CW1 ([facility]) Tdap 02/22/2020 02:34:00 PM EDT completed e CW1 ([facility]) Tdap 02/22/2020 02:34:00 PM EDT completed e CW1 ([facility]) Tdap 02/22/2020 02:34:00 PM EDT completed e CW1 ([facility]) Tdap 02/22/2020 02:34:00 PM EDT completed e CW1 ([facility]) influenza, recombinant, quadrIvalent,injectable, prese rvative free 03/30/2019 09:00:00 AM EST completed eCW1 ([facility]) influenza, recombinant, quadrIvalent,injectable, prese rvative free 03/30/2019 09:00:00 AM EST completed eCW1 ([facility]) influenza, recombinant, quadrIvalent,injectable, prese rvative free 03/30/2019 09:00:00 AM EST completed eCW1 ([facility]) influenza, recombinant, quadrIvalent,injectable, prese rvative free 03/30/2019 09:00:00 AM EST completed eCW1 ([facility]) influenza, recombinant, quadrIvalent,injectable, prese rvative free 03/30/2019 09:00:00 AM EST completed eCW1 ([facility]) influenza, recombinant, quadrIvalent,injectable, prese rvative free 03/30/2019 09:00:00 AM EST completed eCW1 ([facility]) influenza, recombinant, quadrIvalent,injectable, prese rvative free 03/30/2019 09:00:00 AM EST completed eCW1 ([facility]) influenza, recombinant, quadrIvalent,injectable, prese rvative free 03/30/2019 09:00:00 AM EST completed eCW1 ([facility]) influenza, recombinant, quadrIvalent,injectable, prese rvative free 03/30/2019 09:00:00 AM EST completed eCW1 ([facility]) influenza, recombinant, quadrIvalent,injectable, prese rvative free 03/30/2019 09:00:00 AM EST completed eCW1 ([facility]) influenza, recombinant, quadrIvalent,injectable, prese rvative free 03/30/2019 09:00:00 AM EST completed eCW1 ([facility]) influenza, recombinant, quadrIvalent,injectable, prese rvative free 03/30/2019 09:00:00 AM EST completed eCW1 ([facility]) influenza, recombinant, quadrIvalent,injectable, prese rvative free 03/30/2019 09:00:00 AM EST completed eCW1 ([facility]) influenza, recombinant, quadrIvalent,injectable, prese rvative free 03/30/2019 09:00:00 AM EST completed eCW1 ([facility]) influenza, recombinant, quadrIvalent,injectable, prese rvative free 03/30/2019 09:00:00 AM EST completed eCW1 ([facility]) influenza, recombinant, quadrIvalent,injectable, prese rvative free 03/30/2019 09:00:00 AM EST completed eCW1 ([facility]) Medications Medication Brand Name Start Date Product Form Dose Route Admi nistrative Instructions Pharmacy Instructions Status Indications Reaction Description Data Source(s) pantoprazole 40 MG Delayed Release Oral Tablet Pantopr azole Sodium 40 MG Pantoprazole Sodium 40 MG 03/19/2020 12:00:00 AM EST 1.0 {tablet} active Pantoprazole Sodium 40 MG eCW1 ( [facility]) Famotidine 40 MG Oral Tablet Famotidine 40 MG 03/19/2020 12:00:00 A M EST 1.0 {tablet_at_bedtime} active Famotidine 4 0 MG eCW1 ([facility]) pantoprazole 40 MG Delayed Release Oral Tablet PANTOPRAZOLE SODIUM 03/19/2020 12:00:00 AM EST tablet,delayed release (DR/EC) 30 T ZOLTAN ONE TABLET BY MOUTH EVERY DAY BEFORE THE FIRST MEAL TAKE ONE TABLET BY MOUTH EVERY DAY BEFOR E THE FIRST MEAL SOLD: 05/03/2020 [facility] Famotidine 40 MG Oral Tablet Famotidine 40 MG 03/19/2020 12:00:00 A M EST 1.0 {tablet_at_bedtime} active Famotidine 4 0 MG eCW1 ([facility]) pantoprazole 40 MG Delayed Release Oral Tablet Pantopr azole Sodium 40 MG Pantoprazole Sodium 40 MG 03/19/2020 12:00:00 AM EST 1.0 {tablet} active Pantoprazole Sodium 40 MG eCW1 ( [facility]) pantoprazole 40 MG Delayed Release Oral Tablet Pantopr azole Sodium 40 MG Pantoprazole Sodium 40 MG 03/19/2020 12:00:00 AM EST 1.0 {tablet} active Pantoprazole Sodium 40 MG eCW1 ( [facility]) pantoprazole 40 MG Delayed Release Oral Tablet PANTOPRAZOLE SODIUM 03/19/2020 12:00:00 AM EST tablet,delayed release (DR/EC) 30 T ZOLTAN ONE TABLET BY MOUTH EVERY DAY BEFORE THE FIRST MEAL TAKE ONE TABLET BY MOUTH EVERY DAY BEFOR E THE FIRST MEAL SOLD: 03/20/2020 [facility] Famotidine 40 MG Oral Tablet Famotidine 40 MG 03/19/2020 12:00:00 A M EST 1.0 {tablet_at_bedtime} active Famotidine 4 0 MG eCW1 ([facility]) pantoprazole 40 MG Delayed Release Oral Tablet Pantopr azole Sodium 40 MG Pantoprazole Sodium 40 MG 03/19/2020 12:00:00 AM EST 1.0 {tablet} active Pantoprazole Sodium 40 MG eCW1 ( [facility]) Famotidine 40 MG Oral Tablet Famotidine 40 MG 03/19/2020 12:00:00 A M EST 1.0 {tablet_at_bedtime} active Famotidine 4 0 MG eCW1 ([facility]) Famotidine 40 MG Oral Tablet FAMOTIDINE 03/08/2020 12:00:00 AM EST tab let 30 TAKE ONE TABLET BY MOUTH EVERY EVENING TAKE ONE TABLET BY MOUTH EVERY EVENING SOLD: 04/01/2020 [facility] 100 mg 03/08/2020 12:00:00 AM EST capsule 30 TAKE ONE CAPSULE BY MOUTH EVERY DAY TAKE ONE CAPSULE BY MOUTH EVERY DAY SOLD: 03/08/2020 [facility] 40 mg 03/08/2020 12:00:00 AM EST tablet 30 TAKE ONE TABLET BY MOUTH EVERY EVENING TAKE ONE TABLET BY MOUTH EVERY EVENING SOLD: 03/08/2020 [facility] Docusate Sodium 100 MG Oral Capsule [Colace] Colace 03/2020 12:00:00 AM EST ORAL active MEDENT ( [facility], ) Famotidine 40 MG Oral Tablet Famotidine 03/07/2020 12:00:00 AM EST ORAL active MEDENT ([facility], ) Arikayce 590 mg/8.4 mL Arikayce 590 mg/8.4 mL 02/22/2020 12:00:00 AM E DT active Arikayce 590 mg/8.4 mL eC W1 ([facility]) Arikayce 590 mg/8.4 mL Arikayce 590 mg/8.4 mL 02/22/2020 12:00:00 AM E DT active Arikayce 590 mg/8.4 mL eC W1 ([facility]) Arikayce 590 mg/8.4 mL Arikayce 590 mg/8.4 mL 02/22/2020 12:00:00 AM E DT active Arikayce 590 mg/8.4 mL eC W1 ([facility]) Arikayce 590 mg/8.4 mL Arikayce 590 mg/8.4 mL 02/22/2020 12:00:00 AM E DT active Arikayce 590 mg/8.4 mL eC W1 ([facility]) Arikayce 590 mg/8.4 mL Arikayce 590 mg/8.4 mL 02/22/2020 12:00:00 AM E DT active Arikayce 590 mg/8.4 mL eC W1 ([facility]) Arikayce 590 mg/8.4 mL Arikayce 590 mg/8.4 mL 02/22/2020 12:00:00 AM E DT active Arikayce 590 mg/8.4 mL eC W1 ([facility]) Arikayce 590 mg/8.4 mL Arikayce 590 mg/8.4 mL 02/22/2020 12:00:00 AM E DT active Arikayce 590 mg/8.4 mL eC W1 ([facility]) 70 mg 01/18/2020 12:00:00 AM EDT tablet 12 TAKE ONE TABLET BY MOUTH ONCE A WEEK TAKE ONE TABLET BY MOUTH ONCE A WEEK SOLD: 04/10/2020 [facility] 70 mg 01/18/2020 12:00:00 AM EDT tablet 12 TAKE ONE TABLET BY MOUTH ONCE A WEEK TAKE ONE TABLET BY MOUTH ONCE A WEEK SOLD: 01/22/2020 [facility] 100 mg 11/23/2019 12:00:00 AM EDT capsule 60 TAKE ONE TO TWO CAPSULES BY MOUTH EVERY DAY NEEDED TAKE ONE TO TWO CAPSULES BY MOUTH EVERY DAY NEEDED SOLD: 02/20/2020 [facility] 100 mg 11/23/2019 12:00:00 AM EDT capsule 60 TAKE ONE TO TWO CAPSULES BY MOUTH EVERY DAY NEEDED TAKE ONE TO TWO CAPSULES BY MOUTH EVERY DAY NEEDED SOLD: 04/10/2020 [facility] 100 mg 11/23/2019 12:00:00 AM EDT capsule 60 TAKE ONE TO TWO CAPSULES BY MOUTH EVERY DAY NEEDED TAKE ONE TO TWO CAPSULES BY MOUTH EVERY DAY NEEDED SOLD: 11/23/2019 [facility] 100 mg 11/23/2019 12:00:00 AM EDT capsule 60 TAKE ONE TO TWO CAPSULES BY MOUTH EVERY DAY NEEDED TAKE ONE TO TWO CAPSULES BY MOUTH EVERY DAY NEEDED SOLD: 01/11/2020 [facility] 17 gram/dose 11/13/2019 12:00:00 AM EDT powder 238 MIX 17 GRAMS WITH 8 OUNCES OF WATER OR JUICE & DRINK DAILY NEEDED FOR CONSTIPATION, TAKE TO ACHIEVE 2 TO 3 SOFT BOWEL MOVEMENTS PER DAY MIX 17 GRAMS WITH 8 OUNCES OF WATER OR JUICE & DRINK DAILY NEEDED FOR CONSTIPATION, TAKE TO ACHIEVE 2 TO 3 SOFT BOWEL MOVEMENTS PER DAY SOLD: 11/13/2019 [facility] 100 mg/mL 11/13/2019 12:00:00 AM EDT suspension 1200 TAKE 10ML BY MOUTH FOUR TIMES A DAY BEFORE FOOD TAKE 10ML BY MOUTH FOUR TIMES A DAY BEFORE FOOD SOLD: 11/13/2019 [facility] Amikacin Sulfate 500 MG/2ML Amikacin Sulfate 500 MG/2ML 10/24 12:00:00 AM EDT active Amikacin Sulfate 500 MG/2ML eCW1 ([facility]) Imipenem-Cilastatin 500 MG Imipenem-Cilastatin 500 MG 2019 12:00:00 AM EDT active Imipenem-Cilastat in 500 MG eCW1 ([facility]) Imipenem-Cilastatin 500 MG Imipenem-Cilastatin 500 MG 2019 12:00:00 AM EDT active Imipenem-Cilastat in 500 MG eCW1 ([facility]) Imipenem-Cilastatin 500 MG Imipenem-Cilastatin 500 MG 2019 12:00:00 AM EDT active Imipenem-Cilastat in 500 MG eCW1 ([facility]) Imipenem-Cilastatin 500 MG Imipenem-Cilastatin 500 MG 2019 12:00:00 AM EDT active Imipenem-Cilastat in 500 MG eCW1 ([facility]) Amikacin Sulfate 500 MG/2ML Amikacin Sulfate 500 MG/2ML 10/24 12:00:00 AM EDT active Amikacin Sulfate 500 MG/2ML eCW1 ([facility]) Imipenem-Cilastatin 500 MG Imipenem-Cilastatin 500 MG 2019 12:00:00 AM EDT active Imipenem-Cilastat in 500 MG eCW1 ([facility]) Amikacin Sulfate 500 MG/2ML Amikacin Sulfate 500 MG/2ML 10/24 12:00:00 AM EDT active Amikacin Sulfate 500 MG/2ML eCW1 ([facility]) Amikacin Sulfate 500 MG/2ML Amikacin Sulfate 500 MG/2ML 10/24 12:00:00 AM EDT active Amikacin Sulfate 500 MG/2ML eCW1 ([facility]) Amikacin Sulfate 500 MG/2ML Amikacin Sulfate 500 MG/2ML 10/24 12:00:00 AM EDT active Amikacin Sulfate 500 MG/2ML eCW1 ([facility]) Imipenem-Cilastatin 500 MG Imipenem-Cilastatin 500 MG 2019 12:00:00 AM EDT active Imipenem-Cilastat in 500 MG eCW1 ([facility]) Imipenem-Cilastatin 500 MG Imipenem-Cilastatin 500 MG 2019 12:00:00 AM EDT active Imipenem-Cilastat in 500 MG eCW1 ([facility]) Amikacin Sulfate 500 MG/2ML Amikacin Sulfate 500 MG/2ML 10/24 12:00:00 AM EDT active Amikacin Sulfate 500 MG/2ML eCW1 ([facility]) Amikacin Sulfate 500 MG/2ML Amikacin Sulfate 500 MG/2ML 10/24 12:00:00 AM EDT active Amikacin Sulfate 500 MG/2ML eCW1 ([facility]) Imipenem-Cilastatin 500 MG Imipenem-Cilastatin 500 MG 2019 12:00:00 AM EDT active Imipenem-Cilastat in 500 MG eCW1 ([facility]) Amikacin Sulfate 500 MG/2ML Amikacin Sulfate 500 MG/2ML 10/24 12:00:00 AM EDT active Amikacin Sulfate 500 MG/2ML eCW1 ([facility]) Amikacin Sulfate 500 MG/2ML Amikacin Sulfate 500 MG/2ML 10/24 12:00:00 AM EDT active Amikacin Sulfate 500 MG/2ML eCW1 ([facility]) Imipenem-Cilastatin 500 MG Imipenem-Cilastatin 500 MG 2019 12:00:00 AM EDT active Imipenem-Cilastat in 500 MG eCW1 ([facility]) Imipenem-Cilastatin 500 MG Imipenem-Cilastatin 500 MG 2019 12:00:00 AM EDT active Imipenem-Cilastat in 500 MG eCW1 ([facility]) Imipenem-Cilastatin 500 MG Imipenem-Cilastatin 500 MG 2019 12:00:00 AM EDT active Imipenem-Cilastat in 500 MG eCW1 ([facility]) Amikacin Sulfate 500 MG/2ML Amikacin Sulfate 500 MG/2ML 10/24 12:00:00 AM EDT active Amikacin Sulfate 500 MG/2ML eCW1 ([facility]) Imipenem-Cilastatin 500 MG Imipenem-Cilastatin 500 MG 2019 12:00:00 AM EDT active Imipenem-Cilastat in 500 MG eCW1 ([facility]) Imipenem-Cilastatin 500 MG Imipenem-Cilastatin 500 MG 2019 12:00:00 AM EDT active Imipenem-Cilastat in 500 MG eCW1 ([facility]) Amikacin Sulfate 500 MG/2ML Amikacin Sulfate 500 MG/2ML 10/24 12:00:00 AM EDT active Amikacin Sulfate 500 MG/2ML eCW1 ([facility]) Amikacin Sulfate 500 MG/2ML Amikacin Sulfate 500 MG/2ML 10/24 12:00:00 AM EDT active Amikacin Sulfate 500 MG/2ML eCW1 ([facility]) Amikacin Sulfate 500 MG/2ML Amikacin Sulfate 500 MG/2ML 10/24 12:00:00 AM EDT active Amikacin Sulfate 500 MG/2ML eCW1 ([facility]) Nuzyra 150 MG Nuzyra 150 MG 10/19/2019 12:00:00 AM EDT 2.0 {tabl ets} active Nuzyra 150 MG eCW1 ([facility]) Nuzyra 150 MG Nuzyra 150 MG 10/19/2019 12:00:00 AM EDT 2.0 {tabl ets} active Nuzyra 150 MG eCW1 ([facility]) Nuzyra 150 MG Nuzyra 150 MG 10/19/2019 12:00:00 AM EDT 2.0 {tabl ets} active Nuzyra 150 MG eCW1 ([facility]) Nuzyra 150 MG Nuzyra 150 MG 10/19/2019 12:00:00 AM EDT 2.0 {tabl ets} suspended Nuzyra 150 MG eCW1 ([facility]) Nuzyra 150 MG Nuzyra 150 MG 10/19/2019 12:00:00 AM EDT 2.0 {tabl ets} active Nuzyra 150 MG eCW1 ([facility]) Nuzyra 150 MG Nuzyra 150 MG 10/19/2019 12:00:00 AM EDT 2.0 {tabl ets} active Nuzyra 150 MG eCW1 ([facility]) Nuzyra 150 MG Nuzyra 150 MG 10/19/2019 12:00:00 AM EDT 2.0 {tabl ets} active Nuzyra 150 MG eCW1 ([facility]) Nuzyra 150 MG Nuzyra 150 MG 10/19/2019 12:00:00 AM EDT 2.0 {tabl ets} active Nuzyra 150 MG eCW1 ([facility]) Nuzyra 150 MG Nuzyra 150 MG 10/19/2019 12:00:00 AM EDT 2.0 {tabl ets} active Nuzyra 150 MG eCW1 ([facility]) Nuzyra 150 MG Nuzyra 150 MG 10/19/2019 12:00:00 AM EDT 2.0 {tabl ets} active Nuzyra 150 MG eCW1 ([facility]) Amikacin Sulfate 500 MG/2ML Amikacin Sulfate 500 MG/2ML 09/25 12:00:00 AM EDT active Amikacin Sulfate 500 MG/2ML eCW1 ([facility]) Amikacin Sulfate 500 MG/2ML Amikacin Sulfate 500 MG/2ML 09/25 12:00:00 AM EDT active Amikacin Sulfate 500 MG/2ML eCW1 ([facility]) Amikacin Sulfate 500 MG/2ML Amikacin Sulfate 500 MG/2ML 09/25 12:00:00 AM EDT active Amikacin Sulfate 500 MG/2ML eCW1 ([facility]) Nuzyra 150 MG Nuzyra 150 MG 10/19/2019 12:00:00 AM EDT 2.0 {tabl ets} active Nuzyra 150 MG eCW1 ([facility]) Nuzyra 150 MG Nuzyra 150 MG 10/19/2019 12:00:00 AM EDT 2.0 {tabl ets} suspended Nuzyra 150 MG eCW1 ([facility]) Nuzyra 150 MG Nuzyra 150 MG 10/19/2019 12:00:00 AM EDT 2.0 {tabl ets} suspended Nuzyra 150 MG eCW1 ([facility]) Nuzyra 150 MG Nuzyra 150 MG 10/19/2019 12:00:00 AM EDT 2.0 {tabl ets} active Nuzyra 150 MG eCW1 ([facility]) Amikacin Sulfate 500 MG/2ML Amikacin Sulfate 500 MG/2ML 09/25 12:00:00 AM EDT active Amikacin Sulfate 500 MG/2ML eCW1 ([facility]) Nuzyra 150 MG Nuzyra 150 MG 10/19/2019 12:00:00 AM EDT 2.0 {tabl ets} active Nuzyra 150 MG eCW1 ([facility]) Amikacin Sulfate 500 MG/2ML Amikacin Sulfate 500 MG/2ML 09/25 12:00:00 AM EDT active Amikacin Sulfate 500 MG/2ML eCW1 ([facility]) Nuzyra 150 MG Nuzyra 150 MG 10/19/2019 12:00:00 AM EDT 2.0 {tabl ets} active Nuzyra 150 MG eCW1 ([facility]) Nuzyra 150 MG Nuzyra 150 MG 10/19/2019 12:00:00 AM EDT 2.0 {tabl ets} active Nuzyra 150 MG eCW1 ([facility]) Nuzyra 150 MG Nuzyra 150 MG 10/19/2019 12:00:00 AM EDT 2.0 {tabl ets} active Nuzyra 150 MG eCW1 ([facility]) Azithromycin 250 MG Oral Tablet Azithromycin 250 MG 10/10/2019 1 2:00:00 AM EDT suspended Azithromycin 2 50 MG eCW1 ([facility]) Azithromycin 250 MG Oral Tablet Azithromycin 250 MG 10/10/2019 1 2:00:00 AM EDT suspended Azithromycin 2 50 MG eCW1 ([facility]) Azithromycin 250 MG Oral Tablet Azithromycin 250 MG 10/10/2019 1 2:00:00 AM EDT suspended Azithromycin 2 50 MG eCW1 ([facility]) Azithromycin 250 MG Oral Tablet Azithromycin 250 MG 10/10/2019 1 2:00:00 AM EDT suspended Azithromycin 2 50 MG eCW1 ([facility]) Azithromycin 250 MG Oral Tablet Azithromycin 250 MG 10/10/2019 1 2:00:00 AM EDT active Azithromycin 250 MG eCW1 ([facility]) Azithromycin 250 MG Oral Tablet Azithromycin 250 MG 10/10/2019 1 2:00:00 AM EDT suspended Azithromycin 2 50 MG eCW1 ([facility]) 250 mg 10/10/2019 12:00:00 AM EDT tablet 6 TAKE TWO TABLETS BY MOUTH AT ONCE ON THE FIRST DAY THEN TAKE ONE DAILY THEREAFTER TAKE TWO TABLETS BY MOUTH AT ONCE ON THE FIRST DAY THEN TAKE ONE DAILY THEREAFTER SOLD: 10/10/2019 [facility] Azithromycin 250 MG Oral Tablet Azithromycin 250 MG 10/10/2019 1 2:00:00 AM EDT active Azithromycin 250 MG eCW1 ([facility]) 250 mg 10/06/2019 12:00:00 AM EDT tablet 6 TAKE TWO TABLETS BY MOUTH AT ONCE ON THE FIRST DAY THEN TAKE ONE DAILY THEREAFTER TAKE TWO TABLETS BY MOUTH AT ONCE ON THE FIRST DAY THEN TAKE ONE DAILY THEREAFTER SOLD: 10/06/2019 [facility] 0.3 % 10/06/2019 12:00:00 AM EDT drops 5 INSTILL 10 DROPS IN LEFT EAR ONCE DAILY INSTILL 10 DROPS IN LEFT EAR ONCE DAILY SOLD: 10/06/2019 [facility] 2.5 mg /3 mL (0.083 %) 08/15/2019 12:00:00 AM EDT solu tion for nebulization 150 INHALE THE CONTENTS OF ONE VIAL VIA NEBU LIZER FOUR TIMES A DAY NEEDED INHALE THE CONTENTS OF ONE VIAL VIA NEBULIZER FOUR TIMES A DAY NEEDED SOLD: 11/30/2019 [facility] 2.5 mg /3 mL (0.083 %) 08/15/2019 12:00:00 AM EDT solu tion for nebulization 150 INHALE THE CONTENTS OF ONE VIAL VIA NEBU LIZER FOUR TIMES A DAY NEEDED INHALE THE CONTENTS OF ONE VIAL VIA NEBULIZER FOUR TIMES A DAY NEEDED SOLD: 10/11/2019 [facility] 2.5 mg /3 mL (0.083 %) 08/15/2019 12:00:00 AM EDT solu tion for nebulization 150 INHALE THE CONTENTS OF ONE VIAL VIA NEBU LIZER FOUR TIMES A DAY NEEDED INHALE THE CONTENTS OF ONE VIAL VIA NEBULIZER FOUR TIMES A DAY NEEDED SOLD: 08/22/2019 [facility] Albuterol 0.83 MG/ML Inhalant Solution Albuterol Sulfate 0 08/15/2019 12:00:00 AM EDT active MEDENT ([facility], ) 2.5 mg /3 mL (0.083 %) 08/15/2019 12:00:00 AM EDT solu tion for nebulization 150 INHALE THE CONTENTS OF ONE VIAL VIA NEBU LIZER FOUR TIMES A DAY NEEDED INHALE THE CONTENTS OF ONE VIAL VIA NEBULIZER FOUR TIMES A DAY NEEDED SOLD: 01/11/2020 [facility] ferrous gluconate 324 MG Oral Tablet Ferrous Gluconate 324 (38 Fe) MG Ferrous Gluconate 324 (38 Fe) MG 07/19/2019 12:00:00 AM EDT active Ferrous Gluconate 324 (38 Fe) MG eCW1 ([facility]) Cholecalciferol 1000 UNT Oral Tablet Vitamin D 25 MCG (1000 UT) Vitamin D 25 MCG (1000 UT) 07/19/2019 12:00:00 AM EDT active 1 tablet with meal [facility] ([facility]) Cholecalciferol 1000 UNT Oral Tablet Vitamin D 25 MCG (1000 UT) Vitamin D 25 MCG (1000 UT) 07/19/2019 12:00:00 AM EDT active Vitamin D 25 MCG (1000 UT) eCW1 ([facility]) Cholecalciferol 1000 UNT Oral Tablet Vitamin D 25 MCG (1000 UT) Vitamin D 25 MCG (1000 UT) 07/19/2019 12:00:00 AM EDT active Vitamin D 25 MCG (1000 UT) eCW1 ([facility]) ferrous gluconate 324 MG Oral Tablet Ferrous Gluconate 324 (38 Fe) MG Ferrous Gluconate 324 (38 Fe) MG 07/19/2019 12:00:00 AM EDT active Ferrous Gluconate 324 (38 Fe) MG eCW1 ([facility]) Cholecalciferol 1000 UNT Oral Tablet Vitamin D 25 MCG (1000 UT) Vitamin D 25 MCG (1000 UT) 07/19/2019 12:00:00 AM EDT active Vitamin D 25 MCG (1000 UT) eCW1 ([facility]) moxifloxacin 400 MG Oral Tablet Moxifloxacin HCl 400 MG Moxi floxacin HCl 400 MG 07/19/2019 12:00:00 AM EDT active 1 tablet eCW1 ([facility]) Cholecalciferol 1000 UNT Oral Tablet Vitamin D 25 MCG (1000 UT) Vitamin D 25 MCG (1000 UT) 07/19/2019 12:00:00 AM EDT active Vitamin D 25 MCG (1000 UT) eCW1 ([facility]) ferrous gluconate 324 MG Oral Tablet Ferrous Gluconate 324 (38 Fe) MG Ferrous Gluconate 324 (38 Fe) MG 07/19/2019 12:00:00 AM EDT active Ferrous Gluconate 324 (38 Fe) MG W1 ([facility]) ferrous gluconate 324 MG Oral Tablet Ferrous Gluconate 324 (38 Fe) MG Ferrous Gluconate 324 (38 Fe) MG 07/19/2019 12:00:00 AM EDT active Ferrous Gluconate 324 (38 Fe) MG eCW1 ([facility]) Cholecalciferol 1000 UNT Oral Tablet Vitamin D 25 MCG (1000 UT) Vitamin D 25 MCG (1000 UT) 07/19/2019 12:00:00 AM EDT active Vitamin D 25 MCG (1000 UT) W1 ([facility]) ferrous gluconate 324 MG Oral Tablet Ferrous Gluconate 324 (38 Fe) MG Ferrous Gluconate 324 (38 Fe) MG 07/19/2019 12:00:00 AM EDT active Ferrous Gluconate 324 (38 Fe) MG eCW1 ([facility]) ferrous gluconate 324 MG Oral Tablet Ferrous Gluconate 324 (38 Fe) MG Ferrous Gluconate 324 (38 Fe) MG 07/19/2019 12:00:00 AM EDT active Ferrous Gluconate 324 (38 Fe) MG eCW1 ([facility]) Cholecalciferol 1000 UNT Oral Tablet Vitamin D 25 MCG (1000 UT) Vitamin D 25 MCG (1000 UT) 07/19/2019 12:00:00 AM EDT active Vitamin D 25 MCG (1000 UT) eCW1 ([facility]) Cholecalciferol 1000 UNT Oral Tablet Vitamin D 25 MCG (1000 UT) Vitamin D 25 MCG (1000 UT) 07/19/2019 12:00:00 AM EDT active Vitamin D 25 MCG (1000 UT) [facility] ([facility]) Cholecalciferol 1000 UNT Oral Tablet Vitamin D 25 MCG (1000 UT) Vitamin D 25 MCG (1000 UT) 07/19/2019 12:00:00 AM EDT active Vitamin D 25 MCG (1000 UT) [facility] ([facility]) 400 mg 07/19/2019 12:00:00 AM EDT tablet 5 TAKE ONE TABLET BY MOUTH EVERY DAY AT 6:00PM TAKE ONE TABLET BY MOUTH EVERY DAY AT 6:00PM SOLD: 07/19/2019 [facility] ferrous gluconate 324 MG Oral Tablet Ferrous Gluconate 324 (38 Fe) MG Ferrous Gluconate 324 (38 Fe) MG 07/19/2019 12:00:00 AM EDT active Ferrous Gluconate 324 (38 Fe) MG [facility] ([facility]) ferrous gluconate 324 MG Oral Tablet Ferrous Gluconate 324 (38 Fe) MG Ferrous Gluconate 324 (38 Fe) MG 07/19/2019 12:00:00 AM EDT active 1 tablet with water or juice between meals [facility] ([facility]) ferrous gluconate 324 MG Oral Tablet Ferrous Gluconate 324 (38 Fe) MG Ferrous Gluconate 324 (38 Fe) MG 07/19/2019 12:00:00 AM EDT active Ferrous Gluconate 324 (38 Fe) MG [facility] ([facility]) Cholecalciferol 1000 UNT Oral Tablet Vitamin D 25 MCG (1000 UT) Vitamin D 25 MCG (1000 UT) 07/19/2019 12:00:00 AM EDT active Vitamin D 25 MCG (1000 UT) [facility] ([facility]) Cholecalciferol 1000 UNT Oral Tablet Vitamin D 25 MCG (1000 UT) Vitamin D 25 MCG (1000 UT) 07/19/2019 12:00:00 AM EDT active 1 tablet with meal [facility] ([facility]) Cholecalciferol 1000 UNT Oral Tablet Vitamin D 25 MCG (1000 UT) Vitamin D 25 MCG (1000 UT) 07/19/2019 12:00:00 AM EDT active Vitamin D 25 MCG (1000 UT) [facility] ([facility]) ferrous gluconate 324 MG Oral Tablet Ferrous Gluconate 324 (38 Fe) MG Ferrous Gluconate 324 (38 Fe) MG 07/19/2019 12:00:00 AM EDT active Ferrous Gluconate 324 (38 Fe) MG eCW1 ([facility]) Cholecalciferol 1000 UNT Oral Tablet Vitamin D 25 MCG (1000 UT) Vitamin D 25 MCG (1000 UT) 07/19/2019 12:00:00 AM EDT active Vitamin D 25 MCG (1000 UT) eCW1 ([facility]) Cholecalciferol 1000 UNT Oral Tablet Vitamin D 25 MCG (1000 UT) Vitamin D 25 MCG (1000 UT) 07/19/2019 12:00:00 AM EDT active Vitamin D 25 MCG (1000 UT) eCW1 ([facility]) ferrous gluconate 324 MG Oral Tablet Ferrous Gluconate 324 (38 Fe) MG Ferrous Gluconate 324 (38 Fe) MG 07/19/2019 12:00:00 AM EDT active Ferrous Gluconate 324 (38 Fe) MG eCW1 ([facility]) Cholecalciferol 1000 UNT Oral Tablet Vitamin D 25 MCG (1000 UT) Vitamin D 25 MCG (1000 UT) 07/19/2019 12:00:00 AM EDT active Vitamin D 25 MCG (1000 UT) eCW1 ([facility]) ferrous gluconate 324 MG Oral Tablet Ferrous Gluconate 324 (38 Fe) MG Ferrous Gluconate 324 (38 Fe) MG 07/19/2019 12:00:00 AM EDT active Ferrous Gluconate 324 (38 Fe) MG eCW1 ([facility]) Cholecalciferol 1000 UNT Oral Tablet Vitamin D 25 MCG (1000 UT) Vitamin D 25 MCG (1000 UT) 07/19/2019 12:00:00 AM EDT active Vitamin D 25 MCG (1000 UT) eCW1 ([facility]) ferrous gluconate 324 MG Oral Tablet Ferrous Gluconate 324 (38 Fe) MG Ferrous Gluconate 324 (38 Fe) MG 07/19/2019 12:00:00 AM EDT active Ferrous Gluconate 324 (38 Fe) MG eCW1 ([facility]) Cholecalciferol 1000 UNT Oral Tablet Vitamin D 25 MCG (1000 UT) Vitamin D 25 MCG (1000 UT) 07/19/2019 12:00:00 AM EDT active Vitamin D 25 MCG (1000 UT) [facility] ([facility]) ferrous gluconate 324 MG Oral Tablet Ferrous Gluconate 324 (38 Fe) MG Ferrous Gluconate 324 (38 Fe) MG 07/19/2019 12:00:00 AM EDT active Ferrous Gluconate 324 (38 Fe) MG [facility] ([facility]) ferrous gluconate 324 MG Oral Tablet Ferrous Gluconate 324 (38 Fe) MG Ferrous Gluconate 324 (38 Fe) MG 07/19/2019 12:00:00 AM EDT active Ferrous Gluconate 324 (38 Fe) MG [facility] ([facility]) Cholecalciferol 1000 UNT Oral Tablet Vitamin D 25 MCG (1000 UT) Vitamin D 25 MCG (1000 UT) 07/19/2019 12:00:00 AM EDT active Vitamin D 25 MCG (1000 UT) [facility] ([facility]) Cholecalciferol 1000 UNT Oral Tablet Vitamin D 25 MCG (1000 UT) Vitamin D 25 MCG (1000 UT) 07/19/2019 12:00:00 AM EDT active 1 tablet with meal [facility] ([facility]) ferrous gluconate 324 MG Oral Tablet Ferrous Gluconate 324 (38 Fe) MG Ferrous Gluconate 324 (38 Fe) MG 07/19/2019 12:00:00 AM EDT active 1 tablet with water or juice between meals [facility] ([facility]) ferrous gluconate 324 MG Oral Tablet Ferrous Gluconate 324 (38 Fe) MG Ferrous Gluconate 324 (38 Fe) MG 07/19/2019 12:00:00 AM EDT active 1 tablet with water or juice between meals [facility] ([facility]) Cholecalciferol 1000 UNT Oral Tablet Vitamin D 25 MCG (1000 UT) Vitamin D 25 MCG (1000 UT) 07/19/2019 12:00:00 AM EDT active 1 tablet with meal [facility] ([facility]) ferrous gluconate 324 MG Oral Tablet Ferrous Gluconate 324 (38 Fe) MG Ferrous Gluconate 324 (38 Fe) MG 07/19/2019 12:00:00 AM EDT active Ferrous Gluconate 324 (38 Fe) MG [facility] ([facility]) ferrous gluconate 324 MG Oral Tablet Ferrous Gluconate 324 (38 Fe) MG Ferrous Gluconate 324 (38 Fe) MG 07/19/2019 12:00:00 AM EDT active Ferrous Gluconate 324 (38 Fe) MG eCW1 ([facility]) ferrous gluconate 324 MG Oral Tablet Ferrous Gluconate 324 (38 Fe) MG Ferrous Gluconate 324 (38 Fe) MG 07/19/2019 12:00:00 AM EDT active 1 tablet with water or juice between meals eCW1 ([facility]) 10 mg 07/12/2019 12:00:00 AM EDT tablet 30 TAKE FOUR TABLETS ONCE DAILY FOR 3 DAYS THEN TAKE THREE TABLETS FOR 3 DAYS THEN TAKE TWO TABLETS FOR 3 DAYS THEN TAKE ONE TABLET ONCE DAILY WITH FOOD TAKE FOUR TABLETS ONCE DAILY FOR 3 DAYS THEN TAKE THREE TABLETS FOR 3 DAYS THEN TAKE TWO TABLETS FOR 3 DAYS THEN TAKE ONE TABLET ONCE DAILY WITH FOOD SOLD: 07/19/2019 [facility] ropinirole 1 MG Oral Tablet Ropinirole HCl 1 MG Ropinirole H Cl 1 MG 06/28/2019 12:00:00 AM EST active Ropiniro le HCl 1 MG eCW1 ([facility]) 1 mg 06/28/2019 12:00:00 AM EST tablet 30 TAKE 1 TABLET BY MOUTH 1-3 HOURS BEFORE BEDTIME TAKE 1 TABLET BY MOUTH 1-3 HOURS BEFORE BEDTIME SOLD: 2019 [facility] ropinirole 1 MG Oral Tablet Ropinirole HCl 1 MG Ropinirole H Cl 1 MG 06/28/2019 12:00:00 AM EST active Ropiniro le HCl 1 MG eCW1 ([facility]) ropinirole 1 MG Oral Tablet Ropinirole HCl 1 MG Ropinirole H Cl 1 MG 06/28/2019 12:00:00 AM EST active Ropiniro le HCl 1 MG eCW1 ([facility]) ropinirole 1 MG Oral Tablet Ropinirole HCl 1 MG Ropinirole H Cl 1 MG 06/28/2019 12:00:00 AM EST active Ropiniro le HCl 1 MG eCW1 ([facility]) ropinirole 1 MG Oral Tablet Ropinirole HCl 1 MG Ropinirole H Cl 1 MG 06/28/2019 12:00:00 AM EST active 1 tablet 1 to 3 hours before bedtime eCW1 ([facility]) ropinirole 1 MG Oral Tablet Ropinirole HCl 1 MG Ropinirole H Cl 1 MG 06/28/2019 12:00:00 AM EST suspended Ropin irole HCl 1 MG eCW1 ([facility]) ropinirole 1 MG Oral Tablet Ropinirole HCl 1 MG Ropinirole H Cl 1 MG 06/28/2019 12:00:00 AM EST active Ropiniro le HCl 1 MG eCW1 ([facility]) ropinirole 1 MG Oral Tablet Ropinirole HCl 1 MG Ropinirole H Cl 1 MG 06/28/2019 12:00:00 AM EST active 1 tablet 1 to 3 hours before bedtime eCW1 ([facility]) Levofloxacin 750 MG Oral Tablet Levofloxacin 750 MG 06/28/2019 1 2:00:00 AM EST active 1 tablet eCW1 ([facility]) ropinirole 1 MG Oral Tablet Ropinirole HCl 1 MG Ropinirole H Cl 1 MG 06/28/2019 12:00:00 AM EST active Ropiniro le HCl 1 MG eCW1 ([facility]) ropinirole 1 MG Oral Tablet Ropinirole HCl 1 MG Ropinirole H Cl 1 MG 06/28/2019 12:00:00 AM EST suspended Ropin irole HCl 1 MG eCW1 ([facility]) ropinirole 1 MG Oral Tablet Ropinirole HCl 1 MG Ropinirole H Cl 1 MG 06/28/2019 12:00:00 AM EST active Ropiniro le HCl 1 MG eCW1 ([facility]) ropinirole 1 MG Oral Tablet Ropinirole HCl 1 MG Ropinirole H Cl 1 MG 06/28/2019 12:00:00 AM EST suspended Ropin irole HCl 1 MG eCW1 ([facility]) ropinirole 1 MG Oral Tablet Ropinirole HCl 1 MG Ropinirole H Cl 1 MG 06/28/2019 12:00:00 AM EST suspended 1 tab let 1 to 3 hours before bedtime eCW1 ([facility]) ropinirole 1 MG Oral Tablet Ropinirole HCl 1 MG Ropinirole H Cl 1 MG 06/28/2019 12:00:00 AM EST active 1 tablet 1 to 3 hours before bedtime eCW1 ([facility]) ropinirole 1 MG Oral Tablet Ropinirole HCl 1 MG Ropinirole H Cl 1 MG 06/28/2019 12:00:00 AM EST active Ropiniro le HCl 1 MG eCW1 ([facility]) 750 mg 06/28/2019 12:00:00 AM EST tablet 10 TAKE ONE TABLET BY MOUTH EVERY DAY TAKE ONE TABLET BY MOUTH EVERY DAY SOLD: 06/28/2019 [facility] ropinirole 1 MG Oral Tablet Ropinirole HCl 1 MG Ropinirole H Cl 1 MG 06/28/2019 12:00:00 AM EST suspended Ropin irole HCl 1 MG eCW1 ([facility]) ropinirole 1 MG Oral Tablet Ropinirole HCl 1 MG Ropinirole H Cl 1 MG 06/28/2019 12:00:00 AM EST suspended Ropin irole HCl 1 MG eCW1 ([facility]) ropinirole 1 MG Oral Tablet Ropinirole HCl 1 MG Ropinirole H Cl 1 MG 06/28/2019 12:00:00 AM EST suspended Ropin irole HCl 1 MG eCW1 ([facility]) ropinirole 1 MG Oral Tablet Ropinirole HCl 1 MG Ropinirole H Cl 1 MG 06/28/2019 12:00:00 AM EST active Ropiniro le HCl 1 MG eCW1 ([facility]) ropinirole 1 MG Oral Tablet Ropinirole HCl 1 MG Ropinirole H Cl 1 MG 06/28/2019 12:00:00 AM EST active 1 tablet 1 to 3 hours before bedtime eCW1 ([facility]) ropinirole 1 MG Oral Tablet Ropinirole HCl 1 MG Ropinirole H Cl 1 MG 06/28/2019 12:00:00 AM EST active 1 tablet 1 to 3 hours before bedtime eCW1 ([facility]) ropinirole 1 MG Oral Tablet Ropinirole HCl 1 MG Ropinirole H Cl 1 MG 06/28/2019 12:00:00 AM EST active Ropiniro le HCl 1 MG eCW1 ([facility]) 70 mg 06/01/2019 12:00:00 AM EST tablet 4 TAKE ONE TABLET BY MOUTH ONCE WEEKLY TAKE ONE TABLET BY MOUTH ONCE WEEKLY SOLD: 06/01/2019 [facility] 70 mg 06/01/2019 12:00:00 AM EST tablet 4 TAKE ONE TABLET BY MOUTH ONCE WEEKLY TAKE ONE TABLET BY MOUTH ONCE WEEKLY SOLD: 08/23/2019 [facility] 70 mg 06/01/2019 12:00:00 AM EST tablet 4 TAKE ONE TABLET BY MOUTH ONCE WEEKLY TAKE ONE TABLET BY MOUTH ONCE WEEKLY SOLD: 07/10/2019 [facility] 70 mg 06/01/2019 12:00:00 AM EST tablet 4 TAKE ONE TABLET BY MOUTH ONCE WEEKLY TAKE ONE TABLET BY MOUTH ONCE WEEKLY SOLD: 12/20/2019 [facility] 70 mg 06/01/2019 12:00:00 AM EST tablet 4 TAKE ONE TABLET BY MOUTH ONCE WEEKLY TAKE ONE TABLET BY MOUTH ONCE WEEKLY SOLD: 11/10/2019 [facility] 70 mg 06/01/2019 12:00:00 AM EST tablet 4 TAKE ONE TABLET BY MOUTH ONCE WEEKLY TAKE ONE TABLET BY MOUTH ONCE WEEKLY SOLD: 09/18/2019 [facility] 10 mg 05/31/2019 12:00:00 AM EST tablet 30 TAKE FOUR TABLETS BY MOUTH ONCE DAILY FOR 3 DAYS, THEN TAKE THREE TABLETS EVERY DAY FOR 3 DAYS, THE TAKE TWO TABLETS EVERY DAY FOR 3 DAYS, THEN TAKE ONE TABLET DAILY TAKE FOUR TABLETS BY MOUTH ONCE DAILY FOR 3 DAYS, THEN TAKE THREE TABLETS EVERY DAY FOR 3 DAYS, THE TAKE TWO TABLETS EVERY DAY FOR 3 DAYS, THEN TAKE ONE TABLET DAILY SOLD: 06/01/2019 [facility] Prednisone 10 MG Oral Tablet PredniSONE 10 MG PredniSONE 10 MG 05/31/2019 12:00:00 AM EST active 4 tabs x 3 days, then 3 tabs x 3 days, then 2 tabs x 3 days, then 1 tab eCW1 ([facility]) doxycycline hyclate 100 MG Oral Capsule Doxycycline Hy clate 100 MG Doxycycline Hyclate 100 MG 05/31/2019 12:00:00 AM EST active 1 capsule eCW1 ([facility]) 100 mg 05/31/2019 12:00:00 AM EST capsule 20 TAKE ONE CAPSULE BY MOUTH TWICE A DAY FOR 10 DAYS TAKE ONE CAPSULE BY MOUTH TWICE A DAY FOR 10 DAYS SOLD : 06/01/2019 [facility] ropinirole 0.5 MG Oral Tablet Ropinirole HCl 0.5 MG Ropiniro le HCl 0.5 MG 03/30/2019 12:00:00 AM EST active 1/2 tablet x 4 days, then 1 tab, 1 to 3 hours before bedtime eCW1 ([facility]) 0.5 mg 03/30/2019 12:00:00 AM EST tablet 30 TAKE 1/2 TABLET BY MOUTH ONCE DAILY FOR 4 DAYS, THEN TAKE 1 TABLET ONCE DAILY 1-3 HOURS BEFORE BEDTIME TAKE 1/2 TABLET BY MOUTH ONCE DAILY FOR 4 DAYS, THEN TAKE 1 TABLET ONCE DAILY 1-3 HOURS BEFORE BEDTIME SOLD: 03/30/2019 [facility] ropinirole 0.5 MG Oral Tablet Ropinirole HCl 0.5 MG Ropiniro le HCl 0.5 MG 03/30/2019 12:00:00 AM EST active 1 tablet eCW1 ([facility]) 40 mg 03/30/2019 12:00:00 AM EST capsule,delayed release (DR/EC) 30 TAKE ONE CAPSULE BY MOUTH EVERY MORNING 30 MINUTES BEFORE MORNING MEAL TAKE ONE CAPSULE BY MOUTH EVERY MORNING 30 MINUTES BEFORE MORNING MEAL SOLD: 03/30/2019 [facility] 40 mg 03/30/2019 12:00:00 AM EST capsule,delayed release (DR/EC) 30 TAKE ONE CAPSULE BY MOUTH EVERY MORNING 30 MINUTES BEFORE MORNING MEAL TAKE ONE CAPSULE BY MOUTH EVERY MORNING 30 MINUTES BEFORE MORNING MEAL SOLD: 12/27/2019 [facility] 70 mg 03/13/2019 12:00:00 AM EST tablet 4 TAKE ONE TABLET BY MOUTH ONCE WEEKLY TAKE ONE TABLET BY MOUTH ONCE WEEKLY SOLD: 05/08/2019 [facility] 70 mg 03/13/2019 12:00:00 AM EST tablet 4 TAKE ONE TABLET BY MOUTH ONCE WEEKLY TAKE ONE TABLET BY MOUTH ONCE WEEKLY SOLD: 03/13/2019 [facility] 70 mg 03/13/2019 12:00:00 AM EST tablet 4 TAKE ONE TABLET BY MOUTH ONCE WEEKLY TAKE ONE TABLET BY MOUTH ONCE WEEKLY SOLD: 04/10/2019 [facility] Insurance Providers Payer name Policy type / Coverage type Policy ID Covered alliance party ID Covered alliance party's relationship to lawrence Policy Lawrence Plan Information EMEDNY [id number] SP [id number] [facility] [id number] SP [id number] HUMANA GOLD O [id number] S [id number] MEDICAID M [id number] S [id number] UHC UNITED MEDICARE DUAL G [id number] Self [id number] MEDICAID M [id number] Self [id number] MEDICARE A [id number] Self [id number] HUMANA GOLD [id number] SP [id number] [facility] MCRHMO [id number] SP [id number] HUMANA GOLD [id number] SP [id number] HUMANA HMO [id number] SP [id number] MEDICARE [id number] SP [id number] HUMANA GOLD O [id number] S [id number] HUMANA HMO [id number] SP [id number] [facility](MCAID) O [id number] S [id number] MEDICAID [id number] SP [id number] MEDICARE [id number] SP [id number] [facility] MCRO [id number] SP [id number] ANSI-Medicare Part B [id number] ANSI-Medicaid [id number] ANSI-Not a Secondary Insurance [id number] ANSI-Not a Secondary Insurance [id number] ANSI-Medicare Part B [id number] ANSI-Medicaid [id number] ANSI-Medicare Part B [id number] ANSI-Not a Secondary Insurance [id number] ANSI-Medicaid [id number] ANSI-Medicare Part B [id number] ANSI-Not a Secondary Insurance [id number] ANSI-Medicaid [id number] Aarp Medigap Part B [id number] Self [id number] [place] Medicare Primary [id number] Self [id number] [place] Medicare Primary [id number] Self [id number] Dual Complete Commercial [id number] Self [id number] ANSI-Medicare Part B [id number] ANSI-Not a Secondary Insurance [id number] ANSI-Medicaid [id number] ANSI-Not a Secondary Insurance [id number] ANSI-Medicaid [id number] ANSI-Medicare Part B [id number] ANSI-Medicaid [id number] ANSI-Not a Secondary Insurance [id number] ANSI-Medicare Part B [id number] MEDICAID [id number] SP [id number] ANSI-Medicare Part B [id number] ANSI-Not a Secondary Insurance [id number] ANSI-Medicare Part B [id number] ANSI-Not a Secondary Insurance [id number] ANSI-Not a Secondary Insurance [id number] ANSI-Medicare Part B [id number] ANSI-Medicare Part B [id number] ANSI-Not a Secondary Insurance [id number] MEDICARE [id number] SP [id number] MEDICARE [id number] SP [id number] [id number] [facility] O [id number] S [id number] Aarp Medigap Part B [id number] Self [id number] Medicare [place]state/NGS Medicare Primary [id number] Self [id number] Medicare [place] Medicare Primary [id number] Self [id number] Aarp Medigap Part B [id number] Self [id number] Medicare [place] Medicare Primary [id number] Self [id number] Medicare [place] Medicare Primary [id number] Self [id number] ANSI-Medicare Part B [id number] MEDICARE [id number] SP [id number] A [employer]arp Medigap Part B [id number] Self [id number] Medicare [place] Medicare Primary [id number] Self [id number] ANSI-Medicare Part B [id number] Aarp Medigap Part B [id number] Self [id number] Medicare [place] Medicare Primary [id number] Self [id number] ANSI-Medicare Part B [id number] ANSI-Medicare Part B [id number] ANS-Medicare Part B [id number] Aarp Medigap Part B [id number] Self [id number] Medicare [place] Medicare Primary [id number] Self [id number] Aarp Medigap Part B [id number] Self [id number] Medicare [place] Medicare Primary [id number] Self [id number] MEDICARE A [id number] Self [id number] [employer] Medigap Part B [id number] Self [id number] Medicare [place] Medicare Primary [id number] Self [id number] Aarp Medigap Part B [id number] Self [id number] Medicare [place] Medicare Primary [id number] Self [id number] A[employer] Medigap Part B [id number] Self [id number] Medicare [place] Medicare Primary [id number] Self [id number] MEDICARE [id number] SP [id number] A AARP U [id number] Self [id number] [employer] Medigap Part B [id number] Self [id number] Medicare [place] Medicare Primary [id number] Self [id number] MEDICARE [id number] SP [id number] A [employer] Medigap Part B Self Medicare [place] Medicare Primary Self MEDICARE C [id number] S [id number] A AARP HE[employer] CARE OPTIONS [id number] SP [id number] AARP U [id number] Self [id number] AARP S [id number] S [id number] MEDICARE P [id number] S [id number] A MEDICARE [id number] SP [id number] A AARP O [id number] S [id number] MEDICARE OUTPATIENT M [id number] S [id number] Problems, Conditions, and Diagnoses Code Display Name Description Problem Type Effective Dates Data Source(s) 39028191 Sequela of infection caused by Mycobacte rium Sequela of infection caused by Mycobacterium Problem 11/28/2019 12:00:00 AM EDT [facility], ) [id number] Abnormal findings on diagnostic imaging of lung Abnormal findings on diagnostic imaging of lung Problem 08/15/2019 12:00:00 AM EDT [facility] ([facility]) [id number] Sequela of infection caused by Mycobacte rium Sequela of infection caused by Mycobacterium Problem 08/15/2019 12:00:00 AM EDT [facility] ([facility]) 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 12:00:00 AM EDT eCW1 ([facility]) J85.0 9502941 Necrotic pneumonia Problem 08/01/2019 12:00: 00 AM EDT eCW1 ([facility]) G47.33 17016481 Obstructive sleep apnea Problem 08/01/2019 1 2:00:00 AM EDT eCW1 ([facility]) J47.0 70431306 Bronchiectasis with acute lower respirato ry infection Problem 08/01/2019 12:00:00 AM EDT eCW1 ([facility]) A31.9 705180730 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 12:00:00 AM EDT eCW1 ([facility]) J85.0 1281802 Necrotic pneumonia Problem 08/01/2019 12:00: 00 AM EDT eCW1 ([facility]) G47.33 74080909 Obstructive sleep apnea Problem 08/01/2019 1 2:00:00 AM EDT eCW1 ([facility]) J47.0 20876714 Bronchiectasis with acute lower respirato ry infection Problem 08/01/2019 12:00:00 AM EDT eCW1 ([facility]) E88.09 762309769 Hypoalbuminemia Problem 07/25/2019 12:00:00 AM EDT eCW1 ([facility]) D64.9 022653793 Anemia, unspecified type Problem 07/25/2019 12:00:00 AM EDT eCW1 ([facility]) E88.09 [id number] Other disorders of p lasma-protein metabolism, not elsewhere classified Problem 07/25/2019 12:00:00 AM EDT eCW1 ([facility]) R64 963033728 Cachexia Problem 07/25/2019 12:00:00 AM ED T eCW1 ([facility]) D64.9 127018705 Anemia, unspecified type Problem 07/25/2019 12:00:00 AM EDT eCW1 ([facility]) E88.09 [id number] Other disorders of p lasma-protein metabolism, not elsewhere classified Problem 07/25/2019 12:00:00 AM EDT eCW1 ([facility]) R64 431776505 Cachexia Problem 07/25/2019 12:00:00 AM ED T eCW1 ([facility]) J44.1 [id number] COPD with exacerbation Problem 07/12/2019 12 :00:00 AM EDT eCW1 ([facility]) J44.1 [id number] COPD with exacerbation Problem 07/12/2019 12 :00:00 AM EDT eCW1 ([facility]) Z87.115 [id number] Former smoker Problem 05/31/2019 12:00:00 AM EST eCW1 ([facility]) Z87.627 [id number] Former smoker Problem 05/31/2019 12:00:00 AM EST eCW1 ([facility]) R09.02 [id number] Oxygen desaturation Problem 03/30/2019 12:00 :00 AM EST eCW1 ([facility]) R09.02 [id number] Oxygen desaturation Problem 03/30/2019 12:00 :00 AM EST eCW1 ([facility]) fol fol Diagnosis 05/02/2019 09:53:51 AM [facility] Surgeries/Procedures Procedure Description Date Indications Data Source(s) XTRNL PT ACTIVATED ECG RECORD MONITOR 30 DAYS 05/02/19 12:00:00 AM EST eCW1 ([facility]) Spirometry 03/20/2020 12:00:00 AM EST M EDENT ([facility], ) Maximum Breathing Capacity, Maximal Voluntary Ventilation 03/20/2020 12:00:00 AM EST MEDENT ([facility]) Plethysmography Determination Lung Volumes & Per Airway Resi st 03/20/2020 12:00:00 AM EST MEDENT ([facility]) DIFFUSING CAPACITY 03/20/2020 12:00:00 AM EST MEDENT ([facility]) Immunization: Boostrix 0.5mL IM (TDAP) 02/22/2020 12:0 0:00 AM EDT eCW1 ([facility]) Bronchospasm Evaluation 11/20/2019 12:00:00 AM EDT MEDENT ([facility]) Maximum Breathing Capacity, Maximal Voluntary Ventilation 11/20/2019 12:00:00 AM EDT [facility] ([facility]) Plethysmography Determination Lung Volumes & Per Airway Resi st 11/20/2019 12:00:00 AM EDT MEDENT ([facility] ) DIFFUSING CAPACITY 11/20/2019 12:00:00 AM EDT MEDENT ([facility]) Remove Impacted Cerumen 11/06/2019 12:00:00 AM EDT MEDENT ([facility]) TeleMedicine Est. Pt. Level 3 08/01/2019 12:00:00 AM E DT eCW1 ([facility]) TRANS CARE MGMT 7 DAY DISCH 07/25/2019 12:00:00 AM EDT eCW1 ([facility]) Office Visit, Est Pt., Level 2 FC 07/12/2019 12:00:00 AM EDT eCW1 ([facility]) Office Visit, Est Pt., Level 4 PC 07/12/2019 12:00:00 AM EDT eCW1 ([facility]) Influenza immunization administered or previously received 05/31/2019 12:00:00 AM EST eCW1 ([facility]) VASC LAB US DOPPLER AORTA/ILEOFEMORAL COMP VASC LAB U S DOPPLER AORTA/ILEOFEMORAL COMP Routine 05/02/2019 9:24 AM EST PAD (peripheral artery disease) 05/02/2019 02:24:58 PM EST P AD (peripheral artery disease) [facility] PAD (peripheral artery disease) Binocular Microscopy 04/25/2019 12:00:00 AM EST LORETA ([facility], ) Office Visit, Est Pt., Level 3 FC 03/30/2019 12:00:00 AM EST eCW1 ([facility]) RIV4 VACC RECOMBINANT DNA IM 03/30/2019 12:00:00 AM ES T eCW1 ([facility]) Administration of influenza virus vaccine 03/30/2019 1 2:00:00 AM EST eCW1 ([facility]) Results ID Date Data Source [id number] 05/05/2020 09:00:00 AM EST [facility] Name Value Range Interpretation Code Description Data Lety rce(s) Supporting Document(s) SARS coronavirus 2 RNA Not Detected [facility] [place] This lab was ordered by [facility] and reported by [facility]. ID Date Data Source [facility] Pelvis non-OB COMPLETE US 02/08/2020 12:28:59 PM EDT eC W1 ([facility]) Name Value Range Interpretation Code Description Data Lety rce(s) Supporting Document(s) [facility] Pelvis non-OB COMPLETE US eCW1 ([facility]) ID Date Data Source [facility] Vishal Screening Bilateral (Ultrasound if Indicated ) (3D Mammo) 02/05/2020 11:36:39 AM EDT eCW1 ([facility]) Name Value Range Interpretation Code Description Data Lety rce(s) Supporting Document(s) [facility] Vishal Screening Bilat eral (Ultrasound if Indicated) (3D Mammo) eCW1 ([facility]) ID Date Data Source [id number] 12/18/2019 02:06:00 PM EDT [facility] Name Value Range Interpretation Code Description Data Lety rce(s) Supporting Document(s) Amikacin Trough, Serum 1.0-8.0 Below low normal [facility] Verified by repeat analysis Detection Limit = 0.8 <0.8 indicates None Detected ID Date Data Source [id number] 12/07/2019 03:05:00 PM EDT [facility] Name Value Range Interpretation Code Description Data Lety rce(s) Supporting Document(s) Amikacin Trough, Serum 1.0-8.0 Below low normal [facility] Verified by repeat analysis Detection Limit = 0.8 <0.8 indicates None Detected ID Date Data Source [id number] 11/29/2019 02:06:00 PM EDT [facility] Name Value Range Interpretation Code Description Data Lety rce(s) Supporting Document(s) Amikacin Trough, Serum 1.0-8.0 Below low normal [facility] Verified by repeat analysis Detection Limit = 0.8 <0.8 indicates None Detected ID Date Data Source [id number] 11/20/2019 11:52:00 PM EDT [facility] Name Value Range Interpretation Code Description Data Lety rce(s) Supporting Document(s) Urea nitrogen [Mass/volume] in Serum or Plasma 14 mg/dL 9-23 [facility] Sodium [Moles/volume] in Serum or Plasma 141 mmol/L 132-146 [facility] Potassium [Moles/volume] in Serum or Plasma 4.1 mmol/L 3.5-5.5 [facility] Chloride [Moles/volume] in Serum or Plasma 106 mmol/L 99-109 [facility] Carbon dioxide, total [Moles/volume] in Serum or Plasma 29 mmol/L 20 -31 [facility] Anion gap in Serum or Plasma 10 mmol/L 8-16 [facility] Glucose [Mass/volume] in Serum or Plasma 94 mg/dL 74-106 [facility] Creatinine 0.6 mg/dL 0.5-1.1 [facility] Glomerular filtration rate/1.73 sq M.pre dicted [Volume Rate/Area] in Serum or Plasma Greater Than 60 ABOVE 60 [facility] Alanine aminotransferase [Enzymatic acti vity/volume] in Serum or Plasma by With P-5'-P 18 U/L 10-49 [facility] ital Aspartate aminotransferase [Enzymatic ac tivity/volume] in Serum or Plasma by With P-5'-P 21 U/L 0-[facility] Alkaline phosphatase [Enzymatic activity/volume] in Serum or Plasma 77 U/L 45-129 [facility] Calcium [Mass/volume] in Serum or Plasma 8.6 mg/dL 8.5-10.1 [facility] Bilirubin.total [Mass/volume] in Serum or Plasma 0.3 mg/dL 0.3-1.2 [facility] Albumin [Mass/volume] in Serum or Plasma by Bromocresol purple (BCP) dye binding method 2.9 g/dL 3.2-4.8 Below low normal [facility] Protein [Mass/volume] in Serum or Plasma 6.3 g/dL 5.7-8.2 [facility] ID Date Data Source [id number] 11/20/2019 11:52:00 PM EDT [facility] Name Value Range Interpretation Code Description Data Lety rce(s) Supporting Document(s) C reactive protein [Mass/volume] in Serum or Plasma 15.6 mg/L 0.0-5.0 Above high normal [facility] ID Date Data Source [id number] 11/22/2019 08:07:00 AM EDT [facility] Name Value Range Interpretation Code Description Data Lety rce(s) Supporting Document(s) Amikacin Trough, Serum 1.0-8.0 Below low normal [facility] Verified by repeat analysis Detection Limit = 0.8 <0.8 indicates None Detected ID Date Data Source PT & APTT 08/02/2019 12:00:00 AM EDT eCW1 ([facility]) Name Value Range Interpretation Code Description Data Lety rce(s) Supporting Document(s) 31.8 25.0-38.4 PARTIAL THROMBOPLASTIN TI ME eCW1 ([facility]) 1.05 INR eCW1 ([facility]) 13.4 11.8-14.0 PROTHROMBIN TIME eCW1 ([facility]) ID Date Data Source CBC with Differential 08/02/2019 12:00:00 AM EDT eCW1 ([facility]) Name Value Range Interpretation Code Description Data Lety rce(s) Supporting Document(s) 4.20 4.00-5.40 RED BLOOD COUNT eCW1 ([facility]) 11.5 4.0-10.0 WHITE BLOOD COUNT eCW1 ([facility]) 11.2 12.0-15.5 HEMOGLOBIN eCW1 ([facility]) 26.7 27.0-33.0 MEAN CORPUSCULAR HEMOGLOB IN eCW1 ([facility]) 86.2 80.0-96.0 MEAN CORPUSCULAR VOLUME e CW1 ([facility]) 30.9 32.0-36.5 MEAN CORPUSCULAR HGB CONC eCW1 ([facility]) 36.2 36.0-47.0 HEMATOCRIT eCW1 ([facility]) 8.8 0.0-5.0 MONO % eCW1 ([facility]) 16.4 24.0-44.0 LYMPH % eCW1 ([facility]) 70.0 36.0-66.0 NEUTROPHILS % eCW1 ([facility]) 235 150-450 PLATELET COUNT, AUTOMATED eCW1 ([facility]) 15.9 11.5-14.5 RED CELL DISTRIBUTION WID TH eCW1 ([facility]) 8.0 1.5-8.5 NEUTROPHILS # eCW1 ([facility]) 3.7 0.0-3.0 EOS % eCW1 ([facility]) 1.9 1.5-5.0 LYMPH # eCW1 ([facility]) 0.3 0.0-1.0 BASO % eCW1 ([facility]) 0.4 0.0-0.5 EOS # eCW1 ([facility]) 0.0 0.0-0.2 BASO # eCW1 ([facility]) 1.0 0.0-0.8 MONO # eCW1 ([facility]) ID Date Data Source [id number] 07/13/2019 12:04:00 AM EDT [facility] Name Value Range Interpretation Code Description Data Lety rce(s) Supporting Document(s) SARS CORONAVIRUS 2 RNA [facility] This lab was ordered by [facility] and reported by [facility]. ID Date Data Source RESPIRATORY PANEL 07/12/2019 12:00:00 AM EDT eCW1 ([facility]) Name Value Range Interpretation Code Description Data Lety rce(s) Supporting Document(s) This respiratory PCR panel detects Influenza A H1, H3 and RESPIRATORY PANEL eCW1 ([facility]) ID Date Data Source Basic Metabolic Profile (BMP) 07/12/2019 12:00:00 AM EDT eCW 1 ([facility]) Name Value Range Interpretation Code Description Data Lety rce(s) Supporting Document(s) > 60.0 >45 GLOMERULAR FILTRATION RATE eCW 1 ([facility]) 0.61 0.55-1.30 CREATININE FOR GFR eCW1 ([facility]) 84 70-100 GLUCOSE, FASTING eCW1 ([facility]) 13 7-18 BLOOD UREA NITROGEN eCW1 ([facility]) 30 21-32 CARBON DIOXIDE LEVEL eCW1 ([facility]) 4.7 3.5-5.1 POTASSIUM SERUM eCW1 ([facility]) 139 136-145 SODIUM LEVEL eCW1 ([facility]) 103 98-107 CHLORIDE LEVEL eCW1 ([facility]) 9.1 8.8-10.2 CALCIUM LEVEL eCW1 ([facility]) ID Date Data Source [id number] 05/05/2019 06:11:47 PM [facility] Name Value Range Interpretation Code Description Data Lety rce(s) Supporting Document(s) Progress Note [facility] QTLDPp9qLmEZIdBu24/XRMkiHCNip2QfYDtfCBh5AJdeUWQeE4EjZOE2uG2rNMD6WXoYViGvYtLkSRCd [facility] [file] AgICAgICAgICAgICAgICAgICAgICAgICAgICAgICAgICAgICAgICAgICAgICAgICAgICAgICAgICAgIC AgICAgICAgICAgICAgDQogICAgICAgICAgICAgICAg ICAgICAgICAgICAgICAgICAgICAgICAgICAgICAgICAgICAgICAgICAgICAgICAgICAgICAgICAgICAg ICAgICAgICAgICAgICAgICAgICAgICAgDQogICAgICAgICAgICAgICAgICAgICAgICAgICAgICAgICAg ICAgICAgICAgICAgICAgICAgICAgICAgICAgICAgIC AgICAgICAgICAgICAgICAgICAgICAgICAgICAgICAgICAgDQogICAgICAgICAgICAgICAgICAgICAgIC AgICAgICAgICAgICAgICAgICAgICAgICAgICAgICAgICAgICAgICAgICAgICAgICAgICAgICAgICAgIC AgICAgICAgICAgICAgICAgDQogICAgICAgICAgICAg ICAgICAgICAgICAgICAgICAgICAgICAgICAgICAgICAgICAgICAgICAgICAgICAgICAgICAgICAgICAg ICAgICAgICAgICAgICAgICAgICAgICAgICAgDQogICAgICAgICAgICAgICAgICAgICAgICAgICAgICAg ICAgICAgICAgICAgICAgICAgICAgICAgICAgICAgIC AgICAgICAgICAgICAgICAgICAgICAgICAgICAgICAgICAgICAgDQogICAgICAgICAgICAgICAgICAgIC AgICAgICAgICAgICAgICAgICAgICAgICAgICAgICAgICAgICAgICAgICAgICAgICAgICAgICAgICAgIC AgICAgICAgICAgICAgICAgICAgDQogICAgICAgICAg ICAgICAgICAgICAgICAgICAgICAgICAgICAgICAgICAgICAgICAgICAgICAgICAgICAgICAgICAgICAg ICAgICAgICAgICAgICAgICAgICAgICAgICAgICAgDQogICAgICAgICAgICAgICAgICAgICAgICAgICAg ICAgICAgICAgICAgICAgICAgICAgICAgICAgICAgIC AgICAgICAgICAgICAgICAgICAgICAgICAgICAgICAgICAgICAgICAgDQogICAgICAgICAgICAgICAgIC AgICAgICAgICAgICAgICAgICAgICAgICAgICAgICAgICAgICAgICAgICAgICAgICAgICAgICAgICAgIC PbHLFjFDBjDGBjFIVaAMAtYHXiJNJwPSc9R6xpPNDp CNUvNB3cCPb5Ql1+IJkYAgMmNYF7ylXezB7OEH4yt9KbRWsoIJAix9JdUGt0QJ1KAZArFUrgGX2YKLfc np7WHWQcBLPimRRZf0xhQcKhZAW8GBXhDijtGN8NWHNgV4eqooDeXBDfTYRGHY6GHaYoE5BgiR25CSDF Cj4+KBgfdxOzXnuIAvRxVPYaq6BmATx9SK5URMBwXj okm5HbGdMoTADWBXcpTE5UPGF6NEFfVFRzRb7RITCiM390saZjLA0LQq3HOmDuSX5xdx2WDsNqAFPsTd dPBsh8GKufSJ5IfMDgQGdUhx2vptHkdjAJe6WcpfKjzMVHuMEfSUOsWTitF38fqYRrbkVuNY7TQYB4WU KfYa6gQUYrRJJwEpL4KNPGAY0HCOEoPNThuHDhQSZv BKKSDE9JIOdyJMR6YYFtkeKhdBLyOOcdOQ0SRGKfbcImLvPiUSQFQCw+Nx6BIL6yk1JzKCssFSWhEB2w fv5GAHpPHmLvM8T8iVKyY9B9QKeaIv4QXMGhETXiDmDnSRXDPPlbAZ3QII7zyoW8IV3QjNMvTAGvHULm hKJdLMh3B77cuMThSGefFO8TIBJ+Amanda+He4FGTTxWH DyZNKjEuOoIUABSkJxS3LzC1GZu8MsM2YpTK55aIpgzgNsRGknAV1NJE4bXLAfCJGJTU1WwYSpgT9qxj SuXnRaDGYROtSdX62nwQYfIRAoSXUzIRTeDk3UDIJqR9CxmfCwuLrvlgYuQJKwSPNAZN3IOSdvdtLjdJ AusFsbOM67aJkzUC9QUi3HClKkSN1ils0LcCJmFh9H LKAgUB4NQKQuPSTrUIRnXCV0AEBbYxVaXYpdFVKkXFVkLKB7NCWrQLJgCU9DXjFmTUFtFBf9XWQtVKQs HXVvfs7LNBKaEMSiEHP5FFCnZYZlIXUmDDmdYPMhIZQrMYW8TJSvRWOeSF0QBxUwPLChAZTsWoytOBEd OIGpum1KKEDfJMSoKcGiWrKkNEJfGORrOFuxIVEuUJ N9CDfuCBJuIITrLR1KUdBxLYNjKUIxVOxnYFIfLWZijq5FKTGiAVUiCCI8YiHmZKKfXSZzOTrvLHWtOG H2IRT1VPDuIZHeZS8SSeZpZFRfPYG0EhhvIZUiPGUixy8TRVJxIKGnVFwfWVLqBKJpRHJdLBkkGSGgGL T0HsB3KFJlRQIrMM2SEaEfLPGqQCu6UDIyGQMdLCOx pg9UKKGnXSHxZpu8QPWsNRAtFARsKKflIOVtKJM3WGL7UOVtTKQxIV3SYzOrFJLaIBjwKFMaUZNeNAKx li6BRDDdQXByDANiJbOlKRNqHEKqIPyiCQXwKLM5OlVpLKWcLVEsNG0IMnMbKSHeYUj7YNpsHKOhNEUf gv1ULIIfZJVuRJdjVEJuEXXbHJYkDTqcHHBzKSSaIp UkHEDuVWEtXE6YThLkLAPeAbH4PLSdGHCrUFAsch4WPVUzJIHeHLB7XuAdEENlFPVyHIn6fkAmcSTyPR n9VY2SG4JuzeCuCyODCt5Cw103BRU6IAFjIu8HG1pmGf9xDPEdNTWLMz2ZRCt1ZMH0NMB5SwrxW6W5Z6 E4ZOJgZSKlBqKvJnF2NIL1YjE+EFm5FsVfFQYxR3Vp FgZlCgWwA4AsSXLpJHE5GPT2PgNeNn7vAXZPIn6+BNkskZZzfMcwTZYZBzTlPWNyTYwzVUFANd4Z ID Date Data Source VITAMIN D [id number] 03/30/2019 12:00:00 AM EST eCW1 ([facility]) Name Value Range Interpretation Code Description Data Lety rce(s) Supporting Document(s) 80.1 30.0-100.0 TOTAL 25(OH) VITAMIN D eC W1 ([facility]) ID Date Data Source FERRITIN 03/30/2019 12:00:00 AM EST eCW1 ([facility]) Name Value Range Interpretation Code Description Data Lety rce(s) Supporting Document(s) [id number] FERRITIN eCW1 ([facility]) ID Date Data Source CBC 03/30/2019 12:00:00 AM EST eCW1 ([facility]) Name Value Range Interpretation Code Description Data Lety rce(s) Supporting Document(s) 8.0 4.0-10.0 WHITE BLOOD COUNT eCW1 ([facility]) 4.24 4.00-5.40 RED BLOOD COUNT eCW1 ([facility]) 37.3 36.0-47.0 HEMATOCRIT eCW1 ([facility]) 88.0 80.0-96.0 MEAN CORPUSCULAR VOLUME e CW1 ([facility]) 11.4 12.0-15.5 HEMOGLOBIN eCW1 ([facility]) 30.6 32.0-36.5 MEAN CORPUSCULAR HGB CONC eCW1 ([facility]) 159 150-450 PLATELET COUNT, AUTOMATED eCW1 ([facility]) 13.1 11.5-14.5 RED CELL DISTRIBUTION WID TH eCW1 ([facility]) 26.9 27.0-33.0 MEAN CORPUSCULAR HEMOGLOB IN eCW1 ([facility]) Procedure Social History Code Duration Value Status Description Data Source(s ) Smoking 05/02/2020 12:00:00 AM EST Former Smoker completed Former Smoker eCW1 ([facility]) Smoking 03/20/2020 12:00:00 AM EST Patient is a former smoker completed Patient is a former smoker MEDENT ([facility] ) Smoking 03/19/2020 12:00:00 AM EST Former Smoker completed Former Smoker eCW1 ([facility]) Smoking 03/19/2020 12:00:00 AM EST Former Smoker completed Former Smoker eCW1 ([facility]) Smoking 03/19/2020 12:00:00 AM EST Former Smoker completed Former Smoker eCW1 ([facility]) Smoking 03/04/2020 12:00:00 AM EST Former Smoker completed Former Smoker eCW1 ([facility]) Smoking 03/04/2020 12:00:00 AM EST Former Smoker completed Former Smoker eCW1 ([facility]) Smoking 03/04/2020 12:00:00 AM EST Former Smoker completed Former Smoker eCW1 ([facility]) Smoking 02/22/2020 12:00:00 AM EDT Former Smoker completed Former Smoker eCW1 ([facility]) Smoking 01/31/2020 12:00:00 AM EDT Former Smoker completed Former Smoker eCW1 ([facility]) Smoking 01/31/2020 12:00:00 AM EDT Former Smoker completed Former Smoker eCW1 ([facility]) Smoking 10/19/2019 12:00:00 AM EDT Former Smoker completed Former Smoker eCW1 ([facility]) Smoking 10/19/2019 12:00:00 AM EDT Former Smoker completed Former Smoker eCW1 ([facility]) Smoking 10/19/2019 12:00:00 AM EDT Former Smoker completed Former Smoker eCW1 ([facility]) Smoking 10/10/2019 12:00:00 AM EDT Former Smoker completed Former Smoker eCW1 ([facility]) Smoking 10/10/2019 12:00:00 AM EDT Former Smoker completed Former Smoker eCW1 ([facility]) Alcohol intake 05/03/2019 12:00:00 AM EST Current non-d mingo of alcohol (finding) completed Current non-drinker of alcohol (finding) [facility] Cigarettes smoked current (pack per day) - Reported 05/03/19 12:00:00 AM EST UNK completed [facility] Smoking 05/03/2019 12:00:00 AM EST Former smoker completed Former smoker [facility] Alcohol intake 05/02/2019 12:00:00 AM EST Current non-d mingo of alcohol (finding) completed Current non-drinker of alcohol (finding) [facility] Cigarettes smoked current (pack per day) - Reported 01/07/20 20 12:00:00 AM EST UNK completed [facility] Smoking 05/02/2019 12:00:00 AM EST Former smoker completed Former smoker [facility] Vital Signs ID Date Data Source UNK Name Value Range Interpretation Code Description Data Source(s) Diastolic blood pressure 64 mm[Hg] 64 mm[Hg] eCW1 ([facility]) Systolic blood pressure 105 mm[Hg] 105 mm[Hg] e CW1 ([facility]) Body temperature 98.6 [degF] 98.6 [degF] eCW1 ( [facility]) Respiratory rate 18 /min 18 /min eCW1 ([facility]) Heart rate 78 /min 78 /min eCW1 ([facility]) Body mass index (BMI) [Ratio] 19.03 kg/m2 19.03 kg/m2 eCW1 ([facility]) Body height 63.75 [in_i] 63.75 [in_i] eCW1 ([facility]) Body weight 110 [lb_av] 110 [lb_av] eCW1 ([facility]) Body surface area Derived from formula 1.45 m2 1.45 m2 [facility] ([facility]) Body weight 45.360 kg 45.360 kg [facility] ([facility]) [place] body weight 115 [lb_av] 115 [lb_av] MEDEN T ([facility]) Body mass index (BMI) [Ratio] 17.4 kg/m2 17.4 k g/m2 [facility] Body weight 100.00 [lb_av] 100.00 [lb_av] MEDEN T ([facility]) Body height 63.5 [in_i] 63.5 [in_i] [facility] ([facility]) 5'3.50" Body mass index (BMI) [Ratio] 18.23 kg/m2 18.23 kg/m2 W1 ([facility]) Body height 63.75 [in_i] 63.75 [in_i] eCW1 ([facility]) Body weight 105.4 [lb_av] 105.4 [lb_av] eCW1 ([facility]) Body surface area Derived from formula 1.45 m2 1.45 m2 [facility] ([facility]) Body weight 45.360 kg 45.360 kg [facility] ([facility]) [place] body weight 115 [lb_av] 115 [lb_av] MEDEN T ([facility]) Body mass index (BMI) [Ratio] 17.4 kg/m2 17.4 k g/m2 [facility] ([facility]) Body weight 100.00 [lb_av] 100.00 [lb_av] MEDEN T ([facility]) Body height 63.5 [in_i] 63.5 [in_i] [facility] ([facility]) 5'3.50" Body temperature 96.7 [degF] 96.7 [degF] [facility] ([facility]) Oxygen saturation in Arterial blood by Pulse oximetry 95 % 95 % [facility] ([facility]) Heart rate 81 /min 81 /min [facility] Diastolic blood pressure 78 mm[Hg] 78 mm[Hg] [facility]) Systolic blood pressure 110 mm[Hg] 110 mm[Hg] [facility] Diastolic blood pressure 60 mm[Hg] 60 mm[Hg] eCW1 ([facility]) Systolic blood pressure 110 mm[Hg] 110 mm[Hg] e CW1 ([facility]) Body temperature 97 [degF] 97 [degF] eCW1 ([facility]) Respiratory rate 18 /min 18 /min eCW1 ([facility]) Heart rate 80 /min 80 /min eCW1 ([facility]) Body mass index (BMI) [Ratio] 18.16 kg/m2 18.16 kg/m2 W1 ([facility]) Body height 63.75 [in_i] 63.75 [in_i] eCW1 ([facility]) Body weight 105 [lb_av] 105 [lb_av] eCW1 ([facility]) Body surface area Derived from formula 1.47 m2 1.47 m2 [facility] ([facility]) Body weight 46.721 kg 46.721 kg [facility] ([facility]) [place] body weight 115 [lb_av] 115 [lb_av] MEDEN T ([facility]) Body mass index (BMI) [Ratio] 18.0 kg/m2 18.0 k g/m2 [facility] Body weight 103.00 [lb_av] 103.00 [lb_av] MEDEN T ([facility]) Body height 63.5 [in_i] 63.5 [in_i] [facility] ([facility]) 5'3.50" Diastolic blood pressure 72 mm[Hg] 72 mm[Hg] [facility] ([facility]) Systolic blood pressure 102 mm[Hg] 102 mm[Hg] M EDENT ([facility]) Diastolic blood pressure 68 mm[Hg] 68 mm[Hg] eCW1 ([facility]) Systolic blood pressure 104 mm[Hg] 104 mm[Hg] e CW1 ([facility]) Body temperature 97.2 [degF] 97.2 [degF] W1 ( [facility]) Respiratory rate 18 /min 18 /min eCW1 ([facility]) Heart rate 74 /min 74 /min eCW1 ([facility]) Body mass index (BMI) [Ratio] 18.16 kg/m2 18.16 kg/m2 eCW1 ([facility]) Body height 63.75 [in_i] 63.75 [in_i] eCW1 ([facility]) Body weight 105 [lb_av] 105 [lb_av] eCW1 ([facility]) Diastolic blood pressure 58 mm[Hg] 58 mm[Hg] eCW1 ([facility]) Systolic blood pressure 94 mm[Hg] 94 mm[Hg] e CW1 ([facility]) Body mass index (BMI) [Ratio] 17.68 kg/m2 17.68 kg/m2 eCW1 ([facility]) Body height 63.75 [in_i] 63.75 [in_i] eCW1 ([facility]) Body weight 102.2 [lb_av] 102.2 [lb_av] eCW1 ([facility]) Body weight 96.00 [lb_av] 96.00 [lb_av] MEDENT ([facility], ) Body height 63.5 [in_i] 63.5 [in_i] [facility] ([facility]) 5'3.50" Body weight 43.546 kg 43.546 kg [facility] ([facility]) Body mass index (BMI) [Ratio] 16.7 kg/m2 16.7 k g/m2 [facility] ([facility]) Diastolic blood pressure 68 mm[Hg] 68 mm[Hg] eCW1 ([facility]) Systolic blood pressure 108 mm[Hg] 108 mm[Hg] e CW1 ([facility]) Body temperature 98.5 [degF] 98.5 [degF] eCW1 ( [facility]) Respiratory rate 18 /min 18 /min eCW1 ([facility]) Heart rate 104 /min 104 /min eCW1 ([facility]) Body mass index (BMI) [Ratio] 16.64 kg/m2 16.64 kg/m2 eCW1 ([facility]) Body height 63.75 [in_i] 63.75 [in_i] eCW1 ([facility]) Body weight 96.2 [lb_av] 96.2 [lb_av] eCW1 ([facility]) Diastolic blood pressure 52 mm[Hg] 52 mm[Hg] eCW1 ([facility]) Systolic blood pressure 94 mm[Hg] 94 mm[Hg] e CW1 ([facility]) Body temperature 97.8 [degF] 97.8 [degF] eCW1 ( [facility]) Respiratory rate 18 /min 18 /min eCW1 ([facility]) Heart rate 102 /min 102 /min eCW1 ([facility]) Body mass index (BMI) [Ratio] 16.61 kg/m2 16.61 kg/m2 eCW1 ([facility]) Body height 63.75 [in_i] 63.75 [in_i] eCW1 ([facility]) Body weight 96 [lb_av] 96 [lb_av] eCW1 ([facility]) Diastolic blood pressure 60 mm[Hg] 60 mm[Hg] eCW1 ([facility]) Systolic blood pressure 114 mm[Hg] 114 mm[Hg] e CW1 ([facility]) Body temperature 97.6 [degF] 97.6 [degF] eCW1 ( [facility]) Respiratory rate 18 /min 18 /min eCW1 ([facility]) Heart rate 91 /min 91 /min eCW1 ([facility]) Body mass index (BMI) [Ratio] 16.78 kg/m2 16.78 kg/m2 eCW1 ([facility]) Body height 63.75 [in_us] 63.75 [in_us] eCW1 ([facility]) Body weight Measured 97 [lb_av] 97 [lb_av] eCW1 ([facility]) Body weight 43.546 kg 43.546 kg MEDENT ([facility], ) Body mass index (BMI) [Ratio] 16.7 kg/m2 16.7 k g/m2 MEDENT ([facility], ) Body weight 96.00 [lb_av] 96.00 [lb_av] MEDENT ([facility], ) Body height 63.5 [in_i] 63.5 [in_i] [facility], [facility] 5'3.50" Body temperature 96.4 [degF] 96.4 [degF] [facility] ([facility], ) Oxygen saturation in Arterial blood by Pulse oximetry 96 % 96 % [facility] ([facility], ) Heart rate 62 /min 62 /min MEDENT ([facility], ) Diastolic blood pressure 70 mm[Hg] 70 mm[Hg] MEDENT ([facility], ) Systolic blood pressure 110 mm[Hg] 110 mm[Hg] M EDENT ([facility], ) Diastolic blood pressure 68 mm[Hg] 68 mm[Hg] eCW1 ([facility]) Systolic blood pressure 110 mm[Hg] 110 mm[Hg] e CW1 ([facility]) Body temperature 98 [degF] 98 [degF] eCW1 ([facility]) Respiratory rate 20 /min 20 /min eCW1 ([facility]) Heart rate 90 /min 90 /min eCW1 ([facility]) Body mass index (BMI) [Ratio] 15.91 kg/m2 15.91 kg/m2 eCW1 ([facility]) Body height 63.75 [in_us] 63.75 [in_us] eCW1 ([facility]) Body weight Measured 92 [lb_av] 92 [lb_av] eCW1 ([facility]) Diastolic blood pressure 68 mm[Hg] 68 mm[Hg] eCW1 ([facility]) Systolic blood pressure 100 mm[Hg] 100 mm[Hg] e CW1 ([facility]) Body temperature 97.8 [degF] 97.8 [degF] eCW1 ( [facility]) Respiratory rate 18 /min 18 /min eCW1 ([facility]) Heart rate 98 /min 98 /min eCW1 ([facility]) Body mass index (BMI) [Ratio] 16.23 kg/m2 16.23 kg/m2 eCW1 ([facility]) Body height 63.75 [in_us] 63.75 [in_us] eCW1 ([facility]) Body weight Measured 93.8 [lb_av] 93.8 [lb_av] eCW1 ([facility]) Diastolic blood pressure 66 mm[Hg] 66 mm[Hg] eCW1 ([facility]) Systolic blood pressure 102 mm[Hg] 102 mm[Hg] e CW1 ([facility]) Body temperature 97.5 [degF] 97.5 [degF] eCW1 ( [facility]) Respiratory rate 18 /min 18 /min eCW1 ([facility]) Heart rate 102 /min 102 /min eCW1 ([facility]) Body mass index (BMI) [Ratio] 16.54 kg/m2 16.54 kg/m2 eCW1 ([facility]) Body height 63.75 [in_us] 63.75 [in_us] eCW1 ([facility]) Body weight Measured 95.6 [lb_av] 95.6 [lb_av] eCW1 ([facility]) Diastolic blood pressure 70 mm[Hg] 70 mm[Hg] eCW1 ([facility]) Systolic blood pressure 98 mm[Hg] 98 mm[Hg] e CW1 ([facility]) Body temperature 96.9 [degF] 96.9 [degF] eCW1 ( [facility]) Respiratory rate 20 /min 20 /min eCW1 ([facility]) Heart rate 60 /min 60 /min eCW1 ([facility]) Body mass index (BMI) [Ratio] 16.61 kg/m2 16.61 kg/m2 W1 ([facility]) Body height 63.75 [in_us] 63.75 [in_us] eCW1 ([facility]) Body weight Measured 96.0 [lb_av] 96.0 [lb_av] eCW1 ([facility]) Body weight 45.814 kg 45.814 kg MEDENT ([facility], ) Body mass index (BMI) [Ratio] 17.6 kg/m2 17.6 k g/m2 MEDENT ([facility], ) Body weight 101.00 [lb_av] 101.00 [lb_av] MEDEN T ([facility], ) Body height 63.5 [in_i] 63.5 [in_i] MEDENT ([facility], ) 5'3.50" Body weight 45.814 kg 45.814 kg MEDENT ([facility], ) Body mass index (BMI) [Ratio] 17.6 kg/m2 17.6 k g/m2 MEDENT ([facility]) Body weight 101.00 [lb_av] 101.00 [lb_av] MEDEN T ([facility]) Body height 63.5 [in_i] 63.5 [in_i] [facility] ([facility]) 5'3.50" Oxygen saturation in Arterial blood by Pulse oximetry 99 % 99 % [facility] Heart rate 72 /min 72 /min [facility] Diastolic blood pressure 80 mm[Hg] 80 mm[Hg] [facility]) Systolic blood pressure 120 mm[Hg] 120 mm[Hg] M EDENT ([facility]) Diastolic blood pressure 70 mm[Hg] 70 mm[Hg] eCW1 ([facility]) Systolic blood pressure 104 mm[Hg] 104 mm[Hg] e CW1 ([facility]) Body temperature 97.7 [degF] 97.7 [degF] eCW1 ( [facility]) Respiratory rate 20 /min 20 /min eCW1 ([facility]) Heart rate 68 /min 68 /min eCW1 ([facility]) Body mass index (BMI) [Ratio] 17.75 kg/m2 17.75 kg/m2 W1 ([facility]) Body height 63.75 [in_us] 63.75 [in_us] eCW1 ([facility]) Body weight Measured 102.6 [lb_av] 102.6 [lb_av ] eCW1 ([facility]) Body weight 46.721 kg 46.721 kg [facility], ) Body mass index (BMI) [Ratio] 18.0 kg/m2 18.0 k g/m2 [facility] ([facility]) Body weight 103.00 [lb_av] 103.00 [lb_av] MEDEN T ([facility], ) Body height 63.5 [in_i] 63.5 [in_i] MEDENT ([facility], ) 5'3.50" Oxygen saturation in Arterial blood by Pulse oximetry 98 % 98 % [facility] ([facility], ) Heart rate 59 /min 59 /min [facility] ([facility], ) Diastolic blood pressure 70 mm[Hg] 70 mm[Hg] [facility] ([facility], ) Systolic blood pressure 110 mm[Hg] 110 mm[Hg] [facility] Patient Treatment Plan of Care Planned Activity Planned Date Details Description Data Source (s) Famotidine 40 MG Oral Tablet 03/19/2020 12:00:00 AM EST eCW1 ([facility]) pantoprazole 40 MG Delayed Release Oral Tablet 03/19/2020 12:00:00 AM EST eCW1 ([facility]) Arikayce 590 mg/8.4 mL 02/22/2020 12:00:00 AM EDT eCW1 ([facility]) Arikayce 590 mg/8.4 mL 02/22/2020 12:00:00 AM EDT eCW1 ([facility]) Arikayce 590 mg/8.4 mL 02/22/2020 12:00:00 AM EDT eCW1 ([facility]) Arikayce 590 mg/8.4 mL 02/22/2020 12:00:00 AM EDT eCW1 ([facility]) Imipenem-Cilastatin 500 MG 11/07/2019 12:00:00 AM EDT eCW1 ([facility]) Amikacin Sulfate 500 MG/2ML 11/07/2019 12:00:00 AM EDT eCW1 ([facility]) Imipenem-Cilastatin 500 MG 11/07/2019 12:00:00 AM EDT eCW1 ([facility]) Amikacin Sulfate 500 MG/2ML 11/07/2019 12:00:00 AM EDT eCW1 ([facility]) Imipenem-Cilastatin 500 MG 11/07/2019 12:00:00 AM EDT eCW1 ([facility]) Amikacin Sulfate 500 MG/2ML 11/07/2019 12:00:00 AM EDT eCW1 ([facility]) Imipenem-Cilastatin 500 MG 11/07/2019 12:00:00 AM EDT eCW1 ([facility]) Amikacin Sulfate 500 MG/2ML 11/07/2019 12:00:00 AM EDT eCW1 ([facility]) Nuzyra 150 MG 10/19/2019 12:00:00 AM EDT eCW1 ([facility]) Nuzyra 150 MG 10/19/2019 12:00:00 AM EDT eCW1 ([facility]) Nuzyra 150 MG 10/19/2019 12:00:00 AM EDT eCW1 ([facility]) Amikacin Sulfate 500 MG/2ML 10/19/2019 12:00:00 AM EDT eCW1 ([facility]) Nuzyra 150 MG 10/19/2019 12:00:00 AM EDT eCW1 ([facility]) Nuzyra 150 MG 10/19/2019 12:00:00 AM EDT eCW1 ([facility]) Amikacin Sulfate 500 MG/2ML 10/19/2019 12:00:00 AM EDT eCW1 ([facility]) Nuzyra 150 MG 10/19/2019 12:00:00 AM EDT eCW1 ([facility]) Nuzyra 150 MG 10/19/2019 12:00:00 AM EDT eCW1 ([facility]) Amikacin Sulfate 500 MG/2ML 10/19/2019 12:00:00 AM EDT eCW1 ([facility]) Azithromycin 250 MG Oral Tablet 10/10/2019 12:00:00 AM EDT eCW1 ([facility]) Azithromycin 250 MG Oral Tablet 10/10/2019 12:00:00 AM EDT eCW1 ([facility]) ferrous gluconate 324 MG Oral Tablet 07/19/2019 12:00:00 AM EDT eCW1 ([facility]) Levofloxacin 750 MG Oral Tablet 06/28/2019 12:00:00 AM EST eCW1 ([facility]) ropinirole 1 MG Oral Tablet 06/28/2019 12:00:00 AM EST eCW1 ([facility]) Prednisone 10 MG Oral Tablet 05/31/2019 12:00:00 AM EST eCW1 ([facility]) doxycycline hyclate 100 MG Oral Capsule 05/31/2019 12:00:00 AM EST eCW1 ([facility]) ropinirole 0.5 MG Oral Tablet 03/30/2019 12:00:00 AM EST eCW1 ([facility])
[2020-05-10] MEDS ORDERED: IMIP1INJ IV (12:03)
[2020-05-10] MEDS ORDERED: [UNRECOGNIZED DRUG - CODE] IV (12:03)
--- NOTE | 2020-05-10 13:16 | ROOR ---
Patient Name: Shruthi Lock Procedure Date: 05/10/2020 12:51 PM Date of : 1955 Age: 64 Room: [facility]AC[facility] Gender: Female Note Status: Finalized Procedure: Upper GI endoscopy Indications: Oropharyngeal phase dysphagia, Dysphagia Providers: Mynor OMALLEY MD Referring MD: Rosio Carvajal NP Requesting Provider: Medicines: Monitored Anesthesia Care Complications: No immediate complications. Procedure: Pre-Anesthesia Assessment: - The heart rate, respiratory rate, oxygen saturations, blood pressure, adequacy of pulmonary ventilation, and response to care were monitored throughout the procedure. The Endoscope was introduced through the mouth, and advanced to the second part of duodenum. The upper GI endoscopy was accomplished without difficulty. The patient tolerated the procedure well. Findings: The cricopharyngeus was mildly tortuous. The examined esophagus was normal. No endoscopic abnormality was evident in the esophagus to explain the patient's complaint of dysphagia. It was decided, however, to proceed with dilation at the cricopharyngeus. The scope was withdrawn. Dilation was performed with a Kingston dilator with no resistance at 50 Fr. The dilation site was examined following endoscope reinsertion and showed no change. Estimated blood loss was minimal. The entire examined stomach was normal. The examined duodenum was normal. Impression: - Mildly tortuous proximal esophagus-r/o cricopharyngeal hypertrophy. - No definite endoscopic esophageal abnormality to explain patient's dysphagia. Esophagus dilated with 50 F Kingston dilator. - Normal stomach. - Normal examined duodenum. - No specimens collected. Recommendation: - Observe patient's clinical course. - I anticipate no further need for intervention. - Continue present medications. Procedure Code(s): --- Professional --- 88030, Esophagogastroduodenoscopy, flexible, transoral; diagnostic, including collection of specimen(s) by brushing or washing, when performed (separate procedure) 72147, Dilation of esophagus, by unguided sound or bougie, single or multiple passes Diagnosis Code(s): --- Professional --- R13.12, Dysphagia, oropharyngeal phase Q39.9, Congenital malformation of esophagus, unspecified CPT copyright 2019 [employer]. All rights reserved. The codes documented in this report are preliminary and upon supervisor customer services review may be revised to meet current compliance requirements. Mynor Omalley MD Mynor OMALLEY MD 05/10/2020 1:16:27 PM Electronically signed by Mynor OMALLEY MD Number of Addenda: 0 Note Initiated On: 05/10/2020 12:51 PM Estimated Blood Loss: Estimated blood loss: none.
[2020-05-10 13:40] VITALS: BP 122/72
== END 2020-05-10 13:41 | disposition home or self-care (01) ==
LOC: M OPP 11:20
PROVIDERS: ATTEND Internal Medicine Gastroenterology
DX: R13.12 Dysphagia, oropharyngeal phase (principal); Q39.9 Congenital malformation of esophagus, unspecified; R12 Heartburn; G40.909 Epilepsy, unspecified, not intractable, without status epilepticus; J44.9 Chronic obstructive pulmonary disease, unspecified; M19.90 Unspecified osteoarthritis, unspecified site; M81.0 Age-related osteoporosis without current pathological fracture; Z85.3 Personal history of malignant neoplasm of breast; Z92.21 Personal history of antineoplastic chemotherapy; Z92.3 Personal history of irradiation; Z87.891 Personal history of nicotine dependence; Z88.0 Allergy status to penicillin; Z79.82 Long term (current) use of aspirin; Z79.899 Other long term (current) drug therapy; Z82.49 Family history of ischemic heart disease and other diseases of the circulatory system
CPT/HCPCS: 43235; 43450; J3010

== ENCOUNTER → 2020-05-15 | Outpatient (REF) | payer MEDICARE, MEDICAID ==
[~2020-05-15] MED LIST changes: -GLYCOPYRROLATE INJ 0.2 MG/ML 2 ML VIAL As Ordered ONE; +IMIP1INJ IV; -LIDOCAINE 2% 100MG/5ML SDV (FOR ANES.) As Ordered ONE; -NS 1,000 ML IV ONE; +[UNRECOGNIZED DRUG - CODE] IV; -fentaNYL 100 MCG/2 ML INJECTION (J3010) As Ordered ONE; -propofoL 200 MG/20 ML VIAL As Ordered ONE
[2020-05-15 11:45] LABS: BASO % 0.5 % (0.0-1.0); EOS # 3.2 10^3/uL (0.0-0.5); LYMPH # 1.6 10^3/uL (1.5-5.0); LYMPH % 18.4 % (24.0-44.0); MEAN CORPUSCULAR HEMOGLOBIN 28.4 pg (27.0-33.0); MEAN CORPUSCULAR HGB CONC 32.4 g/dl (32.0-36.5); MEAN CORPUSCULAR VOLUME 87.7 fl (80.0-96.0); MONO # 0.6 10^3/uL (0.0-0.8); MONO % 6.4 % (0.0-5.0); NEUTROPHILS # 3.3 10^3/uL (1.5-8.5); NEUTROPHILS % 37.8 % (36.0-66.0); PLATELET COUNT, AUTOMATED 175 10^3/uL (150-450); RED BLOOD COUNT 4.22 10^6/uL (4.00-5.40); WHITE BLOOD COUNT 8.6 10^3/uL (4.0-10.0)
[2020-05-15 12:24] LABS: ALBUMIN 3.8 GM/DL (3.2-5.2); ALT/SGPT 26 U/L (12-78); BILIRUBIN,TOTAL 0.5 MG/DL (0.2-1.0); BLOOD UREA NITROGEN 12 MG/DL (7-18); CALCIUM LEVEL 9.5 MG/DL (8.8-10.2); CARBON DIOXIDE LEVEL 28 MEQ/L (21-32); CHLORIDE LEVEL 105 MEQ/L (98-107); CREATININE FOR GFR 0.68 MG/DL (0.55-1.30); GLOMERULAR FILTRATION RATE > 60.0 (>45); GLUCOSE, FASTING 101 MG/DL (70-100); POTASSIUM SERUM 4.4 MEQ/L (3.5-5.1); SODIUM LEVEL 139 MEQ/L (136-145); TOTAL PROTEIN 7.4 GM/DL (6.4-8.2)
[2020-05-15 12:30] LABS: EOS % 36.6 % (0.0-3.0)
[2020-05-15 12:55] LABS: ERYTHROCYTE SEDIMENTATION RATE 36 mm/hr (0-30)
== END ==
LOC: M LAB REF 10:59
PROVIDERS: ATTEND Internal Medicine Infectious Disease
DX: A31.9 Mycobacterial infection, unspecified (principal); J85.0 Gangrene and necrosis of lung; G47.33 Obstructive sleep apnea (adult) (pediatric); J47.0 Bronchiectasis with acute lower respiratory infection

== ENCOUNTER → 2020-05-27 | Outpatient (REF) | payer MEDICARE, MEDICAID ==
[2020-05-27 11:29] LABS: BASO # 0.1 10^3/uL (0.0-0.2); BASO % 0.6 % (0.0-1.0); EOS # 3.3 10^3/uL (0.0-0.5); HEMATOCRIT 37.8 % (36.0-47.0); HEMOGLOBIN 11.9 g/dl (12.0-15.5); LYMPH # 1.5 10^3/uL (1.5-5.0); LYMPH % 15.9 % (24.0-44.0); MEAN CORPUSCULAR HEMOGLOBIN 27.8 pg (27.0-33.0); MEAN CORPUSCULAR HGB CONC 31.5 g/dl (32.0-36.5); MEAN CORPUSCULAR VOLUME 88.3 fl (80.0-96.0); MONO # 0.6 10^3/uL (0.0-0.8); MONO % 6.1 % (0.0-5.0); NEUTROPHILS # 4.1 10^3/uL (1.5-8.5); NEUTROPHILS % 42.3 % (36.0-66.0); PLATELET COUNT, AUTOMATED 174 10^3/uL (150-450); RED BLOOD COUNT 4.28 10^6/uL (4.00-5.40); WHITE BLOOD COUNT 9.6 10^3/uL (4.0-10.0)
[2020-05-27 11:56] LABS: ERYTHROCYTE SEDIMENTATION RATE 35 mm/hr (0-30)
[2020-05-27 11:57] LABS: EOS % 34.7 % (0.0-3.0)
[2020-05-27 12:18] LABS: ALBUMIN 3.7 GM/DL (3.2-5.2); ALT/SGPT 28 U/L (12-78); BILIRUBIN,TOTAL 0.3 MG/DL (0.2-1.0); BLOOD UREA NITROGEN 11 MG/DL (7-18); CALCIUM LEVEL 9.8 MG/DL (8.8-10.2); CARBON DIOXIDE LEVEL 28 MEQ/L (21-32); CHLORIDE LEVEL 103 MEQ/L (98-107); CREATININE FOR GFR 0.75 MG/DL (0.55-1.30); GLOMERULAR FILTRATION RATE > 60.0 (>45); GLUCOSE, FASTING 114 MG/DL (70-100); POTASSIUM SERUM 4.6 MEQ/L (3.5-5.1); SODIUM LEVEL 138 MEQ/L (136-145); TOTAL PROTEIN 7.2 GM/DL (6.4-8.2)
== END ==
LOC: M LAB REF 11:07
PROVIDERS: ATTEND Internal Medicine Infectious Disease
DX: A31.9 Mycobacterial infection, unspecified (principal); J85.0 Gangrene and necrosis of lung; G47.33 Obstructive sleep apnea (adult) (pediatric); J47.0 Bronchiectasis with acute lower respiratory infection

== ENCOUNTER → 2020-06-11 | Outpatient (REF) | payer MEDICARE, MEDICAID ==
[2020-06-11 19:39] LABS: BASO # 0.1 10^3/uL (0.0-0.2); BASO % 0.5 % (0.0-1.0); EOS # 3.3 10^3/uL (0.0-0.5); HEMOGLOBIN 11.8 g/dl (12.0-15.5); LYMPH # 1.6 10^3/uL (1.5-5.0); MEAN CORPUSCULAR HEMOGLOBIN 28.4 pg (27.0-33.0); MEAN CORPUSCULAR HGB CONC 31.9 g/dl (32.0-36.5); MEAN CORPUSCULAR VOLUME 88.9 fl (80.0-96.0); MONO # 0.7 10^3/uL (0.0-0.8); MONO % 7.8 % (2.0-8.0); NEUTROPHILS # 3.5 10^3/uL (1.5-8.5); NEUTROPHILS % 38.7 % (36.0-66.0); PLATELET COUNT, AUTOMATED 165 10^3/uL (150-450); RED BLOOD COUNT 4.16 10^6/uL (4.00-5.40); WHITE BLOOD COUNT 9.1 10^3/uL (4.0-10.0)
[2020-06-11 19:54] LABS: EOS % 35.8 % (0.0-3.0)
[2020-06-11 19:58] LABS: ERYTHROCYTE SEDIMENTATION RATE 1 mm/hr (0-30)
[2020-06-11 20:03] LABS: ALBUMIN 3.7 GM/DL (3.2-5.2); ALT/SGPT 27 U/L (12-78); BILIRUBIN,TOTAL 0.3 MG/DL (0.2-1.0); BLOOD UREA NITROGEN 17 MG/DL (7-18); CALCIUM LEVEL 8.9 MG/DL (8.8-10.2); CARBON DIOXIDE LEVEL 30 MEQ/L (21-32); CHLORIDE LEVEL 104 MEQ/L (98-107); CREATININE FOR GFR 0.65 MG/DL (0.55-1.30); GLOMERULAR FILTRATION RATE > 60.0 (>45); GLUCOSE, FASTING 119 MG/DL (70-100); POTASSIUM SERUM 4.3 MEQ/L (3.5-5.1); SODIUM LEVEL 139 MEQ/L (136-145); TOTAL PROTEIN 6.9 GM/DL (6.4-8.2)
== END ==
LOC: M LAB REF 18:42
PROVIDERS: ATTEND Internal Medicine Infectious Disease
DX: A31.9 Mycobacterial infection, unspecified (principal); J85.0 Gangrene and necrosis of lung; G47.33 Obstructive sleep apnea (adult) (pediatric); J47.0 Bronchiectasis with acute lower respiratory infection

== ENCOUNTER → 2020-06-24 | Outpatient (REF) | payer MEDICARE, MEDICAID ==
[2020-06-24 12:02] LABS: BASO # 0.1 10^3/uL (0.0-0.2); BASO % 0.5 % (0.0-1.0); EOS # 3.7 10^3/uL (0.0-0.5); HEMATOCRIT 38.1 % (36.0-47.0); HEMOGLOBIN 12.3 g/dl (12.0-15.5); LYMPH # 1.6 10^3/uL (1.5-5.0); LYMPH % 12.7 % (24.0-44.0); MEAN CORPUSCULAR HEMOGLOBIN 28.4 pg (27.0-33.0); MEAN CORPUSCULAR HGB CONC 32.3 g/dl (32.0-36.5); MONO # 0.7 10^3/uL (0.0-0.8); MONO % 5.3 % (2.0-8.0); NEUTROPHILS # 6.3 10^3/uL (1.5-8.5); NEUTROPHILS % 51.1 % (36.0-66.0); PLATELET COUNT, AUTOMATED 176 10^3/uL (150-450); RED BLOOD COUNT 4.33 10^6/uL (4.00-5.40); WHITE BLOOD COUNT 12.3 10^3/uL (4.0-10.0)
[2020-06-24 12:23] LABS: ERYTHROCYTE SEDIMENTATION RATE 26 mm/hr (0-30)
[2020-06-24 12:32] LABS: ALBUMIN 3.8 GM/DL (3.2-5.2); ALT/SGPT 27 U/L (12-78); BILIRUBIN,TOTAL 0.4 MG/DL (0.2-1.0); BLOOD UREA NITROGEN 17 MG/DL (7-18); C REACTIVE PROTEIN QUANTITATIV 0.38 MG/DL (0.00-0.30); CALCIUM LEVEL 9.5 MG/DL (8.8-10.2); CARBON DIOXIDE LEVEL 28 MEQ/L (21-32); CHLORIDE LEVEL 103 MEQ/L (98-107); CREATININE FOR GFR 0.76 MG/DL (0.55-1.30); GLOMERULAR FILTRATION RATE > 60.0 (>45); GLUCOSE, FASTING 101 MG/DL (70-100); POTASSIUM SERUM 4.2 MEQ/L (3.5-5.1); SODIUM LEVEL 138 MEQ/L (136-145)
== END ==
LOC: M LAB REF 11:26
PROVIDERS: ATTEND Internal Medicine Infectious Disease
DX: A31.9 Mycobacterial infection, unspecified (principal); J85.0 Gangrene and necrosis of lung; G47.33 Obstructive sleep apnea (adult) (pediatric); J47.0 Bronchiectasis with acute lower respiratory infection

== ENCOUNTER → 2020-07-08 | Outpatient (REF) | payer MEDICARE, MEDICAID ==
[2020-07-08 11:41] LABS: BASO # 0.1 10^3/uL (0.0-0.2); BASO % 0.5 % (0.0-1.0); EOS # 2.5 10^3/uL (0.0-0.5); HEMATOCRIT 40.6 % (36.0-47.0); HEMOGLOBIN 13.1 g/dl (12.0-15.5); LYMPH # 1.6 10^3/uL (1.5-5.0); LYMPH % 16.9 % (24.0-44.0); MEAN CORPUSCULAR HEMOGLOBIN 28.3 pg (27.0-33.0); MEAN CORPUSCULAR HGB CONC 32.3 g/dl (32.0-36.5); MEAN CORPUSCULAR VOLUME 87.7 fl (80.0-96.0); MONO # 0.5 10^3/uL (0.0-0.8); MONO % 4.9 % (2.0-8.0); NEUTROPHILS # 4.7 10^3/uL (1.5-8.5); NEUTROPHILS % 50.7 % (36.0-66.0); PLATELET COUNT, AUTOMATED 172 10^3/uL (150-450); RED BLOOD COUNT 4.63 10^6/uL (4.00-5.40); WHITE BLOOD COUNT 9.3 10^3/uL (4.0-10.0)
[2020-07-08 11:55] LABS: EOS % 26.9 % (0.0-3.0)
[2020-07-08 12:13] LABS: ALBUMIN 3.8 GM/DL (3.2-5.2); ALT/SGPT 25 U/L (12-78); BILIRUBIN,TOTAL 0.6 MG/DL (0.2-1.0); BLOOD UREA NITROGEN 18 MG/DL (7-18); CALCIUM LEVEL 9.6 MG/DL (8.8-10.2); CARBON DIOXIDE LEVEL 28 MEQ/L (21-32); CHLORIDE LEVEL 104 MEQ/L (98-107); CREATININE FOR GFR 0.75 MG/DL (0.55-1.30); GLOMERULAR FILTRATION RATE > 60.0 (>45); GLUCOSE, FASTING 107 MG/DL (70-100); POTASSIUM SERUM 4.2 MEQ/L (3.5-5.1); SODIUM LEVEL 137 MEQ/L (136-145); TOTAL PROTEIN 7.3 GM/DL (6.4-8.2)
[2020-07-08 12:30] LABS: ERYTHROCYTE SEDIMENTATION RATE 28 mm/hr (0-30)
== END ==
LOC: M LAB REF 11:15
PROVIDERS: ATTEND Internal Medicine Infectious Disease
DX: A31.9 Mycobacterial infection, unspecified (principal); J85.0 Gangrene and necrosis of lung; G47.33 Obstructive sleep apnea (adult) (pediatric); J47.0 Bronchiectasis with acute lower respiratory infection

== ENCOUNTER → 2020-07-22 | Outpatient (REF) | payer MEDICARE, MEDICAID ==
[2020-07-22 13:00] LABS: BASO # 0.1 10^3/uL (0.0-0.2); BASO % 0.5 % (0.0-1.0); EOS # 2.7 10^3/uL (0.0-0.5); HEMATOCRIT 39.4 % (36.0-47.0); LYMPH # 1.7 10^3/uL (1.5-5.0); LYMPH % 18.8 % (24.0-44.0); MEAN CORPUSCULAR HEMOGLOBIN 28.8 pg (27.0-33.0); MEAN CORPUSCULAR VOLUME 87.4 fl (80.0-96.0); MONO # 0.7 10^3/uL (0.0-0.8); MONO % 7.5 % (2.0-8.0); NEUTROPHILS % 43.5 % (36.0-66.0); PLATELET COUNT, AUTOMATED 168 10^3/uL (150-450); RED BLOOD COUNT 4.51 10^6/uL (4.00-5.40); WHITE BLOOD COUNT 9.2 10^3/uL (4.0-10.0)
[2020-07-22 13:21] LABS: EOS % 29.5 % (0.0-3.0)
[2020-07-22 13:27] LABS: ERYTHROCYTE SEDIMENTATION RATE 27 mm/hr (0-30)
[2020-07-22 13:34] LABS: ALBUMIN 3.6 GM/DL (3.2-5.2); ALT/SGPT 30 U/L (12-78); BILIRUBIN,TOTAL 0.5 MG/DL (0.2-1.0); BLOOD UREA NITROGEN 13 MG/DL (7-18); CALCIUM LEVEL 9.3 MG/DL (8.8-10.2); CARBON DIOXIDE LEVEL 28 MEQ/L (21-32); CHLORIDE LEVEL 106 MEQ/L (98-107); CREATININE FOR GFR 0.66 MG/DL (0.55-1.30); GLOMERULAR FILTRATION RATE > 60.0 (>45); GLUCOSE, FASTING 81 MG/DL (70-100); POTASSIUM SERUM 4.1 MEQ/L (3.5-5.1); SODIUM LEVEL 139 MEQ/L (136-145); TOTAL PROTEIN 7.2 GM/DL (6.4-8.2)
== END ==
LOC: M LAB REF 12:41
PROVIDERS: ATTEND Internal Medicine Infectious Disease
DX: A31.9 Mycobacterial infection, unspecified (principal); J85.0 Gangrene and necrosis of lung; G47.33 Obstructive sleep apnea (adult) (pediatric); J47.0 Bronchiectasis with acute lower respiratory infection

== ENCOUNTER → 2020-08-19 | Outpatient (REF) | payer MEDICARE, MEDICAID ==
[~2020-08-19] MED LIST changes: +FERR324T21 PO; -FERR325T16 PO
[2020-08-19 12:08] LABS: BASO % 0.4 % (0.0-1.0); EOS # 2.9 10^3/uL (0.0-0.5); HEMATOCRIT 41.3 % (36.0-47.0); HEMOGLOBIN 13.2 g/dl (12.0-15.5); LYMPH # 1.6 10^3/uL (1.5-5.0); LYMPH % 15.5 % (24.0-44.0); MEAN CORPUSCULAR HEMOGLOBIN 28.6 pg (27.0-33.0); MEAN CORPUSCULAR VOLUME 89.4 fl (80.0-96.0); MONO # 0.4 10^3/uL (0.0-0.8); MONO % 4.1 % (2.0-8.0); NEUTROPHILS # 5.3 10^3/uL (1.5-8.5); NEUTROPHILS % 51.5 % (36.0-66.0); PLATELET COUNT, AUTOMATED 161 10^3/uL (150-450); RED BLOOD COUNT 4.62 10^6/uL (4.00-5.40); WHITE BLOOD COUNT 10.4 10^3/uL (4.0-10.0)
[2020-08-19 12:43] LABS: BLOOD UREA NITROGEN 16 MG/DL (7-18); CALCIUM LEVEL 9.8 MG/DL (8.8-10.2); CARBON DIOXIDE LEVEL 26 MEQ/L (21-32); CHLORIDE LEVEL 105 MEQ/L (98-107); CREATININE FOR GFR 0.76 MG/DL (0.55-1.30); GLOMERULAR FILTRATION RATE > 60.0 (>45); GLUCOSE, FASTING 142 MG/DL (70-100); POTASSIUM SERUM 3.9 MEQ/L (3.5-5.1); SODIUM LEVEL 139 MEQ/L (136-145)
[2020-08-19 12:44] LABS: EOS % 28.2 % (0.0-3.0)
[2020-08-19 13:13] LABS: ERYTHROCYTE SEDIMENTATION RATE 24 mm/hr (0-30)
== END ==
LOC: M LAB REF 11:38
PROVIDERS: ATTEND Internal Medicine Infectious Disease
DX: A31.9 Mycobacterial infection, unspecified (principal); J85.0 Gangrene and necrosis of lung; G47.33 Obstructive sleep apnea (adult) (pediatric); J47.0 Bronchiectasis with acute lower respiratory infection

== ENCOUNTER → 2020-09-04 | Outpatient (REF) | payer MEDICARE, MEDICAID | LOC: M SFHCPLAZ 16:59 | PROVIDERS: ATTEND Internal Medicine Infectious Disease | DX: A31.9 Mycobacterial infection, unspecified (principal) ==

== ENCOUNTER → 2020-09-16 | Outpatient (REF) | payer MEDICARE, MEDICAID ==
[2020-09-16 14:33] LABS: BASO # 0.1 10^3/uL (0.0-0.2); BASO % 0.5 % (0.0-1.0); EOS # 2.4 10^3/uL (0.0-0.5); HEMATOCRIT 41.3 % (36.0-47.0); HEMOGLOBIN 13.3 g/dl (12.0-15.5); LYMPH # 1.6 10^3/uL (1.5-5.0); MEAN CORPUSCULAR HEMOGLOBIN 28.9 pg (27.0-33.0); MEAN CORPUSCULAR HGB CONC 32.2 g/dl (32.0-36.5); MEAN CORPUSCULAR VOLUME 89.6 fl (80.0-96.0); MONO # 0.4 10^3/uL (0.0-0.8); MONO % 3.9 % (2.0-8.0); NEUTROPHILS # 6.2 10^3/uL (1.5-8.5); NEUTROPHILS % 57.5 % (36.0-66.0); PLATELET COUNT, AUTOMATED 167 10^3/uL (150-450); RED BLOOD COUNT 4.61 10^6/uL (4.00-5.40); WHITE BLOOD COUNT 10.7 10^3/uL (4.0-10.0)
[2020-09-16 15:00] LABS: EOS % 22.8 % (0.0-3.0)
[2020-09-16 15:02] LABS: BLOOD UREA NITROGEN 14 MG/DL (7-18); CALCIUM LEVEL 9.4 MG/DL (8.8-10.2); CARBON DIOXIDE LEVEL 27 MEQ/L (21-32); CHLORIDE LEVEL 105 MEQ/L (98-107); CREATININE FOR GFR 0.59 MG/DL (0.55-1.30); GLOMERULAR FILTRATION RATE > 60.0 (>45); GLUCOSE, FASTING 81 MG/DL (70-100); POTASSIUM SERUM 4.3 MEQ/L (3.5-5.1); SODIUM LEVEL 140 MEQ/L (136-145)
[2020-09-16 15:05] LABS: ERYTHROCYTE SEDIMENTATION RATE 19 mm/hr (0-30)
== END ==
LOC: M LAB REF 13:53
PROVIDERS: ATTEND Internal Medicine Infectious Disease
DX: A31.9 Mycobacterial infection, unspecified (principal); J85.0 Gangrene and necrosis of lung; G47.33 Obstructive sleep apnea (adult) (pediatric); J47.0 Bronchiectasis with acute lower respiratory infection

== ENCOUNTER → 2020-09-25 | Outpatient (CLI) | payer MEDICARE, MEDICAID ==
--- NOTE | 2020-09-25 10:57 | REP ---
INDICATION: ABN FINDINGS LUNG FIELD COMPARISON: 03/13/2020 TECHNIQUE: Axial noncontrast images from the thoracic inlet to the upper abdomen with coronal and sagittal reformations. This CT examination was performed using the following dose reduction techniques: Automated exposure control, adjustment of mA and/or kv according to the patient's size, and use of iterative reconstruction technique. FINDINGS: The lung ledesma again demonstrate diffuse bilateral pleuroparenchymal scarring primarily involving the bilateral apices (right greater than left) along with scattered ill-defined innumerable irregular nodular densities and significant cylindrical bronchiectasis primarily extending into the right upper lobe and likely related to the somewhat tubular/cavitary lesion in the right apex with adjacent surgical clips. Findings are essentially unchanged as compared with prior examination. No new discrete discernible focal area of irregularity is identified. Mediastinum again demonstrates atherosclerotic changes to the thoracic aorta and coronary arteries along with few scattered calcified lymph nodes and [id number] extending into the SVC/right atrium. No cardiomegaly or pericardial effusion. No pleural effusion. No pneumothorax. Musculoskeletal structures are intact. IMPRESSION: 1. Chronic pleuroparenchymal changes essentially stable as compared to prior examination. 2. No new acute process identified. <Electronically signed by Tyron Matos > 09/25/20 [id number]
== END ==
LOC: M RAD 10:07
PROVIDERS: ATTEND Internal Medicine Pulmonary Disease
DX: R91.8 Other nonspecific abnormal finding of lung field (principal); I70.0 Atherosclerosis of aorta; I25.10 Atherosclerotic heart disease of native coronary artery without angina pectoris; J98.4 Other disorders of lung

== ENCOUNTER → 2020-10-14 | Outpatient (REF) | payer MEDICARE, MEDICAID ==
[2020-10-14 15:08] LABS: BASO % 0.4 % (0.0-1.0); EOS # 2.4 10^3/uL (0.0-0.5); HEMATOCRIT 39.7 % (36.0-47.0); HEMOGLOBIN 12.8 g/dl (12.0-15.5); LYMPH # 1.6 10^3/uL (1.5-5.0); MEAN CORPUSCULAR HEMOGLOBIN 29.2 pg (27.0-33.0); MEAN CORPUSCULAR HGB CONC 32.2 g/dl (32.0-36.5); MEAN CORPUSCULAR VOLUME 90.6 fl (80.0-96.0); MONO # 0.5 10^3/uL (0.0-0.8); MONO % 5.3 % (2.0-8.0); NEUTROPHILS # 4.9 10^3/uL (1.5-8.5); PLATELET COUNT, AUTOMATED 168 10^3/uL (150-450); RED BLOOD COUNT 4.38 10^6/uL (4.00-5.40); WHITE BLOOD COUNT 9.4 10^3/uL (4.0-10.0)
[2020-10-14 15:27] LABS: BLOOD UREA NITROGEN 11 MG/DL (7-18); CALCIUM LEVEL 9.3 MG/DL (8.8-10.2); CARBON DIOXIDE LEVEL 26 MEQ/L (21-32); CHLORIDE LEVEL 105 MEQ/L (98-107); CREATININE FOR GFR 0.56 MG/DL (0.55-1.30); GLOMERULAR FILTRATION RATE > 60.0 (>45); GLUCOSE, FASTING 63 MG/DL (70-100); SODIUM LEVEL 139 MEQ/L (136-145)
[2020-10-14 15:55] LABS: EOS % 25.1 % (0.0-3.0)
[2020-10-14 16:01] LABS: ERYTHROCYTE SEDIMENTATION RATE 17 mm/hr (0-30)
== END ==
LOC: M LAB REF 14:30
PROVIDERS: ATTEND Internal Medicine Infectious Disease
DX: A31.9 Mycobacterial infection, unspecified (principal); J85.0 Gangrene and necrosis of lung; G47.33 Obstructive sleep apnea (adult) (pediatric); J47.0 Bronchiectasis with acute lower respiratory infection

== ENCOUNTER → 2020-10-17 | Outpatient (CLI) | payer MEDICARE, MEDICAID ==
--- NOTE | 2020-10-17 09:17 | REP ---
INDICATION: MYCOBACTARIAL INFECTION UNSPEC COMPARISON: Multiple, latest 09/25/2020 TECHNIQUE: Standard helical technique without the administration of intravenous contrast. FINDINGS: Limited evaluation of the mediastinum and pulmonary cynthia show no significant changes compared to the prior exam. No pleural or pericardial effusions have developed. There is no significant change in appearance of the imaged osseous structures. Evaluation of the lung ledesma shows marked chronic but stable appearing changes with biapical pleuroparenchymal scarring and a large thick-walled right upper lobe cavity all of which appear stable. There is varicoid bronchiectasis throughout the exam particularly in the right upper lobe status quo. There are numerous scattered asymmetric and nodular lung parenchymal densities. This is a such a degree that a new small nodule could not be ruled out. No large spiculated lesions have developed. There is no evidence of significant change seen involving the tip of the [id number] catheter. IMPRESSION: Marked chronic changes as described above without evidence of significant change. <Electronically signed by Franky Laguna > 10/17/20 [id number]
== END ==
LOC: M RAD 08:05
PROVIDERS: ATTEND Internal Medicine Pulmonary Disease
DX: A31.9 Mycobacterial infection, unspecified (principal); J47.9 Bronchiectasis, uncomplicated; R91.8 Other nonspecific abnormal finding of lung field; Z95.828 Presence of other vascular implants and grafts

== ENCOUNTER → 2020-10-30 | Outpatient (CLI) | payer MEDICARE, MEDICAID ==
--- NOTE | 2020-10-30 10:43 | DEXAMM ---
INDICATION: SENILE OSTEOPOROSIS. COMPARISON: 10/26/2018 as well as other prior exams. TECHNIQUE: Bone density was measured using dual-energy x-ray absorptiometry (DEXA). FINDINGS: AP SPINE L1-L4 BMD 0.921 g/cm2 Young Adult T-Score -2.2 Age Matched Z-Score -0.6. LT FEMUR, TOTAL BMD 0.688 g/cm2 Young Adult T-Score -2.5 Age Matched Z-Score -1.3. LT NECK BMD 0.688 g/cm2 Young Adult T-Score -2.5 Age Matched Z-Score -1.0. RT FEMUR, TOTAL BMD 0.646 g/cm2 Young Adult T-Score -2.9 Age Matched Z-Score -1.7. RT NECK BMD 0.678 g/cm2 Young Adult T-Score -2.6 Age Matched Z-Score -1.1. IMPRESSION: There is low bone density of the spine. There is low bone density of the left hip. There is osteoporosis of the right hip. The density of the spine has decreased 6.4% since the initial exam on 06/07/2003. The density of the spine increased 11.9% since most recent exam on 10/26/2018. The density of the left hip has decreased 15.6% since initial exam on 06/07/2003. The density of the left hip has increased 1.8% since most recent exam on 10/26/2018. The density of the right hip has decreased 20.0% since the initial exam on 06/07/2003. The density of the right hip has decreased 1.1% since the most recent exam on 10/26/2018. FOLLOW-UP: Recommendation for the next bone density exam: 2 years. <Electronically signed by Shai Jacobson > 10/30/20 [id number]
== END ==
LOC: M WHC 09:47
PROVIDERS: ATTEND Nurse Practitioner Family
DX: M81.0 Age-related osteoporosis without current pathological fracture (principal); M85.88 Other specified disorders of bone density and structure, other site; M85.852 Other specified disorders of bone density and structure, left thigh

== ENCOUNTER → 2020-11-13 | Outpatient (REF) | payer MEDICARE, MEDICAID | LOC: M LAB REF 18:33 | PROVIDERS: ATTEND Otolaryngology | DX: H66.3X2 Other chronic suppurative otitis media, left ear (principal) ==

== ENCOUNTER → 2020-11-25 | Outpatient (REF) | payer MEDICARE, MEDICAID ==
[~2020-11-25] MED LIST changes: +ADVA115A INH; +BUDE10.7 IH; -CLIN150C15 PO; +CLIN150C17 PO; -OMEP-221 PO; +OMEP40CA5 PO; +VITAMIN D PO; +[UNRECOGNIZED DRUG - CODE] IN; +[UNRECOGNIZED DRUG - CODE] PO; +[UNRECOGNIZED DRUG - OTHER] PO
[2020-11-25 14:38] LABS: BASO % 0.3 % (0.0-1.0); EOS # 0.3 10^3/uL (0.0-0.5); EOS % 3.7 % (0.0-3.0); HEMATOCRIT 37.2 % (36.0-47.0); HEMOGLOBIN 12.1 g/dl (12.0-15.5); LYMPH # 1.5 10^3/uL (1.5-5.0); MEAN CORPUSCULAR HGB CONC 32.5 g/dl (32.0-36.5); MEAN CORPUSCULAR VOLUME 89.2 fl (80.0-96.0); MONO # 0.5 10^3/uL (0.0-0.8); MONO % 7.2 % (2.0-8.0); NEUTROPHILS # 4.4 10^3/uL (1.5-8.5); NEUTROPHILS % 65.4 % (36.0-66.0); PLATELET COUNT, AUTOMATED 174 10^3/uL (150-450); RED BLOOD COUNT 4.17 10^6/uL (4.00-5.40); WHITE BLOOD COUNT 6.7 10^3/uL (4.0-10.0)
[2020-11-25 14:52] LABS: ALBUMIN 3.4 GM/DL (3.2-5.2); ALT/SGPT 37 U/L (12-78); BILIRUBIN,TOTAL 0.4 MG/DL (0.2-1.0); BLOOD UREA NITROGEN 13 MG/DL (7-18); CALCIUM LEVEL 8.6 MG/DL (8.8-10.2); CARBON DIOXIDE LEVEL 25 MEQ/L (21-32); CHLORIDE LEVEL 108 MEQ/L (98-107); CREATININE FOR GFR 0.67 MG/DL (0.55-1.30); GLOMERULAR FILTRATION RATE > 60.0 (>45); GLUCOSE, FASTING 107 MG/DL (70-100); POTASSIUM SERUM 4.1 MEQ/L (3.5-5.1); SODIUM LEVEL 139 MEQ/L (136-145); TOTAL PROTEIN 6.7 GM/DL (6.4-8.2)
== END ==
LOC: M LAB REF 12:35
PROVIDERS: ATTEND Internal Medicine Infectious Disease
DX: A31.9 Mycobacterial infection, unspecified (principal)

== ENCOUNTER → 2020-12-11 | Outpatient (CLI) | payer MEDICARE, MEDICAID ==
[~2020-12-11] MED LIST changes: -ADVA115A INH; -BUDE10.7 IH; +OMEP-221 PO; -OMEP40CA5 PO; -VITAMIN D PO; -[UNRECOGNIZED DRUG - CODE] IN; -[UNRECOGNIZED DRUG - CODE] PO; -[UNRECOGNIZED DRUG - OTHER] PO
[2020-12-11 12:39] LABS: ALBUMIN 3.5 GM/DL (3.2-5.2); ALT/SGPT 46 U/L (12-78); BILIRUBIN,TOTAL 0.4 MG/DL (0.2-1.0); BLOOD UREA NITROGEN 12 MG/DL (7-18); CALCIUM LEVEL 8.8 MG/DL (8.8-10.2); CARBON DIOXIDE LEVEL 28 MEQ/L (21-32); CHLORIDE LEVEL 109 MEQ/L (98-107); GLOMERULAR FILTRATION RATE > 60.0 (>45); GLUCOSE, FASTING 88 MG/DL (70-100); POTASSIUM SERUM 4.4 MEQ/L (3.5-5.1); SODIUM LEVEL 139 MEQ/L (136-145); TOTAL PROTEIN 6.6 GM/DL (6.4-8.2)
[2020-12-11 12:46] LABS: TOTAL 25(OH) VITAMIN D 66.3 NG/ML (30.0-100.0)
== END ==
LOC: M LAB 11:15
PROVIDERS: ATTEND Nurse Practitioner Family
DX: K21.9 Gastro-esophageal reflux disease without esophagitis (principal); M81.0 Age-related osteoporosis without current pathological fracture

== ENCOUNTER → 2020-12-17 | Outpatient (REF) | payer MEDICARE, MEDICAID | LOC: M LAB REF 10:00 | PROVIDERS: ATTEND Internal Medicine Infectious Disease | DX: A31.9 Mycobacterial infection, unspecified (principal) ==

== ENCOUNTER → 2021-01-14 | Outpatient (POV) | payer MEDICARE, MEDICAID ==
[~2021-01-14] VITALS: Ht 160 cm; Wt 48.6 kg
[~2021-01-14] MED LIST changes: +ADVA115A INH; +BUDE10.7 IH; +VITAMIN D PO; +[UNRECOGNIZED DRUG - CODE] IN; +[UNRECOGNIZED DRUG - CODE] PO; +[UNRECOGNIZED DRUG - OTHER] PO
[2021-01-14 08:10] VITALS: BP 130/76
--- NOTE | 2021-01-15 11:21 | IRPN ---
[facility] IR Progress Note IR Progress Note DATE: Jan 14, 2021 FOLLOW-UP: Patient had port placed by me in July 2019. 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 Port worked well. Patient has recovered. No further treatment planned. Patient presents for port removal. ON EXAMINATION: Right port appears in good position. No overlying cellulitis. IMPRESSION: Port no longer needed and patient would like her port removed. We discussed the risks and benefits of the procedure and patient is willing to proceed. We have scheduled the patient for port removal. Thank you for this referral Allergies Coded Allergies: Penicillins (Verified Allergy, Mild, rash, 05/03/20) VS,Fishbone, I+O VS, Fishbone, I+O Vital Signs Date Time Temp Pulse Resp B/P (MAP) Pulse Ox O2 Delivery O2 Flow Rate FiO2 01/14/21 08:10 97.3 61 20 130/76 (94) 97 Room Air HARSH GARCIA MD Jan 15, 2021 11:21
== END ==
LOC: M IRPOV 08:02
PROVIDERS: ATTEND Radiology Diagnostic Radiology
DX: Z45.2 Encounter for adjustment and management of vascular access device (principal); Z87.2 Personal history of diseases of the skin and subcutaneous tissue

== ENCOUNTER → 2021-01-23 | Outpatient (CLI) | payer MEDICARE, MEDICAID ==
[~2021-01-23] MED LIST changes: +LIDOCAINE 1% MDV 20ML VIAL As Ordered ONE; +MIDAZOLAM INJ 2MG/2ML VIAL (J2250 PER 1MG) As Ordered ONE; +NS 1,000 ML IV SCH; +VANCOMYCIN 1000MG/20ML VIAL As Ordered ONE; +VANCOMYCIN HCL 1,000 MG, VIAL MATE ADAPTER 1 EACH in NS 250 ML IV ONE; +diphenhydrAMINE 50MG/ML VIAL (J1200) As Ordered ONE; +fentaNYL 100 MCG/2 ML INJECTION (J3010) As Ordered ONE
[2021-01-23 13:00] VITALS: BP 106/62
--- NOTE | 2021-01-23 14:14 | IRHP ---
[facility] IR Pre-Procedure H & P General Date of Service: Jan 23, 2021 Procedure: Same Day Surgery Interval History and Physical I have seen the patient and reviewed last H & P performed within 30 days. There is no significant interval change. History of Present Illness Chief Complaint The patient is a 65-year-old female admitted with a reason for visit of Mycobacterial Infection, Unspecified. PRE-PROCEDURE DIAGNOSIS: MAC. Treatment complete HEART: Normal rate. LUNGS: Normal breathing at rest. ASA Classification ASA Classification: II-Mild systemic disease Mallampati Score: II NPO: Yes Problems with prior sedation: No Obstructive Sleep Apnea: No Plan moderate sedation Allergies Coded Allergies: Penicillins (Verified Allergy, Mild, rash, 05/03/20) Home Medications Scheduled Alendronate Sodium (Alendronate Sodium), 70 MG PO QWEEK, (Reported) Amikacin Liposomal/Neb.accessr (Arikayce 590 mg/8.4 ml Vial), 590 MG IN DAILY, (Reported) Aspirin (Aspirin EC), 81 MG PO QHS, (Reported) Budesonide/Glycopyr/Formoterol (Breztri Aerosphere Inhaler), 2 PUFFS IH BID, (Reported) Calcium Carbonate/Vitamin D3 (Calcium 600-Vit D3 800 Tablet), 1 TAB PO QHS, (Reported) Cholecalciferol (Vitamin D3) (Vitamin D3), 1,000 UNITS PO QHS, (Reported) Ferrous Gluconate (Ferrous Gluconate), 1 TAB PO DAILY Fluticasone Propion/Salmeterol (Advair Hfa 115-21 Mcg Inhaler), 2 PUFF INH BID, (Reported) Multivitamins (Thera M Plus Tablet), 1 TAB PO QHS, (Reported) Omadacycline Tosylate (Nuzyra), 300 MG PO DAILY, (Reported) Omeprazole (Omeprazole), 40 MG PO QHS, (Reported) Ropinirole HCl (Ropinirole HCl), 1 MG PO QHS, (Reported) Sennosides/Docusate Sodium (Senokot-S Tablet), 1 TAB PO BID Sucralfate (Carafate), 10 ML PO QID [Albuterol], 1 DOSE PO TID, (Reported) [Cofazimine], 100 MG PO DAILY, (Reported) [Vitamin D], 25 MCG PO QHS, (Reported) Scheduled PRN Albuterol Sulfate (Proair Hfa), 2 PUFF INH Q4H PRN for SHORTNESS OF BREATH, (Reported) Polyethylene Glycol 3350 (Miralax), 17 GM PO DAILY PRN for CONSTIPATION Miscellaneous Medications [oxygen], 1 L, (Reported) Discontinued Medications Amikacin Sulfate (Amikacin Sulfate), 750 MG IV 3XW, (Reported) Discontinued Reason: Pt states not taking Imipenem/Cilastatin Sodium (Imipenem-Cilastatin 500 mg Vl), 1 INJ IV BID, (Reported) Discontinued Reason: Pt states not taking VS, I&O, 24H, Fishbone Vital Signs/I&O Vital Signs Date Time Temp Pulse Resp B/P (MAP) Pulse Ox O2 Delivery O2 Flow Rate FiO2 01/23/21 11:40 61 18 99 Room Air 01/23/21 11:00 2.0 01/23/21 09:35 97.9 HARSH GARCIA MD Jan 23, 2021 14:14
--- NOTE | 2021-01-23 14:25 | IRPON ---
IR Postoperative Note Date Of Procedure: Jan 23, 2021 Time Of Procedure: 14:24 IR Postoperative Note IR Port Removal / Explant IR Moderate sedation. Clinical Information:MAC. Treatment complete. Would like port removed. Physician: Dr. Joy Procedure: The patient was advised of the benefits, risks, and alternatives of the procedure and informed consent was obtained. A time out was performed with verification of the patient's name, MRN, site of procedure, and type of procedure to be performed. The patient was positioned in the supine position on the angiographic table. The site was prepped and draped in the usual sterile fashion. Moderate sedation was performed by the physician including the presence of an independent trained RN who assisted in monitoring the patient's level of consciousness and physiological status. Following the administration of fentanyl and Versed the physician spent 30 minutes of continuous veqb-ow-gyyl time with the patient. A subscription clerk radiograph reveals a right sided port. The soft tissues overlying the port were anesthetized with lidocaine. An incision was made over the port using a 15 blade scalpel in the location of the prior incision. The catheter was then freed with blunt dissection and extracted. Pressure was applied to obtain hemostasis. The port was then freed with blunt dissection and subsequently removed. There were no signs of infection. After hemostasis was achieved, the incision was closed with interrupted deep 3-0 Vicryl sutures and subcuticular Monocryl suture followed by glue and steri-strips. The site was covered with a sterile dressing. The patient tolerated the procedure well and was returned to the PRU in stable condition. EBL:Less than 5 mL Complications:None. Conclusions: 1. Successful explant of a right-sided port. 2. No signs of infection. Thank you for this referral HARSH JOY MD Jan 23, 2021 14:25
== END ==
LOC: M IRPRO 09:17
PROVIDERS: ATTEND Radiology Diagnostic Radiology
DX: Z45.2 Encounter for adjustment and management of vascular access device (principal); A31.9 Mycobacterial infection, unspecified; Z79.899 Other long term (current) drug therapy
CPT/HCPCS: 36590; 99152; 99153; J1644; J2250; J3010; J3370

== ENCOUNTER → 2021-02-04 | Outpatient (CLI) | payer MEDICARE, MEDICAID ==
[~2021-02-04] MED LIST changes: -LIDOCAINE 1% MDV 20ML VIAL As Ordered ONE; -MIDAZOLAM INJ 2MG/2ML VIAL (J2250 PER 1MG) As Ordered ONE; -NS 1,000 ML IV SCH; -VANCOMYCIN 1000MG/20ML VIAL As Ordered ONE; -VANCOMYCIN HCL 1,000 MG, VIAL MATE ADAPTER 1 EACH in NS 250 ML IV ONE; -diphenhydrAMINE 50MG/ML VIAL (J1200) As Ordered ONE; -fentaNYL 100 MCG/2 ML INJECTION (J3010) As Ordered ONE
== END ==
LOC: M WHC 08:32
PROVIDERS: ATTEND Nurse Practitioner Family
DX: Z12.31 Encounter for screening mammogram for malignant neoplasm of breast (principal); Z53.9 Procedure and treatment not carried out, unspecified reason

== ENCOUNTER → 2021-02-11 | Outpatient (POV) | payer MEDICARE, MEDICAID ==
[~2021-02-11] VITALS: Ht 160 cm; Wt 48.1 kg
[2021-02-11 07:45] VITALS: BP 135/79
--- NOTE | 2021-02-13 09:53 | IRPN ---
[facility] IR Progress Note IR Progress Note DATE: Feb 11, 2021 FOLLOW-UP: Status post port removal. Patient doing well. Denies fevers chills or pain at site. ON EXAMINATION: Port removal site appears to be healing well. No redness, swelling or discharge at site. IMPRESSION: Doing well status post port removal. No further follow-up scheduled unless initiated by patient and/or referring provider. Thank you for this referral Allergies Coded Allergies: Penicillins (Verified Allergy, Mild, rash, 05/03/20) VS,Fishbone, I+O VS, Fishbone, I+O Vital Signs Date Time Temp Pulse Resp B/P (MAP) Pulse Ox O2 Delivery O2 Flow Rate FiO2 02/11/21 07:45 97.0 75 20 135/79 (97) 97 Nasal Cannula 1.0 HARSH GARCIA MD Feb 13, 2021 09:52
== END ==
LOC: M IRPOV 07:38
PROVIDERS: ATTEND Radiology Diagnostic Radiology
DX: Z45.2 Encounter for adjustment and management of vascular access device (principal); Z88.0 Allergy status to penicillin

== ENCOUNTER → 2021-02-26 | Outpatient (CLI) | payer MEDICARE, MEDICAID ==
[~2021-02-26] MED LIST changes: +ISOVUE-370 76% 100ML VIAL As Ordered ONE
[2021-02-26 09:51] LABS: BASO % 0.3 % (0.0-1.0); EOS # 0.3 10^3/uL (0.0-0.5); EOS % 5.2 % (0.0-3.0); HEMOGLOBIN 12.1 g/dl (12.0-15.5); LYMPH # 1.2 10^3/uL (1.5-5.0); LYMPH % 19.2 % (24.0-44.0); MEAN CORPUSCULAR HEMOGLOBIN 28.1 pg (27.0-33.0); MEAN CORPUSCULAR HGB CONC 32.7 g/dl (32.0-36.5); MEAN CORPUSCULAR VOLUME 85.8 fl (80.0-96.0); MONO # 0.6 10^3/uL (0.0-0.8); MONO % 9.4 % (2.0-8.0); NEUTROPHILS # 4.1 10^3/uL (1.5-8.5); NEUTROPHILS % 65.6 % (36.0-66.0); PLATELET COUNT, AUTOMATED 167 10^3/uL (150-450); RED BLOOD COUNT 4.31 10^6/uL (4.00-5.40); WHITE BLOOD COUNT 6.2 10^3/uL (4.0-10.0)
[2021-02-26 10:30] LABS: ERYTHROCYTE SEDIMENTATION RATE 26 mm/hr (0-30)
[2021-02-26 10:38] LABS: ALBUMIN 3.5 GM/DL (3.2-5.2); BILIRUBIN,TOTAL 0.4 MG/DL (0.2-1.0); C REACTIVE PROTEIN QUANTITATIV 0.3 MG/DL (0.00-0.30); CALCIUM LEVEL 9.7 MG/DL (8.8-10.2); CREATININE FOR GFR 1.03 MG/DL (0.55-1.30); GLOMERULAR FILTRATION RATE 57.3 (>45); POTASSIUM SERUM 4.4 MEQ/L (3.5-5.1); TOTAL PROTEIN 6.6 GM/DL (6.4-8.2)
[2021-02-26 10:42] LABS: TOTAL 25(OH) VITAMIN D 60.8 NG/ML (30.0-100.0)
--- NOTE | 2021-02-26 12:15 | REP ---
INDICATION: MYCOBACTERIUM. COMPARISON: 10/17/2020, 09/25/2020, 03/13/2020 TECHNIQUE: Bolus 75 mL Isovue 370 scanning through the chest with coronal and sagittal reconstructions. FINDINGS: There is volume loss in the right hemithorax with extensive chronic changes particularly in the right upper lung zone. Pleuroparenchymal changes with cavitary lesion posteriorly in the right upper lung zone with pleural based fibrotic changes scattered nodules and apical pleuroparenchymal scarring right much greater than left are unchanged. I do not see cavitary lesions on the left. There is both cylindrical and saccular bronchiectatic change in the right, cylindrical on the left. No definite pleural effusion. No pneumothorax or new superimposed infiltrates. Some compensatory hyperinflation of the left lung is noted with some shift of the mediastinum and heart towards the right due to volume loss. All these findings are stable. Heart is not enlarged. There is no pericardial thickening or effusion. There is atherosclerotic calcification of the aorta without aneurysm. The main, right and left pulmonary arteries in the mediastinum are mildly prominent and without filling defects. This appearance suggests some pulmonary artery hypertension, likely on the basis of that COPD. No pathologic sized mediastinal or hilar adenopathy identified. Some of the nodes in the mediastinum are calcified. The right jugular port catheter has been removed. There are surgical clips in the left axilla from previous lymph node dissection and left breast surgery. Thyroid lobes symmetric. Trachea dilated and it is deviated towards the right side. Traction elevation of the right hilum noted. Bone windows show the spine from lower cervical through upper lumbar without acute findings. Sternum, manubrium, visualized portions of clavicles, scapula, humeral heads and ribs are all without acute finding. In the upper abdomen that portion of liver, the spleen, gallbladder, adrenal glands and pancreas visible are unremarkable. There are a few cysts in the kidneys. Upper abdominal aorta without gross aneurysm. IMPRESSION: Extensive chronic pleuroparenchymal scarring, fibrotic changes, scattered nodules and a cavitary lesion right upper lung zone again seen and all of this unchanged. Bilateral cylindrical and right lung saccular bronchiectatic changes also stable. No pathologic sized mediastinal or hilar adenopathy with a few calcified mediastinal nodes. No new findings on today's study. <Electronically signed by Medardo Sparks > 02/26/21 1211
== END ==
LOC: M RAD 08:27
PROVIDERS: ATTEND Internal Medicine Infectious Disease
DX: A31.9 Mycobacterial infection, unspecified (principal); J98.4 Other disorders of lung; D50.8 Other iron deficiency anemias; M81.0 Age-related osteoporosis without current pathological fracture
CPT/HCPCS: 36415; 71260; 80053; 82306; 85025; 85652; 86140; Q9967

== ENCOUNTER → 2021-03-17 | Outpatient (CLI) | payer MEDICARE, MEDICAID ==
[~2021-03-17] MED LIST changes: -ISOVUE-370 76% 100ML VIAL As Ordered ONE
--- NOTE | 2021-03-17 12:04 | REP ---
INDICATION: SCREEN MAMMO. COMPARISON: 01/31/2020 as well as other prior exams. TECHNIQUE: MLO and CC views bilateral breasts with tomosynthesis. FINDINGS: There is mild to moderate scattered fibroglandular tissue again noted. There is an oval nodular density projecting superiorly and posteriorly on the right, only seen in the MLO projection. This appears to be somewhat medially located. It measures approximately 13 x 9 mm. Otherwise there is no evidence of a new mass or suspicious clusters of microcalcifications. There vascular calcifications bilaterally. The Volpara volumetric breast density pattern is C. IMPRESSION: BIRADS/ACR category 0, incomplete. Oval nodular density supero medially on the right only seen in the MLO projection. This may be related to the port which was present in that region, visualized on the prior study of 01/31/2020 and recently removed 2 weeks ago. Recommend spot compression mL tomographic sequence and exaggerated medial and axillary CC views of the right breast. Ultrasound will also likely be necessary. This mammogram was interpreted with the aid of an FDA-approved computer-aided detection system. The patient states she had a clinical breast exam in January 2021. The patient letter being requested is M0. RECOMMENDATION: Additional imaging of the right breast required as discussed in detail above. <Electronically signed by Shai Jacobson > 03/17/21 1200
== END ==
LOC: M WHC 10:27
PROVIDERS: ATTEND Nurse Practitioner Family
DX: Z12.31 Encounter for screening mammogram for malignant neoplasm of breast (principal); R92.8 Other abnormal and inconclusive findings on diagnostic imaging of breast; N63.10 Unspecified lump in the right breast, unspecified quadrant

== ENCOUNTER → 2021-03-25 | Outpatient (REF) | payer MEDICARE, MEDICAID ==
[~2021-03-25] MED LIST changes: -OMEP-221 PO; +OMEP40CA5 PO
== END ==
LOC: M SFHCPLAZ 11:53
PROVIDERS: ATTEND Internal Medicine Infectious Disease
DX: A31.9 Mycobacterial infection, unspecified (principal)

== ENCOUNTER → 2021-04-02 | Outpatient (CLI) | payer MEDICARE, MEDICAID ==
[~2021-04-02] MED LIST changes: +OMEP-221 PO; -OMEP40CA5 PO
--- NOTE | 2021-04-02 14:46 | REP ---
INDICATION: RIGHT BREAST ADD VIEWS. Focal asymmetry right breast. COMPARISON: Bilateral screening mammogram, 03/17/2021. TECHNIQUE: 2D and 3D cc MLO and exaggerated CC views of the right breast were obtained. 2D and 3D spot compression images of the right breast were obtained in the CC and MLO orientations. Targeted right breast ultrasound was performed. FINDINGS: There is a wire marking the location of the skin scar where the chemotherapy port had been. The wire lies over the focal asymmetry seen in the right axilla on the recent screening mammogram. Right breast ultrasound: Right axilla, 9 x 7 x 5 mm, thick walled cyst consistent with the chemotherapy port cavity. IMPRESSION: The focal asymmetry seen on the patient's screening mammogram corresponds to the chemotherapy port cavity. BIRADS/ACR : Category 2: Benign finding. The patient letter being requested is M2. RECOMMENDATION: Repeat screening mammography recommended 1 year (for women over 40). <Electronically signed by Dennys Lentz > 04/02/21 1866
== END ==
LOC: M WHC 08:02
PROVIDERS: ATTEND Nurse Practitioner Family
DX: R92.8 Other abnormal and inconclusive findings on diagnostic imaging of breast (principal); Z92.21 Personal history of antineoplastic chemotherapy
CPT/HCPCS: 76642; 77065; G0279

== ENCOUNTER → 2021-04-22 | Outpatient (CLI) | payer MEDICARE, MEDICAID ==
[~2021-04-22] MED LIST changes: -OMEP-221 PO; +OMEP40CA5 PO
== END ==
LOC: M PLAIMG 09:23
PROVIDERS: ATTEND Internal Medicine Pulmonary Disease
DX: J47.9 Bronchiectasis, uncomplicated (principal); A31.9 Mycobacterial infection, unspecified; R91.8 Other nonspecific abnormal finding of lung field; J43.9 Emphysema, unspecified; I70.0 Atherosclerosis of aorta; I25.10 Atherosclerotic heart disease of native coronary artery without angina pectoris

== ENCOUNTER → 2021-04-24 | Outpatient (REF) | payer MEDICARE, MEDICAID ==
[~2021-04-24] MED LIST changes: +OMEP-221 PO; -OMEP40CA5 PO
== END ==
LOC: M SFHCWAGY 15:34
PROVIDERS: ATTEND Internal Medicine Infectious Disease
DX: A31.9 Mycobacterial infection, unspecified (principal)

== ENCOUNTER → 2021-06-10 | Outpatient (CLI) | payer MEDICARE, MEDICAID ==
[~2021-06-10] MED LIST changes: -OMEP-221 PO; +OMEP40CA5 PO
[2021-06-10 11:53] LABS: BASO % 0.2 % (0.0-1.0); EOS # 0.2 10^3/uL (0.0-0.5); EOS % 2.7 % (0.0-3.0); HEMATOCRIT 38.2 % (36.0-47.0); HEMOGLOBIN 12.6 g/dl (12.0-15.5); LYMPH # 1.2 10^3/uL (1.5-5.0); MEAN CORPUSCULAR HEMOGLOBIN 29.2 pg (27.0-33.0); MEAN CORPUSCULAR VOLUME 88.6 fl (80.0-96.0); MONO # 0.6 10^3/uL (0.0-0.8); MONO % 6.9 % (2.0-8.0); NEUTROPHILS # 6.4 10^3/uL (1.5-8.5); NEUTROPHILS % 75.8 % (36.0-66.0); PLATELET COUNT, AUTOMATED 198 10^3/uL (150-450); RED BLOOD COUNT 4.31 10^6/uL (4.00-5.40); WHITE BLOOD COUNT 8.4 10^3/uL (4.0-10.0)
[2021-06-10 12:45] LABS: ALBUMIN 3.5 GM/DL (3.2-5.2); BILIRUBIN,TOTAL 0.4 MG/DL (0.2-1.0); CALCIUM LEVEL 9.1 MG/DL (8.8-10.2); CREATININE FOR GFR 1.05 MG/DL (0.55-1.30); POTASSIUM SERUM 4.1 MEQ/L (3.5-5.1); TOTAL PROTEIN 6.8 GM/DL (6.4-8.2)
== END ==
LOC: M LAB 11:01
PROVIDERS: ATTEND Physician Assistant Medical
DX: K21.9 Gastro-esophageal reflux disease without esophagitis (principal); D50.9 Iron deficiency anemia, unspecified; G62.9 Polyneuropathy, unspecified

== ENCOUNTER → 2021-07-24 | Outpatient (REF) | payer MEDICARE, MEDICAID ==
[~2021-07-24] MED LIST changes: -D31000TA2 PO; +VITA100093 PO
== END ==
LOC: M SFHCPLAZ 15:46
PROVIDERS: ATTEND Internal Medicine Infectious Disease
DX: A31.9 Mycobacterial infection, unspecified (principal)

== ENCOUNTER 2021-07-28 15:28 | Emergency (ER) | payer MEDICARE, MEDICAID ==
[~2021-07-28] VITALS: Ht 162.6 cm; Wt 48.2 kg
[2021-07-28 15:30] VITALS: BP 107/61
[2021-07-28 20:23] LABS: HEMATOCRIT 36.8 % (36.0-47.0); HEMOGLOBIN 12.2 g/dl (12.0-15.5); MEAN CORPUSCULAR HEMOGLOBIN 28.2 pg (27.0-33.0); MEAN CORPUSCULAR HGB CONC 33.2 g/dl (32.0-36.5); MEAN CORPUSCULAR VOLUME 85.2 fl (80.0-96.0); PLATELET COUNT, AUTOMATED 227 10^3/uL (150-450); RED BLOOD COUNT 4.32 10^6/uL (4.00-5.40); WHITE BLOOD COUNT 7.4 10^3/uL (4.0-10.0)
[2021-07-28 20:34] LABS: PROTHROMBIN TIME 13.6 SECONDS (12.7-14.5)
[2021-07-28 20:35] LABS: PARTIAL THROMBOPLASTIN TIME 38.8 SECONDS (25.9-37.0)
[2021-07-28] MEDS ORDERED: predniSONE 20 MG TAB PO ONE (21:25)
[2021-07-28 21:34] LABS: BLOOD UREA NITROGEN 14 MG/DL (7-18); CALCIUM LEVEL 8.7 MG/DL (8.8-10.2); CARBON DIOXIDE LEVEL 27 MEQ/L (21-32); CHLORIDE LEVEL 108 MEQ/L (98-107); CREATININE FOR GFR 0.98 MG/DL (0.55-1.30); GLOMERULAR FILTRATION RATE > 60.0 (>45); GLUCOSE, FASTING 84 MG/DL (70-100); POTASSIUM SERUM 4.1 MEQ/L (3.5-5.1); SODIUM LEVEL 141 MEQ/L (136-145)
[2021-07-28] MEDS ORDERED: PRED20TA PO (21:36)
== END 2021-07-28 21:59 | disposition home or self-care (01) ==
LOC: M ED 15:28
DX: G57.91 Unspecified mononeuropathy of right lower limb (principal); J44.9 Chronic obstructive pulmonary disease, unspecified; Z79.82 Long term (current) use of aspirin; Z79.899 Other long term (current) drug therapy; Z88.0 Allergy status to penicillin; Z99.81 Dependence on supplemental oxygen
CPT/HCPCS: 80047; 80048; 83605; 85027; 85610; 85730; 99283; J7512

== ENCOUNTER → 2021-07-30 | Outpatient (CLI) | payer MEDICARE, MEDICAID ==
[~2021-07-30] MED LIST changes: +PRED20TA PO
[2021-07-30 18:09] LABS: ALBUMIN 3.5 GM/DL (3.2-5.2); ALT/SGPT 21 U/L (12-78); BILIRUBIN,TOTAL 0.3 MG/DL (0.2-1.0); BLOOD UREA NITROGEN 20 MG/DL (7-18); CALCIUM LEVEL 9.1 MG/DL (8.8-10.2); CARBON DIOXIDE LEVEL 28 MEQ/L (21-32); CHLORIDE LEVEL 107 MEQ/L (98-107); CREATININE FOR GFR 0.94 MG/DL (0.55-1.30); GLOMERULAR FILTRATION RATE > 60.0 (>45); GLUCOSE, FASTING 81 MG/DL (70-100); POTASSIUM SERUM 3.7 MEQ/L (3.5-5.1); SODIUM LEVEL 140 MEQ/L (136-145); TOTAL PROTEIN 7.4 GM/DL (6.4-8.2)
== END ==
LOC: M RAD 16:26
PROVIDERS: ATTEND Physician Assistant Medical
DX: I73.9 Peripheral vascular disease, unspecified (principal); R09.89 Other specified symptoms and signs involving the circulatory and respiratory systems

== ENCOUNTER → 2021-09-03 | Outpatient (CLI) | payer MEDICARE, MEDICAID | LOC: M RAD 08:41 | PROVIDERS: ATTEND Physician Assistant Medical | DX: I73.9 Peripheral vascular disease, unspecified (principal) ==

== ENCOUNTER → 2021-10-16 | Outpatient (CLI) | payer MEDICARE, MEDICAID | LOC: M PLAIMG 10:03 | PROVIDERS: ATTEND Internal Medicine Infectious Disease | DX: J98.4 Other disorders of lung (principal); J47.9 Bronchiectasis, uncomplicated; R91.8 Other nonspecific abnormal finding of lung field ==

== ENCOUNTER → 2022-03-10 | Outpatient (REF) | payer MEDICARE, MEDICAID | LOC: M SFHCPLAZ 10:06 | PROVIDERS: ATTEND Internal Medicine Infectious Disease | DX: A31.9 Mycobacterial infection, unspecified (principal) ==

== ENCOUNTER → 2022-03-16 | Outpatient (CLI) | payer MEDICARE, MEDICAID ==
[2022-03-16 13:47] LABS: CHOLESTEROL RISK RATIO 4.37 (<5); FERRITIN 53.7 NG/ML (7.3-270.7); HDL CHOLESTEROL 42.3 MG/DL (>40); LDL CHOLESTEROL 122.3 MG/DL (<100)
[2022-03-16 14:07] LABS: HEMOGLOBIN A1c 5.3 % (4.0-6.0)
== END ==
LOC: M PLALAB 09:31
PROVIDERS: ATTEND Physician Assistant Medical
DX: E78.9 Disorder of lipoprotein metabolism, unspecified (principal); M54.41 Lumbago with sciatica, right side; D50.8 Other iron deficiency anemias; Z85.3 Personal history of malignant neoplasm of breast; M47.816 Spondylosis without myelopathy or radiculopathy, lumbar region; M47.817 Spondylosis without myelopathy or radiculopathy, lumbosacral region; Z13.1 Encounter for screening for diabetes mellitus

== ENCOUNTER → 2022-04-02 | Outpatient (CLI) | payer MEDICARE, MEDICAID | LOC: M PLAIMG 13:28 | PROVIDERS: ATTEND Physician Assistant Medical | DX: M54.41 Lumbago with sciatica, right side (principal) ==

== ENCOUNTER → 2022-04-09 | Outpatient (CLI) | payer MEDICARE, MEDICAID | LOC: M WHC 12:55 | PROVIDERS: ATTEND Physician Assistant Medical | DX: R92.2 Inconclusive mammogram (principal); Z85.3 Personal history of malignant neoplasm of breast ==

== ENCOUNTER → 2022-05-06 | Outpatient (CLI) | payer MEDICARE, MEDICAID | LOC: M RAD 09:35 | PROVIDERS: ATTEND Internal Medicine Pulmonary Disease | DX: Z12.2 Encounter for screening for malignant neoplasm of respiratory organs (principal); Z87.891 Personal history of nicotine dependence; J47.9 Bronchiectasis, uncomplicated; R91.8 Other nonspecific abnormal finding of lung field; J98.4 Other disorders of lung ==

== ENCOUNTER → 2022-05-19 | Outpatient (CLI) | payer MEDICARE, MEDICAID | LOC: M WHC 13:13 | PROVIDERS: ATTEND Physician Assistant Medical | DX: R92.8 Other abnormal and inconclusive findings on diagnostic imaging of breast (principal); N60.02 Solitary cyst of left breast; J47.9 Bronchiectasis, uncomplicated | CPT/HCPCS: 77065; 87070; 87077; 87186; 87205; G0279 ==

== ENCOUNTER → 2022-05-19 | Outpatient (REF) | payer MEDICARE, MEDICAID | LOC: M LAB REF 17:08 | PROVIDERS: ATTEND Internal Medicine Critical Care Medicine | DX: J47.9 Bronchiectasis, uncomplicated (principal) ==

== ENCOUNTER → 2022-06-08 | Outpatient (REF) | payer MEDICARE, MEDICAID | LOC: M SFHCPLAZ 10:09 | PROVIDERS: ATTEND Internal Medicine Infectious Disease | DX: A31.9 Mycobacterial infection, unspecified (principal) ==

== ENCOUNTER → 2022-07-09 | Outpatient (CLI) | payer MEDICARE, MEDICAID ==
[2022-07-09 13:59] LABS: BASO % 0.3 % (0.0-1.0); EOS # 0.1 10^3/uL (0.0-0.5); EOS % 0.9 % (0.0-3.0); HEMATOCRIT 37.7 % (36.0-47.0); HEMOGLOBIN 11.7 g/dl (12.0-15.5); LYMPH % 9.2 % (24.0-44.0); MEAN CORPUSCULAR HEMOGLOBIN 26.5 pg (27.0-33.0); MEAN CORPUSCULAR VOLUME 85.3 fl (80.0-96.0); MONO # 0.6 10^3/uL (0.0-0.8); MONO % 4.9 % (2.0-8.0); NEUTROPHILS # 9.6 10^3/uL (1.5-8.5); NEUTROPHILS % 84.3 % (36.0-66.0); PLATELET COUNT, AUTOMATED 189 10^3/uL (150-450); RED BLOOD COUNT 4.42 10^6/uL (4.00-5.40); WHITE BLOOD COUNT 11.3 10^3/uL (4.0-10.0)
[2022-07-09 14:28] LABS: FERRITIN 28.3 NG/ML (7.3-270.7)
== END ==
LOC: M PAL 09:27
PROVIDERS: ATTEND Physician Assistant Medical
DX: D50.8 Other iron deficiency anemias (principal)

== ENCOUNTER 2022-07-14 08:53 | Outpatient (CLI) | payer MEDICARE, MEDICAID ==
[~2022-07-14] VITALS: Ht 152.4 cm; Wt 45.8 kg
[~2022-07-14 08:53] MED LIST changes: +ALBUTEROL SULFATE 2.5MG/0.5ML INH NEB SOLN INH PRN; +EPINEPHrine INJ 1 MG/ML 1ML AMP IM PRN; +NS 1,000 ML IV SCH; +diphenhydrAMINE 50MG/ML VIAL IV PRN; +methylPREDNISolone 125MG 2ML VIAL IV PRN
[2022-07-14 09:00] VITALS: BP 121/54
[2022-07-14] MEDS ORDERED: IRON SUCROSE 25 MG in NS 23.75 ML IV ONE (09:30)
[2022-07-14] MEDS ORDERED: IRON SUCROSE 225 MG in NS 213.75 ML IV ONE (09:30)
[2022-07-14] MEDS ORDERED: IRON SUCROSE 250 MG in NS 237.5 ML IV ONE (09:40)
[2022-07-14 11:20] VITALS: BP 117/57
[2022-07-14 12:00] VITALS: BP 108/59
== END 2022-07-14 12:25 | disposition home or self-care (01) ==
LOC: M INFU 08:53
PROVIDERS: ATTEND Physician Assistant Medical
DX: D50.9 Iron deficiency anemia, unspecified (principal); Z88.0 Allergy status to penicillin
CPT/HCPCS: 96365; 96366; J1756

== ENCOUNTER 2022-08-04 15:00 | Outpatient (CLI) | payer MEDICARE, MEDICAID ==
[~2022-08-04] VITALS: Ht 152.4 cm; Wt 46.0 kg
[~2022-08-04 15:00] MED LIST changes: -ALBUTEROL SULFATE 2.5MG/0.5ML INH NEB SOLN INH PRN; +AMIKACIN SULFATE 750 MG in D5W 100 ML IV ONE; -EPINEPHrine INJ 1 MG/ML 1ML AMP IM PRN; -NS 1,000 ML IV SCH; -diphenhydrAMINE 50MG/ML VIAL IV PRN; -methylPREDNISolone 125MG 2ML VIAL IV PRN
[2022-08-04 15:10] VITALS: BP 127/66
[2022-08-04 16:20] VITALS: BP 116/59
== END 2022-08-04 16:20 | disposition home or self-care (01) ==
LOC: M INFU 15:00
PROVIDERS: ATTEND Internal Medicine Infectious Disease
DX: A31.9 Mycobacterial infection, unspecified (principal); Z88.0 Allergy status to penicillin
CPT/HCPCS: 96365; J0278

== ENCOUNTER 2022-08-05 11:45 | Outpatient (CLI) | payer MEDICARE, MEDICAID ==
[~2022-08-05] VITALS: Ht 152.4 cm; Wt 45.4 kg
[2022-08-05 11:45] VITALS: BP 106/58
[~2022-08-05 11:45] MED LIST changes: -AMIKACIN SULFATE 750 MG in D5W 100 ML IV ONE
[2022-08-05] MEDS ORDERED: AMIKACIN SULFATE IV ONE (12:00)
[2022-08-05] MEDS ORDERED: D5W IV ONE (12:00)
[2022-08-05 13:23] VITALS: BP 106/56
== END 2022-08-05 13:25 | disposition home or self-care (01) ==
LOC: M INFU 11:45
PROVIDERS: ATTEND Internal Medicine Infectious Disease
DX: A31.9 Mycobacterial infection, unspecified (principal); Z88.0 Allergy status to penicillin
CPT/HCPCS: 96365; J0278

== ENCOUNTER 2022-08-07 13:00 | Outpatient (CLI) | payer MEDICARE, MEDICAID ==
[2022-08-07 12:58] VITALS: BP 140/63
[~2022-08-07 13:00] MED LIST changes: +AMIKACIN SULFATE IV ONE; +D5W IV ONE
[2022-08-07 13:44] LABS: BASO % 0.4 % (0.0-1.0); EOS # 0.1 10^3/uL (0.0-0.5); EOS % 1.5 % (0.0-3.0); HEMATOCRIT 35.8 % (36.0-47.0); LYMPH # 1.3 10^3/uL (1.5-5.0); MEAN CORPUSCULAR HEMOGLOBIN 26.4 pg (27.0-33.0); MEAN CORPUSCULAR HGB CONC 30.7 g/dl (32.0-36.5); MEAN CORPUSCULAR VOLUME 85.9 fl (80.0-96.0); MONO # 0.6 10^3/uL (0.0-0.8); MONO % 7.5 % (2.0-8.0); NEUTROPHILS # 6.2 10^3/uL (1.5-8.5); NEUTROPHILS % 74.2 % (36.0-66.0); PLATELET COUNT, AUTOMATED 178 10^3/uL (150-450); RED BLOOD COUNT 4.17 10^6/uL (4.00-5.40); WHITE BLOOD COUNT 8.4 10^3/uL (4.0-10.0)
[2022-08-07 14:11] LABS: ALBUMIN 3.4 G/DL (3.2-5.2); ALKALINE PHOSPHATASE 83 U/L (46-116); ALT/SGPT 17 U/L (7.0-40); AST/SGOT 19 U/L (<34); BILIRUBIN,TOTAL 0.4 MG/DL (0.3-1.2); BLOOD UREA NITROGEN 13 MG/DL (9-23); CALCIUM LEVEL 9.1 MG/DL (8.3-10.6); CARBON DIOXIDE LEVEL 29 MMOL/L (20-31); CHLORIDE LEVEL 101 MMOL/L (98-107); CREATININE FOR GFR 0.72 MG/DL (0.55-1.30); GLOMERULAR FILTRATION RATE > 60.0 (>45); GLUCOSE, FASTING 104 MG/DL (74-106); POTASSIUM SERUM 4.1 MMOL/L (3.5-5.1); SODIUM LEVEL 138 MMOL/L (136-145); TOTAL PROTEIN 6.9 G/DL (5.7-8.2)
== END 2022-08-07 14:20 | disposition home or self-care (01) ==
LOC: M INFU 13:00
PROVIDERS: ATTEND Internal Medicine Infectious Disease
DX: A31.9 Mycobacterial infection, unspecified (principal); Z88.0 Allergy status to penicillin
CPT/HCPCS: 36592; 80053; 85025; 86140; 96365; J0278

== ENCOUNTER 2022-08-10 08:08 | Outpatient (CLI) | payer MEDICARE, MEDICAID ==
[~2022-08-10 08:08] MED LIST changes: -LIDOCAINE 1% MDV 20ML VIAL As Ordered ONE
[2022-08-10 09:45] VITALS: BP 125/61
[2022-08-10] MEDS ORDERED: SODIUM CHLORIDE 0.9% INJ 10 ML SYR IV PRN (10:30)
[2022-08-10] MEDS ORDERED: AMIKACIN SULFATE IV ONE (10:30)
[2022-08-10] MEDS ORDERED: D5W IV ONE (10:30)
[2022-08-10 10:31] LABS: BASO % 0.4 % (0.0-1.0); EOS # 0.1 10^3/uL (0.0-0.5); EOS % 1.4 % (0.0-3.0); HEMATOCRIT 33.3 % (36.0-47.0); HEMOGLOBIN 10.5 g/dl (12.0-15.5); LYMPH # 1.1 10^3/uL (1.5-5.0); LYMPH % 14.7 % (24.0-44.0); MEAN CORPUSCULAR HEMOGLOBIN 26.9 pg (27.0-33.0); MEAN CORPUSCULAR HGB CONC 31.5 g/dl (32.0-36.5); MEAN CORPUSCULAR VOLUME 85.2 fl (80.0-96.0); MONO # 0.5 10^3/uL (0.0-0.8); MONO % 6.2 % (2.0-8.0); PLATELET COUNT, AUTOMATED 166 10^3/uL (150-450); RED BLOOD COUNT 3.91 10^6/uL (4.00-5.40); WHITE BLOOD COUNT 7.8 10^3/uL (4.0-10.0)
[2022-08-10 10:51] LABS: C REACTIVE PROTEIN QUANTITATIV < 0.40 MG/DL (<1.0)
[2022-08-10 10:53] LABS: ALBUMIN 3.2 G/DL (3.2-5.2); ALKALINE PHOSPHATASE 76 U/L (46-116); ALT/SGPT 14 U/L (7.0-40); AST/SGOT 19 U/L (<34); BILIRUBIN,TOTAL 0.3 MG/DL (0.3-1.2); BLOOD UREA NITROGEN 12 MG/DL (9-23); CALCIUM LEVEL 8.7 MG/DL (8.3-10.6); CARBON DIOXIDE LEVEL 28 MMOL/L (20-31); CHLORIDE LEVEL 104 MMOL/L (98-107); CREATININE FOR GFR 0.69 MG/DL (0.55-1.30); GLOMERULAR FILTRATION RATE > 60.0 (>45); GLUCOSE, FASTING 96 MG/DL (74-106); POTASSIUM SERUM 4.1 MMOL/L (3.5-5.1); SODIUM LEVEL 138 MMOL/L (136-145); TOTAL PROTEIN 6.7 G/DL (5.7-8.2)
[2022-08-10 11:10] VITALS: BP 107/60
[2022-08-10] MEDS ORDERED: SODIUM CHLORIDE 0.9% INJ 10 ML SYR IV SCH (18:00)
== END 2022-08-10 11:30 | disposition home or self-care (01) ==
LOC: M INFU 08:08
PROVIDERS: ATTEND Internal Medicine Infectious Disease
DX: A31.9 Mycobacterial infection, unspecified (principal); Z88.0 Allergy status to penicillin
CPT/HCPCS: 36591; 80053; 80150; 85025; 86140; 96365; C1751; J0278

== ENCOUNTER → 2022-08-10 | Outpatient (CLI) | payer MEDICARE, MEDICAID ==
[~2022-08-10] MED LIST changes: -AMIKACIN SULFATE IV ONE; -D5W IV ONE; +LIDOCAINE 1% MDV 20ML VIAL As Ordered ONE
[2022-08-10 09:32] VITALS: BP 111/58
== END ==
LOC: M IRPRO 08:06
PROVIDERS: ATTEND Internal Medicine Infectious Disease
DX: A31.9 Mycobacterial infection, unspecified (principal)
CPT/HCPCS: 36561; C1751

== ENCOUNTER → 2022-08-17 | Outpatient (REF) | payer MEDICARE, MEDICAID ==
[2022-08-17 15:58] LABS: ALBUMIN 3.4 G/DL (3.2-5.2); ALKALINE PHOSPHATASE 77 U/L (46-116); ALT/SGPT 19 U/L (7.0-40); AST/SGOT 22 U/L (<34); BILIRUBIN,TOTAL 0.3 MG/DL (0.3-1.2); BLOOD UREA NITROGEN 15 MG/DL (9-23); C REACTIVE PROTEIN QUANTITATIV < 0.40 MG/DL (<1.0); CALCIUM LEVEL 8.7 MG/DL (8.3-10.6); CARBON DIOXIDE LEVEL 29 MMOL/L (20-31); CHLORIDE LEVEL 104 MMOL/L (98-107); CREATININE FOR GFR 0.66 MG/DL (0.55-1.30); GLOMERULAR FILTRATION RATE > 60.0 (>45); GLUCOSE, FASTING 64 MG/DL (74-106); POTASSIUM SERUM 3.7 MMOL/L (3.5-5.1); SODIUM LEVEL 139 MMOL/L (136-145); TOTAL PROTEIN 6.6 G/DL (5.7-8.2)
[2022-08-17 18:13] LABS: BASO % 0.6 % (0.0-1.0); EOS # 0.2 10^3/uL (0.0-0.5); EOS % 2.9 % (0.0-3.0); HEMATOCRIT 34.2 % (36.0-47.0); HEMOGLOBIN 10.9 g/dl (12.0-15.5); LYMPH # 1.6 10^3/uL (1.5-5.0); LYMPH % 21.8 % (24.0-44.0); MEAN CORPUSCULAR HEMOGLOBIN 27.2 pg (27.0-33.0); MEAN CORPUSCULAR HGB CONC 31.9 g/dl (32.0-36.5); MEAN CORPUSCULAR VOLUME 85.3 fl (80.0-96.0); MONO # 0.7 10^3/uL (0.0-0.8); MONO % 9.9 % (2.0-8.0); NEUTROPHILS # 4.7 10^3/uL (1.5-8.5); NEUTROPHILS % 64.4 % (36.0-66.0); PLATELET COUNT, AUTOMATED 145 10^3/uL (150-450); RED BLOOD COUNT 4.01 10^6/uL (4.00-5.40); WHITE BLOOD COUNT 7.2 10^3/uL (4.0-10.0)
== END ==
LOC: M LAB REF 14:46
PROVIDERS: ATTEND Internal Medicine Infectious Disease
DX: A31.9 Mycobacterial infection, unspecified (principal)

== ENCOUNTER → 2022-08-24 | Outpatient (REF) | payer MEDICARE, MEDICAID ==
[2022-08-24 14:26] LABS: BASO % 0.5 % (0.0-1.0); EOS # 0.3 10^3/uL (0.0-0.5); EOS % 3.6 % (0.0-3.0); HEMATOCRIT 35.4 % (36.0-47.0); HEMOGLOBIN 11.4 g/dl (12.0-15.5); LYMPH # 1.6 10^3/uL (1.5-5.0); LYMPH % 20.1 % (24.0-44.0); MEAN CORPUSCULAR HEMOGLOBIN 27.3 pg (27.0-33.0); MEAN CORPUSCULAR HGB CONC 32.2 g/dl (32.0-36.5); MEAN CORPUSCULAR VOLUME 84.7 fl (80.0-96.0); MONO # 0.6 10^3/uL (0.0-0.8); MONO % 7.4 % (2.0-8.0); NEUTROPHILS # 5.4 10^3/uL (1.5-8.5); NEUTROPHILS % 68.1 % (36.0-66.0); PLATELET COUNT, AUTOMATED 162 10^3/uL (150-450); RED BLOOD COUNT 4.18 10^6/uL (4.00-5.40)
[2022-08-24 14:35] LABS: C REACTIVE PROTEIN QUANTITATIV < 0.40 MG/DL (<1.0)
[2022-08-24 14:36] LABS: ALBUMIN 3.4 G/DL (3.2-5.2); ALKALINE PHOSPHATASE 88 U/L (46-116); ALT/SGPT 27 U/L (7.0-40); AST/SGOT 31 U/L (<34); BILIRUBIN,TOTAL 0.5 MG/DL (0.3-1.2); BLOOD UREA NITROGEN 14 MG/DL (9-23); CALCIUM LEVEL 9.3 MG/DL (8.3-10.6); CARBON DIOXIDE LEVEL 28 MMOL/L (20-31); CHLORIDE LEVEL 102 MMOL/L (98-107); GLOMERULAR FILTRATION RATE > 60.0 (>45); GLUCOSE, FASTING 112 MG/DL (74-106); SODIUM LEVEL 138 MMOL/L (136-145); TOTAL PROTEIN 6.9 G/DL (5.7-8.2)
== END ==
LOC: M SFHCPLAZ 13:31
PROVIDERS: ATTEND Internal Medicine Infectious Disease
DX: A31.9 Mycobacterial infection, unspecified (principal)

== ENCOUNTER → 2022-08-31 | Outpatient (REF) | payer MEDICARE, MEDICAID ==
[2022-08-31 15:31] LABS: BASO % 0.5 % (0.0-1.0); EOS # 0.2 10^3/uL (0.0-0.5); HEMATOCRIT 34.7 % (36.0-47.0); LYMPH # 1.6 10^3/uL (1.5-5.0); LYMPH % 21.1 % (24.0-44.0); MEAN CORPUSCULAR HEMOGLOBIN 27.1 pg (27.0-33.0); MEAN CORPUSCULAR HGB CONC 31.7 g/dl (32.0-36.5); MEAN CORPUSCULAR VOLUME 85.5 fl (80.0-96.0); MONO # 0.5 10^3/uL (0.0-0.8); MONO % 7.1 % (2.0-8.0); PLATELET COUNT, AUTOMATED 153 10^3/uL (150-450); RED BLOOD COUNT 4.06 10^6/uL (4.00-5.40); WHITE BLOOD COUNT 7.4 10^3/uL (4.0-10.0)
[2022-08-31 15:51] LABS: ALBUMIN 3.6 G/DL (3.2-5.2); ALKALINE PHOSPHATASE 86 U/L (46-116); ALT/SGPT 22 U/L (7.0-40); AST/SGOT 26 U/L (<34); BILIRUBIN,TOTAL 0.5 MG/DL (0.3-1.2); BLOOD UREA NITROGEN 12 MG/DL (9-23); CALCIUM LEVEL 9.3 MG/DL (8.3-10.6); CARBON DIOXIDE LEVEL 28 MMOL/L (20-31); CHLORIDE LEVEL 103 MMOL/L (98-107); CREATININE FOR GFR 0.73 MG/DL (0.55-1.30); GLOMERULAR FILTRATION RATE > 60.0 (>45); GLUCOSE, FASTING 88 MG/DL (74-106); SODIUM LEVEL 139 MMOL/L (136-145); TOTAL PROTEIN 6.8 G/DL (5.7-8.2)
[2022-08-31 15:53] LABS: C REACTIVE PROTEIN QUANTITATIV < 0.40 MG/DL (<1.0)
== END ==
LOC: M SHH 13:47
PROVIDERS: ATTEND Internal Medicine Infectious Disease
DX: A31.9 Mycobacterial infection, unspecified (principal)

== ENCOUNTER → 2022-09-07 | Outpatient (REF) | payer MEDICARE, MEDICAID ==
[2022-09-07 16:58] LABS: BASO % 0.3 % (0.0-1.0); EOS # 0.3 10^3/uL (0.0-0.5); EOS % 3.4 % (0.0-3.0); HEMATOCRIT 34.7 % (36.0-47.0); LYMPH # 1.3 10^3/uL (1.5-5.0); LYMPH % 16.1 % (24.0-44.0); MEAN CORPUSCULAR HEMOGLOBIN 27.2 pg (27.0-33.0); MEAN CORPUSCULAR HGB CONC 31.7 g/dl (32.0-36.5); MEAN CORPUSCULAR VOLUME 85.7 fl (80.0-96.0); MONO # 0.7 10^3/uL (0.0-0.8); MONO % 8.7 % (2.0-8.0); NEUTROPHILS # 5.7 10^3/uL (1.5-8.5); NEUTROPHILS % 71.1 % (36.0-66.0); PLATELET COUNT, AUTOMATED 159 10^3/uL (150-450); RED BLOOD COUNT 4.05 10^6/uL (4.00-5.40)
[2022-09-07 17:24] LABS: ALBUMIN 3.4 G/DL (3.2-5.2); ALKALINE PHOSPHATASE 83 U/L (46-116); ALT/SGPT 23 U/L (7.0-40); AST/SGOT 28 U/L (<34); BILIRUBIN,TOTAL 0.4 MG/DL (0.3-1.2); BLOOD UREA NITROGEN 13 MG/DL (9-23); C REACTIVE PROTEIN QUANTITATIV < 0.40 MG/DL (<1.0); CALCIUM LEVEL 8.9 MG/DL (8.3-10.6); CARBON DIOXIDE LEVEL 27 MMOL/L (20-31); CHLORIDE LEVEL 102 MMOL/L (98-107); CREATININE FOR GFR 0.76 MG/DL (0.55-1.30); GLOMERULAR FILTRATION RATE > 60.0 (>45); GLUCOSE, FASTING 93 MG/DL (74-106); POTASSIUM SERUM 3.7 MMOL/L (3.5-5.1); SODIUM LEVEL 138 MMOL/L (136-145); TOTAL PROTEIN 6.7 G/DL (5.7-8.2)
== END ==
LOC: M SFHCPLAZ 15:53
PROVIDERS: ATTEND Internal Medicine Infectious Disease
DX: A31.9 Mycobacterial infection, unspecified (principal)

== ENCOUNTER → 2022-09-15 | Outpatient (REF) | payer MEDICARE, MEDICAID | LOC: M SFHCPLAZ 12:57 | PROVIDERS: ATTEND Internal Medicine Infectious Disease | DX: A31.9 Mycobacterial infection, unspecified (principal) ==

== ENCOUNTER → 2022-09-22 | Outpatient (REF) | payer MEDICARE, MEDICAID ==
[2022-09-22 15:59] LABS: BASO % 0.4 % (0.0-1.0); EOS # 0.3 10^3/uL (0.0-0.5); EOS % 3.5 % (0.0-3.0); HEMATOCRIT 33.3 % (36.0-47.0); HEMOGLOBIN 10.8 g/dl (12.0-15.5); LYMPH # 1.2 10^3/uL (1.5-5.0); LYMPH % 15.8 % (24.0-44.0); MEAN CORPUSCULAR HEMOGLOBIN 28.1 pg (27.0-33.0); MEAN CORPUSCULAR HGB CONC 32.4 g/dl (32.0-36.5); MEAN CORPUSCULAR VOLUME 86.7 fl (80.0-96.0); MONO # 0.6 10^3/uL (0.0-0.8); MONO % 7.8 % (2.0-8.0); NEUTROPHILS # 5.5 10^3/uL (1.5-8.5); NEUTROPHILS % 72.1 % (36.0-66.0); PLATELET COUNT, AUTOMATED 175 10^3/uL (150-450); RED BLOOD COUNT 3.84 10^6/uL (4.00-5.40); WHITE BLOOD COUNT 7.7 10^3/uL (4.0-10.0)
[2022-09-22 16:24] LABS: ALBUMIN 3.5 G/DL (3.2-5.2); ALKALINE PHOSPHATASE 88 U/L (46-116); ALT/SGPT 25 U/L (7.0-40); AST/SGOT 25 U/L (<34); BILIRUBIN,TOTAL 0.4 MG/DL (0.3-1.2); BLOOD UREA NITROGEN 14 MG/DL (9-23); CALCIUM LEVEL 8.9 MG/DL (8.3-10.6); CARBON DIOXIDE LEVEL 28 MMOL/L (20-31); CHLORIDE LEVEL 104 MMOL/L (98-107); CREATININE FOR GFR 0.69 MG/DL (0.55-1.30); GLOMERULAR FILTRATION RATE > 60.0 (>45); GLUCOSE, FASTING 109 MG/DL (74-106); SODIUM LEVEL 139 MMOL/L (136-145); TOTAL PROTEIN 6.6 G/DL (5.7-8.2)
== END ==
LOC: M SFHCPLAZ 15:12
PROVIDERS: ATTEND Internal Medicine Infectious Disease
DX: A31.9 Mycobacterial infection, unspecified (principal)

== ENCOUNTER → 2022-10-05 | Outpatient (REF) | payer MEDICARE, MEDICAID ==
[2022-10-05 15:03] LABS: BASO % 0.6 % (0.0-1.0); EOS # 0.2 10^3/uL (0.0-0.5); EOS % 2.8 % (0.0-3.0); HEMATOCRIT 35.3 % (36.0-47.0); HEMOGLOBIN 11.2 g/dl (12.0-15.5); LYMPH # 1.5 10^3/uL (1.5-5.0); LYMPH % 22.6 % (24.0-44.0); MEAN CORPUSCULAR HEMOGLOBIN 27.6 pg (27.0-33.0); MEAN CORPUSCULAR HGB CONC 31.7 g/dl (32.0-36.5); MEAN CORPUSCULAR VOLUME 86.9 fl (80.0-96.0); MONO # 0.6 10^3/uL (0.0-0.8); MONO % 8.7 % (2.0-8.0); NEUTROPHILS # 4.4 10^3/uL (1.5-8.5); PLATELET COUNT, AUTOMATED 182 10^3/uL (150-450); RED BLOOD COUNT 4.06 10^6/uL (4.00-5.40); WHITE BLOOD COUNT 6.8 10^3/uL (4.0-10.0)
[2022-10-05 15:37] LABS: ALBUMIN 3.5 G/DL (3.2-5.2); ALKALINE PHOSPHATASE 84 U/L (46-116); ALT/SGPT 26 U/L (7.0-40); AST/SGOT 23 U/L (<34); BILIRUBIN,TOTAL 0.3 MG/DL (0.3-1.2); BLOOD UREA NITROGEN 14 MG/DL (9-23); CALCIUM LEVEL 8.8 MG/DL (8.3-10.6); CARBON DIOXIDE LEVEL 28 MMOL/L (20-31); CHLORIDE LEVEL 102 MMOL/L (98-107); CREATININE FOR GFR 0.68 MG/DL (0.55-1.30); GLOMERULAR FILTRATION RATE > 60.0 (>45); GLUCOSE, FASTING 124 MG/DL (74-106); POTASSIUM SERUM 3.9 MMOL/L (3.5-5.1); SODIUM LEVEL 139 MMOL/L (136-145); TOTAL PROTEIN 6.5 G/DL (5.7-8.2)
[2022-10-05 18:19] LABS: C REACTIVE PROTEIN QUANTITATIV < 0.40 MG/DL (<1.0)
== END ==
LOC: M SHH 14:38
PROVIDERS: ATTEND Internal Medicine Infectious Disease
DX: A31.9 Mycobacterial infection, unspecified (principal)

== ENCOUNTER → 2022-10-19 | Outpatient (REF) | payer MEDICARE, MEDICAID ==
[2022-10-19 12:49] LABS: BASO % 0.5 % (0.0-1.0); EOS # 0.3 10^3/uL (0.0-0.5); EOS % 3.1 % (0.0-3.0); HEMATOCRIT 37.1 % (36.0-47.0); HEMOGLOBIN 11.7 g/dl (12.0-15.5); LYMPH # 1.5 10^3/uL (1.5-5.0); LYMPH % 17.4 % (24.0-44.0); MEAN CORPUSCULAR HEMOGLOBIN 27.6 pg (27.0-33.0); MEAN CORPUSCULAR HGB CONC 31.5 g/dl (32.0-36.5); MEAN CORPUSCULAR VOLUME 87.5 fl (80.0-96.0); MONO # 0.6 10^3/uL (0.0-0.8); MONO % 6.9 % (2.0-8.0); NEUTROPHILS # 6.1 10^3/uL (1.5-8.5); NEUTROPHILS % 71.7 % (36.0-66.0); PLATELET COUNT, AUTOMATED 135 10^3/uL (150-450); RED BLOOD COUNT 4.24 10^6/uL (4.00-5.40); WHITE BLOOD COUNT 8.5 10^3/uL (4.0-10.0)
[2022-10-19 13:22] LABS: C REACTIVE PROTEIN QUANTITATIV < 0.40 MG/DL (<1.0)
[2022-10-19 13:23] LABS: ALBUMIN 3.6 G/DL (3.2-5.2); ALKALINE PHOSPHATASE 83 U/L (46-116); ALT/SGPT 25 U/L (7.0-40); AST/SGOT 11 U/L (<34); BILIRUBIN,TOTAL 0.3 MG/DL (0.3-1.2); BLOOD UREA NITROGEN 11 MG/DL (9-23); CARBON DIOXIDE LEVEL 27 MMOL/L (20-31); CHLORIDE LEVEL 104 MMOL/L (98-107); CREATININE FOR GFR 0.71 MG/DL (0.55-1.30); GLOMERULAR FILTRATION RATE > 60.0 (>45); GLUCOSE, FASTING 93 MG/DL (74-106); POTASSIUM SERUM 3.8 MMOL/L (3.5-5.1); SODIUM LEVEL 138 MMOL/L (136-145); TOTAL PROTEIN 6.6 G/DL (5.7-8.2)
== END ==
LOC: M SHH 12:00
PROVIDERS: ATTEND Internal Medicine Infectious Disease
DX: A31.9 Mycobacterial infection, unspecified (principal)

== ENCOUNTER → 2022-10-28 | Outpatient (REF) | payer MEDICARE, MEDICAID | LOC: M SFHCPLAZ 09:53 | PROVIDERS: ATTEND Internal Medicine Infectious Disease | DX: A31.9 Mycobacterial infection, unspecified (principal) ==

== ENCOUNTER → 2022-11-02 | Outpatient (REF) | payer MEDICARE, MEDICAID ==
[~2022-11-02] MED LIST changes: -ROPI0.5T3; +ROPI0.5T33; -ROPI1TAB3 PO; +ROPI1TAB73 PO
[2022-11-02 13:07] LABS: BASO % 0.4 % (0.0-1.0); EOS # 0.2 10^3/uL (0.0-0.5); HEMATOCRIT 35.3 % (36.0-47.0); HEMOGLOBIN 11.1 g/dl (12.0-15.5); LYMPH # 1.4 10^3/uL (1.5-5.0); MEAN CORPUSCULAR HEMOGLOBIN 27.5 pg (27.0-33.0); MEAN CORPUSCULAR HGB CONC 31.4 g/dl (32.0-36.5); MEAN CORPUSCULAR VOLUME 87.6 fl (80.0-96.0); MONO # 0.6 10^3/uL (0.0-0.8); MONO % 7.4 % (2.0-8.0); NEUTROPHILS # 5.2 10^3/uL (1.5-8.5); NEUTROPHILS % 70.1 % (36.0-66.0); PLATELET COUNT, AUTOMATED 135 10^3/uL (150-450); RED BLOOD COUNT 4.03 10^6/uL (4.00-5.40); WHITE BLOOD COUNT 7.4 10^3/uL (4.0-10.0)
[2022-11-02 13:35] LABS: C REACTIVE PROTEIN QUANTITATIV < 0.40 MG/DL (<1.0)
[2022-11-02 13:36] LABS: ALBUMIN 3.5 G/DL (3.2-5.2); ALKALINE PHOSPHATASE 80 U/L (46-116); ALT/SGPT 27 U/L (7.0-40); AST/SGOT 25 U/L (<34); BILIRUBIN,TOTAL 0.4 MG/DL (0.3-1.2); BLOOD UREA NITROGEN 17 MG/DL (9-23); CALCIUM LEVEL 8.7 MG/DL (8.3-10.6); CARBON DIOXIDE LEVEL 28 MMOL/L (20-31); CHLORIDE LEVEL 102 MMOL/L (98-107); CREATININE FOR GFR 0.73 MG/DL (0.55-1.30); GLOMERULAR FILTRATION RATE > 60.0 (>45); GLUCOSE, FASTING 95 MG/DL (74-106); SODIUM LEVEL 136 MMOL/L (136-145); TOTAL PROTEIN 6.7 G/DL (5.7-8.2)
== END ==
LOC: M LAB REF 11:14
PROVIDERS: ATTEND Internal Medicine Infectious Disease
DX: A31.9 Mycobacterial infection, unspecified (principal)

== ENCOUNTER → 2022-11-12 | Outpatient (CLI) | payer MEDICARE, MEDICAID ==
[2022-11-12 13:53] LABS: BASO % 0.3 % (0.0-1.0); EOS # 0.2 10^3/uL (0.0-0.5); EOS % 2.3 % (0.0-3.0); HEMATOCRIT 37.9 % (36.0-47.0); HEMOGLOBIN 11.9 g/dl (12.0-15.5); LYMPH # 1.2 10^3/uL (1.5-5.0); LYMPH % 16.8 % (24.0-44.0); MEAN CORPUSCULAR HEMOGLOBIN 28.1 pg (27.0-33.0); MEAN CORPUSCULAR HGB CONC 31.4 g/dl (32.0-36.5); MEAN CORPUSCULAR VOLUME 89.4 fl (80.0-96.0); MONO # 0.4 10^3/uL (0.0-0.8); MONO % 6.3 % (2.0-8.0); NEUTROPHILS # 5.2 10^3/uL (1.5-8.5); NEUTROPHILS % 73.9 % (36.0-66.0); PLATELET COUNT, AUTOMATED 118 10^3/uL (150-450); RED BLOOD COUNT 4.24 10^6/uL (4.00-5.40)
[2022-11-12 14:54] LABS: CPK CREATINE PHOSPHOKINASE 174 U/L (34-145)
[2022-11-12 14:55] LABS: ALBUMIN 3.8 G/DL (3.2-5.2); ALKALINE PHOSPHATASE 84 U/L (46-116); ALT/SGPT 29 U/L (7.0-40); AST/SGOT 26 U/L (<34); BILIRUBIN,TOTAL 0.4 MG/DL (0.3-1.2); BLOOD UREA NITROGEN 15 MG/DL (9-23); CALCIUM LEVEL 9.1 MG/DL (8.3-10.6); CARBON DIOXIDE LEVEL 28 MMOL/L (20-31); CHLORIDE LEVEL 104 MMOL/L (98-107); CHOLESTEROL LEVEL 133 MG/DL (<200); CREATININE FOR GFR 0.85 MG/DL (0.55-1.30); GLOMERULAR FILTRATION RATE > 60.0 (>45); GLUCOSE, FASTING 97 MG/DL (74-106); HDL CHOLESTEROL 57.7 MG/DL (>40); IRON (FE) 75 UG/DL (50-170); LDL CHOLESTEROL 51.1 MG/DL (<100); NON-HDL-C 75.3 MG/DL; POTASSIUM SERUM 4.5 MMOL/L (3.5-5.1); SODIUM LEVEL 142 MMOL/L (136-145); TRIGLYCERIDES LEVEL 121 MG/DL (<150)
[2022-11-12 15:04] LABS: FERRITIN 32.6 NG/ML (7.3-270.7)
== END ==
LOC: M PLALAB 09:13
PROVIDERS: ATTEND Physician Assistant Medical
DX: D50.8 Other iron deficiency anemias (principal); E78.9 Disorder of lipoprotein metabolism, unspecified

== ENCOUNTER → 2022-11-20 | Outpatient (CLI) | payer MEDICARE, MEDICAID | LOC: M RAD 12:55 | PROVIDERS: ATTEND Internal Medicine Infectious Disease | DX: M79.601 Pain in right arm (principal) ==

== ENCOUNTER → 2022-11-24 | Outpatient (REF) | payer MEDICARE, MEDICAID ==
[~2022-11-24] MED LIST changes: +[UNRECOGNIZED DRUG - CODE] IV; -[UNRECOGNIZED DRUG - CODE] IV
== END ==
LOC: M SFHCPLAZ 10:55
PROVIDERS: ATTEND Physician Assistant Medical
DX: D50.8 Other iron deficiency anemias (principal)

== ENCOUNTER 2022-11-25 08:45 | Outpatient (CLI) | payer MEDICARE, MEDICAID ==
[~2022-11-25] VITALS: Ht 160 cm; Wt 47.8 kg
[2022-11-25 08:45] VITALS: BP 136/64; O2SAT 100
[~2022-11-25 08:45] MED LIST changes: +ALBUTEROL SULFATE 2.5MG/0.5ML INH NEB SOLN INH PRN; +EPINEPHrine INJ 1 MG/ML 1ML AMP IM PRN; +diphenhydrAMINE 50MG/ML VIAL IV PRN; +methylPREDNISolone 125MG 2ML VIAL IV PRN
[2022-11-25] MEDS ORDERED: NS 1,000 ML IV SCH (09:30)
[2022-11-25] MEDS ORDERED: IRON SUCROSE 250 MG in NS 237.5 ML IV ONE (09:30)
[2022-11-25] MEDS ORDERED: SODIUM CHLORIDE 0.9% INJ 10 ML SYR IV PRN (10:05)
[2022-11-25 10:40] VITALS: BP 132/65; O2SAT 98
[2022-11-25] MEDS ORDERED: SODIUM CHLORIDE 0.9% INJ 10 ML SYR IV SCH (18:00)
== END 2022-11-25 10:40 | disposition home or self-care (01) ==
LOC: M INFU 08:45
PROVIDERS: ATTEND Physician Assistant Medical
DX: D50.9 Iron deficiency anemia, unspecified (principal); Z88.0 Allergy status to penicillin
CPT/HCPCS: 96365; J1756

== ENCOUNTER → 2022-11-30 | Outpatient (REF) | payer MEDICARE, MEDICAID ==
[~2022-11-30] MED LIST changes: -ALBUTEROL SULFATE 2.5MG/0.5ML INH NEB SOLN INH PRN; -EPINEPHrine INJ 1 MG/ML 1ML AMP IM PRN; -diphenhydrAMINE 50MG/ML VIAL IV PRN; -methylPREDNISolone 125MG 2ML VIAL IV PRN
[2022-11-30 12:19] LABS: BASO % 0.3 % (0.0-1.0); EOS # 0.2 10^3/uL (0.0-0.5); EOS % 2.6 % (0.0-3.0); HEMATOCRIT 34.6 % (36.0-47.0); HEMOGLOBIN 11.1 g/dl (12.0-15.5); LYMPH # 1.2 10^3/uL (1.5-5.0); LYMPH % 16.2 % (24.0-44.0); MEAN CORPUSCULAR HEMOGLOBIN 28.5 pg (27.0-33.0); MEAN CORPUSCULAR HGB CONC 32.1 g/dl (32.0-36.5); MEAN CORPUSCULAR VOLUME 88.9 fl (80.0-96.0); MONO # 0.6 10^3/uL (0.0-0.8); MONO % 7.8 % (2.0-8.0); NEUTROPHILS # 5.3 10^3/uL (1.5-8.5); NEUTROPHILS % 72.7 % (36.0-66.0); PLATELET COUNT, AUTOMATED 115 10^3/uL (150-450); RED BLOOD COUNT 3.89 10^6/uL (4.00-5.40); WHITE BLOOD COUNT 7.3 10^3/uL (4.0-10.0)
[2022-11-30 12:41] LABS: ALBUMIN 3.9 G/DL (3.2-5.2); ALKALINE PHOSPHATASE 72 U/L (46-116); ALT/SGPT 38 U/L (7.0-40); AST/SGOT 37 U/L (<34); BILIRUBIN,TOTAL 0.5 MG/DL (0.3-1.2); BLOOD UREA NITROGEN 13 MG/DL (9-23); CALCIUM LEVEL 9.3 MG/DL (8.3-10.6); CARBON DIOXIDE LEVEL 27 MMOL/L (20-31); CHLORIDE LEVEL 102 MMOL/L (98-107); CREATININE FOR GFR 0.82 MG/DL (0.55-1.30); GLOMERULAR FILTRATION RATE > 60.0 (>45); GLUCOSE, FASTING 84 MG/DL (74-106); POTASSIUM SERUM 4.1 MMOL/L (3.5-5.1); SODIUM LEVEL 139 MMOL/L (136-145); TOTAL PROTEIN 6.9 G/DL (5.7-8.2)
[2022-11-30 12:46] LABS: C REACTIVE PROTEIN QUANTITATIV < 0.40 MG/DL (<1.0)
== END ==
LOC: M SHH 11:14
PROVIDERS: ATTEND Internal Medicine Infectious Disease
DX: A31.9 Mycobacterial infection, unspecified (principal)

== ENCOUNTER 2022-12-03 11:20 | Outpatient (CLI) | payer MEDICARE, MEDICAID ==
[~2022-12-03] VITALS: Ht 162.6 cm; Wt 46.8 kg
[~2022-12-03 11:20] MED LIST changes: +ALBUTEROL SULFATE 2.5MG/0.5ML INH NEB SOLN INH PRN; +EPINEPHrine INJ 1 MG/ML 1ML AMP IM PRN; +diphenhydrAMINE 50MG/ML VIAL IV PRN; +methylPREDNISolone 125MG 2ML VIAL IV PRN
[2022-12-03 11:30] VITALS: BP 127/58; O2SAT 100
[2022-12-03] MEDS ORDERED: IRON SUCROSE 250 MG in NS 237.5 ML IV ONE (11:30)
[2022-12-03] MEDS ORDERED: NS 1,000 ML IV SCH (11:30)
[2022-12-03] MEDS ORDERED: SODIUM CHLORIDE 0.9% INJ 10 ML SYR IV PRN (11:30)
[2022-12-03 13:00] VITALS: BP 166/52; O2SAT 100
== END 2022-12-03 13:05 | disposition home or self-care (01) ==
LOC: M INFU 11:20
PROVIDERS: ATTEND Physician Assistant Medical
DX: D50.9 Iron deficiency anemia, unspecified (principal); Z88.0 Allergy status to penicillin
CPT/HCPCS: 36415; 36592; 82728; 83540; 85025; 96365; J1756

== ENCOUNTER → 2022-12-03 | Outpatient (CLI) | payer MEDICARE, MEDICAID ==
[2022-12-03 12:29] LABS: BASO % 0.3 % (0.0-1.0); EOS # 0.2 10^3/uL (0.0-0.5); EOS % 2.3 % (0.0-3.0); HEMATOCRIT 37.1 % (36.0-47.0); HEMOGLOBIN 11.9 g/dl (12.0-15.5); LYMPH # 1.2 10^3/uL (1.5-5.0); LYMPH % 15.7 % (24.0-44.0); MEAN CORPUSCULAR HEMOGLOBIN 28.8 pg (27.0-33.0); MEAN CORPUSCULAR HGB CONC 32.1 g/dl (32.0-36.5); MEAN CORPUSCULAR VOLUME 89.8 fl (80.0-96.0); MONO # 0.6 10^3/uL (0.0-0.8); MONO % 8.1 % (2.0-8.0); NEUTROPHILS # 5.4 10^3/uL (1.5-8.5); NEUTROPHILS % 73.3 % (36.0-66.0); PLATELET COUNT, AUTOMATED 124 10^3/uL (150-450); RED BLOOD COUNT 4.13 10^6/uL (4.00-5.40); WHITE BLOOD COUNT 7.4 10^3/uL (4.0-10.0)
[2022-12-03 13:03] LABS: FERRITIN 104.8 NG/ML (7.3-270.7)
== END ==
LOC: M LAB 11:03
PROVIDERS: ATTEND Physician Assistant Medical
DX: D50.8 Other iron deficiency anemias (principal)

== ENCOUNTER → 2022-12-07 | Outpatient (REF) | payer MEDICARE, MEDICAID ==
[~2022-12-07] MED LIST changes: -ALBUTEROL SULFATE 2.5MG/0.5ML INH NEB SOLN INH PRN; -EPINEPHrine INJ 1 MG/ML 1ML AMP IM PRN; -diphenhydrAMINE 50MG/ML VIAL IV PRN; -methylPREDNISolone 125MG 2ML VIAL IV PRN
[2022-12-07 18:19] LABS: BASO % 0.3 % (0.0-1.0); EOS # 0.2 10^3/uL (0.0-0.5); EOS % 2.2 % (0.0-3.0); HEMATOCRIT 34.8 % (36.0-47.0); HEMOGLOBIN 11.2 g/dl (12.0-15.5); LYMPH # 1.3 10^3/uL (1.5-5.0); LYMPH % 17.8 % (24.0-44.0); MEAN CORPUSCULAR HGB CONC 32.2 g/dl (32.0-36.5); MEAN CORPUSCULAR VOLUME 90.2 fl (80.0-96.0); MONO # 0.7 10^3/uL (0.0-0.8); MONO % 9.5 % (2.0-8.0); NEUTROPHILS % 69.9 % (36.0-66.0); PLATELET COUNT, AUTOMATED 113 10^3/uL (150-450); RED BLOOD COUNT 3.86 10^6/uL (4.00-5.40); WHITE BLOOD COUNT 7.1 10^3/uL (4.0-10.0)
[2022-12-07 18:43] LABS: FERRITIN 222.4 NG/ML (7.3-270.7)
== END ==
LOC: M SFHCPLAZ 15:43
PROVIDERS: ATTEND Internal Medicine Infectious Disease
DX: D69.6 Thrombocytopenia, unspecified (principal)

== ENCOUNTER 2022-12-23 17:03 | Emergency (ER) | payer MEDICARE, MEDICAID ==
[~2022-12-23] VITALS: Ht 160 cm; Wt 48.7 kg
[2022-12-23] MEDS ORDERED: SODIUM CHLORIDE 0.9% INJ 10 ML SYR IV SCH (18:00)
[2022-12-23 19:32] VITALS: BP 146/67; TEMP 97; O2SAT 94
== END 2022-12-23 19:34 | disposition home or self-care (01) ==
LOC: M ED 17:03
DX: T82.594A Other mechanical complication of infusion catheter, initial encounter (principal); Z90.2 Acquired absence of lung [part of]; Z87.01 Personal history of pneumonia (recurrent); Z99.81 Dependence on supplemental oxygen; Z79.82 Long term (current) use of aspirin; Z79.899 Other long term (current) drug therapy; Z88.0 Allergy status to penicillin

== ENCOUNTER → 2023-01-04 | Outpatient (REF) | payer MEDICARE, MEDICAID ==
[2023-01-04 15:19] LABS: BASO % 0.3 % (0.0-1.0); EOS # 0.1 10^3/uL (0.0-0.5); EOS % 1.7 % (0.0-3.0); HEMATOCRIT 25.7 % (36.0-47.0); LYMPH % 13.9 % (24.0-44.0); MEAN CORPUSCULAR HEMOGLOBIN 29.4 pg (27.0-33.0); MEAN CORPUSCULAR HGB CONC 31.1 g/dl (32.0-36.5); MEAN CORPUSCULAR VOLUME 94.5 fl (80.0-96.0); MONO # 0.4 10^3/uL (0.0-0.8); MONO % 5.6 % (2.0-8.0); NEUTROPHILS # 5.4 10^3/uL (1.5-8.5); NEUTROPHILS % 77.9 % (36.0-66.0); PLATELET COUNT, AUTOMATED 171 10^3/uL (150-450); RED BLOOD COUNT 2.72 10^6/uL (4.00-5.40); WHITE BLOOD COUNT 6.9 10^3/uL (4.0-10.0)
[2023-01-04 15:45] LABS: PERCENT SATURATION 32.4 % (13.2-45.0)
[2023-01-04 15:47] LABS: FERRITIN 203.7 NG/ML (7.3-270.7)
== END ==
LOC: M SHH 14:55
PROVIDERS: ATTEND Internal Medicine Infectious Disease
DX: D69.6 Thrombocytopenia, unspecified (principal)

== ENCOUNTER → 2023-02-01 | Outpatient (REF) | payer MEDICARE, MEDICAID ==
[~2023-02-01] MED LIST changes: +ALBU2.5V10 INH; +ALBU8.5H INH; -BUDE10.7 IH; +BUDE10.7 INH; +FAMO40TA3 PO; +LINE1TAB PO; +MIRA1POW3 PO; +PANT-23 PO; +ROSU10TA6 PO; +SENN8.6T28 PO; +TIZA1TAB12 PO; +TIZA2CAP PO; +[UNRECOGNIZED DRUG - CODE] IV
[2023-02-01 14:01] LABS: BASO % 0.4 % (0.0-1.0); EOS # 0.1 10^3/uL (0.0-0.5); HEMATOCRIT 32.2 % (36.0-47.0); HEMOGLOBIN 10.3 g/dl (12.0-15.5); LYMPH % 14.3 % (24.0-44.0); MEAN CORPUSCULAR VOLUME 90.7 fl (80.0-96.0); MONO # 0.3 10^3/uL (0.0-0.8); MONO % 4.9 % (2.0-8.0); NEUTROPHILS # 5.5 10^3/uL (1.5-8.5); NEUTROPHILS % 79.1 % (36.0-66.0); PLATELET COUNT, AUTOMATED 155 10^3/uL (150-450); RED BLOOD COUNT 3.55 10^6/uL (4.00-5.40); WHITE BLOOD COUNT 6.9 10^3/uL (4.0-10.0)
[2023-02-01 14:31] LABS: PERCENT SATURATION 48.3 % (13.2-45.0)
[2023-02-01 14:34] LABS: FERRITIN 230.4 NG/ML (7.3-270.7)
== END ==
LOC: M LAB REF 13:10
PROVIDERS: ATTEND Internal Medicine Infectious Disease
DX: D69.6 Thrombocytopenia, unspecified (principal)

== ENCOUNTER → 2023-02-12 | Outpatient (REF) | payer MEDICARE, MEDICAID | LOC: M SFHCPLAZ 12:15 | PROVIDERS: ATTEND Internal Medicine Infectious Disease | DX: A31.9 Mycobacterial infection, unspecified (principal) ==

== ENCOUNTER → 2023-02-15 | Outpatient (REF) | payer MEDICARE, MEDICAID ==
[2023-02-15 15:50] LABS: BASO % 0.2 % (0.0-1.0); EOS # 0.2 10^3/uL (0.0-0.5); HEMOGLOBIN 9.7 g/dl (12.0-15.5); MEAN CORPUSCULAR HEMOGLOBIN 29.2 pg (27.0-33.0); MEAN CORPUSCULAR HGB CONC 32.3 g/dl (32.0-36.5); MEAN CORPUSCULAR VOLUME 90.4 fl (80.0-96.0); MONO # 0.6 10^3/uL (0.0-0.8); NEUTROPHILS # 6.8 10^3/uL (1.5-8.5); NEUTROPHILS % 78.3 % (36.0-66.0); PLATELET COUNT, AUTOMATED 178 10^3/uL (150-450); RED BLOOD COUNT 3.32 10^6/uL (4.00-5.40); WHITE BLOOD COUNT 8.7 10^3/uL (4.0-10.0)
[2023-02-15 22:49] LABS: FERRITIN 174.1 NG/ML (7.3-270.7)
== END ==
LOC: M SHH 14:27
PROVIDERS: ATTEND Internal Medicine Infectious Disease
DX: D69.6 Thrombocytopenia, unspecified (principal)

== ENCOUNTER → 2023-02-22 | Outpatient (CLI) | payer MEDICAID, MEDICARE | LOC: M WHC 10:55 | PROVIDERS: ATTEND Physician Assistant Medical | DX: M81.0 Age-related osteoporosis without current pathological fracture (principal) ==

== ENCOUNTER → 2023-03-01 | Outpatient (REF) | payer MEDICARE ==
[2023-03-01 16:21] LABS: BASO % 0.5 % (0.0-1.0); EOS # 0.2 10^3/uL (0.0-0.5); HEMOGLOBIN 10.5 g/dl (12.0-15.5); LYMPH # 1.3 10^3/uL (1.5-5.0); LYMPH % 21.7 % (24.0-44.0); MEAN CORPUSCULAR HEMOGLOBIN 29.1 pg (27.0-33.0); MEAN CORPUSCULAR HGB CONC 31.8 g/dl (32.0-36.5); MEAN CORPUSCULAR VOLUME 91.4 fl (80.0-96.0); MONO # 0.6 10^3/uL (0.0-0.8); MONO % 9.9 % (2.0-8.0); NEUTROPHILS # 3.9 10^3/uL (1.5-8.5); NEUTROPHILS % 64.6 % (36.0-66.0); PLATELET COUNT, AUTOMATED 132 10^3/uL (150-450); RED BLOOD COUNT 3.61 10^6/uL (4.00-5.40); WHITE BLOOD COUNT 6.1 10^3/uL (4.0-10.0)
[2023-03-01 16:43] LABS: PERCENT SATURATION 17.4 % (13.2-45.0)
[2023-03-01 16:45] LABS: FERRITIN 164.4 NG/ML (7.3-270.7)
== END ==
LOC: M SHH 15:13
PROVIDERS: ATTEND Internal Medicine Infectious Disease
DX: D69.6 Thrombocytopenia, unspecified (principal)

== ENCOUNTER → 2023-03-15 | Outpatient (REF) | payer MEDICARE, MEDICAID ==
[2023-03-15 12:23] LABS: BASO % 0.4 % (0.0-1.0); EOS # 0.1 10^3/uL (0.0-0.5); EOS % 1.2 % (0.0-3.0); HEMOGLOBIN 11.2 g/dl (12.0-15.5); LYMPH # 1.1 10^3/uL (1.5-5.0); LYMPH % 13.6 % (24.0-44.0); MEAN CORPUSCULAR HEMOGLOBIN 29.3 pg (27.0-33.0); MEAN CORPUSCULAR VOLUME 91.6 fl (80.0-96.0); MONO # 0.5 10^3/uL (0.0-0.8); MONO % 5.5 % (2.0-8.0); NEUTROPHILS # 6.4 10^3/uL (1.5-8.5); NEUTROPHILS % 78.8 % (36.0-66.0); PLATELET COUNT, AUTOMATED 152 10^3/uL (150-450); RED BLOOD COUNT 3.82 10^6/uL (4.00-5.40); WHITE BLOOD COUNT 8.2 10^3/uL (4.0-10.0)
[2023-03-15 12:48] LABS: ALBUMIN 3.9 G/DL (3.2-5.2); ALKALINE PHOSPHATASE 72 U/L (46-116); ALT/SGPT 25 U/L (7.0-40); AST/SGOT 24 U/L (<34); BILIRUBIN,TOTAL 0.5 MG/DL (0.3-1.2); BLOOD UREA NITROGEN 14 MG/DL (9-23); CALCIUM LEVEL 9.4 MG/DL (8.3-10.6); CARBON DIOXIDE LEVEL 28 MMOL/L (20-31); CHLORIDE LEVEL 103 MMOL/L (98-107); CREATININE FOR GFR 0.64 MG/DL (0.55-1.30); GLOMERULAR FILTRATION RATE > 60.0 (>45); GLUCOSE, FASTING 86 MG/DL (74-106); POTASSIUM SERUM 3.9 MMOL/L (3.5-5.1); SODIUM LEVEL 141 MMOL/L (136-145); TOTAL PROTEIN 7.1 G/DL (5.7-8.2)
== END ==
LOC: M SHH 11:59
PROVIDERS: ATTEND Internal Medicine Infectious Disease
DX: A31.9 Mycobacterial infection, unspecified (principal)

== ENCOUNTER → 2023-05-12 | Outpatient (REF) | payer MEDICARE, MEDICAID ==
[2023-05-12 12:24] LABS: HEMATOCRIT 36.2 % (36.0-47.0); HEMOGLOBIN 11.6 g/dl (12.0-15.5); MEAN CORPUSCULAR HEMOGLOBIN 28.8 pg (27.0-33.0); MEAN CORPUSCULAR VOLUME 89.8 fl (80.0-96.0); PLATELET COUNT, AUTOMATED 120 10^3/uL (150-450); RED BLOOD COUNT 4.03 10^6/uL (4.00-5.40); WHITE BLOOD COUNT 7.5 10^3/uL (4.0-10.0)
[2023-05-12 12:49] LABS: C REACTIVE PROTEIN QUANTITATIV < 0.40 MG/DL (<1.0)
[2023-05-12 12:51] LABS: ALBUMIN 3.7 G/DL (3.2-5.2); ALKALINE PHOSPHATASE 79 U/L (46-116); ALT/SGPT 29 U/L (7.0-40); AST/SGOT 25 U/L (<34); BILIRUBIN,TOTAL 0.4 MG/DL (0.3-1.2); BLOOD UREA NITROGEN 16 MG/DL (9-23); CALCIUM LEVEL 9.1 MG/DL (8.3-10.6); CARBON DIOXIDE LEVEL 29 MMOL/L (20-31); CHLORIDE LEVEL 107 MMOL/L (98-107); CREATININE FOR GFR 0.75 MG/DL (0.55-1.30); GLOMERULAR FILTRATION RATE > 60.0 (>45); GLUCOSE, FASTING 73 MG/DL (74-106); POTASSIUM SERUM 4.1 MMOL/L (3.5-5.1); SODIUM LEVEL 140 MMOL/L (136-145); TOTAL PROTEIN 6.8 G/DL (5.7-8.2)
== END ==
LOC: M SHH 11:44
PROVIDERS: ATTEND Internal Medicine Infectious Disease
DX: A31.9 Mycobacterial infection, unspecified (principal)

== ENCOUNTER → 2023-05-25 | Outpatient (CLI) | payer MEDICARE, MEDICAID ==
[2023-05-25 10:52] LABS: HEMATOCRIT 40.4 % (36.0-47.0); HEMOGLOBIN 12.7 g/dl (12.0-15.5); MEAN CORPUSCULAR HEMOGLOBIN 28.3 pg (27.0-33.0); MEAN CORPUSCULAR HGB CONC 31.4 g/dl (32.0-36.5); MEAN CORPUSCULAR VOLUME 90.2 fl (80.0-96.0); PLATELET COUNT, AUTOMATED 162 10^3/uL (150-450); RED BLOOD COUNT 4.48 10^6/uL (4.00-5.40); WHITE BLOOD COUNT 7.5 10^3/uL (4.0-10.0)
[2023-05-25 11:16] LABS: C REACTIVE PROTEIN QUANTITATIV < 0.40 MG/DL (<1.0)
[2023-05-25 11:18] LABS: ALKALINE PHOSPHATASE 96 U/L (46-116); ALT/SGPT 41 U/L (7.0-40); AST/SGOT 35 U/L (<34); BILIRUBIN,TOTAL 0.4 MG/DL (0.3-1.2); BLOOD UREA NITROGEN 20 MG/DL (9-23); CALCIUM LEVEL 9.9 MG/DL (8.3-10.6); CARBON DIOXIDE LEVEL 27 MMOL/L (20-31); CHLORIDE LEVEL 108 MMOL/L (98-107); CREATININE FOR GFR 0.77 MG/DL (0.55-1.30); GLOMERULAR FILTRATION RATE > 60.0 (>45); GLUCOSE, FASTING 103 MG/DL (74-106); POTASSIUM SERUM 4.4 MMOL/L (3.5-5.1); SODIUM LEVEL 140 MMOL/L (136-145); TOTAL PROTEIN 7.6 G/DL (5.7-8.2)
== END ==
LOC: M LAB 09:51
PROVIDERS: ATTEND Internal Medicine Infectious Disease
DX: A31.9 Mycobacterial infection, unspecified (principal)

== ENCOUNTER → 2023-05-25 | Outpatient (CLI) | payer MEDICARE, MEDICAID | LOC: M RAD 09:44 | PROVIDERS: ATTEND Internal Medicine Pulmonary Disease | DX: J47.9 Bronchiectasis, uncomplicated (principal); A31.0 Pulmonary mycobacterial infection; I70.0 Atherosclerosis of aorta; I25.10 Atherosclerotic heart disease of native coronary artery without angina pectoris; N28.1 Cyst of kidney, acquired; R91.8 Other nonspecific abnormal finding of lung field; G62.9 Polyneuropathy, unspecified; D50.8 Other iron deficiency anemias ==

== ENCOUNTER → 2023-05-25 | Outpatient (CLI) | payer MEDICARE, MEDICAID ==
[2023-05-25 10:50] LABS: BASO % 0.3 % (0.0-1.0); EOS # 0.2 10^3/uL (0.0-0.5); EOS % 2.8 % (0.0-3.0); HEMATOCRIT 39.1 % (36.0-47.0); HEMOGLOBIN 12.5 g/dl (12.0-15.5); LYMPH # 1.1 10^3/uL (1.5-5.0); LYMPH % 15.3 % (24.0-44.0); MEAN CORPUSCULAR HEMOGLOBIN 28.5 pg (27.0-33.0); MEAN CORPUSCULAR VOLUME 89.1 fl (80.0-96.0); MONO # 0.5 10^3/uL (0.0-0.8); MONO % 6.9 % (2.0-8.0); NEUTROPHILS # 5.5 10^3/uL (1.5-8.5); PLATELET COUNT, AUTOMATED 163 10^3/uL (150-450); RED BLOOD COUNT 4.39 10^6/uL (4.00-5.40); WHITE BLOOD COUNT 7.4 10^3/uL (4.0-10.0)
[2023-05-25 11:18] LABS: FERRITIN 144.6 NG/ML (7.3-270.7)
== END ==
LOC: M LAB 09:54
PROVIDERS: ATTEND Physician Assistant Medical
DX: G62.9 Polyneuropathy, unspecified (principal); D50.8 Other iron deficiency anemias

== ENCOUNTER → 2023-05-31 | Outpatient (REF) | payer MEDICARE, MEDICAID ==
[~2023-05-31] MED LIST changes: -MIRA1POW3 PO; +MIRA33506 PO
== END ==
LOC: M SFHCPLAZ 15:36
PROVIDERS: ATTEND Internal Medicine Infectious Disease
DX: A31.9 Mycobacterial infection, unspecified (principal)

== ENCOUNTER → 2023-07-08 | Outpatient (CLI) | payer MEDICARE, MEDICAID | LOC: M PLALAB 09:38 | PROVIDERS: ATTEND Internal Medicine Infectious Disease | DX: A31.9 Mycobacterial infection, unspecified (principal) ==

== ENCOUNTER → 2023-07-19 | Outpatient (CLI) | payer MEDICARE, MEDICAID ==
[~2023-07-19] MED LIST changes: +ISOVUE-370 76% 100ML VIAL As Ordered ONE
[2023-07-19 11:27] LABS: BLOOD UREA NITROGEN 16 MG/DL (9-23); CREATININE FOR GFR 0.75 MG/DL (0.55-1.30); GLOMERULAR FILTRATION RATE > 60.0 (>45)
== END ==
LOC: M RAD 09:53
PROVIDERS: ATTEND Nurse Practitioner
DX: I71.40 Abdominal aortic aneurysm, without rupture, unspecified (principal); J43.9 Emphysema, unspecified; N28.1 Cyst of kidney, acquired; K44.9 Diaphragmatic hernia without obstruction or gangrene; I70.0 Atherosclerosis of aorta; M47.816 Spondylosis without myelopathy or radiculopathy, lumbar region; T82.330A Leakage of aortic (bifurcation) graft (replacement), initial encounter; Y83.1 Surgical operation with implant of artificial internal device as the cause of abnormal reaction of the patient, or of later complication, without mention of misadventure at the time of the procedure
CPT/HCPCS: 36415; 74174; 82565; 84520; Q9967

== ENCOUNTER → 2023-07-22 | Outpatient (REF) | payer MEDICARE, MEDICAID ==
[~2023-07-22] MED LIST changes: -ISOVUE-370 76% 100ML VIAL As Ordered ONE
== END ==
LOC: M SFHCPLAZ 15:10
PROVIDERS: ATTEND Internal Medicine Infectious Disease
DX: A31.9 Mycobacterial infection, unspecified (principal)

== ENCOUNTER → 2023-08-12 | Outpatient (CLI) | payer MEDICARE, MEDICAID ==
[2023-08-12 12:22] LABS: BASO % 0.4 % (0.0-1.0); EOS # 0.3 10^3/uL (0.0-0.5); EOS % 3.9 % (0.0-3.0); HEMATOCRIT 37.1 % (36.0-47.0); HEMOGLOBIN 11.7 g/dl (12.0-15.5); LYMPH # 0.9 10^3/uL (1.5-5.0); LYMPH % 11.7 % (24.0-44.0); MEAN CORPUSCULAR HEMOGLOBIN 28.7 pg (27.0-33.0); MEAN CORPUSCULAR HGB CONC 31.5 g/dl (32.0-36.5); MEAN CORPUSCULAR VOLUME 90.9 fl (80.0-96.0); MONO # 0.4 10^3/uL (0.0-0.8); MONO % 5.7 % (2.0-8.0); NEUTROPHILS # 5.9 10^3/uL (1.5-8.5); PLATELET COUNT, AUTOMATED 135 10^3/uL (150-450); RED BLOOD COUNT 4.08 10^6/uL (4.00-5.40); WHITE BLOOD COUNT 7.6 10^3/uL (4.0-10.0)
[2023-08-12 12:41] LABS: FERRITIN 101.3 NG/ML (7.3-270.7)
== END ==
LOC: M LAB 11:50
PROVIDERS: ATTEND Physician Assistant Medical
DX: D50.8 Other iron deficiency anemias (principal)

== ENCOUNTER 2023-10-19 07:13 | Day surgery (SDC) | payer MEDICARE, MEDICAID ==
[~2023-10-19] VITALS: Ht 160 cm; Wt 50.3 kg
[~2023-10-19 07:13] MED LIST changes: +NS 1,000 ML IV ONE; -ROSU10TA6 PO; +ROSU10TA61 PO; +THERTAB52 PO
[2023-10-19] MEDS ORDERED: propofoL 200 MG/20 ML VIAL As Ordered ONE (08:36)
[2023-10-19 09:10] VITALS: BP 113/66; TEMP 97.3; O2SAT 96
== END 2023-10-19 09:29 | disposition home or self-care (01) ==
LOC: M OPP 07:13
PROVIDERS: ATTEND Internal Medicine Gastroenterology
DX: D64.9 Anemia, unspecified (principal); Z53.8 Procedure and treatment not carried out for other reasons

== ENCOUNTER → 2023-10-25 | Outpatient (REF) | payer MEDICARE, MEDICAID ==
[~2023-10-25] MED LIST changes: -NS 1,000 ML IV ONE
== END ==
LOC: M SFHCPLAZ 10:35
PROVIDERS: ATTEND Internal Medicine Infectious Disease
DX: A31.9 Mycobacterial infection, unspecified (principal)

== ENCOUNTER → 2023-11-22 | Outpatient (CLI) | payer MEDICARE, MEDICAID ==
[2023-11-22 10:31] LABS: ALBUMIN 3.5 G/DL (3.2-5.2); ALKALINE PHOSPHATASE 96 U/L (46-116); ALT/SGPT 27 U/L (7.0-40); AST/SGOT 25 U/L (<34); BILIRUBIN,TOTAL 0.5 MG/DL (0.3-1.2); BLOOD UREA NITROGEN 18 MG/DL (9-23); CALCIUM LEVEL 9.4 MG/DL (8.3-10.6); CARBON DIOXIDE LEVEL 32 MMOL/L (20-31); CHLORIDE LEVEL 106 MMOL/L (98-107); CHOLESTEROL LEVEL 161 MG/DL (<200); CHOLESTEROL RISK RATIO 2.53 (<5); CREATININE FOR GFR 0.76 MG/DL (0.55-1.30); GLOMERULAR FILTRATION RATE > 60.0 (>45); GLUCOSE, FASTING 101 MG/DL (74-106); HDL CHOLESTEROL 63.4 MG/DL (>40); LDL CHOLESTEROL 71.6 MG/DL (<100); NON-HDL-C 97.6 MG/DL; POTASSIUM SERUM 4.4 MMOL/L (3.5-5.1); SODIUM LEVEL 141 MMOL/L (136-145); TOTAL PROTEIN 6.7 G/DL (5.7-8.2); TRIGLYCERIDES LEVEL 130 MG/DL (<150)
== END ==
LOC: M LAB 09:09
PROVIDERS: ATTEND Physician Assistant Medical
DX: E78.9 Disorder of lipoprotein metabolism, unspecified (principal)

== ENCOUNTER → 2023-11-22 | Outpatient (REF) | payer MEDICARE, MEDICAID | LOC: M SFHCWAGY 10:33 | PROVIDERS: ATTEND Internal Medicine Infectious Disease | DX: A31.9 Mycobacterial infection, unspecified (principal) ==

== ENCOUNTER → 2024-01-10 | Outpatient (CLI) | payer MEDICARE, MEDICAID ==
[2024-01-10 11:59] LABS: ALBUMIN 3.9 G/DL (3.2-5.2); ALKALINE PHOSPHATASE 120 U/L (46-116); ALT/SGPT 30 U/L (7.0-40); AST/SGOT 25 U/L (<34); BILIRUBIN,TOTAL 0.5 MG/DL (0.3-1.2); BLOOD UREA NITROGEN 13 MG/DL (9-23); CALCIUM LEVEL 9.8 MG/DL (8.3-10.6); CARBON DIOXIDE LEVEL 29 MMOL/L (20-31); CHLORIDE LEVEL 103 MMOL/L (98-107); CHOLESTEROL LEVEL 174 MG/DL (<200); CHOLESTEROL RISK RATIO 2.91 (<5); CREATININE FOR GFR 0.91 MG/DL (0.55-1.30); GLOMERULAR FILTRATION RATE > 60.0 (>45); GLUCOSE, FASTING 106 MG/DL (74-106); HDL CHOLESTEROL 59.7 MG/DL (>40); IRON (FE) 63 UG/DL (50-170); LDL CHOLESTEROL 86.1 MG/DL (<100); NON-HDL-C 114.3 MG/DL; POTASSIUM SERUM 4.4 MMOL/L (3.5-5.1); SODIUM LEVEL 138 MMOL/L (136-145); TRIGLYCERIDES LEVEL 141 MG/DL (<150)
[2024-01-10 12:11] LABS: BASO % 0.3 % (0.0-1.0); EOS # 0.2 10^3/uL (0.0-0.5); EOS % 1.9 % (0.0-3.0); HEMATOCRIT 38.4 % (36.0-47.0); HEMOGLOBIN 12.2 g/dl (12.0-15.5); LYMPH # 1.3 10^3/uL (1.5-5.0); LYMPH % 13.3 % (24.0-44.0); MEAN CORPUSCULAR HEMOGLOBIN 27.7 pg (27.0-33.0); MEAN CORPUSCULAR HGB CONC 31.8 g/dl (32.0-36.5); MEAN CORPUSCULAR VOLUME 87.3 fl (80.0-96.0); MONO # 0.5 10^3/uL (0.0-0.8); MONO % 4.9 % (2.0-8.0); NEUTROPHILS # 7.6 10^3/uL (1.5-8.5); NEUTROPHILS % 79.3 % (36.0-66.0); WHITE BLOOD COUNT 9.6 10^3/uL (4.0-10.0)
[2024-01-10 12:15] LABS: HEMOGLOBIN A1c 5.6 % (4.0-6.0)
[2024-01-10 12:39] LABS: PLATELET COUNT, AUTOMATED 155 10^3/uL (150-450)
== END ==
LOC: M LAB 10:40
PROVIDERS: ATTEND Physician Assistant Medical
DX: D50.8 Other iron deficiency anemias (principal); E78.9 Disorder of lipoprotein metabolism, unspecified; Z13.1 Encounter for screening for diabetes mellitus

== ENCOUNTER → 2024-01-28 | Outpatient (CLI) | payer MEDICARE, MEDICAID | LOC: M WHC 10:00 | PROVIDERS: ATTEND Physician Assistant Medical | DX: Z12.31 Encounter for screening mammogram for malignant neoplasm of breast (principal); R92.323 Mammographic fibroglandular density, bilateral breasts ==

== ENCOUNTER 2024-03-30 06:46 | Day surgery (SDC) | payer MEDICARE, MEDICAID ==
[~2024-03-30] VITALS: Ht 160 cm; Wt 52.1 kg
[2024-03-30] MEDS ORDERED: propofoL 200 MG/20 ML VIAL As Ordered ONE (06:55)
[2024-03-30] MEDS ORDERED: LIDOCAINE 2% 100MG/5ML SDV (FOR ANES.) As Ordered ONE (06:55)
[2024-03-30] MEDS ORDERED: dexmedeTOMIDine (4MCG/ML)200MCG/50ML BTL (PRECEDEX) As Ordered ONE (06:55)
[2024-03-30 08:14] VITALS: TEMP 97.1
[2024-03-30 08:53] VITALS: BP 121/64; O2SAT 100
== END 2024-03-30 08:54 | disposition home or self-care (01) ==
LOC: M OPP 06:46
PROVIDERS: ATTEND Internal Medicine Gastroenterology
DX: D50.9 Iron deficiency anemia, unspecified (principal); K57.30 Diverticulosis of large intestine without perforation or abscess without bleeding; K64.8 Other hemorrhoids; K21.9 Gastro-esophageal reflux disease without esophagitis; J44.9 Chronic obstructive pulmonary disease, unspecified; Z85.3 Personal history of malignant neoplasm of breast; Z92.3 Personal history of irradiation; Z92.21 Personal history of antineoplastic chemotherapy; Z79.899 Other long term (current) drug therapy; Z79.51 Long term (current) use of inhaled steroids; Z79.82 Long term (current) use of aspirin; Z88.0 Allergy status to penicillin; Z90.2 Acquired absence of lung [part of]; Z90.89 Acquired absence of other organs; Z90.49 Acquired absence of other specified parts of digestive tract

== ENCOUNTER → 2024-06-05 | Outpatient (REF) | payer MEDICARE, MEDICAID | LOC: M SFHCPLAZ 16:24 | PROVIDERS: ATTEND Internal Medicine Infectious Disease | DX: A31.9 Mycobacterial infection, unspecified (principal) ==

== ENCOUNTER → 2024-06-05 | Outpatient (CLI) | payer MEDICARE, MEDICAID ==
[2024-06-05 14:46] LABS: BASO % 0.3 % (0.0-1.0); EOS # 0.1 10^3/uL (0.0-0.5); HEMATOCRIT 38.6 % (36.0-47.0); HEMOGLOBIN 12.2 g/dl (12.0-15.5); LYMPH # 1.2 10^3/uL (1.5-5.0); LYMPH % 16.7 % (24.0-44.0); MEAN CORPUSCULAR HEMOGLOBIN 27.9 pg (27.0-33.0); MEAN CORPUSCULAR HGB CONC 31.6 g/dl (32.0-36.5); MEAN CORPUSCULAR VOLUME 88.1 fl (80.0-96.0); MONO # 0.4 10^3/uL (0.0-0.8); MONO % 5.7 % (2.0-8.0); NEUTROPHILS # 5.4 10^3/uL (1.5-8.5); PLATELET COUNT, AUTOMATED 163 10^3/uL (150-450); RED BLOOD COUNT 4.38 10^6/uL (4.00-5.40); WHITE BLOOD COUNT 7.1 10^3/uL (4.0-10.0)
[2024-06-05 14:51] LABS: ERYTHROCYTE SEDIMENTATION RATE 78 mm/hr (0-30)
[2024-06-05 15:53] LABS: C REACTIVE PROTEIN QUANTITATIV < 0.50 MG/DL (<1.0)
[2024-06-05 15:54] LABS: ALBUMIN 3.6 G/DL (3.2-5.2); ALKALINE PHOSPHATASE 106 U/L (35-104); ALT/SGPT 22 U/L (7.0-40); AST/SGOT 22 U/L (<34); BILIRUBIN,TOTAL 0.4 MG/DL (0.3-1.2); BLOOD UREA NITROGEN 18 MG/DL (9-23); CALCIUM LEVEL 9.5 MG/DL (8.3-10.6); CARBON DIOXIDE LEVEL 29 MMOL/L (20-31); CHLORIDE LEVEL 102 MMOL/L (98-107); CREATININE FOR GFR 0.78 MG/DL (0.55-1.30); GLOMERULAR FILTRATION RATE > 60.0 (>45); GLUCOSE, FASTING 141 MG/DL (74-106); POTASSIUM SERUM 4.1 MMOL/L (3.5-5.1); SODIUM LEVEL 140 MMOL/L (136-145); TOTAL PROTEIN 7.4 G/DL (5.7-8.2)
== END ==
LOC: M RAD 14:15
PROVIDERS: ATTEND Internal Medicine Infectious Disease
DX: A31.9 Mycobacterial infection, unspecified (principal); R91.8 Other nonspecific abnormal finding of lung field; I70.0 Atherosclerosis of aorta; I25.10 Atherosclerotic heart disease of native coronary artery without angina pectoris

== ENCOUNTER → 2024-11-10 | Outpatient (CLI) | payer MEDICARE, MEDICAID | LOC: M RAD 08:29 | PROVIDERS: ATTEND Internal Medicine Infectious Disease | DX: A31.8 Other mycobacterial infections (principal); Z53.9 Procedure and treatment not carried out, unspecified reason ==

== ENCOUNTER → 2024-11-22 | Outpatient (CLI) | payer MEDICARE, MEDICAID | LOC: M RAD 16:16 | PROVIDERS: ATTEND Internal Medicine Infectious Disease | DX: A31.8 Other mycobacterial infections (principal) ==

== ENCOUNTER → 2025-01-03 | Outpatient (CLI) | payer MEDICARE, MEDICAID ==
[2025-01-03 11:04] LABS: BASO # 0.0 10^3/uL (0.0-0.2); BASO % 0.4 % (0.0-1.0); EOS # 0.1 10^3/uL (0.0-0.5); EOS % 1.4 % (0.0-3.0); LYMPH # 1.2 10^3/uL (1.5-5.0); LYMPH % 12.4 % (24.0-44.0); MONO # 0.7 10^3/uL (0.0-0.8); MONO % 7.8 % (2.0-8.0); NEUTROPHILS # 7.4 10^3/uL (1.5-8.5); NEUTROPHILS % 77.6 % (36.0-66.0); PLATELET COUNT, AUTOMATED 186 10^3/uL (150-450)
[2025-01-03 11:22] LABS: ESTIMATED AVERAGE GLUCOSE 120.0 MG/DL (60-110)
[2025-01-03 11:38] LABS: ALT/SGPT 19.0 U/L (7.0-40); AST/SGOT 22.0 U/L (<34); CALCIUM LEVEL 10.0 MG/DL (8.3-10.6); CARBON DIOXIDE LEVEL 31.0 MMOL/L (20-31); CHLORIDE LEVEL 101.0 MMOL/L (98-107); CHOLESTEROL LEVEL 141.0 MG/DL (<200); CHOLESTEROL RISK RATIO 2.51 (<5); CPK CREATINE PHOSPHOKINASE 97.0 U/L (34-145); CREATININE FOR GFR 0.76 MG/DL (0.55-1.30); GLOMERULAR FILTRATION RATE 84.8 (>45); IRON (FE) 47.0 UG/DL (50-170); LDL CHOLESTEROL 65.0 MG/DL (<100); NON-HDL-C 85.0 MG/DL; POTASSIUM SERUM 5.1 MMOL/L (3.5-5.1); SODIUM LEVEL 141.0 MMOL/L (136-145); TRIGLYCERIDES LEVEL 100.0 MG/DL (<150)
== END ==
LOC: M PLALAB 09:17
PROVIDERS: ATTEND Physician Assistant Medical
DX: E78.9 Disorder of lipoprotein metabolism, unspecified (principal); Z13.1 Encounter for screening for diabetes mellitus; J30.9 Allergic rhinitis, unspecified; D50.8 Other iron deficiency anemias

== ENCOUNTER → 2025-02-21 | Outpatient (CLI) | payer MEDICARE, MEDICAID ==
[~2025-02-21] MED LIST changes: -ROSU10TA61 PO; +ROSU10TA90 PO
== END ==
LOC: M PLAIMG 06:59
PROVIDERS: ATTEND Internal Medicine Pulmonary Disease
DX: R91.8 Other nonspecific abnormal finding of lung field (principal); I70.0 Atherosclerosis of aorta; A41.9 Sepsis, unspecified organism; A31.9 Mycobacterial infection, unspecified

== ENCOUNTER → 2025-02-21 | Outpatient (CLI) | payer MEDICARE, MEDICAID ==
[2025-02-21 11:39] LABS: C REACTIVE PROTEIN QUANTITATIV 2.48 MG/DL (<1.0)
[2025-02-21 11:40] LABS: ALT/SGPT 17 U/L (7.0-40); AST/SGOT 23 U/L (<34); BASO # 0.0 10^3/uL (0.0-0.2); BASO % 0.4 % (0.0-1.0); CALCIUM LEVEL 9.1 MG/DL (8.3-10.6); CARBON DIOXIDE LEVEL 28 MMOL/L (20-31); CHLORIDE LEVEL 101 MMOL/L (98-107); CREATININE FOR GFR 0.78 MG/DL (0.55-1.30); EOS # 0.2 10^3/uL (0.0-0.5); EOS % 2.3 % (0.0-3.0); GLOMERULAR FILTRATION RATE 82.2 (>45); LYMPH # 1.0 10^3/uL (1.5-5.0); LYMPH % 12.7 % (24.0-44.0); MONO # 0.7 10^3/uL (0.0-0.8); MONO % 8.9 % (2.0-8.0); NEUTROPHILS # 6.0 10^3/uL (1.5-8.5); NEUTROPHILS % 75.3 % (36.0-66.0); PLATELET COUNT, AUTOMATED 213 10^3/uL (150-450); POTASSIUM SERUM 4.1 MMOL/L (3.5-5.1); SODIUM LEVEL 140 MMOL/L (136-145)
== END ==
LOC: M PLALAB 07:01
PROVIDERS: ATTEND Internal Medicine Infectious Disease
DX: A31.9 Mycobacterial infection, unspecified (principal)

== ENCOUNTER → 2025-02-21 | Outpatient (REF) | payer MEDICARE, MEDICAID | LOC: M SFHCPLAZ 10:55 | PROVIDERS: ATTEND Internal Medicine Infectious Disease | DX: A31.9 Mycobacterial infection, unspecified (principal) ==

== ENCOUNTER → 2025-02-22 | Outpatient (CLI) | payer MEDICARE, MEDICAID | LOC: M WHC 07:56 | PROVIDERS: ATTEND Physician Assistant Medical | DX: Z12.31 Encounter for screening mammogram for malignant neoplasm of breast (principal); M81.0 Age-related osteoporosis without current pathological fracture; M85.88 Other specified disorders of bone density and structure, other site ==

== ENCOUNTER → 2025-04-03 | Outpatient (CLI) | payer MEDICARE, MEDICAID ==
[2025-04-03 12:23] LABS: BASO # 0.0 10^3/uL (0.0-0.2); BASO % 0.2 % (0.0-1.0); EOS # 0.3 10^3/uL (0.0-0.5); EOS % 3.6 % (0.0-3.0); LYMPH # 1.0 10^3/uL (1.5-5.0); LYMPH % 12.4 % (24.0-44.0); MONO # 0.8 10^3/uL (0.0-0.8); MONO % 10.2 % (2.0-8.0); NEUTROPHILS # 5.9 10^3/uL (1.5-8.5); NEUTROPHILS % 73.0 % (36.0-66.0); PLATELET COUNT, AUTOMATED 262 10^3/uL (150-450)
[2025-04-03 12:56] LABS: C REACTIVE PROTEIN QUANTITATIV 1.79 MG/DL (<1.0)
[2025-04-03 12:59] LABS: ALT/SGPT 17 U/L (7.0-40); AST/SGOT 23 U/L (<34); CALCIUM LEVEL 9.4 MG/DL (8.3-10.6); CARBON DIOXIDE LEVEL 29 MMOL/L (20-31); CHLORIDE LEVEL 101 MMOL/L (98-107); CREATININE FOR GFR 0.77 MG/DL (0.55-1.30); GLOMERULAR FILTRATION RATE 83.5 (>45); IMMUNOGLOBULIN E 6.5 IU/ML (0-378); POTASSIUM SERUM 5.4 MMOL/L (3.5-5.1); SODIUM LEVEL 139 MMOL/L (136-145)
== END ==
LOC: M PLALAB 09:09
PROVIDERS: ATTEND Internal Medicine Infectious Disease
DX: A31.9 Mycobacterial infection, unspecified (principal)